=== PATIENT | male | born 1945 | race Caucasian/White ===

== ENCOUNTER 2017-12-31 22:19 | Inpatient (IN) | payer MEDICARE, OTHER ==
[~2017-12-31] VITALS: Ht 165.1 cm; Wt 57.2 kg
[2017-12-31] MEDS ORDERED: AZITHROMYCIN 250 MG TAB PO STA (22:38)
[2017-12-31] MEDS ORDERED: CEFTRIAXONE SOD INJ 1 GM ADDVIAL IV STA (22:38)
[2017-12-31] MEDS ORDERED: METHYLPREDNISOLONE 125 MG VIAL IV STA (22:38)
--- NOTE | 2017-12-31 22:42 | EMERGENCY ROOM VISIT NOTE ---
History Report prepared by Cathleen: Jose Michael Under the Supervision of: Dr. Harley Vargas M.D. First contact with patient: 22:27 Chief Complaint: RESPIRATORY PROBLEMS Stated Complaint: COPD History of Present Illness The patient is a 72 year old white male with a past medical history of COPD, bronchitis and HTN who presents to the ED with a cc of worsening shortness of breath beginning two hours ago. The patient states that he is currently on Levaquin and Prednisone for bronchitis, which he started two days ago. He states that his shortness of breath worsened over the last two days, The patient states that he used his inhaler for his symptoms without any relief. Positive productive cough with yellow mucous, influenza shot, diarrhea. Negative history of blood clots, chest pain, fevers, LE edema, nausea, vomiting. The patient states that he had smoked for 45 years but ceased smoking 4 years ago. He reports that he wears 2L of oxygen at night. Source of History: patient Onset: two hours ago Position: other (global) Quality: other (global) Timing: worsening Modifying Factors (Relieving): other (inhaler) Associated Symptoms: + cough, + diarrhea, No fevers, No chest pain, No nausea, No vomiting Review of Systems See HPI for pertinent positives and negatives. A total of ten systems were reviewed and were otherwise negative. Past Medical & Surgical Medical Problems: (1) Bronchitis (2) COPD (chronic obstructive pulmonary disease) (3) HTN (hypertension) (4) Respiratory failure, acute Family History Patient reports no known family medical history. Social History Smoking Status: Former Smoker Housing Status: lives with significant other Occupation Status: retired Current/Historical Medications Scheduled Albuterol Sulfate (Albuterol Sulfate), 3 ML NEB Q6 Aspirin (Aspirin Ec), 81 MG PO DAILY Azithromycin (Zithromax), 500 MG PO 3XWK Bisoprolol Fumarate (Zebeta), 2.5 MG PO DAILY Brimonidine Tartrate Oph (Alphagan P Oph), 1 DROP OPR BID Budesonide (Inhalation) (Pulmicort Respules 0.5MG/2ML), 2 ML INH DAILY Budesonide/Formoterol Fumarate (Symbicort 160-4.5 Mcg/Act), 2 PUFFS INH BID Cholecalciferol (Vitamin D3), 4,000 UNITS PO DAILY Clotrimazole (Mycelex), 10 MG MT DAILY Dorzolamide Hcl (Trusopt Oph), 1 DROPS OP BID Famotidine-Calcium Carbonate-M (Pepcid Complete), 1 TAB PO DAILY Latanoprost (Xalatan 0.005% Oph Hanane), 1 DROPS OP HS Levofloxacin (Levaquin), 250 MG PO DAILY Losartan Potassium (Cozaar), 25 MG PO BID Pancrelipase (Lipase-Protease- (Pancreaze), 2 CAP PO AC Pantoprazole (Protonix), 40 MG PO DAILY Prednisone (Prednisone), 20 MG PO DAILY/UD Pseudoephedrine-Guaifenesin (Mucinex D), 1 TAB PO DAILY Tamsulosin Hcl (Flomax), 0.4 MG PO DAILY Tiotropium Lipan (Spiriva Respimat), 2 PUFF INH DAILY Scheduled PRN Albuterol Sulfate (Proair Respiclick), 2 PUFFS INH Q4H PRN for SOB/Wheezing Allergies Coded Allergies: Sulfa Antibiotics (Verified Allergy, Intermediate, Rash ("SULFA"), 01/01/18 ) Lactose. (Verified Allergy, Unknown, Lactose intolerant., 01/01/18) Physical Exam Vital Signs Date Time Temp Pulse Resp B/P (MAP) Pulse Ox O2 Delivery O2 Flow Rate FiO2 01/01/18 00:30 250 01/01/18 00:20 115 01/01/18 00:18 118 18 143/85 98 BiPAP 40 01/01/18 00:10 121 98 40 12/31/17 23:39 117 100 40 12/31/17 23:17 110 28 155/92 98 Nebulizer 12/31/17 23:05 111 12/31/17 22:43 112 22 96 Nasal Cannula 4.0 12/31/17 22:35 Nasal Cannula 3.0 12/31/17 22:33 96 Nasal Cannula 3.0 12/31/17 22:31 97 Nasal Cannula 3.0 12/31/17 22:23 36.8 120 28 175/115 96 Nasal Cannula 3.0 Physical Exam GENERAL: Thin appearing, awake, alert, well-appearing, in distress HENT: Normocephalic, atraumatic. EYES: Normal conjunctiva. Sclera non-icteric. NECK: Supple. No nuchal rigidity. FROM. RESPIRATORY: CTAB, shallow breaths, no rhonchi, trace expiratory wheezes, no crackles, tachypneic CARDIAC: tachycardic, regular rhythm, no MRG ABDOMEN: Soft, NTND, BS+ MSK: No chest wall TTP, no LE edema NEURO: GCS 15, CN 2-12 intact, moves all 4s on command SKIN: No rash or jaundice noted. Medical Decision & Procedures ER Provider Diagnostic Interpretation: X-ray: Per my interpretation, radiologist review. CHEST ONE VIEW PORTABLE CLINICAL HISTORY: 72 years-old Male presenting with EVALUATE RESPIRATORY DISTRESS.DYSPNEA. TECHNIQUE: Portable upright AP view of the chest was obtained. COMPARISON: None. FINDINGS: Atherosclerosis of the aortic arch. Cardiac silhouette normal in size. Lungs hyperinflated. Opacity in the right paratracheal region. No pleural effusion or pneumothorax. Degenerative changes of the thoracic spine. IMPRESSION: 1. Right paratracheal opacity, indeterminate but suspicious for a pulmonary mass. Further evaluation with PA and lateral views versus chest CT to be considered. 2. Hyperinflated lungs could suggest underlying emphysema. The report will be called/faxed according to standard departmental protocol. Electronically signed by: Sahil Randolph M.D. 12/31/2017 11:02 PM Dictated Date/Time: 12/31/2017 11:00 PM BEDSIDE ULTRASOUND: Good Squeeze. No pericardial effusion. IVC collapsible with respirations. Laboratory Results 12/31/17 22:45 Red Blood Count 4.27, Mean Corpuscular Volume 92.7, Mean Corpuscular Hemoglobin 32.1, Mean Corpuscular Hemoglobin Concent 34.6, Mean Platelet Volume 8.9, Neutrophils (%) (Auto) 93.5, Lymphocytes (%) (Auto) 1.7, Monocytes (%) (Auto) 3.9, Eosinophils (%) (Auto) 0.1, Basophils (%) (Auto) 0.3, Neutrophils # (Auto) 9.71, Lymphocytes # (Auto) 0.18, Monocytes # (Auto) 0.40, Eosinophils # (Auto) 0.01, Basophils # (Auto) 0.03 12/31/17 22:45 Test 12/31/17 22:41 12/31/17 22:45 12/31/17 22:50 12/31/17 22:54 Influenza Type A Antigen Neg for Influ A (NEG) Influenza Type B Antigen Neg for Influ B (NEG) White Blood Count 10.38 K/uL (4.8-10.8) Red Blood Count 4.27 M/uL (4.7-6.1) Hemoglobin 13.7 g/dL (14.0-18.0) Hematocrit 39.6 % (42-52) Mean Corpuscular Volume 92.7 fL (80-100) Mean Corpuscular Hemoglobin 32.1 pg (25-34) Mean Corpuscular Hemoglobin Concent 34.6 g/dl (32-36) Platelet Count 394 K/uL (130-400) Mean Platelet Volume 8.9 fL (7.4-10.4) Neutrophils (%) (Auto) 93.5 % Lymphocytes (%) (Auto) 1.7 % Monocytes (%) (Auto) 3.9 % Eosinophils (%) (Auto) 0.1 % Basophils (%) (Auto) 0.3 % Neutrophils # (Auto) 9.71 K/uL (1.4-6.5) Lymphocytes # (Auto) 0.18 K/uL (1.2-3.4) Monocytes # (Auto) 0.40 K/uL (0.11-0.59) Eosinophils # (Auto) 0.01 K/uL (0-0.5) Basophils # (Auto) 0.03 K/uL (0-0.2) RDW Standard Deviation 44.7 fL (36.4-46.3) RDW Coefficient of Variation 13.2 % (11.5-14.5) Immature Granulocyte % (Auto) 0.5 % Immature Granulocyte # (Auto) 0.05 K/uL (0.00-0.02) Nucleated RBC Absolute Count (auto) 0.00 K/uL (0-0) Nucleated Red Blood Cells % 0.0 % Absolute Reticulocyte Count 0.05 10^6/uL (0.02-0.10) Percent Reticulocyte Count 1.3 % (0.5-2.0) Prothrombin Time 10.4 SECONDS (9.0-12.0) Prothromb Time International Ratio 1.0 (0.9-1.1) Activated Partial Thromboplast Time 27.2 SECONDS (21.0-31.0) Partial Thromboplastin Ratio 1.0 Venous Blood pH 7.39 (7.36-7.41) Anion Gap 10.0 mmol/L (3-11) Est Creatinine Clear Calc Drug Dose 36.9 ml/min Estimated GFR () 60.1 Estimated GFR (Non- 51.8 BUN/Creatinine Ratio 24.0 (10-20) Calcium Level 9.3 mg/dl (8.5-10.1) Total Bilirubin 0.2 mg/dl (0.2-1) Aspartate Amino Transf (AST/SGOT) 37 U/L (15-37) Alanine Aminotransferase (ALT/SGPT) 41 U/L (12-78) Alkaline Phosphatase 75 U/L (45-117) Total Creatine Kinase 178 U/L (39-308) Pro-B-Type Natriuretic Peptide 1164 pg/ml (0-900) Total Protein 7.1 gm/dl (6.4-8.2) Albumin 3.6 gm/dl (3.4-5.0) Globulin 3.5 gm/dl (2.5-4.0) Albumin/Globulin Ratio 1.0 (0.9-2) Bedside Lactic Acid Venous 4.44 mmol/L (0.90-1.70) Bedside Troponin I 0.040 ng/ml (0-0.045) Test 01/01/18 00:31 Arterial Blood pH 7.41 (7.35-7.45) Arterial Blood Partial Pressure CO2 39 mmHg (35-46) Arterial Blood Partial Pressure O2 208 mm/Hg (80-95) Arterial Blood HCO3 24 mmol/L (19-24) Arterial Blood Oxygen Saturation 99.6 % (90-95) Arterial Blood Base Excess -0.1 mEq/L (-9-1.8) Arterial Blood Gas Delivery 40% FiO2 Albino Test POS (POS) Lactic Acid Level 4.3 mmol/L (0.4-2.0) Magnesium Level 1.7 mg/dl (1.8-2.4) Iron Level 71 mcg/dl (35-175) Total Iron Binding Capacity 312 mcg/dl (250-450) Transferrin 236 mg/dl (200-360) Transferrin % Saturation 21 % (20-50) Ferritin 105.8 ng/ml (8.0-388.0) Vitamin B12 Level 439 pg/mL (211-911) Folate 7.16 ng/mL (>5.38) Thyroid Stimulating Hormone (TSH) 0.149 uIu/ml (0.300-4.500) Laboratory results reviewed by me Medications Administered Medications (Trade) Dose Ordered Sig/Luis Miguel Route Start Time Stop Time Status Last Admin Dose Admin Albuterol/ Ipratropium (Duoneb) 12 ml ONE ONCE INH 12/31/17 22:45 12/31/17 22:46 DC 12/31/17 22:43 12 ML Azithromycin (Zithromax Tab) 500 mg NOW STAT PO 12/31/17 22:38 12/31/17 22:40 DC 12/31/17 23:02 500 MG Ceftriaxone Sodium (Rocephin Inj) 1 gm NOW STAT IV 12/31/17 22:38 12/31/17 22:40 DC 12/31/17 23:02 1 GM Methylprednisolone Sodium Succinate (Solu-Medrol IV) 125 mg NOW STAT IV 12/31/17 22:38 12/31/17 22:40 DC 12/31/17 23:00 125 MG Sodium Chloride 1,000 ml @ 999 mls/hr Q1H1M STAT IV 12/31/17 22:55 12/31/17 23:55 DC 12/31/17 23:02 999 MLS/HR Lorazepam (Ativan Inj) 2 mg STK-MED ONCE .ROUTE 01/01/18 00:06 01/01/18 00:07 DC 01/01/18 00:12 2 MG Sodium Chloride 1,000 ml @ 999 mls/hr Q1H1M IV 01/01/18 00:30 01/31/18 00:29 01/01/18 00:30 999 MLS/HR Magnesium Sulfate (Magnesium Sulfate) 1 gm NOW STAT IV 01/01/18 00:27 01/01/18 00:28 DC 01/01/18 00:47 1 GM Diltiazem HCl (Cardizem Inj) 25 mg STK-MED ONCE .ROUTE 01/01/18 00:32 01/01/18 00:33 DC 01/01/18 00:50 10 MG ECG Per My Interpretation Indication: SOB/dyspnea Rate (beats per minute): 111 Rhythm: sinus tachycardia Findings: other (Normal intervals, normal axis, some motion artifact, No overt STS changes or TWI) ED Course 2231: The patient was evaluated in room A10. A complete history and physical exam was performed. 2347: I reevaluated the patient and performed a bedside ultrasound. See diagnostic interpretation for further evaluation. 0001: I discussed the patients case with Dr. Aponte, [facility] Hospitalist. He understands the patients condition and agrees to accept the patient. The patient will be further evaluated. 0008: I reevaluated the patient and he is still experiencing shortness of breath. I will order Ativan to calm him down and we will try another BiPAP. 0017: I reevaluated the patient and he is starting BiPAP. Medical Decision Prior records/ancillary studies reviewed. Triage Nursing notes reviewed. The patient is a 72 year old white male with a past medical history of COPD, bronchitis and HTN who presents to the ED with a cc of worsening shortness of breath beginning two hours ago. The patient's history and presentation were concerning for etiologies such as infections, reactive airway disease, pneumonia, pneumothorax, COPD, CHF, cardiac ischemia, pulmonary embolism, musculoskeletal, gastrointestinal, as well as others were entertained. Patient was seen and evaluated the bedside. Patient is a prior history of COPD and states that he became short of breath while at the hockey game today. Patient denies any prior history of DVT or PE. Patient did quit smoking 4 years prior but did have a 45 year smoking history. Was recently started on Levaquin and steroids. Patient does have shallow breath sounds and mild end expiratory wheezes. He does have pretty tight. Patient was treated with duo nebs, Solu-Medrol, azithromycin, and fluids. Also did attempt to trial the patient on BiPAP however the patient did not tolerate this well. Patient did have a mild laxative for. Patient's chest x-ray was clear with the exception of a possible paratracheal mass. He CT PE protocol was ordered after bedside ultrasound was completed. Patient appeared to have good sweeties and his IVC did show some respiratory variation. No evidence of any RV septal bowing into the LV. I did discuss with the patient that he may require a breathing tube as the patient had not tolerated the BiPAP prior and the patient was not improving. The patient was willing to try a second time. The patient was given some IV Ativan and then was able to tolerate the BiPAP without issue. I did order some additional mag and fluids. I did speak with the hospitalist the patient was admitted for further evaluation and treatment. Medication Reconcilliation Current Medication List: was personally reviewed by me Blood Pressure Screening Patient's blood pressure: Elevated blood pressure Referred to Hospitalist Consults Time Called: [id number] Consulting Physician: Connor Luna Hospitalist Returned Call: [phone] I discussed the patients case with [facility]. He understands the patients condition and agrees to accept the patient. The patient will be further evaluated. Impression Primary Impression: Acute respiratory failure with hypoxia Additional Impression: COPD exacerbation Critical Care I have personally spent greater than 55 minutes of critical care time in the direct management of this patient. This includes bedside care, interpretation of diagnostic studies, and testing, discussion with consultants, patient, and family members, and other required patient management activities. This 55 minutes is in excess of all separately billable procedures. Scribe Attestation The scribe's documentation has been prepared under my direction and personally reviewed by me in its entirety. I confirm that the note above accurately reflects all work, treatment, procedures, and medical decision making performed by me. Departure Information Dispostion Being Evaluated By Hospitalist Referrals Charles Pitt M.D. (PCP) Patient Instructions My [facility] Problem Qualifiers
[2017-12-31 22:43] VITALS: PULSE 112; O2SAT 96
[2017-12-31] MEDS ORDERED: ALBUT/IPRATROP 3MG/0.5MG NEB 3 ML VIAL INH ONE (22:45)
[2017-12-31] MEDS ORDERED: SODIUM CHLORIDE 0.9% 1000ML 1,000 ML IV STA (22:55)
--- NOTE | 2017-12-31 23:03 | DIAGNOSTIC IMAGING REPORT ---
CHEST ONE VIEW PORTABLE CLINICAL HISTORY: 72 years-old Male presenting with EVALUATE RESPIRATORY DISTRESS.DYSPNEA. TECHNIQUE: Portable upright AP view of the chest was obtained. COMPARISON: None. FINDINGS: Atherosclerosis of the aortic arch. Cardiac silhouette normal in size. Lungs hyperinflated. Opacity in the right paratracheal region. No pleural effusion or pneumothorax. Degenerative changes of the thoracic spine. IMPRESSION: 1. Right paratracheal opacity, indeterminate but suspicious for a pulmonary mass. Further evaluation with PA and lateral views versus chest CT to be considered. 2. Hyperinflated lungs could suggest underlying emphysema. The report will be called/faxed according to standard departmental protocol. Electronically signed by: Sahil Randolph M.D. 12/31/2017 11:02 PM Dictated Date/Time: 12/31/2017 11:00 PM
[2017-12-31 23:06] LABS: BASO % 0.3 %; BASO ABS # 0.03 K/uL (0-0.2); EOS % 0.1 %; EOS ABS # 0.01 K/uL (0-0.5); HEMATOCRIT 39.6 % (42-52); HEMOGLOBIN 13.7 g/dL (14.0-18.0); IG# 0.05 K/uL (0.00-0.02); LYMPH % 1.7 %; LYMPH ABS # 0.18 K/uL (1.2-3.4); MEAN CELL VOLUME 92.7 fL (80-100); MEAN CORPUSCULAR HEMOGLOBIN 32.1 pg (25-34); MEAN CORPUSCULAR HGB CONC 34.6 g/dl (32-36); MEAN PLATELET VOLUME 8.9 fL (7.4-10.4); MONO % 3.9 %; NEUT % 93.5 %; NEUT ABS # 9.71 K/uL (1.4-6.5); PLATELET COUNT 394 K/uL (130-400); RED CELL DISTRIBUTION WIDTH CV 13.2 % (11.5-14.5); RED CELL DISTRIBUTION WIDTH SD 44.7 fL (36.4-46.3); WHITE BLOOD COUNT 10.38 K/uL (4.8-10.8)
[2017-12-31 23:15] LABS: PTT PATIENT 27.2 SECONDS (21.0-31.0)
[2017-12-31 23:23] LABS: ALBUMIN 3.6 gm/dl (3.4-5.0); CALCIUM 9.3 mg/dl (8.5-10.1); CREATININE 1.34 mg/dl (0.60-1.40); POTASSIUM 4.4 mmol/L (3.5-5.1)
[2017-12-31 23:27] LABS: TOTAL PROTEIN 7.1 gm/dl (6.4-8.2)
[2017-12-31 23:30] LABS: INFLUENZA B ANTIGEN Neg for Influ B (NEG)
[2017-12-31 23:39] VITALS: PULSE 117; O2SAT 100
[2017-12-31] MEDS ORDERED: PATIENT'S ALLERGY INFO NEEDS ENTERED STA (23:57)
[2018-01-01] VITALS (21 sets, daily range): BP systolic 121–142; BP diastolic 66–88; PULSE 77–121; TEMP 36.4–36.5; O2SAT 93–100; BMI 20.8
[2018-01-01] MEDS ORDERED: RAPID SEQUENCE INDUCTION BAG ONE
[2018-01-01] MEDS ORDERED: OPTIRAY 320 IV PRN
[2018-01-01] MEDS ORDERED: LORAZEPAM 2 MG/ML 1 ML VIAL IV STA (00:06)
[2018-01-01] MEDS ORDERED: LORAZEPAM 2 MG/ML 1 ML VIAL ONE (00:06)
[2018-01-01] MEDS ORDERED: ASPI81TA28 PO (00:27)
[2018-01-01] MEDS ORDERED: MAGNESIUM SULFATE 1GM / D5W 1 GM BAG IV STA (00:27)
[2018-01-01] MEDS ORDERED: LOSA1TAB PO (00:28)
[2018-01-01] MEDS ORDERED: DILTIAZEM HCL 5 MG/ML 5 ML VIAL IV STA (00:29)
[2018-01-01] MEDS ORDERED: SODIUM CHLORIDE 0.9% 1000ML 1,000 ML IV SCH ×4 (00:30→04:45)
[2018-01-01] MEDS ORDERED: BISO5TAB3 PO (00:31)
[2018-01-01] MEDS ORDERED: DILTIAZEM HCL 5 MG/ML 5 ML VIAL ONE (00:32)
[2018-01-01] MEDS ORDERED: PANCCAP2 PO (00:34)
[2018-01-01] MEDS ORDERED: PANT40TA PO (00:35)
[2018-01-01] MEDS ORDERED: FAMOCHW27 PO (00:36)
[2018-01-01] MEDS ORDERED: CHOL2000 PO (00:37)
[2018-01-01] MEDS ORDERED: PSEU60TA80 PO (00:40)
[2018-01-01 00:41] LABS: RETIC COUNT % 1.3 % (0.5-2.0)
[2018-01-01] MEDS ORDERED: SYMIN INH (00:42)
[2018-01-01] MEDS ORDERED: TIOT1AER2 INH (00:44)
[2018-01-01] MEDS ORDERED: ALBU1.257 NEB (00:46)
[2018-01-01] MEDS ORDERED: PLMINS INH (00:49)
[2018-01-01] MEDS ORDERED: ALBU18002 INH (00:50)
[2018-01-01] MEDS ORDERED: TAMS0.4C38 PO (00:51)
[2018-01-01] MEDS ORDERED: CLOT10TR2 MT (00:52)
[2018-01-01] MEDS ORDERED: LATA0.5S OP (00:53)
[2018-01-01] MEDS ORDERED: DORZ2SOL17 OP (00:55)
[2018-01-01] MEDS ORDERED: AMPICILLIN/SULBACTAM SOD INJ 3,000 MG in SODIUM CHLORIDE 0.9% 100ML 100 ML IV STA (00:56)
[2018-01-01] MEDS ORDERED: BRIM0.15 OPR (00:57)
[2018-01-01] MEDS ORDERED: HEPARIN 25000 UNIT/500 ML D5W ONE (00:59)
[2018-01-01] MEDS ORDERED: METOPROLOL TARTRATE 1 MG/ML VIAL IV STA (00:59)
[2018-01-01] MEDS ORDERED: AZIT500T PO (01:01)
[2018-01-01] MEDS ORDERED: INSULIN ASPART 100 UNITS/ML 3 ML PEN SC ONE (01:12)
[2018-01-01] MEDS ORDERED: NITROGLYCERIN 0.4 MG SL PER TAB CHARGE SL PRN (01:15)
[2018-01-01] MEDS ORDERED: GLUCAGON FOR INJ 1 MG VIAL SQ PRN (01:15)
[2018-01-01] MEDS ORDERED: LEVALBUTEROL/IPRATROPIUM NEB INH PRN (01:15)
[2018-01-01] MEDS ORDERED: GLUCOSE 10 TABS/TUBE PO PRN (01:15)
[2018-01-01] MEDS ORDERED: DIGOXIN INJ 500 MCG/2 ML AMP ONE (01:15)
[2018-01-01] MEDS ORDERED: DEXTROSE 50% 50 ML SYR IV PRN (01:15)
[2018-01-01] MEDS ORDERED: DIGOXIN IV 250 MCG in SYRINGE 9 ML IV ONE (01:15)
[2018-01-01] MEDS ORDERED: GLUCOSE 40% GEL 15 GM TUBE PO PRN (01:15)
[2018-01-01] MEDS ORDERED: TRAMADOL HCL 50 MG TAB PO PRN (01:15)
[2018-01-01] MEDS ORDERED: PROCHLORPERAZINE INJ 5 MG in SYRINGE 4 ML IV PRN (01:15)
[2018-01-01] MEDS ORDERED: ACETAMINOPHEN 325 MG TAB PO PRN (01:15)
[2018-01-01] MEDS ORDERED: LEVO-17 PO (01:21)
[2018-01-01] MEDS ORDERED: PRED20TA PO (01:24)
[2018-01-01] MEDS ORDERED: SODIUM CHLORIDE 0.9% 1000ML 1,000 ML IV STA (01:34)
[2018-01-01] MEDS ORDERED: DOXYCYCLINE IV 100 MG in DEXTROSE 5% 100ML 100 ML IV ONE (01:41)
[2018-01-01] MEDS ORDERED: PIPERACILLIN/TAZOBACTAM 4.5 GM/100ML D5W IV STA (01:41)
[2018-01-01] MEDS ORDERED: ICU PROTOCOL FOR HYPERGLYCEMIA PRN (02:00)
[2018-01-01] MEDS ORDERED: LEVALBUTEROL/IPRATROPIUM NEB INH SCH (03:00)
[2018-01-01] MEDS: LORAZEPAM 2 MG/ML 1 ML VIAL IV PRN ×2 (03:15→17:12)
[2018-01-01] MEDS ORDERED: INSULIN GLARGINE SOLOSTAR 100 UNITS/ML 3 ML PEN SC ONE (04:30)
[2018-01-01 04:53] LABS: HEMATOCRIT 31.7 % (42-52); HEMOGLOBIN 10.9 g/dL (14.0-18.0); IG# 0.03 K/uL (0.00-0.02); LYMPH % 2.8 %; MEAN CELL VOLUME 93.5 fL (80-100); MEAN CORPUSCULAR HEMOGLOBIN 32.2 pg (25-34); MEAN CORPUSCULAR HGB CONC 34.4 g/dl (32-36); MEAN PLATELET VOLUME 8.4 fL (7.4-10.4); MONO % 2.8 %; NEUT ABS # 6.63 K/uL (1.4-6.5); PLATELET COUNT 245 K/uL (130-400); RED CELL DISTRIBUTION WIDTH CV 13.5 % (11.5-14.5); RED CELL DISTRIBUTION WIDTH SD 45.7 fL (36.4-46.3); WHITE BLOOD COUNT 7.06 K/uL (4.8-10.8)
[2018-01-01] MEDS ORDERED: IPRATROPIUM BROMIDE NEB SOLN 0.02% 2.5 ML VIAL INH PRN (05:00)
[2018-01-01] MEDS ORDERED: LEVALBUTEROL 1.25MG/0.5ML NEB INH PRN (05:00)
[2018-01-01] MEDS: DOXYCYCLINE IV 100 MG in DEXTROSE 5% 100ML 100 ML IV SCH ×2 (05:04→16:19)
[2018-01-01 05:17] LABS: CALCIUM 7.9 mg/dl (8.5-10.1); CREATININE 0.97 mg/dl (0.60-1.40)
[2018-01-01] MEDS ORDERED: SODIUM CHLORIDE 0.45% 1000ML 1,000 ML IV STA (05:20)
[2018-01-01 05:39] LABS: ALBUMIN 2.8 gm/dl (3.4-5.0)
[2018-01-01] MEDS ORDERED: RASPBERRY SYRUP 5 ML UDP PO ONE (05:45)
[2018-01-01] MEDS ORDERED: VANCOMYCIN HCL 125 MG/2.5ML SOLN PO ONE (05:45)
[2018-01-01 05:47] LABS: INFLUENZA A PCR Neg for Influ A (NEG); INFLUENZA B PCR Neg for Influ B (NEG)
[2018-01-01 06:22] LABS: PTT PATIENT 60.7 SECONDS (21.0-31.0)
[2018-01-01] MEDS ORDERED: PANCREAZE (LIPASE 10,500U) CAP PO SCH (06:45)
[2018-01-01] MEDS: INSULIN ASPART 100 UNITS/ML 3 ML PEN SC SCH ×3 (06:57→16:25)
[2018-01-01] MEDS: LEVALBUTEROL 1.25MG/0.5ML NEB INH SCH ×3 (07:30→18:57)
[2018-01-01] MEDS: IPRATROPIUM BROMIDE NEB SOLN 0.02% 2.5 ML VIAL INH SCH ×3 (07:30→18:57)
[2018-01-01] MEDS ORDERED: AMOXICILLIN/CLAVULANATE TAB 875 MG TAB PO SCH (08:00)
[2018-01-01] MEDS: PANTOprazole SOD 40 MG TAB PO SCH (08:04)
[2018-01-01] MEDS: TAMSULOSIN HCL 0.4 MG CAP PO SCH (08:04)
[2018-01-01] MEDS: ASPIRIN 81 MG ECTAB PO SCH (08:05)
[2018-01-01] MEDS: DORZOLAMIDE HCL 2% OPH SOLN 10 ML BTL OP SCH ×2 (08:05→21:00)
[2018-01-01] MEDS: BRIMONIDINE TARTRATE-P 0.15% 5 ML BTL OPR SCH ×2 (08:07→21:00)
[2018-01-01] MEDS: SODIUM CHLORIDE 0.9% 1000ML 1,000 ML IV SCH ×2 (08:07→11:27)
--- NOTE | 2018-01-01 08:12 | DIAGNOSTIC IMAGING REPORT ---
CT ANGIOGRAM OF THE CHEST CLINICAL HISTORY: Dyspnea. Tachycardia. COMPARISON STUDY: Chest x-ray dated 12/31/2017. TECHNIQUE: Following the IV administration of 98 cc of Optiray 320, CT angiogram of the chest was performed from the upper abdomen to the thoracic inlet utilizing the pulmonary embolus protocol. Images are reviewed in the axial, sagittal, and coronal planes. 3-D MIPS images are created and assessed. IV contrast was administered without complication. A dose lowering technique was utilized adhering to the principles of ALARA. The examination is degraded by streak artifact from the patient's arms which could not be elevated above the chest. CT DOSE: 223.53 mGy.cm FINDINGS: Thyroid: Imaged portions of the thyroid gland are normal in size and attenuation. Thoracic aorta: There is mild atherosclerotic calcification of the thoracic aorta, which is normal in caliber and demonstrates standard 3-vessel arch anatomy. No dissection is seen. Pulmonary vasculature: The pulmonary trunk is normal in caliber. There are no filling defects identified in main, lobar, or segmental pulmonary branches to suggest pulmonary embolus. Heart: The heart is normal in size and configuration, and without pericardial effusion. There are coronary artery calcifications. Lungs and pleural spaces: There is advanced emphysema and biapical scarring. The trachea and central airways are clear. There is no airspace consolidation or pleural effusion. Mediastinum: There is no mediastinal lymphadenopathy. Lakisha: Clear. Axillae: There is no axillary lymphadenopathy. Upper abdomen: Partially visualized upper abdominal viscera is within normal limits. Gynecomastia is noted. Skeletal structures: The skeletal structures are osteopenic. Degenerative change and hyperkyphosis are noted in the thoracic spine. Arthritic change is seen in the shoulders. No lytic or blastic bony lesions are seen. IMPRESSION: 1. There is no evidence of pulmonary embolus in the main, lobar, or segmental pulmonary arteries. 2. Advanced emphysema. 3. There is no airspace consolidation or pleural effusion. 4. No paratracheal lesion is identified. The x-ray findings was artifactual. Electronically signed by: Madhav Quach M.D. 01/01/2018 8:10 AM Dictated Date/Time: 01/01/2018 8:05 AM
[2018-01-01] MEDS ORDERED: MAGNESIUM HYDROXIDE PO SCH (09:00)
[2018-01-01] MEDS ORDERED: BISOPROLOL FUMARATE 2.5 MG PO SCH (09:00)
[2018-01-01] MEDS ORDERED: LOSARTAN POTASSIUM 25 MG TAB PO SCH (09:00)
[2018-01-01] MEDS ORDERED: CALCIUM CARBONATE PO SCH (09:00)
[2018-01-01] MEDS ORDERED: CONSULT PHARMACY SCH (09:00)
[2018-01-01] MEDS ORDERED: FAMOTIDINE PO SCH (09:00)
--- NOTE | 2018-01-01 09:04 | DIAGNOSTIC IMAGING REPORT ---
SINGLE VIEW CHEST CLINICAL HISTORY: Respiratory distress. FINDINGS: An AP, portable, upright chest radiograph is compared to study dated 12/31/2017 and correlated with chest CT performed the same day 01/01/2018. The examination is degraded by portable technique, apical lordotic positioning, and patient rotation. The cardiomediastinal silhouette is unremarkable. There is atherosclerotic calcification of the thoracic aorta. Enlargement the central pulmonary arteries suggests pulmonary artery hypertension. Advanced emphysema and apical scarring is similar to previous. No airspace consolidation or large pleural effusion is identified. No pneumothorax is seen. The skeletal structures are osteopenic. The bony thorax is grossly intact. IMPRESSION: Advanced emphysema with no acute cardiopulmonary abnormality. Electronically signed by: Madhav Quach M.D. 01/01/2018 9:02 AM Dictated Date/Time: 01/01/2018 9:01 AM
--- NOTE | 2018-01-01 09:31 | ECHOCARDIOGRAM REPORT ---
*NOTICE TO RECEIVING LIBERTARIAN AGENCY This information is strictly Confidential and protected under [place] law. [place] law prohibits you from making any further disclosure of this information unless further disclosure is expressly permitted by the written consent of the person to whom it pertains or is authorized by law. A general authorization for the release of medical or other information is not sufficient for this purpose. Hospital accepts no responsibility if the information is made available to any other person, INCLUDING THE PATIENT. Interpretation Summary * Name: LENARD ALVARADO Study Date: 01/01/2018 07:03 AM BP: 134/74 mmHg * [facility] HR: 89 * : 1945 (M/d/yyyy) Gender: Male Height: 65 in * Age: 72 yrs Ethnicity: [place] Weight: 118 lb * Ordering Physician: Emigdio Aponte * Referring Physician: Self, Referred * Performed By: Millicent Prasad RDCS * * Reason For Study: Atrial Fibrillation * BSA: 1.6 m2 * Grossly normal valvular structure and function. * -- Conclusions -- * Aortic valve sclerosis mild, without significant aortic valvular stenosis. * The left ventricle is normal in size. * Left ventricular systolic function is normal. * Ejection Fraction = 55-60%. * The right ventricular systolic function is normal. * The left atrial size is normal. * Right atrial size is normal. * Grossly normal valvular structure and function. Procedure Details * A complete two-dimensional transthoracic echocardiogram was performed (2D, M-mode, Doppler and color flow Doppler). Left Ventricle * The left ventricle is normal in size. * There is normal left ventricular wall thickness. * Ejection Fraction = 55-60%. * Left ventricular systolic function is normal. * The left ventricular wall motion is normal. Right Ventricle * The right ventricle is normal size. * The right ventricular systolic function is normal. Atria * The left atrial size is normal. * Right atrial size is normal. * No ASD detected; PFO is not assessed. Mitral Valve * The mitral valve is grossly normal. * Significant mitral regurgitation is absent. Tricuspid Valve * The tricuspid valve is not well visualized. * Significant tricuspid regurgitation is absent. Aortic Valve * Aortic valve sclerosis mild, without significant aortic valvular stenosis. * There is no significant aortic regurgitation. Pulmonic Valve * The pulmonic valve is not well seen, but is grossly normal. * There is no pulmonic valvular regurgitation. Great Vessels * The aortic root and proximal ascending aorta are normal sized. Pericardium/Pleural * There is no pericardial effusion. MMode 2D Measurements and Calculations IVSd 0.76 cm IVSs 1.1 cm LVIDd 4.0 cm LVIDs 2.8 cm LVPWd 1.1 cm LVPWs 1.3 cm IVS/LVPW 0.69 FS 28.9 % EDV(Teich) 70.2 ml ESV(Teich) 30.9 ml EF(Teich) 56.1 % EDV(cubed) 64.3 ml ESV(cubed) 23.1 ml EF(cubed) 64.0 % % IVS thick 39.6 % % LVPW thick 22.0 % LV mass(C)d 115.6 grams LV mass(C)dI 73.1 grams/m\S\2 LV mass(C)s 102.5 grams LV mass(C)sI 64.8 grams/m\S\2 SV(Teich) 39.4 ml SI(Teich) 24.9 ml/m\S\2 SV(cubed) 41.1 ml SI(cubed) 26.0 ml/m\S\2 Ao root diam 3.1 cm Ao root area 7.4 cm\S\2 ACS 1.6 cm LA dimension 2.0 cm LA/Ao 0.66 LVAd ap4 18.1 cm\S\2 LVLd ap4 6.6 cm EDV(MOD-sp4) 43.7 ml EDV(sp4-el) 42.5 ml LVAs ap4 10.4 cm\S\2 LVLs ap4 5.5 cm ESV(MOD-sp4) 17.2 ml ESV(sp4-el) 16.8 ml EF(MOD-sp4) 60.6 % EF(sp4-el) 60.4 % LVAd ap2 19.4 cm\S\2 LVLd ap2 6.8 cm EDV(MOD-sp2) 48.9 ml EDV(sp2-el) 47.0 ml LVAs ap2 11.4 cm\S\2 LVLs ap2 6.1 cm ESV(MOD-sp2) 21.2 ml ESV(sp2-el) 17.9 ml EF(MOD-sp2) 56.6 % EF(sp2-el) 62.0 % LVLd %diff 3.2 % EDV(MOD-bp) 45.7 ml LVLs %diff 10.6 % ESV(MOD-bp) 19.0 ml EF(MOD-bp) 58.4 % SV(MOD-sp4) 26.5 ml SI(MOD-sp4) 16.8 ml/m\S\2 SV(MOD-sp2) 27.7 ml SI(MOD-sp2) 17.5 ml/m\S\2 SV(MOD-bp) 26.7 ml SI(MOD-bp) 16.9 ml/m\S\2 SV(sp4-el) 25.7 ml SI(sp4-el) 16.3 ml/m\S\2 SV(sp2-el) 29.1 ml SI(sp2-el) 18.4 ml/m\S\2 Doppler Measurements and Calculations MV E max erica 93.3 cm/sec MV A max erica 79.8 cm/sec MV E/A 1.2 MV dec time 0.21 sec Ao V2 max 121.7 cm/sec Ao max PG 5.9 mmHg Ao max PG (full) 2.5 mmHg LV V1 max PG 3.4 mmHg LV V1 max 92.7 cm/sec PA V2 max 100.5 cm/sec PA max PG 4.1 mmHg TR max erica 270.0 cm/sec
--- NOTE | 2018-01-01 09:48 | HISTORY & PHYSICAL EXAMINATION ---
DATE OF ADMISSION: 01/01/2018 PRIMARY CARE PHYSICIAN: Dr. Pitt. CHIEF COMPLAINT: Shortness of breath. HISTORY OF PRESENT ILLNESS: History obtained from patient and records. Recent confinement last year at a hospital in [place] for COPD exacerbation. No previous intubations for COPD exacerbation. Medical history significant for chronic respiratory failure secondary to COPD on home O2 at night, past tobacco abuse, hypertension. Few days history of cough symptoms productive of yellow sputum with shortness of breath symptoms. Achy left-sided chest pain symptoms with coughing. Occasional coughing with meals. Patient prescribed by PCP Vidya and prednisone course. Patient had worsening cough, shortness of breath symptoms. Loose stools without abdominal pain, emesis. Patient brought to Emergency Room. Patient noted to be in respiratory distress. BiPAP started, given ceftriaxone, azithromycin, Solu-Medrol, neb treatment for COPD exacerbation. Contemplated endotracheal intubation aborted after improvement of breathing noted. At the Emergency Room, the patient went into rapid AFib. No previous episodes as per patient. MEDICAL HISTORY: As above. SURGERIES: Skin cancer surgery, orthopedic procedures, cholecystectomy, appendectomy. HOME MEDICATIONS: Include albuterol, aspirin, Zithromax, ProAir, bisoprolol, Alphagan, Pulmicort, Symbicort, vitamin D3, Mycelex Nathalie, Pepcid, Xalatan, Cozaar, Pancreaze, Mucinex, Protonix, Flomax, Spiriva. ALLERGIES: LACTOSE AND SULFA. FAMILY HISTORY: Family history of heart disease, lung cancer. PERSONAL AND SOCIAL HISTORY: Past tobacco abuse. No chronic intake of alcoholic beverages. REVIEW OF SYSTEMS: As per HPI. All 10 systems reviewed. All other ROS negative. PHYSICAL EXAMINATION: VITAL SIGNS: Blood pressure 175/115 later 77/57, IA 154 later 93 RR 23, temperature 36.8, sats 96 on 3 on BiPAP. GENERAL: Noted to be in no respiratory distress, anxious. SKIN: Pallor, warm. HEENT: Pale palpebal conjunctivae. No ptosis. Dry mucosa. BiPAP in place. NECK: Supple, nontender. CHEST: Expiratory wheezes. No tenderness. HEART: Irregular, no murmur. Palpable LE pulses. ABDOMEN: Soft, nontender. EXTREMITIES: No edema. No gross deformity. No gross tenderness. NEUROLOGIC: Coherent. No gross focality. LABORATORY DATA: Hemoglobin 13.7, hematocrit 39.6, white blood cell count 12.38, platelets 294. Sodium noted to be 140, potassium 4.4, chloride 105, CO2 25, BUN 13, creatinine 1.3, glucose 154. Lactic acid was noted to be 4. CTA initial read advanced emphysema, no consolidation, no particular lesion identified. Initial EKG as per my interpretation, rate of 110, sinus tachycardia, normal axis, ST depression in inferior leads, PVCs ASSESSMENT: 1. Hypotension secondary to hypovolemia. Possible sepsis, possible sources : pulmonary. complicated bronchitis, failed outpatient treatment. GI ro Clostridium difficile, diarrhea. 2. Acute hypoxemic respiratory failure secondary to chronic obstructive pulmonary disease exacerbation failed outpatient treatment marked improvement in respiratory status after initial intervention in the ER. 3. Hypertension, patient currently hypotensive. 4. New onset atrial fibrillation secondary to illness. Patient given IV Cardizem, IV Lopressor, IV digoxin prior to hypotensive episode. 5. Anemia, unknown baseline. 6. Steroid induced hyperglycemia ro DM. 7. Past tobacco abuse. PLAN: ICU admission due to possible need for pressor therapy IVF, follow lactic acid CS, stool C. diff Doxycycline, nebs, prednisone course for complicated bronchitis; wean off BiPAP , Pulmonary consult respiratory failure Oral Vancomycin 1 dose now for possible C. diff until sample obtained Appropriate to hold home antihypertensives given hypertension. Eventually need to resume patient's home beta emilia for AF rate control. TTE, Cardio consult RE new onset AFib. IV heparin for thromboembolic prevention. Anemia workup. Check hemoglobin A1c. DVT prophylaxis, Heparin. Full code. Total critical care time was 60 minutes. MTDD
[2018-01-01 13:22] LABS: PTT PATIENT 85.3 SECONDS (21.0-31.0)
[2018-01-01] MEDS: HEPARIN 25,000 UNIT/500ML D5W 500 ML IV PRN (13:59)
--- NOTE | 2018-01-01 15:41 | Cardiology Consultation ---
Cardiology Consultation Date of Service Jan 01, 2018. Cardiology Consultation Indication: Consultation for tachycardia History: This is a 72-year-old male patient who has a history of severe COPD and emphysema due to a history of cigarette smoking. Patient stopped approximately 4 years ago. This is his second hospital admission for acute exacerbation of COPD. He states approximately 2 years ago he was at the [facility] and was admitted to the hospital in [place]. He related his problems is just being overstressed and walking around. He is developed progressive shortness of breath and wheezing and is now admitted with exacerbation of COPD. After admission he's had brief runs of what appears to be atrial tachycardia probably atrial fibrillation. We have been asked to see him in regard to this arrhythmia. He had an echocardiogram this admission reveals preserved left ventricular systolic function. No significant evidence of pulmonary hypertension. No significant valvular pathology. He has no prior history of heart disease. He denies diabetes. He does have a history of hypertension. He has been started on anticoagulation with intravenous heparin. He's received no treatment for his runs of atrial fibrillation which have been asymptomatic. Allergies: Lactose and sulfa antibiotics Reported Home Medications Medications Dose Route/Sig Max Daily Dose Days Date Category Dose Instructions Prednisone 20 Mg Tab 20 Mg PO DAILY/UD 01/01/18 Reported BEGIN 12/29/17, TAKE DIRECTED X 12 DAYS, TAPERED -DOWN DOSE. Levaquin (Levofloxacin) 250 Mg Tab 250 Mg PO DAILY 10 01/01/18 Reported BEGIN 12/29/17 X 10 DAYS Zithromax (Azithromycin) 500 Mg Tab 500 Mg PO 3XWK 01/01/18 Reported Alphagan P Oph (Brimonidine Tartrate) 0.15 % Hanane 1 Drop OPR BID 01/01/18 Reported Trusopt Oph (Dorzolamide Hcl) 2 % Hanane 1 Drops OP BID 01/01/18 Reported Xalatan 0.005% Oph Hanane (Latanoprost) 0.005 % Hanane 1 Drops OP HS 01/01/18 Reported Mycelex (Clotrimazole) 10 Mg Tro 10 Mg MT DAILY 01/01/18 Reported Flomax (Tamsulosin Hcl) 0.4 Mg Cap 0.4 Mg PO DAILY 01/01/18 Reported Proair Respiclick (Albuterol Sulfate) 108 Mcg/Act Aer 2 Puffs INH Q4H PRN 01/01/18 Reported Pulmicort Respules 0.5MG/2ML (Budesonide (Inhalation)) 0.5 Mg/2 Ml Li 2 Ml INH DAILY 01/01/18 Reported Albuterol Sulfate 1.25 Mg/3 Ml Neb 3 Ml NEB Q6 01/01/18 Reported Spiriva Respimat (Tiotropium Uledi) 1.25 Mcg/Act Aer 2 Puff INH DAILY 01/01/18 Reported Symbicort 160-4.5 Mcg/Act (Budesonide/Formoterol Fumarate) 60 Puffs/Inhaler Aero 2 Puffs INH BID 01/01/18 Reported Mucinex D (Pseudoephedrine-Guaifenesin) 1 Tab Tab 1 Tab PO DAILY 01/01/18 Reported Vitamin D3 (Cholecalciferol) 2,000 Unit Cap 4,000 Units PO DAILY 01/01/18 Reported Pepcid Complete (Famotidine-Calcium Carbonate-M) 1 Chw Chw 1 Tab PO DAILY 01/01/18 Reported Protonix (Pantoprazole Sodium) 40 Mg Tab 40 Mg PO DAILY 01/01/18 Reported Pancreaze (Pancrelipase (Lipase-Protease-) 1 Cap Cap 2 Cap PO AC 01/01/18 Reported Zebeta (Bisoprolol Fumarate) 5 Mg Tab 2.5 Mg PO DAILY 01/01/18 Reported Cozaar (Losartan Potassium) 25 Mg Tab 25 Mg PO BID 01/01/18 Reported Aspirin Ec (Aspirin) 81 Mg Tab 81 Mg PO DAILY 01/01/18 Reported Past medical history: Per the history of chief complaint he has no prior history of heart disease, strokes, diabetes, kidney disease. He has been treated for tobacco associated lung disease for several years. He has no prior history of cardiac arrhythmias. Social history: Patient stopped smoking 4 years ago Family medical history: Noncontributory General: The patient denies weight change, night sweats, fever, chills. Head: The patient denies headache and prior head trauma. Cardiovascular: The patient denies chest pain or chest discomfort, dyspnea on exertion, palpitations, PND, orthopnea, edema, spontaneous shortness of breath, syncope and near syncope. Pulmonary: The patient denies cough, wheeze, pleurisy, hemoptysis, sputum, and excessive snoring. Gastrointestinal: The patient has been experiencing diarrhea which he believes are related to his medications. Should be noted that he has been on antibiotics recently. Skin: The patient denies diaphoresis and rash. Musculoskeletal: The patient denies joint pain, joint swelling, myalgia, back pain, neck pain and prior injuries. Neurological: The patient denies prior stroke and seizures Vital Signs Past 12 Hours Date Time Temp Pulse Resp B/P (MAP) Pulse Ox O2 Delivery O2 Flow Rate FiO2 01/01/18 14:00 82 20 127/85 (99) 98 Nasal Cannula 2.0 01/01/18 12:00 Nasal Cannula 2.0 01/01/18 12:00 36.4 80 22 132/71 (91) 98 Nasal Cannula 2.0 01/01/18 10:00 86 20 123/79 (94) 93 Nasal Cannula 2.0 01/01/18 08:00 36.4 89 22 121/66 (84) 94 Nasal Cannula 2.0 01/01/18 08:00 Nasal Cannula 2.0 01/01/18 07:32 87 18 94 Room Air 01/01/18 04:00 Nasal Cannula 2.0 General Appearance: Alert and Oriented x3. NAD. Head: Normocephalic Atraumatic. Eyes: PERRLA, EOMI, conjunctiva and sclera clear Neck: Supple. No carotid bruits noted. No JVD. No HJD. Respiratory: Breath sounds diminished throughout the lung philip with wheezing. Cardiovascular: Reg rate and rhythm. S1 and S2 noted. No murmurs, rubs, gallops. PMI non displace. Abdomen: Normal bowel sounds, soft nontender. no abdominal bruits. Extremities: No edema, no clubbing or cyanosis. distal pulses 2/4 bilaterally. Neuro: No focal deficits. Psychiatric: Normal affect. Last 24 Hours Test 12/31/17 22:41 12/31/17 22:45 12/31/17 22:50 12/31/17 22:54 Influenza Type A (RT-PCR) Neg for Influ A Influenza Type A Antigen Neg for Influ A Influenza Type B Antigen Neg for Influ B Influenza Type B (RT-PCR) Neg for Influ B White Blood Count 10.38 K/uL Red Blood Count 4.27 M/uL Hemoglobin 13.7 g/dL Hematocrit 39.6 % Mean Corpuscular Volume 92.7 fL Mean Corpuscular Hemoglobin 32.1 pg Mean Corpuscular Hemoglobin Concent 34.6 g/dl Platelet Count 394 K/uL Mean Platelet Volume 8.9 fL Neutrophils (%) (Auto) 93.5 % Lymphocytes (%) (Auto) 1.7 % Monocytes (%) (Auto) 3.9 % Eosinophils (%) (Auto) 0.1 % Basophils (%) (Auto) 0.3 % Neutrophils # (Auto) 9.71 K/uL Lymphocytes # (Auto) 0.18 K/uL Monocytes # (Auto) 0.40 K/uL Eosinophils # (Auto) 0.01 K/uL Basophils # (Auto) 0.03 K/uL RDW Standard Deviation 44.7 fL RDW Coefficient of Variation 13.2 % Immature Granulocyte % (Auto) 0.5 % Immature Granulocyte # (Auto) 0.05 K/uL Nucleated RBC Absolute Count (auto) 0.00 K/uL Nucleated Red Blood Cells % 0.0 % Absolute Reticulocyte Count 0.05 10^6/uL Percent Reticulocyte Count 1.3 % Prothrombin Time 10.4 SECONDS Prothromb Time International Ratio 1.0 Activated Partial Thromboplast Time 27.2 SECONDS Partial Thromboplastin Ratio 1.0 Venous Blood pH 7.39 Sodium Level 140 mmol/L Potassium Level 4.4 mmol/L Chloride Level 105 mmol/L Carbon Dioxide Level 25 mmol/L Anion Gap 10.0 mmol/L Blood Urea Nitrogen 32 mg/dl Creatinine 1.34 mg/dl Est Creatinine Clear Calc Drug Dose 36.9 ml/min Estimated GFR () 60.1 Estimated GFR (Non- 51.8 BUN/Creatinine Ratio 24.0 Random Glucose 154 mg/dl Calcium Level 9.3 mg/dl Total Bilirubin 0.2 mg/dl Aspartate Amino Transf (AST/SGOT) 37 U/L Alanine Aminotransferase (ALT/SGPT) 41 U/L Alkaline Phosphatase 75 U/L Total Creatine Kinase 178 U/L Pro-B-Type Natriuretic Peptide 1164 pg/ml Total Protein 7.1 gm/dl Albumin 3.6 gm/dl Globulin 3.5 gm/dl Albumin/Globulin Ratio 1.0 Procalcitonin < 0.05 ng/ml Bedside Lactic Acid Venous 4.44 mmol/L Bedside Troponin I 0.040 ng/ml Test 12/31/17 23:45 01/01/18 00:00 01/01/18 00:31 01/01/18 04:42 Total Triiodothyronine 0.87 ng/ml Urine Color YELLOW Urine Appearance CLEAR Urine pH 5.0 Urine Specific [place] 1.037 Urine Protein NEG Urine Glucose (UA) 2+ Urine Ketones NEG Urine Occult Blood NEG Urine Nitrite NEG Urine Bilirubin NEG Urine Urobilinogen NEG Urine Leukocyte Esterase NEG Arterial Blood pH 7.41 Arterial Blood Partial Pressure CO2 39 mmHg Arterial Blood Partial Pressure O2 208 mm/Hg Arterial Blood HCO3 24 mmol/L Arterial Blood Oxygen Saturation 99.6 % Arterial Blood Base Excess -0.1 mEq/L Arterial Blood Gas Delivery 40% FiO2 Albino Test POS Lactic Acid Level 4.3 mmol/L 3.3 mmol/L Magnesium Level 1.7 mg/dl 2.1 mg/dl Iron Level 71 mcg/dl Total Iron Binding Capacity 312 mcg/dl Transferrin 236 mg/dl Transferrin % Saturation 21 % Ferritin 105.8 ng/ml Vitamin B12 Level 439 pg/mL Folate 7.16 ng/mL Thyroid Stimulating Hormone (TSH) 0.149 uIu/ml Free Thyroxine 1.31 ng/dl White Blood Count 7.06 K/uL Red Blood Count 3.39 M/uL Hemoglobin 10.9 g/dL Hematocrit 31.7 % Mean Corpuscular Volume 93.5 fL Mean Corpuscular Hemoglobin 32.2 pg Mean Corpuscular Hemoglobin Concent 34.4 g/dl Platelet Count 245 K/uL Mean Platelet Volume 8.4 fL Neutrophils (%) (Auto) 94.0 % Lymphocytes (%) (Auto) 2.8 % Monocytes (%) (Auto) 2.8 % Eosinophils (%) (Auto) 0.0 % Basophils (%) (Auto) 0.0 % Neutrophils # (Auto) 6.63 K/uL Lymphocytes # (Auto) 0.20 K/uL Monocytes # (Auto) 0.20 K/uL Eosinophils # (Auto) 0.00 K/uL Basophils # (Auto) 0.00 K/uL RDW Standard Deviation 45.7 fL RDW Coefficient of Variation 13.5 % Immature Granulocyte % (Auto) 0.4 % Immature Granulocyte # (Auto) 0.03 K/uL Activated Partial Thromboplast Time 60.7 SECONDS Partial Thromboplastin Ratio 2.3 Sodium Level 142 mmol/L Potassium Level 4.0 mmol/L Chloride Level 111 mmol/L Carbon Dioxide Level 25 mmol/L Anion Gap 6.0 mmol/L Blood Urea Nitrogen 29 mg/dl Creatinine 0.97 mg/dl Est Creatinine Clear Calc Drug Dose 53.7 ml/min Estimated GFR () 88.8 Estimated GFR (Non- 76.6 BUN/Creatinine Ratio 29.4 Random Glucose 136 mg/dl Calcium Level 7.9 mg/dl Albumin 2.8 gm/dl Test 01/01/18 11:13 01/01/18 12:17 Bedside Glucose 107 mg/dl Activated Partial Thromboplast Time 85.3 SECONDS Partial Thromboplastin Ratio 3.3 Lactic Acid Level 2.2 mmol/L Impression: 1. Paroxysmal atrial fibrillation 2. Exacerbation of COPD 3 tobacco associated lung disease Recommendations: At this point the patient is not in sustained atrial fibrillation and is asymptomatic with the runs. I will start him on by mouth diltiazem with the option of starting him on intravenous diltiazem if necessary. A second option would be to start him on oral verapamil. We will follow along with you during his hospital stay.
[2018-01-01] MEDS ORDERED: ROFLUMILAST 500 MCG TAB PO ONE (16:30)
[2018-01-01] MEDS ORDERED: METOPROLOL TARTRATE 1 MG/ML VIAL ONE (16:41)
--- NOTE | 2018-01-01 17:25 | Progress Note ---
Internal Med Progress Note Date of Service: Jan 01, 2018. Provider Documentation: SUBJECTIVE: Seen and examined at bedside SOB is slightly better since at time of admission Currently on 2L NC Denies Chest pain, dizziness Has Cough Has diarrhea which he seems to be secondary to Darliresp No other complaints OBJECTIVE: Vital Signs-as noted below Physical Exam: General Appearance:Chronically ill appearing, no apparent distress Head: normocephalic, Atraumatic Eyes: normal inspection, EOMI, PERRL Neck: supple, Trachea midline Respiratory/Chest: Decreased breath sounds, Mild expiratory wheezes Cardiovascular: Irregularly, Irregular No murmur Abdomen/GI:Soft, Non tender, Bowel sounds present Extremities/Musculoskelatal:normal inspection, Trace edema Neurologic/Psych:AAOX3, grossly no focal neurological deficits Skin: normal color, warm Lab data as noted below. ASSESSMENT & PLAN: Acute on Chronic Hypoxic respiratory failure Chronic Oxygen dependency: on 2L HS Was on prednisone and Levaquin for bronchitis started by PCP 2 days ago Acute on Chronic COPD exacerbation CTA: No PE, No signs of consolidation, advanced COPD Continue Doxycycline, Nebs, Prednisone Blood cultures:pending Oxygen support with BiPAP PRN Resume inhalers as able Influenza PCR negative Follows with [facility] in [place] as outpatient Possible Sepsis: Likely secondary to complicated bronchitis IV fluids Lactate levels trending down Continue empiric Abx Blood cultures pending Diarrhea: Likely secondary to Daliresp Stool studies pending New Onset P.afib: Likely secondary to above Started on Cardizem for rate control On IV heparin for anticoagulation Appreciate Cardiology Input HTN: Stable Continue current meds Steroid induced hyperglycemia: A1C; pending ISS, Lantus Monitor BGs Former Tobacco use: Quit 4 yrs ago DVT Px: on Heparin Code Status: Full code Disposition: Expect to discharge home when stable PT/OT Vital Signs: Date Time Temp Pulse Resp B/P (MAP) Pulse Ox O2 Delivery O2 Flow Rate FiO2 01/01/18 16:00 Nasal Cannula 2.0 01/01/18 16:00 36.5 99 20 142/81 (101) 98 Nasal Cannula 2.0 01/01/18 15:42 92 18 97 Room Air 01/01/18 14:00 82 20 127/85 (99) 98 Nasal Cannula 2.0 01/01/18 12:00 Nasal Cannula 2.0 01/01/18 12:00 36.4 80 22 132/71 (91) 98 Nasal Cannula 2.0 18 10:00 86 20 123/79 (94) 93 Nasal Cannula 2.0 18 08:00 36.4 89 22 121/66 (84) 94 Nasal Cannula 2.0 18 08:00 Nasal Cannula 2.0 18 07:32 87 18 94 Room Air 01/01/18 04:00 Nasal Cannula 2.0 01/01/18 03:25 36.4 89 98 134/74 98 Nasal Cannula 2.0 18 03:00 89 24 108/64 97 01/01/18 02:09 97 24 96 18 02:06 115/61 18 02:04 98 21 98 18 02:01 120/63 18 01:59 97 21 99 /18 01:56 118/68 18 01:54 99 20 97 18 01:52 122/60 18 01:49 96 23 99 18 01:46 115/61 /18 01:44 90 21 100 /18 01:41 107/55 /18 01:39 95 19 98 /18 01:38 112/73 18 01:37 77/57 18 01:36 83/63 //18 01:34 93 16 98 /18 01:32 81/ /18 01:30 111/89 18 01:29 154 21 98 /18 01:28 170 /18 01:24 148 25 99 //18 01:21 105/87 //18 01:19 122 25 99 //18 01:15 173 /18 01:15 179 /18 01:14 151 19 99 /18 01:11 114/76 01/01/18 01:09 148 21 113/86 99 /18 01:04 138 22 98 3/4/18 01:01 102/62 //18 00:59 133 23 98 /4/18 00:56 121/69 /4/18 00:54 163 19 98 01/01/18 00:52 108/49 01/01/18 00:49 111 23 98 01/01/18 00:44 102 28 98 01/01/18 00:41 110/88 01/01/18 00:39 181 25 98 01/01/18 00:38 121/94 01/01/18 00:36 128/69 01/01/18 00:34 114 29 98 01/01/18 00:31 137/83 01/01/18 00:30 111/43 01/01/18 00:30 250 01/01/18 00:29 100 15 95 01/01/18 00:24 105 23 98 01/01/18 00:20 115 01/01/18 00:19 117 19 98 01/01/18 00:18 118 18 143/85 98 BiPAP 40 01/01/18 00:16 143/85 01/01/18 00:14 125 19 98 01/01/18 00:10 137/92 01/01/18 00:10 121 98 40 01/01/18 00:09 126 32 96 12/31/17 23:39 117 100 40 12/31/17 23:17 110 28 155/92 98 Nebulizer 12/31/17 23:05 111 12/31/17 22:43 112 22 96 Nasal Cannula 4.0 12/31/17 22:35 Nasal Cannula 3.0 12/31/17 22:33 96 Nasal Cannula 3.0 12/31/17 22:31 97 Nasal Cannula 3.0 12/31/17 22:23 36.8 120 28 175/115 96 Nasal Cannula 3.0 Lab Results: Results Past 24 Hours Test 12/31/17 22:41 12/31/17 22:45 12/31/17 22:50 12/31/17 22:54 Range/Units Influenza Type A (RT-PCR) Neg for Influ A NEG Influenza Type A Antigen Neg for Influ A NEG Influenza Type B Antigen Neg for Influ B NEG Influenza Type B (RT-PCR) Neg for Influ B NEG White Blood Count 10.38 4.8-10.8 K/uL Red Blood Count 4.27 4.7-6.1 M/uL Hemoglobin 13.7 14.0-18.0 g/dL Hematocrit 39.6 42-52 % Mean Corpuscular Volume 92.7 80-100 fL Mean Corpuscular Hemoglobin 32.1 25-34 pg Mean Corpuscular Hemoglobin Concent 34.6 32-36 g/dl Platelet Count 394 130-400 K/uL Mean Platelet Volume 8.9 7.4-10.4 fL Neutrophils (%) (Auto) 93.5 % Lymphocytes (%) (Auto) 1.7 % Monocytes (%) (Auto) 3.9 % Eosinophils (%) (Auto) 0.1 % Basophils (%) (Auto) 0.3 % Neutrophils # (Auto) 9.71 1.4-6.5 K/uL Lymphocytes # (Auto) 0.18 1.2-3.4 K/uL Monocytes # (Auto) 0.40 0.11-0.59 K/uL Eosinophils # (Auto) 0.01 0-0.5 K/uL Basophils # (Auto) 0.03 0-0.2 K/uL RDW Standard Deviation 44.7 36.4-46.3 fL RDW Coefficient of Variation 13.2 11.5-14.5 % Immature Granulocyte % (Auto) 0.5 % Immature Granulocyte # (Auto) 0.05 0.00-0.02 K/uL Nucleated RBC Absolute Count (auto) 0.00 0-0 K/uL Nucleated Red Blood Cells % 0.0 % Absolute Reticulocyte Count 0.05 0.02-0.10 10^6/uL Percent Reticulocyte Count 1.3 0.5-2.0 % Prothrombin Time 10.4 9.0-12.0 SECONDS Prothromb Time International Ratio 1.0 0.9-1.1 Activated Partial Thromboplast Time 27.2 21.0-31.0 SECONDS Partial Thromboplastin Ratio 1.0 Venous Blood pH 7.39 7.36-7.41 Sodium Level 140 136-145 mmol/L Potassium Level 4.4 3.5-5.1 mmol/L Chloride Level 105 98-107 mmol/L Carbon Dioxide Level 25 21-32 mmol/L Anion Gap 10.0 3-11 mmol/L Blood Urea Nitrogen 32 7-18 mg/dl Creatinine 1.34 0.60-1.40 mg/dl Est Creatinine Clear Calc Drug Dose 36.9 ml/min Estimated GFR () 60.1 Estimated GFR (Non- 51.8 BUN/Creatinine Ratio 24.0 10-20 Random Glucose 154 70-99 mg/dl Calcium Level 9.3 8.5-10.1 mg/dl Total Bilirubin 0.2 0.2-1 mg/dl Aspartate Amino Transf (AST/SGOT) 37 15-37 U/L Alanine Aminotransferase (ALT/SGPT) 41 12-78 U/L Alkaline Phosphatase 75 45-117 U/L Total Creatine Kinase 178 39-308 U/L Pro-B-Type Natriuretic Peptide 1164 0-900 pg/ml Total Protein 7.1 6.4-8.2 gm/dl Albumin 3.6 3.4-5.0 gm/dl Globulin 3.5 2.5-4.0 gm/dl Albumin/Globulin Ratio 1.0 0.9-2 Procalcitonin < 0.05 0-0.5 ng/ml Bedside Lactic Acid Venous 4.44 0.90-1.70 mmol/L Bedside Troponin I 0.040 0-0.045 ng/ml Test 12/31/17 23:45 01/01/18 00:00 01/01/18 00:31 01/01/18 04:42 Range/Units Total Triiodothyronine 0.87 0.60-1.81 ng/ml Urine Color YELLOW Urine Appearance CLEAR CLEAR Urine pH 5.0 4.5-7.5 Urine Specific [place] 1.037 1.000-1.030 Urine Protein NEG NEG Urine Glucose (UA) 2+ NEG Urine Ketones NEG NEG Urine Occult Blood NEG NEG Urine Nitrite NEG NEG Urine Bilirubin NEG NEG Urine Urobilinogen NEG NEG Urine Leukocyte Esterase NEG NEG Arterial Blood pH 7.41 7.35-7.45 Arterial Blood Partial Pressure CO2 39 35-46 mmHg Arterial Blood Partial Pressure O2 208 80-95 mm/Hg Arterial Blood HCO3 24 19-24 mmol/L Arterial Blood Oxygen Saturation 99.6 90-95 % Arterial Blood Base Excess -0.1 -9-1.8 mEq/L Arterial Blood Gas Delivery 40% FiO2 Albino Test POS POS Lactic Acid Level 4.3 3.3 0.4-2.0 mmol/L Magnesium Level 1.7 2.1 1.8-2.4 mg/dl Iron Level 71 35-175 mcg/dl Total Iron Binding Capacity 312 250-450 mcg/dl Transferrin 236 200-360 mg/dl Transferrin % Saturation 21 20-50 % Ferritin 105.8 8.0-388.0 ng/ml Vitamin B12 Level 439 211-911 pg/mL Folate 7.16 >5.38 ng/mL Thyroid Stimulating Hormone (TSH) 0.149 0.300-4.500 uIu/ml Free Thyroxine 1.31 0.80-1.60 ng/dl White Blood Count 7.06 4.8-10.8 K/uL Red Blood Count 3.39 4.7-6.1 M/uL Hemoglobin 10.9 14.0-18.0 g/dL Hematocrit 31.7 42-52 % Mean Corpuscular Volume 93.5 80-100 fL Mean Corpuscular Hemoglobin 32.2 25-34 pg Mean Corpuscular Hemoglobin Concent 34.4 32-36 g/dl Platelet Count 245 130-400 K/uL Mean Platelet Volume 8.4 7.4-10.4 fL Neutrophils (%) (Auto) 94.0 % Lymphocytes (%) (Auto) 2.8 % Monocytes (%) (Auto) 2.8 % Eosinophils (%) (Auto) 0.0 % Basophils (%) (Auto) 0.0 % Neutrophils # (Auto) 6.63 1.4-6.5 K/uL Lymphocytes # (Auto) 0.20 1.2-3.4 K/uL Monocytes # (Auto) 0.20 0.11-0.59 K/uL Eosinophils # (Auto) 0.00 0-0.5 K/uL Basophils # (Auto) 0.00 0-0.2 K/uL RDW Standard Deviation 45.7 36.4-46.3 fL RDW Coefficient of Variation 13.5 11.5-14.5 % Immature Granulocyte % (Auto) 0.4 % Immature Granulocyte # (Auto) 0.03 0.00-0.02 K/uL Activated Partial Thromboplast Time 60.7 21.0-31.0 SECONDS Partial Thromboplastin Ratio 2.3 Sodium Level 142 136-145 mmol/L Potassium Level 4.0 3.5-5.1 mmol/L Chloride Level 111 98-107 mmol/L Carbon Dioxide Level 25 21-32 mmol/L Anion Gap 6.0 3-11 mmol/L Blood Urea Nitrogen 29 7-18 mg/dl Creatinine 0.97 0.60-1.40 mg/dl Est Creatinine Clear Calc Drug Dose 53.7 ml/min Estimated GFR () 88.8 Estimated GFR (Non- 76.6 BUN/Creatinine Ratio 29.4 10-20 Random Glucose 136 70-99 mg/dl Calcium Level 7.9 8.5-10.1 mg/dl Albumin 2.8 3.4-5.0 gm/dl Test 01/01/18 11:13 01/01/18 12:17 01/01/18 16:22 Range/Units Bedside Glucose 107 98 70-99 mg/dl Activated Partial Thromboplast Time 85.3 21.0-31.0 SECONDS Partial Thromboplastin Ratio 3.3 Lactic Acid Level 2.2 0.4-2.0 mmol/L Microbiology Results 12/31/17 Blood Culture, Received Pending 12/31/17 Blood Culture, Received Pending 01/01/18 MRSA DNA Surveillance Screen - Final, Complete Specimen Negative for MRSA by DNA Probe
[2018-01-01] MEDS: MoRPHine SULFATE 2 MG/ML CARP IV PRN (19:53)
--- NOTE | 2018-01-01 20:16 | Critical Care Consultation ---
Critical Care Consultation Date of Consultation: Jan 01, 2018. Attending Physician: Harjinder Rodriguez MD Reason for Consultation: Respiratory failure and hypotension History of Present Illness Historian is the patient Patient became acutely dyspneic at the hockey game last evening along with associated palpitations. He presented to [facility] emergency department for further evaluation. He was found to be hypotensive and tachycardic most consistent with A. fib with RVR there was concern for severe sepsis secondary to a pulmonary source. There is discussion about elective endotracheal intubation for profound hypoxemia in the setting of hypertension however after fluid administration the patient's blood pressure improved. Patient was admitted to the ICU for further observation and close monitoring. Patient was attempted to be started on noninvasive mechanical ventilation however the patient did not physically tolerate this. Since that time the patient has been started on steroids given broad-spectrum antibiotics and nebulized respiratory treatments. At this point he has mildly improved. During my bedside evaluation the patient is still dyspneic speaking in 4-5 word sentences with pursed lip breathing. Patient's friend is sitting at the bedside who agrees that the patient's respiratory pattern is not normal for him. Patient has never been intubated in the past, he denies fevers or chills. When discussing patient's CODE STATUS he has never had a discussion whether he would want an endotracheal tube in events of severe respiratory failure. Similarly he is not decided on undergoing cardiopulmonary resuscitation in event of cardiac arrest. This time he wants to discuss these options further with his family. 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 He has had COPD exacerbations before his last hospitalization was approximately 2 years ago in [place]. Of note the patient is started on Daliresp recently which the patient states gives him severe diarrhea. Patient states he takes paregoric for his diarrhea when he gets extremely severe. Since he has been admitted in the hospital he has not had an episode of diarrhea. Patient is requesting that he be allowed to take his home medication, his friend is willing to go get him a dose of paregoric. Past Medical/Surgical History Severe COPD Approximately [id number] smoking history Family History Patient reports no known family medical history. Social History Smoking Status: Former Smoker Housing Status: lives with significant other Occupation Status: retired Allergies Coded Allergies: Sulfa Antibiotics (Verified Allergy, Intermediate, Rash ("SULFA"), 01/01/18 ) Lactose. (Verified Allergy, Unknown, Lactose intolerant., 01/01/18) Home Medications Scheduled Albuterol Sulfate (Albuterol Sulfate), 3 ML NEB Q6 Aspirin (Aspirin Ec), 81 MG PO DAILY Azithromycin (Zithromax), 500 MG PO 3XWK Bisoprolol Fumarate (Zebeta), 2.5 MG PO DAILY Brimonidine Tartrate Oph (Alphagan P Oph), 1 DROP OPR BID Budesonide (Inhalation) (Pulmicort Respules 0.5MG/2ML), 2 ML INH DAILY Budesonide/Formoterol Fumarate (Symbicort 160-4.5 Mcg/Act), 2 PUFFS INH BID Cholecalciferol (Vitamin D3), 4,000 UNITS PO DAILY Clotrimazole (Mycelex), 10 MG MT DAILY Dorzolamide Hcl (Trusopt Oph), 1 DROPS OP BID Famotidine-Calcium Carbonate-M (Pepcid Complete), 1 TAB PO DAILY Latanoprost (Xalatan 0.005% Oph Han[place]), 1 DROPS OP HS Levofloxacin (Levaquin), 250 MG PO DAILY Losartan Potassium (Cozaar), 25 MG PO BID Pancrelipase (Lipase-Protease- (Pancreaze), 2 CAP PO AC Pantoprazole (Protonix), 40 MG PO DAILY Prednisone (Prednisone), 20 MG PO DAILY/UD Pseudoephedrine-Guaifenesin (Mucinex D), 1 TAB PO DAILY Tamsulosin Hcl (Flomax), 0.4 MG PO DAILY Tiotropium [place] (Spiriva Respimat), 2 PUFF INH DAILY Scheduled PRN Albuterol Sulfate (Proair Respiclick), 2 PUFFS INH Q4H PRN for SOB/Wheezing Current Inpatient Medications Current Inpatient Medications Medications (Trade) Dose Ordered Sig/Luis Miguel Route Start Time Stop Time Status Last Admin Dose Admin Ioversol (Optiray 320) 125 ml UD PRN IV 01/01/18 00:00 01/05/18 00:00 Acetaminophen (Tylenol Tab) 650 mg Q4H PRN PO 01/01/18 01:15 01/31/18 01:14 Nitroglycerin (Nitrostat Tab) 0.4 mg UD PRN SL 01/01/18 01:15 01/31/18 01:14 Insulin Aspart (novoLOG ASPART) SLIDING SCALE If C... Q6 SC 01/01/18 06:00 01/31/18 05:59 Glucose (Glucose 40% Gel) 15-30 GRAMS 15 GRAMS... UD PRN PO 01/01/18 01:15 01/31/18 01:14 Glucose (Glucose Chew Tab) 4-8 Tablets 4 Tabl... UD PRN PO 01/01/18 01:15 01/31/18 01:14 Dextrose (Dextrose 50% 50ML Syringe) 25-50ML OF 50% DW IV FOR... UD PRN IV 01/01/18 01:15 01/31/18 01:14 Glucagon (Glucagon Inj) 1 mg UD PRN SQ 01/01/18 01:15 01/31/18 01:14 Prochlorperazine Edisylate 5 mg/ Syringe 5 ml @ 5 mls/min Q6H PRN IV 01/01/18 01:15 01/31/18 01:14 Insulin Glargine (Lantus Solostar Pen) 5 units DAILY SC 01/02/18 09:00 02/01/18 08:59 Prednisone (PredniSONE TAB) 40 mg DAILY PO 01/01/18 09:00 01/06/18 08:59 01/01/18 08:04 40 MG Lorazepam (Ativan Inj) 0.25 mg Q4H PRN IV 01/01/18 01:15 01/31/18 01:14 01/01/18 17:12 0.25 MG Morphine Sulfate (MoRPHine SULFATE INJ) 2 mg Q3H PRN IV 01/01/18 01:15 01/15/18 01:14 Tramadol HCl (Ultram Tab) 25 mg Q6H PRN PO 01/01/18 01:15 01/31/18 01:14 Aspirin (Ecotrin Tab) 81 mg DAILY PO 01/01/18 09:00 01/31/18 08:59 01/01/18 08:05 81 MG Brimonidine Tartrate (Alphagan-P 0.15% Oph Soln) 1 drops BID OPR 01/01/18 09:00 01/31/18 08:59 01/01/18 08:07 1 DROPS Dorzolamide HCl (Trusopt 2% Oph Soln) 1 drops BID OP 01/01/18 09:00 01/31/18 08:59 01/01/18 08:05 1 DROPS Latanoprost (Xalatan Oph Soln) 1 drops HS OP 01/01/18 21:00 01/31/18 20:59 Pantoprazole Sodium (Protonix Tab) 40 mg DAILY PO 01/01/18 09:00 01/31/18 08:59 01/01/18 08:04 40 MG Tamsulosin HCl (Flomax Cap) 0.4 mg DAILY PO 01/01/18 09:00 01/31/18 08:59 01/01/18 08:04 0.4 MG Doxycycline Hyclate 100 mg/ Dextrose 110 ml @ 50 mls/hr Q12H IV 01/01/18 05:00 01/08/18 04:59 01/01/18 16:19 50 MLS/HR Miscellaneous Information (Icu Protocol For Hyperglycemia) 1 ea PRN PRN N/A 01/01/18 02:00 01/03/18 01:59 Heparin Sodium/ Dextrose 500 ml @ 17 mls/hr Q24H PRN IV 01/01/18 02:30 01/31/18 02:29 01/01/18 13:59 17 MLS/HR Ipratropium [place] (Atrovent 0.02% 0.5MG/2.5ML Neb) 0.5 mg Q6R INH 01/01/18 09:00 01/31/18 08:59 01/01/18 15:42 0.5 MG Levalbuterol (Xopenex 1.25MG/ 0.5ML Neb) 1.25 mg Q6R INH 01/01/18 09:00 01/31/18 08:59 01/01/18 15:42 1.25 MG Ipratropium [place] (Atrovent 0.02% 0.5MG/2.5ML Neb) 0.5 mg Q4H PRN INH 01/01/18 05:00 01/31/18 04:59 Levalbuterol (Xopenex 1.25MG/ 0.5ML Neb) 1.25 mg Q4H PRN INH 01/01/18 05:00 01/31/18 04:59 Diltiazem HCl (Cardizem Tab) 30 mg TID PO 01/01/18 21:00 01/31/18 20:59 Roflumilast (Daliresp Tab) 500 mcg DAILY PO 01/02/18 09:00 02/01/18 08:59 Review of Systems Constitutional: No fever, No chills, No sweats Respiratory: + cough, + wheezing, + shortness of breath, + dyspnea on exertion , + dyspnea at rest, No sputum Cardiovascular: No chest pain, No orthopnea Abdomen: + diarrhea Physical Exam Date Time Temp Pulse Resp B/P (MAP) Pulse Ox O2 Delivery O2 Flow Rate FiO2 01/01/18 18:00 86 23 125/68 (87) 98 Nasal Cannula 2.0 01/01/18 17:13 157 142/81 01/01/18 16:00 Nasal Cannula 2.0 01/01/18 16:00 36.5 99 20 142/81 (101) 98 Nasal Cannula 2.0 01/01/18 15:42 92 18 97 Room Air 01/01/18 14:00 82 20 127/85 (99) 98 Nasal Cannula 2.0 01/01/18 12:00 Nasal Cannula 2.0 01/01/18 12:00 36.4 80 22 132/71 (91) 98 Nasal Cannula 2.0 01/01/18 10:00 86 20 123/79 (94) 93 Nasal Cannula 2.0 01/01/18 08:00 36.4 89 22 121/66 (84) 94 Nasal Cannula 2.0 01/01/18 08:00 Nasal Cannula 2.0 01/01/18 07:32 87 18 94 Room Air 01/01/18 04:00 Nasal Cannula 2.0 01/01/18 03:25 36.4 89 98 134/74 98 Nasal Cannula 2.0 01/01/18 03:00 89 24 108/64 97 01/01/18 02:09 97 24 96 01/01/18 02:06 115/61 01/01/18 02:04 98 21 98 01/01/18 02:01 120/63 01/01/18 01:59 97 21 99 01/01/18 01:56 118/68 01/01/18 01:54 99 20 97 01/01/18 01:52 122/60 01/01/18 01:49 96 23 99 01/01/18 01:46 115/61 3/4/18 01:44 90 21 100 3/4/18 01:41 107/55 3/4/18 01:39 95 19 98 3/4/18 01:38 112/73 3/4/18 01:37 77/57 3/4/18 01:36 83/63 3/4/18 01:34 93 16 98 3/4/18 01:32 81/ 3/4/18 01:30 111/89 3/4/18 01:29 154 21 98 3/4/18 01:28 170 3/4/18 01:24 148 25 99 3/4/18 01:21 105/87 3/4/18 01:19 122 25 99 3/4/18 01:15 173 3//18 01:15 179 3//18 01:14 151 19 99 3//18 01:11 114/76 3//18 01:09 148 21 113/86 99 3//18 01:04 138 22 98 3/4/18 01:01 102/62 3//18 00:59 133 23 98 3/4/18 00:56 121/69 3/4/18 00:54 163 19 98 3/4/18 00:52 108/49 3/4/18 00:49 111 23 98 3/4/18 00:44 102 28 98 3/4/18 00:41 110/88 3/4/18 00:39 181 25 98 3/4/18 00:38 121/94 3/4/18 00:36 128/69 3/4/18 00:34 114 29 98 3/4/18 00:31 137/83 3/4/18 00:30 111/43 3/4/18 00:30 250 3/4/18 00:29 100 15 95 3/4/18 00:24 105 23 98 3/4/18 00:20 115 3/4/18 00:19 117 19 98 3/4/18 00:18 118 18 143/85 98 BiPAP 40 3/4/18 00:16 143/85 3/4/18 00:14 125 19 98 3/4/18 00:10 137/92 3/4/18 00:10 121 98 40 3/4/18 00:09 126 32 96 3/3/18 23:39 117 100 40 3/3/18 23:17 110 28 155/92 98 Nebulizer 12/31/17 23:05 111 12/31/17 22:43 112 22 96 Nasal Cannula 4.0 12/31/17 22:35 Nasal Cannula 3.0 12/31/17 22:33 96 Nasal Cannula 3.0 12/31/17 22:31 97 Nasal Cannula 3.0 12/31/17 22:23 36.8 120 28 175/115 96 Nasal Cannula 3.0 General Appearance: moderate distress Head: normocephalic Eyes: PERRLA, no discharge Neck: no tenderness, trachea midline, no stridor, supple, no thyromegaly Respiratory: accessory muscle use, respiratory distress (Mild to moderate), other (Distant breath sounds increased MARSHAL ratio) Cardiovasular: normal S1S2, normal peripheral pulses, irregular rate ( Tachycardia) Abdomen: non tender, no rebound, no masses, no guarding, no organomegaly Back: normal inspection Upper Extremities: no edema Lower Extremities: no edema Neuro: alert, oriented x 3 Laboratory Results Last 24 Hours Test 12/31/17 22:41 12/31/17 22:45 12/31/17 22:50 12/31/17 22:54 Influenza Type A (RT-PCR) Neg for Influ A Influenza Type A Antigen Neg for Influ A Influenza Type B Antigen Neg for Influ B Influenza Type B (RT-PCR) Neg for Influ B White Blood Count 10.38 K/uL Red Blood Count 4.27 M/uL Hemoglobin 13.7 g/dL Hematocrit 39.6 % Mean Corpuscular Volume 92.7 fL Mean Corpuscular Hemoglobin 32.1 pg Mean Corpuscular Hemoglobin Concent 34.6 g/dl Platelet Count 394 K/uL Mean Platelet Volume 8.9 fL Neutrophils (%) (Auto) 93.5 % Lymphocytes (%) (Auto) 1.7 % Monocytes (%) (Auto) 3.9 % Eosinophils (%) (Auto) 0.1 % Basophils (%) (Auto) 0.3 % Neutrophils # (Auto) 9.71 K/uL Lymphocytes # (Auto) 0.18 K/uL Monocytes # (Auto) 0.40 K/uL Eosinophils # (Auto) 0.01 K/uL Basophils # (Auto) 0.03 K/uL RDW Standard Deviation 44.7 fL RDW Coefficient of Variation 13.2 % Immature Granulocyte % (Auto) 0.5 % Immature Granulocyte # (Auto) 0.05 K/uL Nucleated RBC Absolute Count (auto) 0.00 K/uL Nucleated Red Blood Cells % 0.0 % Absolute Reticulocyte Count 0.05 10^6/uL Percent Reticulocyte Count 1.3 % Prothrombin Time 10.4 SECONDS Prothromb Time International Ratio 1.0 Activated Partial Thromboplast Time 27.2 SECONDS Partial Thromboplastin Ratio 1.0 Venous Blood pH 7.39 Sodium Level 140 mmol/L Potassium Level 4.4 mmol/L Chloride Level 105 mmol/L Carbon Dioxide Level 25 mmol/L Anion Gap 10.0 mmol/L Blood Urea Nitrogen 32 mg/dl Creatinine 1.34 mg/dl Est Creatinine Clear Calc Drug Dose 36.9 ml/min Estimated GFR () 60.1 Estimated GFR (Non- 51.8 BUN/Creatinine Ratio 24.0 Random Glucose 154 mg/dl Calcium Level 9.3 mg/dl Total Bilirubin 0.2 mg/dl Aspartate Amino Transf (AST/SGOT) 37 U/L Alanine Aminotransferase (ALT/SGPT) 41 U/L Alkaline Phosphatase 75 U/L Total Creatine Kinase 178 U/L Pro-B-Type Natriuretic Peptide 1164 pg/ml Total Protein 7.1 gm/dl Albumin 3.6 gm/dl Globulin 3.5 gm/dl Albumin/Globulin Ratio 1.0 Procalcitonin < 0.05 ng/ml Bedside Lactic Acid Venous 4.44 mmol/L Bedside Troponin I 0.040 ng/ml Test 12/31/17 23:45 01/01/18 00:00 01/01/18 00:31 01/01/18 04:42 Total Triiodothyronine 0.87 ng/ml Urine Color YELLOW Urine Appearance CLEAR Urine pH 5.0 Urine Specific [place] 1.037 Urine Protein NEG Urine Glucose (UA) 2+ Urine Ketones NEG Urine Occult Blood NEG Urine Nitrite NEG Urine Bilirubin NEG Urine Urobilinogen NEG Urine Leukocyte Esterase NEG Arterial Blood pH 7.41 Arterial Blood Partial Pressure CO2 39 mmHg Arterial Blood Partial Pressure O2 208 mm/Hg Arterial Blood HCO3 24 mmol/L Arterial Blood Oxygen Saturation 99.6 % Arterial Blood Base Excess -0.1 mEq/L Arterial Blood Gas Delivery 40% FiO2 [place] Test POS Lactic Acid Level 4.3 mmol/L 3.3 mmol/L Magnesium Level 1.7 mg/dl 2.1 mg/dl Iron Level 71 mcg/dl Total Iron Binding Capacity 312 mcg/dl Transferrin 236 mg/dl Transferrin % Saturation 21 % Ferritin 105.8 ng/ml Vitamin B12 Level 439 pg/mL Folate 7.16 ng/mL Thyroid Stimulating Hormone (TSH) 0.149 uIu/ml Free Thyroxine 1.31 ng/dl White Blood Count 7.06 K/uL Red Blood Count 3.39 M/uL Hemoglobin 10.9 g/dL Hematocrit 31.7 % Mean Corpuscular Volume 93.5 fL Mean Corpuscular Hemoglobin 32.2 pg Mean Corpuscular Hemoglobin Concent 34.4 g/dl Platelet Count 245 K/uL Mean Platelet Volume 8.4 fL Neutrophils (%) (Auto) 94.0 % Lymphocytes (%) (Auto) 2.8 % Monocytes (%) (Auto) 2.8 % Eosinophils (%) (Auto) 0.0 % Basophils (%) (Auto) 0.0 % Neutrophils # (Auto) 6.63 K/uL Lymphocytes # (Auto) 0.20 K/uL Monocytes # (Auto) 0.20 K/uL Eosinophils # (Auto) 0.00 K/uL Basophils # (Auto) 0.00 K/uL RDW Standard Deviation 45.7 fL RDW Coefficient of Variation 13.5 % Immature Granulocyte % (Auto) 0.4 % Immature Granulocyte # (Auto) 0.03 K/uL Activated Partial Thromboplast Time 60.7 SECONDS Partial Thromboplastin Ratio 2.3 Sodium Level 142 mmol/L Potassium Level 4.0 mmol/L Chloride Level 111 mmol/L Carbon Dioxide Level 25 mmol/L Anion Gap 6.0 mmol/L Blood Urea Nitrogen 29 mg/dl Creatinine 0.97 mg/dl Est Creatinine Clear Calc Drug Dose 53.7 ml/min Estimated GFR () 88.8 Estimated GFR (Non- 76.6 BUN/Creatinine Ratio 29.4 Random Glucose 136 mg/dl Calcium Level 7.9 mg/dl Albumin 2.8 gm/dl Test 01/01/18 11:13 01/01/18 12:17 01/01/18 16:22 Bedside Glucose 107 mg/dl 98 mg/dl Activated Partial Thromboplast Time 85.3 SECONDS Partial Thromboplastin Ratio 3.3 Lactic Acid Level 2.2 mmol/L Diagnostic Results I have reviewed the x-rays and CT scans as well as individual radiology reports Assessment & Plan Reason Critically Ill: 72-year-old male with significant past medical history for severe COPD with acute hypoxic respiratory failure and paroxysmal atrial fibrillation with rapid ventricular response PLAN: Neuro: Anxiety * Patient may benefit from Precedex to facilitate BiPAP CPAP for noninvasive mechanical ventilation * Patient requesting paregoric, this may also affect air hunger as it is a narcotic * Patient may take 1 dose of paregoric at night from his home supply Resp: Acute hypoxic respiratory failure Severe COPD * High-dose steroids * Continue bronchodilators * High flow nasal cannula if no improvement will consider BiPAP with Precedex * Continue empiric azithromycin * QTc 428 * Daliresp, phosphodiesterase inhibitor, carries Drug interactions with erythromycin; studies indicate that while erythromycin does have significant side effects with sildenafil another phosphodiesterase inhibitor azithromycin is associated with less interactions * However given the hypotension I will hold the phosphodiesterase have better on the patient is on macrolide therapy CV: Tachy atrial arrhythmia * Reviewed cardiology consult * Patient starting on diltiazem Fluids/Renal: Patient is tolerating fluids ID: Influenza negative procalcitonin unremarkable * Continue doxycycline only for severe COPD duration 5 days GI/Nutrition: Diet as tolerated Heme: Anemia: NOS Continue baby aspirin * Heparin infusion Endocrine: Patient converted to oral prednisone * Converted back to IV given significance of respiratory distress I have personally spent 90 minutes of critical care time in the direct management of this patient. This is a life/limb threatening event. This includes time spent evaluating patient, direct bedside care, chart review, placing orders, interpretation of diagnostic studies, discussion with consultants, patient, and/or family members regarding treatment decisions, as well as other required patient management activities. This time is exclusive of all separately billable procedures, and teaching time and separate from and in addition to any other critical care service time.
[2018-01-01] MEDS: METHYLPREDNISOLONE IV 40 MG in SYRINGE 0 ML IV SCH (20:33)
[2018-01-01 20:53] LABS: PTT PATIENT 77.2 SECONDS (21.0-31.0)
[2018-01-01] MEDS ORDERED: LATANOPROST 0.005% OP SOLN 2.5 ML BTL OP SCH (21:00)
[2018-01-01] MEDS ORDERED: DILTIAZEM HCL 30 MG TAB PO SCH (21:00)
[2018-01-02] VITALS (26 sets, daily range): BP systolic 103–154; BP diastolic 64–116; PULSE 73–152; TEMP 36.4–37.1; O2SAT 91–100
[2018-01-02] MEDS: MoRPHine SULFATE 2 MG/ML CARP IV PRN ×5 (00:17→18:11)
[2018-01-02] MEDS ORDERED: NURSING VERBAL MED ORDER ONE ×2 (00:45→15:45)
[2018-01-02] MEDS: LEVALBUTEROL 1.25MG/0.5ML NEB INH SCH ×4 (01:35→20:51)
[2018-01-02] MEDS: IPRATROPIUM BROMIDE NEB SOLN 0.02% 2.5 ML VIAL INH SCH ×4 (01:36→20:51)
[2018-01-02] MEDS: HEPARIN 25,000 UNIT/500ML D5W 500 ML IV PRN ×2 (03:09→14:05)
[2018-01-02] MEDS: METHYLPREDNISOLONE IV 40 MG in SYRINGE 0 ML IV SCH ×3 (03:56→20:52)
[2018-01-02] MEDS: DOXYCYCLINE IV 100 MG in DEXTROSE 5% 100ML 100 ML IV SCH ×2 (04:37→16:55)
[2018-01-02 05:54] LABS: HEMATOCRIT 31.6 % (42-52); HEMOGLOBIN 10.8 g/dL (14.0-18.0); IG# 0.04 K/uL (0.00-0.02); LYMPH % 3.8 %; LYMPH ABS # 0.28 K/uL (1.2-3.4); MEAN CELL VOLUME 93.5 fL (80-100); MEAN CORPUSCULAR HGB CONC 34.2 g/dl (32-36); MEAN PLATELET VOLUME 8.6 fL (7.4-10.4); MONO % 3.5 %; MONO ABS # 0.26 K/uL (0.11-0.59); NEUT % 92.2 %; NEUT ABS # 6.81 K/uL (1.4-6.5); PLATELET COUNT 280 K/uL (130-400); RED CELL DISTRIBUTION WIDTH CV 13.5 % (11.5-14.5); RED CELL DISTRIBUTION WIDTH SD 46.1 fL (36.4-46.3); WHITE BLOOD COUNT 7.39 K/uL (4.8-10.8)
[2018-01-02] MEDS: INSULIN ASPART 100 UNITS/ML 3 ML PEN SC SCH ×5 (06:00→21:00)
[2018-01-02 06:33] LABS: PTT PATIENT 70.7 SECONDS (21.0-31.0)
[2018-01-02 06:35] LABS: CALCIUM 8.2 mg/dl (8.5-10.1); CREATININE 0.63 mg/dl (0.60-1.40); POTASSIUM 3.9 mmol/L (3.5-5.1)
[2018-01-02 07:05] LABS: HEMOGLOBIN A1C 5.6 % (4.5-5.6)
--- NOTE | 2018-01-02 07:53 | Clinical Documentation Query ---
CLINICAL DOCUMENTATION QUERY 72 yo male admitted with COPD exacerbation, respiratory failure, and possible sepsis. Initial hgb was 13.7 trending down to 10.8 and he has a positive occult stool. In your clinical opinion is this patient being managed for: ( ) Acute blood loss anemia ( X ) Not Agree::: No obvious source of bleeding. Hb drop likely dilutional secondary to aggressive IV fluids ( ) Other explanation of clinical findings (Please Explain) ( ) Unable to determine (Please Define) ( ) Need to Discuss The medical record reflects the following clinical findings, treatment, and risk factors. Clinical Indicators: As above Treatment: Type and screen, telemetry, serial CBCs Risk Factors: Age, occult stool, hypotension Please clarify and document your clinical opinion in the progress notes and discharge summary. Terms such as "probable", "suspected", "likely", "questionable", "possible", or "still to be ruled out" are acceptable. IF IN AGREEMENT, YOU MUST DOCUMENT ABOVE DIAGNOSTIC STATEMENT IN DAILY PROGRESS NOTES AND DISCHARGE SUMMARY. This document is not part of the patient's record. Thank You, Masha Wang RN [phone]
[2018-01-02] MEDS: BRIMONIDINE TARTRATE-P 0.15% 5 ML BTL OPR SCH (09:00)
[2018-01-02] MEDS ORDERED: LATANOPROST 0.005% OP SOLN 2.5 ML BTL OP SCH (09:00)
[2018-01-02] MEDS: DORZOLAMIDE HCL 2% OPH SOLN 10 ML BTL OP SCH (09:00)
--- NOTE | 2018-01-02 10:11 | Cardiology Follow-Up ---
Subjective Subjective Date of Service: Jan 02, 2018. Pt evaluation today including: conversation w/ patient, physical exam, chart review, lab review, review of studies, review of inpatient medication list Additional Details: The patient had an uneventful night. His atrial arrhythmias have improved. He is tolerating the diltiazem. Problem List Medical Problems: (1) Acute respiratory failure with hypoxia Status: Acute (2) COPD exacerbation Status: Acute Objective Vital Signs Last Vital Signs Documentation Date Time Temp Pulse Resp B/P (MAP) Pulse Ox O2 Delivery O2 Flow Rate FiO2 01/02/18 08:01 119 30 98 Nasal Cannula 30.0 40 01/02/18 06:01 135/76 (95) 01/02/18 04:01 36.4 Physical Exam: General Appearance: no apparent distress ENT: normal ENT inspection Neck: no adenopathy, thyroid normal, no JVD Respiratory/Chest: + decreased breath sounds, + wheezing Cardiovascular: regular rate, rhythm, no gallop, no JVD, no murmur Abdomen: normal bowel sounds, non tender, soft Extremities: normal inspection, no pedal edema, no calf tenderness Neurologic/Psychiatric: no motor/sensory deficits, alert, oriented x 3 Skin: normal color, warm/dry, no rash Lymphatic: no adenopathy Assessment and Plan Impression: 1. Paroxysmal atrial fibrillation 2. Acute exacerbation of COPD Recommendations: The patient is clinically doing better. I would continue the diltiazem. I think he should be switched over to warfarin if there is no plan for any additional procedures to be performed as this patient will need to be anticoagulated as an outpatient. Medications: Current Inpatient Medications Medications (Trade) Dose Ordered Sig/Luis Miguel Route Start Time Stop Time Status Last Admin Dose Admin Ioversol (Optiray 320) 125 ml UD PRN IV 01/01/18 00:00 01/05/18 00:00 Acetaminophen (Tylenol Tab) 650 mg Q4H PRN PO 01/01/18 01:15 01/31/18 01:14 Nitroglycerin (Nitrostat Tab) 0.4 mg UD PRN SL 01/01/18 01:15 01/31/18 01:14 Insulin Aspart (novoLOG ASPART) SLIDING SCALE If C... Q6 SC 01/01/18 06:00 01/31/18 05:59 Glucose (Glucose 40% Gel) 15-30 GRAMS 15 GRAMS... UD PRN PO 01/01/18 01:15 01/31/18 01:14 Glucose (Glucose Chew Tab) 4-8 Tablets 4 Tabl... UD PRN PO 01/01/18 01:15 01/31/18 01:14 Dextrose (Dextrose 50% 50ML Syringe) 25-50ML OF 50% DW IV FOR... UD PRN IV 01/01/18 01:15 01/31/18 01:14 Glucagon (Glucagon Inj) 1 mg UD PRN SQ 01/01/18 01:15 01/31/18 01:14 Insulin Glargine (Lantus Solostar Pen) 5 units DAILY SC 01/02/18 09:00 02/01/18 08:59 Lorazepam (Ativan Inj) 0.25 mg Q4H PRN IV 01/01/18 01:15 01/31/18 01:14 01/01/18 17:12 0.25 MG Morphine Sulfate (MoRPHine SULFATE INJ) 2 mg Q3H PRN IV 01/01/18 01:15 01/15/18 01:14 01/02/18 08:03 2 MG Tramadol HCl (Ultram Tab) 25 mg Q6H PRN PO 01/01/18 01:15 01/31/18 01:14 Aspirin (Ecotrin Tab) 81 mg DAILY PO 01/01/18 09:00 01/31/18 08:59 01/01/18 08:05 81 MG Brimonidine Tartrate (Alphagan-P 0.15% Oph Soln) 1 drops BID OPR 01/01/18 09:00 01/31/18 08:59 01/01/18 08:07 1 DROPS Dorzolamide HCl (Trusopt 2% Oph Soln) 1 drops BID OP 01/01/18 09:00 01/31/18 08:59 01/01/18 21:00 1 DROPS Pantoprazole Sodium (Protonix Tab) 40 mg DAILY PO 01/01/18 09:00 01/31/18 08:59 01/01/18 08:04 40 MG Tamsulosin HCl (Flomax Cap) 0.4 mg DAILY PO 01/01/18 09:00 01/31/18 08:59 01/01/18 08:04 0.4 MG Doxycycline Hyclate 100 mg/ Dextrose 110 ml @ 50 mls/hr Q12H IV 01/01/18 05:00 01/05/18 19:11 01/02/18 04:37 50 MLS/HR Heparin Sodium/ Dextrose 500 ml @ 14 mls/hr Q24H PRN IV 01/01/18 02:30 01/31/18 02:29 01/02/18 03:09 15 MLS/HR Ipratropium [place] (Atrovent 0.02% 0.5MG/2.5ML Neb) 0.5 mg Q6R INH 01/01/18 09:00 01/31/18 08:59 01/02/18 08:01 0.5 MG Levalbuterol (Xopenex 1.25MG/ 0.5ML Neb) 1.25 mg Q6R INH 01/01/18 09:00 01/31/18 08:59 01/02/18 08:01 1.25 MG Ipratropium [place] (Atrovent 0.02% 0.5MG/2.5ML Neb) 0.5 mg Q4H PRN INH 01/01/18 05:00 01/31/18 04:59 Levalbuterol (Xopenex 1.25MG/ 0.5ML Neb) 1.25 mg Q4H PRN INH 01/01/18 05:00 01/31/18 04:59 Roflumilast (Daliresp Tab) 500 mcg DAILY PO 01/02/18 09:00 02/01/18 08:59 Future hold Latanoprost (Xalatan Oph Soln) 1 drops DAILY@0900 OP 01/02/18 09:00 02/01/18 08:59 Methylprednisolone Sodium Succinate 40 mg/Syringe 0.64 ml @ 1.5 mls/min Q8H IV 01/01/18 20:00 01/31/18 19:59 01/02/18 03:56 1.5 MLS/MIN Amylase/Lipase/ Protease (Pancreaze (Lipase 4,200U) Cap) 2 cap AC PO 01/02/18 11:00 02/01/18 10:59 Diltiazem HCl (Cardizem Tab) 60 mg TID PO 01/02/18 14:00 01/31/18 20:59 UNV Warfarin Sodium (Coumadin Tab) 5 mg DAILY@16 PO 01/02/18 16:00 02/01/18 15:59 UNV Lab Results: Last 24 Hours Test 01/01/18 11:13 01/01/18 12:17 01/01/18 16:22 01/01/18 20:07 Bedside Glucose 107 mg/dl 98 mg/dl Activated Partial Thromboplast Time 85.3 SECONDS 77.2 SECONDS Partial Thromboplastin Ratio 3.3 3.0 Lactic Acid Level 2.2 mmol/L Test 01/02/18 00:12 01/02/18 05:10 01/02/18 05:18 Bedside Glucose 99 mg/dl 115 mg/dl White Blood Count 7.39 K/uL Red Blood Count 3.38 M/uL Hemoglobin 10.8 g/dL Hematocrit 31.6 % Mean Corpuscular Volume 93.5 fL Mean Corpuscular Hemoglobin 32.0 pg Mean Corpuscular Hemoglobin Concent 34.2 g/dl Platelet Count 280 K/uL Mean Platelet Volume 8.6 fL Neutrophils (%) (Auto) 92.2 % Lymphocytes (%) (Auto) 3.8 % Monocytes (%) (Auto) 3.5 % Eosinophils (%) (Auto) 0.0 % Basophils (%) (Auto) 0.0 % Neutrophils # (Auto) 6.81 K/uL Lymphocytes # (Auto) 0.28 K/uL Monocytes # (Auto) 0.26 K/uL Eosinophils # (Auto) 0.00 K/uL Basophils # (Auto) 0.00 K/uL RDW Standard Deviation 46.1 fL RDW Coefficient of Variation 13.5 % Immature Granulocyte % (Auto) 0.5 % Immature Granulocyte # (Auto) 0.04 K/uL Activated Partial Thromboplast Time 70.7 SECONDS Partial Thromboplastin Ratio 2.7 Sodium Level 143 mmol/L Potassium Level 3.9 mmol/L Chloride Level 110 mmol/L Carbon Dioxide Level 26 mmol/L Anion Gap 7.0 mmol/L Blood Urea Nitrogen 18 mg/dl Creatinine 0.63 mg/dl Est Creatinine Clear Calc Drug Dose 86.4 ml/min Estimated GFR () 112.5 Estimated GFR (Non- 97.1 BUN/Creatinine Ratio 28.7 Random Glucose 112 mg/dl Calcium Level 8.2 mg/dl Magnesium Level 2.0 mg/dl
[2018-01-02] MEDS: TAMSULOSIN HCL 0.4 MG CAP PO SCH (10:12)
[2018-01-02] MEDS: PANTOprazole SOD 40 MG TAB PO SCH (10:12)
[2018-01-02] MEDS: ASPIRIN 81 MG ECTAB PO SCH (10:12)
[2018-01-02] MEDS: ROFLUMILAST 500 MCG TAB PO SCH (10:13)
[2018-01-02] MEDS: INSULIN GLARGINE SOLOSTAR 100 UNITS/ML 3 ML PEN SC SCH (10:16)
--- NOTE | 2018-01-02 11:14 | Progress Note ---
Internal Med Progress Note Date of Service: Jan 02, 2018. Provider Documentation: SUBJECTIVE: Seen and examined at bedside Feels better today No bleeding issues SOB is better Less cough Denies Chest pain, dizziness No other complaints OBJECTIVE: Vital Signs-as noted below Physical Exam: General Appearance:Chronically ill appearing, no apparent distress Head: normocephalic, Atraumatic Eyes: normal inspection, EOMI, PERRL Neck: supple, Trachea midline Respiratory/Chest: Decreased breath sounds, Mild expiratory wheezes Cardiovascular: Irregularly, Irregular No murmur Abdomen/GI:Soft, Non tender, Bowel sounds present Extremities/Musculoskelatal:normal inspection, Trace edema Neurologic/Psych:AAOX3, grossly no focal neurological deficits Skin: normal color, warm Lab data as noted below. ASSESSMENT & PLAN: Acute on Chronic Hypoxic respiratory failure Chronic Oxygen dependency: on 2L HS Was on prednisone and Levaquin for bronchitis started by PCP 2 days ago Acute on Chronic COPD exacerbation CTA: No PE, No signs of consolidation, advanced COPD Continue Doxycycline, Nebs, solumedrol Blood cultures:No growth to date Oxygen support with BiPAP PRN Resume inhalers as able Influenza PCR negative Follows with [facility] in [place] as outpatient Possible Sepsis: less likely Elevated lactate levels likely secondary to above Procalcitonin normal S/P IV fluids Continue empiric Abx Blood cultures: No growth to date Diarrhea: Likely secondary to Daliresp Stool for C.diff: Negative monitor Daliresp on hold New Onset P.afib: continue Cardizem for rate control On IV heparin and Coumadin for anticoagulation Appreciate Cardiology Input Monitor INR Chronic Anemia: Last colonoscopy about 8 yrs ago which was normal per patient Hb drop likely hemodilutional from IV fluids Positive FOBT No obvious source of bleeding Monitor Hb while on heparin, coumadin HTN: Stable Continue current meds Steroid induced hyperglycemia: A1C:5.6 ISS, Lantus Monitor BGs Former Tobacco use: Quit 4 yrs ago DVT Px: on Heparin, Coumadin Code Status: Full code Disposition: Expect to discharge home when stable PT/OT Vital Signs: Date Time Temp Pulse Resp B/P (MAP) Pulse Ox O2 Delivery O2 Flow Rate FiO2 01/02/18 08:01 119 30 98 Nasal Cannula 30.0 40 01/02/18 06:01 83 20 135/76 (95) 97 01/02/18 06:00 82 17 99 01/02/18 05:01 83 21 135/89 (104) 98 01/02/18 05:00 85 19 99 01/02/18 04:08 99 High Flow Oxygen 40.0 30 01/02/18 04:01 36.4 86 23 127/82 (97) 97 01/02/18 04:00 86 17 98 01/02/18 03:01 88 16 121/71 (88) 97 01/02/18 03:00 89 17 98 01/02/18 02:02 91 18 125/71 (89) 98 01/02/18 02:00 91 19 98 01/02/18 01:36 89 20 98 Nasal Cannula 30.0 40 01/02/18 01:01 85 17 125/86 (99) 97 01/02/18 01:00 88 17 98 01/02/18 00:01 36.4 86 19 135/76 (95) 98 01/02/18 00:00 99 High Flow Oxygen 40.0 30 01/02/18 00:00 86 21 99 01/01/18 23:01 77 19 124/74 (91) 97 01/01/18 23:00 78 18 99 01/01/18 22:00 77 16 99 01/01/18 21:01 79 21 121/68 (85) 98 01/01/18 21:00 82 20 99 01/01/18 20:04 100 22 136/80 (98) 99 01/01/18 20:00 99 High Flow Oxygen 40.0 30 01/01/18 20:00 36.5 102 18 99 01/01/18 19:44 119 137/88 (104) 94 01/01/18 19:01 86 20 137/88 (104) 100 01/01/18 19:00 85 21 100 01/01/18 18:57 88 18 98 Nasal Cannula 2.0 01/01/18 18:00 86 23 125/68 (87) 98 Nasal Cannula 2.0 01/01/18 17:13 157 142/81 01/01/18 16:00 Nasal Cannula 2.0 01/01/18 16:00 36.5 99 20 142/81 (101) 98 Nasal Cannula 2.0 01/01/18 15:42 92 18 97 Room Air 01/01/18 14:00 82 20 127/85 (99) 98 Nasal Cannula 2.0 3/4/18 12:00 Nasal Cannula 2.0 01/01/18 12:00 36.4 80 22 132/71 (91) 98 Nasal Cannula 2.0 Lab Results: Results Past 24 Hours Test 01/01/18 11:13 01/01/18 12:17 01/01/18 16:22 01/01/18 20:07 Range/Units Bedside Glucose 107 98 70-99 mg/dl Activated Partial Thromboplast Time 85.3 77.2 21.0-31.0 SECONDS Partial Thromboplastin Ratio 3.3 3.0 Lactic Acid Level 2.2 0.4-2.0 mmol/L Test 01/02/18 00:12 01/02/18 05:10 01/02/18 05:18 Range/Units Bedside Glucose 99 115 70-99 mg/dl White Blood Count 7.39 4.8-10.8 K/uL Red Blood Count 3.38 4.7-6.1 M/uL Hemoglobin 10.8 14.0-18.0 g/dL Hematocrit 31.6 42-52 % Mean Corpuscular Volume 93.5 80-100 fL Mean Corpuscular Hemoglobin 32.0 25-34 pg Mean Corpuscular Hemoglobin Concent 34.2 32-36 g/dl Platelet Count 280 130-400 K/uL Mean Platelet Volume 8.6 7.4-10.4 fL Neutrophils (%) (Auto) 92.2 % Lymphocytes (%) (Auto) 3.8 % Monocytes (%) (Auto) 3.5 % Eosinophils (%) (Auto) 0.0 % Basophils (%) (Auto) 0.0 % Neutrophils # (Auto) 6.81 1.4-6.5 K/uL Lymphocytes # (Auto) 0.28 1.2-3.4 K/uL Monocytes # (Auto) 0.26 0.11-0.59 K/uL Eosinophils # (Auto) 0.00 0-0.5 K/uL Basophils # (Auto) 0.00 0-0.2 K/uL RDW Standard Deviation 46.1 36.4-46.3 fL RDW Coefficient of Variation 13.5 11.5-14.5 % Immature Granulocyte % (Auto) 0.5 % Immature Granulocyte # (Auto) 0.04 0.00-0.02 K/uL Activated Partial Thromboplast Time 70.7 21.0-31.0 SECONDS Partial Thromboplastin Ratio 2.7 Sodium Level 143 136-145 mmol/L Potassium Level 3.9 3.5-5.1 mmol/L Chloride Level 110 98-107 mmol/L Carbon Dioxide Level 26 21-32 mmol/L Anion Gap 7.0 3-11 mmol/L Blood Urea Nitrogen 18 7-18 mg/dl Creatinine 0.63 0.60-1.40 mg/dl Est Creatinine Clear Calc Drug Dose 86.4 ml/min Estimated GFR () 112.5 Estimated GFR (Non- 97.1 BUN/Creatinine Ratio 28.7 10-20 Random Glucose 112 70-99 mg/dl Calcium Level 8.2 8.5-10.1 mg/dl Magnesium Level 2.0 1.8-2.4 mg/dl
[2018-01-02] MEDS: PANCREAZE (LIPASE 4,200U) CAP PO SCH ×2 (11:52→16:54)
[2018-01-02] MEDS: DILTIAZEM HCL 30 MG TAB PO SCH ×2 (13:13→20:57)
[2018-01-02 13:32] LABS: PTT PATIENT 35.5 SECONDS (21.0-31.0)
[2018-01-02] MEDS ORDERED: HEPARIN IV BOLUS 4,000 UNIT in SYRINGE 0 ML IV ONE (14:00)
--- NOTE | 2018-01-02 15:54 | Critical Care Progress Note ---
Critical Care Progress Note Date of Service Jan 02, 2018. Attending Dr. Ralph Subjective Still on high-flow nasal cannula, still with dyspnea but considerably improved. Did not tolerate non-invasive ventilation Objective General Appearance: mild distress Head: normocephalic Eyes: PERRLA, no discharge Neck: no tenderness, trachea midline, no stridor, supple, no thyromegaly Respiratory: mild respiratory distress, no wheezing but distant breath sounds, prolonged expiratory phase Cardiovascular: normal S1S2, regular, normal peripheral pulses Abdomen: non tender, no rebound, no masses, no guarding, no organomegaly Back: normal inspection Upper Extremities: no edema Lower Extremities: no edema Neuro: alert, oriented x 3 Assessment & Plan 72 year-old male with advanced emphysema, admitted for respiratory failure secondary to COPD exacerbation. Also with paroxysmal a-fib in the hospital. COPD exacerbation: Continue iv steroids for now Around the clock bronchodilators. May continue Daliresp (off azithromycin) The patient states that he was being followed up for few years with CT scans for a lung nodule, but later on, when he went to [facility], he was told he doesn't actually have a lung nodule. I reviewed the CT scan, he has extensive emphysema, but I do not see any lung nodules He was considered for lung transplant, but he is not willing to undergo transplantation Will eventually add Symbicort and Spiriva Rate control with Cardizem. Mostly in NSR today Converting heparin drip to Coumadin ASA Resumed Pancrelipase since he was taking it as outpatient. Occasional morphine administration for anxiety with dyspnea with positive results Critical care time spent with the patient, reviewing chart, discussing with consultants, excluding procedures, greater than 35 minutes Consults & Procedures Consultants: Cardiology: Dr Méndez Data Medications: Current Inpatient Medications Medications (Trade) Dose Ordered Sig/Luis Miguel Route Start Time Stop Time Status Last Admin Dose Admin Ioversol (Optiray 320) 125 ml UD PRN IV 01/01/18 00:00 01/05/18 00:00 Acetaminophen (Tylenol Tab) 650 mg Q4H PRN PO 01/01/18 01:15 01/31/18 01:14 Nitroglycerin (Nitrostat Tab) 0.4 mg UD PRN SL 01/01/18 01:15 01/31/18 01:14 Insulin Aspart (novoLOG ASPART) SLIDING SCALE If C... Q6 SC 01/01/18 06:00 01/31/18 05:59 Glucose (Glucose 40% Gel) 15-30 GRAMS 15 GRAMS... UD PRN PO 01/01/18 01:15 01/31/18 01:14 Glucose (Glucose Chew Tab) 4-8 Tablets 4 Tabl... UD PRN PO 01/01/18 01:15 01/31/18 01:14 Dextrose (Dextrose 50% 50ML Syringe) 25-50ML OF 50% DW IV FOR... UD PRN IV 01/01/18 01:15 01/31/18 01:14 Glucagon (Glucagon Inj) 1 mg UD PRN SQ 01/01/18 01:15 01/31/18 01:14 Insulin Glargine (Lantus Solostar Pen) 5 units DAILY SC 01/02/18 09:00 02/01/18 08:59 01/02/18 10:16 5 UNITS Lorazepam (Ativan Inj) 0.25 mg Q4H PRN IV 01/01/18 01:15 01/31/18 01:14 01/01/18 17:12 0.25 MG Morphine Sulfate (MoRPHine SULFATE INJ) 2 mg Q3H PRN IV 01/01/18 01:15 01/15/18 01:14 01/02/18 13:32 2 MG Tramadol HCl (Ultram Tab) 25 mg Q6H PRN PO 01/01/18 01:15 01/31/18 01:14 Aspirin (Ecotrin Tab) 81 mg DAILY PO 01/01/18 09:00 01/31/18 08:59 01/02/18 10:12 81 MG Brimonidine Tartrate (Alphagan-P 0.15% Oph Soln) 1 drops BID OPR 01/01/18 09:00 01/31/18 08:59 01/01/18 08:07 1 DROPS Dorzolamide HCl (Trusopt 2% Oph Soln) 1 drops BID OP 01/01/18 09:00 01/31/18 08:59 01/01/18 21:00 1 DROPS Pantoprazole Sodium (Protonix Tab) 40 mg DAILY PO 01/01/18 09:00 01/31/18 08:59 01/02/18 10:12 40 MG Tamsulosin HCl (Flomax Cap) 0.4 mg DAILY PO 01/01/18 09:00 01/31/18 08:59 01/02/18 10:12 0.4 MG Doxycycline Hyclate 100 mg/ Dextrose 110 ml @ 50 mls/hr Q12H IV 01/01/18 05:00 01/05/18 19:11 01/02/18 04:37 50 MLS/HR Heparin Sodium/ Dextrose 500 ml @ 18 mls/hr Q24H PRN IV 01/01/18 02:30 01/31/18 02:29 01/02/18 14:05 18 MLS/HR Ipratropium [place] (Atrovent 0.02% 0.5MG/2.5ML Neb) 0.5 mg Q6R INH 01/01/18 09:00 01/31/18 08:59 01/02/18 14:29 0.5 MG Levalbuterol (Xopenex 1.25MG/ 0.5ML Neb) 1.25 mg Q6R INH 01/01/18 09:00 01/31/18 08:59 01/02/18 14:29 1.25 MG Ipratropium [place] (Atrovent 0.02% 0.5MG/2.5ML Neb) 0.5 mg Q4H PRN INH 01/01/18 05:00 01/31/18 04:59 Levalbuterol (Xopenex 1.25MG/ 0.5ML Neb) 1.25 mg Q4H PRN INH 01/01/18 05:00 01/31/18 04:59 Roflumilast (Daliresp Tab) 500 mcg DAILY PO 01/02/18 09:00 02/01/18 08:59 Future hold 01/02/18 10:13 500 MCG Latanoprost (Xalatan Oph Soln) 1 drops DAILY@0900 OP 01/02/18 09:00 02/01/18 08:59 Methylprednisolone Sodium Succinate 40 mg/Syringe 0.64 ml @ 1.5 mls/min Q8H IV 01/01/18 20:00 01/31/18 19:59 01/02/18 13:12 1.5 MLS/MIN Amylase/Lipase/ Protease (Pancreaze (Lipase 4,200U) Cap) 2 cap AC PO 01/02/18 11:00 02/01/18 10:59 01/02/18 11:52 2 CAP Diltiazem HCl (Cardizem Tab) 60 mg TID PO 01/02/18 14:00 01/31/18 20:59 01/02/18 13:13 60 MG Warfarin Sodium (Coumadin Tab) 5 mg DAILY@16 PO 01/02/18 16:00 02/01/18 15:59 I & O: 24-Hour Column 01/03/18 08:00 Intake Total 1018 ml Output Total 350 ml Balance 668 ml Vital Signs: Date Time Temp Pulse Resp B/P (MAP) Pulse Ox O2 Delivery O2 Flow Rate FiO2 01/02/18 14:29 85 20 99 Nasal Cannula 30.0 40 01/02/18 14:00 37.1 84 18 118/72 (87) 99 High Flow Oxygen 01/02/18 12:00 36.8 113 24 138/86 (103) 91 High Flow Oxygen 01/02/18 12:00 100 High Flow Oxygen 40.0 30 01/02/18 10:00 36.8 103 24 103/64 (77) 100 High Flow Oxygen 01/02/18 08:01 119 30 98 Nasal Cannula 30.0 40 01/02/18 08:00 High Flow Oxygen 01/02/18 08:00 36.8 102 24 154/116 (129) 91 High Flow Oxygen 01/02/18 08:00 97 High Flow Oxygen 40.0 30 01/02/18 08:00 High Flow Oxygen 30 01/02/18 06:01 83 20 135/76 (95) 97 01/02/18 06:00 82 17 99 01/02/18 05:01 83 21 135/89 (104) 98 01/02/18 05:00 85 19 99 01/02/18 04:08 99 High Flow Oxygen 40.0 30 01/02/18 04:01 36.4 86 23 127/82 (97) 97 01/02/18 04:00 86 17 98 01/02/18 03:01 88 16 121/71 (88) 97 01/02/18 03:00 89 17 98 01/02/18 02:02 91 18 125/71 (89) 98 01/02/18 02:00 91 19 98 01/02/18 01:36 89 20 98 Nasal Cannula 30.0 40 01/02/18 01:01 85 17 125/86 (99) 97 01/02/18 01:00 88 17 98 01/02/18 00:01 36.4 86 19 135/76 (95) 98 01/02/18 00:00 99 High Flow Oxygen 40.0 30 01/02/18 00:00 86 21 99 01/01/18 23:01 77 19 124/74 (91) 97 01/01/18 23:00 78 18 99 01/01/18 22:00 77 16 99 01/01/18 21:01 79 21 121/68 (85) 98 01/01/18 21:00 82 20 99 01/01/18 20:04 100 22 136/80 (98) 99 01/01/18 20:00 99 High Flow Oxygen 40.0 30 01/01/18 20:00 36.5 102 18 99 01/01/18 19:44 119 137/88 (104) 94 01/01/18 19:01 86 20 137/88 (104) 100 01/01/18 19:00 85 21 100 01/01/18 18:57 88 18 98 Nasal Cannula 2.0 01/01/18 18:00 86 23 125/68 (87) 98 Nasal Cannula 2.0 01/01/18 17:13 157 142/81 01/01/18 16:00 Nasal Cannula 2.0 01/01/18 16:00 36.5 99 20 142/81 (101) 98 Nasal Cannula 2.0 01/01/18 15:42 92 18 97 Room Air Laboratory Results: Last 24 Hours Test 01/01/18 16:22 01/01/18 20:07 01/02/18 00:12 01/02/18 05:10 Bedside Glucose 98 mg/dl 99 mg/dl Activated Partial Thromboplast Time 77.2 SECONDS 70.7 SECONDS Partial Thromboplastin Ratio 3.0 2.7 White Blood Count 7.39 K/uL Red Blood Count 3.38 M/uL Hemoglobin 10.8 g/dL Hematocrit 31.6 % Mean Corpuscular Volume 93.5 fL Mean Corpuscular Hemoglobin 32.0 pg Mean Corpuscular Hemoglobin Concent 34.2 g/dl Platelet Count 280 K/uL Mean Platelet Volume 8.6 fL Neutrophils (%) (Auto) 92.2 % Lymphocytes (%) (Auto) 3.8 % Monocytes (%) (Auto) 3.5 % Eosinophils (%) (Auto) 0.0 % Basophils (%) (Auto) 0.0 % Neutrophils # (Auto) 6.81 K/uL Lymphocytes # (Auto) 0.28 K/uL Monocytes # (Auto) 0.26 K/uL Eosinophils # (Auto) 0.00 K/uL Basophils # (Auto) 0.00 K/uL RDW Standard Deviation 46.1 fL RDW Coefficient of Variation 13.5 % Immature Granulocyte % (Auto) 0.5 % Immature Granulocyte # (Auto) 0.04 K/uL Sodium Level 143 mmol/L Potassium Level 3.9 mmol/L Chloride Level 110 mmol/L Carbon Dioxide Level 26 mmol/L Anion Gap 7.0 mmol/L Blood Urea Nitrogen 18 mg/dl Creatinine 0.63 mg/dl Est Creatinine Clear Calc Drug Dose 86.4 ml/min Estimated GFR () 112.5 Estimated GFR (Non- 97.1 BUN/Creatinine Ratio 28.7 Random Glucose 112 mg/dl Calcium Level 8.2 mg/dl Magnesium Level 2.0 mg/dl Test 01/02/18 05:18 01/02/18 11:22 01/02/18 12:49 Bedside Glucose 115 mg/dl 112 mg/dl Activated Partial Thromboplast Time 35.5 SECONDS Partial Thromboplastin Ratio 1.4
[2018-01-02] MEDS: WARFARIN SOD 5 MG TAB PO SCH (16:55)
[2018-01-02] MEDS ORDERED: DILTIAZEM HCL 5 MG/ML 5 ML VIAL ONE (18:14)
[2018-01-02] MEDS ORDERED: DILTIAZEM HCL 5 MG/ML 5 ML VIAL IV STA ×2 (18:18→18:38)
[2018-01-02] MEDS ORDERED: DILTIAZEM BOLUS / DRIP IV STA (19:33)
[2018-01-02] MEDS: DILTIAZEM HCL INJ 125 MG in DEXTROSE 5% 100ML IV PRN (20:05)
[2018-01-02 20:30] LABS: PTT PATIENT 158.5 SECONDS (21.0-31.0)
[2018-01-02] MEDS: DexMEDEtomidine HCL IV 200 MCG in SODIUM CHLORIDE 0.9% 50ML 48 ML IV SCH (20:52)
--- NOTE | 2018-01-02 21:14 | Critical Care Progress Note ---
Critical Care Progress Note Date of Service Jan 02, 2018. Critical Care Progress Note This progress note represents additional critical care services provided throughout the evening prior to 2359. I was approached by nursing staff at approximately 2015 for sustained tachycardia in the high 100s to low 200s. Was recently started on Cardizem gtt per Physician. I did evaluate the patient at 2024. The patient is anxious appearing, but does report that his breathing has been somewhat better than initial presentation. He denies any chest discomfort at this point. He denies any dizziness or lightheadedness. He is not hypotensive. I did discuss options for patient's anxiety which she reports is very high at this point. He is agreeable to trying Precedex. I did order Precedex drip and discussion was had with nursing staff regarding close monitoring for the addition of Precedex and its cardiac effects. We are all in agreement. Patient was briefly reevaluated again at 2154 and reports feeling much better at this point. Eventually, the patient's heart rhythm did break to a NSR. I have personally spent and additional 30 minutes of critical care time in the direct management of this patient. This is a life/limb threatening event. This includes time spent evaluating patient, direct bedside care, chart review, placing orders, interpretation of diagnostic studies, discussion with consultants, patient, and family members, as well as other required patient management activities. This time is exclusive of all separately billable procedures, and teaching time and separate from and in addition to any other critical care service time. Thank you for this consultation allow us to be part of this patient's care. Please refer to my attending physician's documentation for any further recommendations.
[2018-01-02 22:07] LABS: PTT PATIENT 66.9 SECONDS (21.0-31.0)
[2018-01-03] VITALS (30 sets, daily range): BP systolic 88–173; BP diastolic 59–104; PULSE 53–143; TEMP 36.4–36.9; O2SAT 93–100
[2018-01-03] MEDS: DexMEDEtomidine HCL IV 200 MCG in SODIUM CHLORIDE 0.9% 50ML 48 ML IV SCH (00:56)
[2018-01-03] MEDS: IPRATROPIUM BROMIDE NEB SOLN 0.02% 2.5 ML VIAL INH SCH ×4 (02:00→20:02)
[2018-01-03] MEDS: LEVALBUTEROL 1.25MG/0.5ML NEB INH SCH ×4 (02:00→20:02)
[2018-01-03] MEDS: METHYLPREDNISOLONE IV 40 MG in SYRINGE 0 ML IV SCH ×3 (04:01→21:05)
[2018-01-03 04:25] LABS: HEMATOCRIT 32.4 % (42-52); HEMOGLOBIN 11.1 g/dL (14.0-18.0); IG# 0.02 K/uL (0.00-0.02); LYMPH % 4.3 %; LYMPH ABS # 0.26 K/uL (1.2-3.4); MEAN CELL VOLUME 92.6 fL (80-100); MEAN CORPUSCULAR HEMOGLOBIN 31.7 pg (25-34); MEAN CORPUSCULAR HGB CONC 34.3 g/dl (32-36); MEAN PLATELET VOLUME 8.5 fL (7.4-10.4); MONO % 2.8 %; MONO ABS # 0.17 K/uL (0.11-0.59); NEUT % 92.6 %; NEUT ABS # 5.55 K/uL (1.4-6.5); PLATELET COUNT 278 K/uL (130-400); RED CELL DISTRIBUTION WIDTH CV 13.4 % (11.5-14.5); RED CELL DISTRIBUTION WIDTH SD 44.6 fL (36.4-46.3)
[2018-01-03 04:43] LABS: CALCIUM 8.1 mg/dl (8.5-10.1); CREATININE 0.74 mg/dl (0.60-1.40); PHOSPHORUS 3.2 mg/dl (2.5-4.9); POTASSIUM 4.1 mmol/L (3.5-5.1)
[2018-01-03 04:47] LABS: INR 1.2 (0.9-1.1)
[2018-01-03 04:50] LABS: PTT PATIENT 69.3 SECONDS (21.0-31.0)
[2018-01-03] MEDS: DILTIAZEM HCL INJ 125 MG in DEXTROSE 5% 100ML IV PRN (04:59)
[2018-01-03] MEDS: DOXYCYCLINE IV 100 MG in DEXTROSE 5% 100ML 100 ML IV SCH ×2 (05:09→16:07)
[2018-01-03] MEDS: INSULIN ASPART 100 UNITS/ML 3 ML PEN SC SCH ×4 (06:34→21:00)
[2018-01-03] MEDS: PANCREAZE (LIPASE 4,200U) CAP PO SCH ×2 (06:40→11:30)
[2018-01-03] MEDS: ASPIRIN 81 MG ECTAB PO SCH (07:48)
[2018-01-03] MEDS: DILTIAZEM HCL 30 MG TAB PO SCH (07:49)
[2018-01-03] MEDS: TAMSULOSIN HCL 0.4 MG CAP PO SCH (07:49)
[2018-01-03] MEDS: PANTOprazole SOD 40 MG TAB PO SCH (07:50)
[2018-01-03] MEDS: DORZOLAMIDE HCL 2% OPH SOLN 10 ML BTL OP SCH ×2 (07:58→18:00)
[2018-01-03] MEDS: BRIMONIDINE TARTRATE-P 0.15% 5 ML BTL OPR SCH ×2 (07:58→18:00)
[2018-01-03] MEDS: INSULIN GLARGINE SOLOSTAR 100 UNITS/ML 3 ML PEN SC SCH (07:59)
[2018-01-03] MEDS: ROFLUMILAST 500 MCG TAB PO SCH (08:27)
--- NOTE | 2018-01-03 10:53 | Cardiology Follow-Up ---
Subjective Subjective Date of Service: Jan 03, 2018. Pt evaluation today including: conversation w/ patient, physical exam, chart review, lab review, review of studies, conversation w/ clinical services consultant, review of inpatient medication list Additional Details: The patient had runs of atrial fibrillation with RVR last night requiring start of the diltiazem drip. His heart rates are stable this morning. He has no new complaints. He continues to be treated for his acute exacerbation of COPD. Problem List Medical Problems: (1) Acute respiratory failure with hypoxia Status: Acute (2) COPD exacerbation Status: Acute Objective Vital Signs Last Vital Signs Documentation Date Time Temp Pulse Resp B/P (MAP) Pulse Ox O2 Delivery O2 Flow Rate FiO2 01/03/18 10:00 69 24 100 01/03/18 09:00 36.7 Nasal Cannula 3.0 01/03/18 07:21 35 Physical Exam: General Appearance: no apparent distress ENT: normal ENT inspection Neck: no adenopathy, thyroid normal, no JVD Respiratory/Chest: + decreased breath sounds, + wheezing Cardiovascular: regular rate, rhythm, no gallop, no JVD, no murmur Abdomen: normal bowel sounds, non tender, soft Extremities: normal inspection, no pedal edema, no calf tenderness Neurologic/Psychiatric: no motor/sensory deficits, alert, oriented x 3 Skin: normal color, warm/dry, no rash Lymphatic: no adenopathy Assessment and Plan Impression: 1. Paroxysmal atrial fibrillation 2. Acute exacerbation of COPD Recommendations: I believe in this situation that the patient may benefit from verapamil. We will have to wean him off the diltiazem drip and stop his oral diltiazem at the same time while we start the verapamil. He was received 40 mg of verapamil at noon time today. My intent is to increase him to 80 mg 3 times daily if he tolerates the first dose. Medications: Current Inpatient Medications Medications (Trade) Dose Ordered Sig/Luis Miguel Route Start Time Stop Time Status Last Admin Dose Admin Ioversol (Optiray 320) 125 ml UD PRN IV 01/01/18 00:00 01/05/18 00:00 Acetaminophen (Tylenol Tab) 650 mg Q4H PRN PO 01/01/18 01:15 01/31/18 01:14 Nitroglycerin (Nitrostat Tab) 0.4 mg UD PRN SL 01/01/18 01:15 01/31/18 01:14 Glucose (Glucose 40% Gel) 15-30 GRAMS 15 GRAMS... UD PRN PO 01/01/18 01:15 01/31/18 01:14 Glucose (Glucose Chew Tab) 4-8 Tablets 4 Tabl... UD PRN PO 01/01/18 01:15 01/31/18 01:14 Dextrose (Dextrose 50% 50ML Syringe) 25-50ML OF 50% DW IV FOR... UD PRN IV 01/01/18 01:15 01/31/18 01:14 Glucagon (Glucagon Inj) 1 mg UD PRN SQ 01/01/18 01:15 01/31/18 01:14 Insulin Glargine (Lantus Solostar Pen) 5 units DAILY SC 01/02/18 09:00 02/01/18 08:59 01/03/18 07:59 5 UNITS Lorazepam (Ativan Inj) 0.25 mg Q4H PRN IV 01/01/18 01:15 01/31/18 01:14 01/01/18 17:12 0.25 MG Morphine Sulfate (MoRPHine SULFATE INJ) 2 mg Q3H PRN IV 01/01/18 01:15 01/15/18 01:14 01/02/18 18:11 2 MG Tramadol HCl (Ultram Tab) 25 mg Q6H PRN PO 01/01/18 01:15 01/31/18 01:14 Aspirin (Ecotrin Tab) 81 mg DAILY PO 01/01/18 09:00 01/31/18 08:59 01/03/18 07:48 81 MG Pantoprazole Sodium (Protonix Tab) 40 mg DAILY PO 01/01/18 09:00 01/31/18 08:59 01/03/18 07:50 40 MG Tamsulosin HCl (Flomax Cap) 0.4 mg DAILY PO 01/01/18 09:00 01/31/18 08:59 01/03/18 07:49 0.4 MG Doxycycline Hyclate 100 mg/ Dextrose 110 ml @ 50 mls/hr Q12H IV 01/01/18 05:00 01/05/18 19:11 01/03/18 05:09 50 MLS/HR Heparin Sodium/ Dextrose 500 ml @ 15 mls/hr Q24H PRN IV 01/01/18 02:30 01/31/18 02:29 01/02/18 14:05 18 MLS/HR Ipratropium [place] (Atrovent 0.02% 0.5MG/2.5ML Neb) 0.5 mg Q6R INH 01/01/18 09:00 01/31/18 08:59 01/03/18 07:21 0.5 MG Levalbuterol (Xopenex 1.25MG/ 0.5ML Neb) 1.25 mg Q6R INH 01/01/18 09:00 01/31/18 08:59 01/03/18 07:21 1.25 MG Ipratropium [place] (Atrovent 0.02% 0.5MG/2.5ML Neb) 0.5 mg Q4H PRN INH 01/01/18 05:00 01/31/18 04:59 Levalbuterol (Xopenex 1.25MG/ 0.5ML Neb) 1.25 mg Q4H PRN INH 01/01/18 05:00 01/31/18 04:59 Roflumilast (Daliresp Tab) 500 mcg DAILY PO 01/02/18 09:00 02/01/18 08:59 Future hold 01/03/18 08:27 500 MCG Methylprednisolone Sodium Succinate 40 mg/Syringe 0.64 ml @ 1.5 mls/min Q8H IV 01/01/18 20:00 01/31/18 19:59 01/03/18 04:01 1.5 MLS/MIN Amylase/Lipase/ Protease (Pancreaze (Lipase 4,200U) Cap) 2 cap AC PO 01/02/18 11:00 02/01/18 10:59 01/03/18 06:40 2 CAP Warfarin Sodium (Coumadin Tab) 5 mg DAILY@16 PO 01/02/18 16:00 02/01/18 15:59 01/02/18 16:55 5 MG Insulin Aspart (novoLOG ASPART) SLIDING SCALE If C... ACHS SC 01/02/18 16:00 01/31/18 05:59 Dexmedetomidine HCl 200 mcg/ Sodium Chloride 50 ml @ 0 mls/hr Q0M IV 01/02/18 20:45 01/06/18 20:44 01/03/18 00:56 7.4 MLS/HR Latanoprost (Xalatan Oph Soln) 1 drops DAILY@2100 OP 01/03/18 21:00 02/02/18 20:59 Brimonidine Tartrate (Alphagan-P 0.15% Oph Soln) 1 drops BID@0800,1800 OPR 01/03/18 08:00 02/02/18 07:59 01/03/18 07:58 1 DROPS Dorzolamide HCl (Trusopt 2% Oph Soln) 1 drops BID@0800,1800 OP 01/03/18 08:00 02/02/18 07:59 01/03/18 07:58 1 DROPS Lab Results: Last 24 Hours Test 01/02/18 11:22 01/02/18 12:49 01/02/18 16:25 01/02/18 19:52 Bedside Glucose 112 mg/dl 123 mg/dl Activated Partial Thromboplast Time 35.5 SECONDS 158.5 SECONDS Partial Thromboplastin Ratio 1.4 6.1 Test 01/02/18 21:09 01/02/18 21:30 01/03/18 04:16 01/03/18 06:33 Bedside Glucose 115 mg/dl 133 mg/dl Activated Partial Thromboplast Time 66.9 SECONDS 69.3 SECONDS Partial Thromboplastin Ratio 2.6 2.7 White Blood Count 6.00 K/uL Red Blood Count 3.50 M/uL Hemoglobin 11.1 g/dL Hematocrit 32.4 % Mean Corpuscular Volume 92.6 fL Mean Corpuscular Hemoglobin 31.7 pg Mean Corpuscular Hemoglobin Concent 34.3 g/dl Platelet Count 278 K/uL Mean Platelet Volume 8.5 fL Neutrophils (%) (Auto) 92.6 % Lymphocytes (%) (Auto) 4.3 % Monocytes (%) (Auto) 2.8 % Eosinophils (%) (Auto) 0.0 % Basophils (%) (Auto) 0.0 % Neutrophils # (Auto) 5.55 K/uL Lymphocytes # (Auto) 0.26 K/uL Monocytes # (Auto) 0.17 K/uL Eosinophils # (Auto) 0.00 K/uL Basophils # (Auto) 0.00 K/uL RDW Standard Deviation 44.6 fL RDW Coefficient of Variation 13.4 % Immature Granulocyte % (Auto) 0.3 % Immature Granulocyte # (Auto) 0.02 K/uL Prothrombin Time 12.1 SECONDS Prothromb Time International Ratio 1.2 Sodium Level 139 mmol/L Potassium Level 4.1 mmol/L Chloride Level 106 mmol/L Carbon Dioxide Level 26 mmol/L Anion Gap 7.0 mmol/L Blood Urea Nitrogen 22 mg/dl Creatinine 0.74 mg/dl Est Creatinine Clear Calc Drug Dose 73.6 ml/min Estimated GFR () 105.3 Estimated GFR (Non- 90.9 BUN/Creatinine Ratio 29.0 Random Glucose 136 mg/dl Calcium Level 8.1 mg/dl Phosphorus Level 3.2 mg/dl Magnesium Level 2.2 mg/dl
--- NOTE | 2018-01-03 11:54 | Critical Care Progress Note ---
Critical Care Progress Note Date of Service Jan 03, 2018. Attending Dr. Ralph Subjective Yesterday he developed frequent episodes of a-fib with RVR, reaching 200 bpm. required a Cardizem eventually, now better controlled Also started on low dose Precedex drip for anxiety Today he feels better, up in chair. O2 was decreased to a nasal cannula Objective General Appearance: no distress Head: normocephalic Eyes: PERRLA, no discharge Neck: no tenderness, trachea midline, no stridor, supple, no thyromegaly Respiratory: no wheezing but distant breath sounds, prolonged expiratory phase Cardiovascular: normal S1S2, regular, normal peripheral pulses Abdomen: non tender, no rebound, no masses, no guarding, no organomegaly Back: normal inspection Upper Extremities: no edema Lower Extremities: no edema Neuro: alert, oriented x 3 Assessment & Plan 72 year-old male with advanced emphysema, admitted for respiratory failure secondary to COPD exacerbation. Also with paroxysmal a-fib in the hospital. COPD exacerbation: Continue iv steroids for now Around the clock bronchodilators. May continue Daliresp (off azithromycin) Continue Abx Sputum culture, feels able to expectorate today The patient states that he was being followed up for few years with CT scans for a lung nodule, but later on, when he went to [facility], he was told he doesn't actually have a lung nodule. I reviewed the CT scan, he has extensive emphysema, but I do not see any lung nodules. May they were reactive lymph nodes, he would require IV contrast. Anyway, at this stage, it would not change his outcome, I can't imagine he would be a candidate for any type of surgery. He was considered for lung transplant, but he is not willing to undergo transplantation Will eventually add Symbicort and Spiriva Rate/rhythm control with Cardizem drip. Changing PO Cardizem to verapamil Converting heparin drip to Coumadin ASA Continue Pancrelipase Occasional morphine administration for anxiety with dyspnea with positive results Precedex drip helpful as well. Critical care time spent with the patient, reviewing chart, discussing with consultants, excluding procedures, greater than 35 minutes Consults & Procedures Consultants: Cardiology: Dr Méndez Data Medications: Current Inpatient Medications Medications (Trade) Dose Ordered Sig/Luis Miguel Route Start Time Stop Time Status Last Admin Dose Admin Ioversol (Optiray 320) 125 ml UD PRN IV 01/01/18 00:00 01/05/18 00:00 Acetaminophen (Tylenol Tab) 650 mg Q4H PRN PO 01/01/18 01:15 01/31/18 01:14 Nitroglycerin (Nitrostat Tab) 0.4 mg UD PRN SL 01/01/18 01:15 01/31/18 01:14 Glucose (Glucose 40% Gel) 15-30 GRAMS 15 GRAMS... UD PRN PO 01/01/18 01:15 01/31/18 01:14 Glucose (Glucose Chew Tab) 4-8 Tablets 4 Tabl... UD PRN PO 01/01/18 01:15 01/31/18 01:14 Dextrose (Dextrose 50% 50ML Syringe) 25-50ML OF 50% DW IV FOR... UD PRN IV 01/01/18 01:15 01/31/18 01:14 Glucagon (Glucagon Inj) 1 mg UD PRN SQ 01/01/18 01:15 01/31/18 01:14 Insulin Glargine (Lantus Solostar Pen) 5 units DAILY SC 01/02/18 09:00 02/01/18 08:59 01/03/18 07:59 5 UNITS Lorazepam (Ativan Inj) 0.25 mg Q4H PRN IV 01/01/18 01:15 01/31/18 01:14 01/01/18 17:12 0.25 MG Morphine Sulfate (MoRPHine SULFATE INJ) 2 mg Q3H PRN IV 01/01/18 01:15 01/15/18 01:14 01/02/18 18:11 2 MG Tramadol HCl (Ultram Tab) 25 mg Q6H PRN PO 01/01/18 01:15 01/31/18 01:14 Aspirin (Ecotrin Tab) 81 mg DAILY PO 01/01/18 09:00 01/31/18 08:59 01/03/18 07:48 81 MG Pantoprazole Sodium (Protonix Tab) 40 mg DAILY PO 01/01/18 09:00 01/31/18 08:59 01/03/18 07:50 40 MG Tamsulosin HCl (Flomax Cap) 0.4 mg DAILY PO 01/01/18 09:00 01/31/18 08:59 01/03/18 07:49 0.4 MG Doxycycline Hyclate 100 mg/ Dextrose 110 ml @ 50 mls/hr Q12H IV 01/01/18 05:00 01/05/18 19:11 01/03/18 05:09 50 MLS/HR Heparin Sodium/ Dextrose 500 ml @ 15 mls/hr Q24H PRN IV 01/01/18 02:30 01/31/18 02:29 01/02/18 14:05 18 MLS/HR Ipratropium [place] (Atrovent 0.02% 0.5MG/2.5ML Neb) 0.5 mg Q6R INH 01/01/18 09:00 01/31/18 08:59 01/03/18 07:21 0.5 MG Levalbuterol (Xopenex 1.25MG/ 0.5ML Neb) 1.25 mg Q6R INH 01/01/18 09:00 01/31/18 08:59 01/03/18 07:21 1.25 MG Ipratropium [place] (Atrovent 0.02% 0.5MG/2.5ML Neb) 0.5 mg Q4H PRN INH 01/01/18 05:00 01/31/18 04:59 Levalbuterol (Xopenex 1.25MG/ 0.5ML Neb) 1.25 mg Q4H PRN INH 01/01/18 05:00 01/31/18 04:59 Roflumilast (Daliresp Tab) 500 mcg DAILY PO 01/02/18 09:00 02/01/18 08:59 Future hold 01/03/18 08:27 500 MCG Methylprednisolone Sodium Succinate 40 mg/Syringe 0.64 ml @ 1.5 mls/min Q8H IV 01/01/18 20:00 01/31/18 19:59 01/03/18 11:30 1.5 MLS/MIN Amylase/Lipase/ Protease (Pancreaze (Lipase 4,200U) Cap) 2 cap AC PO 01/02/18 11:00 02/01/18 10:59 01/03/18 11:30 2 CAP Warfarin Sodium (Coumadin Tab) 5 mg DAILY@16 PO 01/02/18 16:00 02/01/18 15:59 01/02/18 16:55 5 MG Insulin Aspart (novoLOG ASPART) SLIDING SCALE If C... ACHS SC 01/02/18 16:00 01/31/18 05:59 Dexmedetomidine HCl 200 mcg/ Sodium Chloride 50 ml @ 0 mls/hr Q0M IV 01/02/18 20:45 01/06/18 20:44 01/03/18 00:56 7.4 MLS/HR Latanoprost (Xalatan Oph Soln) 1 drops DAILY@2100 OP 01/03/18 21:00 02/02/18 20:59 Brimonidine Tartrate (Alphagan-P 0.15% Oph Soln) 1 drops BID@0800,1800 OPR 01/03/18 08:00 02/02/18 07:59 01/03/18 07:58 1 DROPS Dorzolamide HCl (Trusopt 2% Oph Soln) 1 drops BID@0800,1800 OP 01/03/18 08:00 02/02/18 07:59 01/03/18 07:58 1 DROPS Verapamil HCl (Isoptin Tab) 40 mg Q6 PO 01/03/18 12:00 02/02/18 11:59 Vital Signs: Date Time Temp Pulse Resp B/P (MAP) Pulse Ox O2 Delivery O2 Flow Rate FiO2 01/03/18 10:00 69 24 100 01/03/18 09:00 36.7 75 22 98 Nasal Cannula 3.0 01/03/18 08:00 87 26 01/03/18 08:00 Nasal Cannula 3.0 01/03/18 07:21 60 18 97 Nasal Cannula 30.0 35 01/03/18 07:01 63 21 115/71 (86) 99 01/03/18 07:00 59 19 97 01/03/18 06:00 53 19 88/59 (69) 98 40.0 30 01/03/18 04:00 High Flow Oxygen 40.0 30 01/03/18 04:00 36.9 55 19 97/64 (75) 97 High Flow Oxygen 40.0 30 01/03/18 02:10 56 20 99 Nasal Cannula 30.0 40 01/03/18 02:00 55 17 102/59 (73) 97 High Flow Oxygen 40.0 30 01/03/18 00:01 57 17 94/60 (71) 98 High Flow Oxygen 40.0 30 01/02/18 23:59 High Flow Oxygen 40.0 30 01/02/18 22:00 73 21 118/66 (83) 97 High Flow Oxygen 40.0 30 01/02/18 20:00 High Flow Oxygen 40.0 30 01/02/18 20:00 36.9 74 17 121/85 (97) 97 High Flow Oxygen 40.0 30 01/02/18 18:00 152 18 131/78 (95) 91 High Flow Oxygen 01/02/18 16:00 97 High Flow Oxygen 40.0 30 01/02/18 16:00 36.9 82 18 127/73 (91) 91 High Flow Oxygen 01/02/18 14:29 85 20 99 Nasal Cannula 30.0 40 01/02/18 14:00 37.1 84 18 118/72 (87) 99 High Flow Oxygen 01/02/18 12:00 36.8 113 24 138/86 (103) 91 High Flow Oxygen 01/02/18 12:00 100 High Flow Oxygen 40.0 30 Laboratory Results: Last 24 Hours Test 01/02/18 12:49 01/02/18 16:25 01/02/18 19:52 01/02/18 21:09 Activated Partial Thromboplast Time 35.5 SECONDS 158.5 SECONDS Partial Thromboplastin Ratio 1.4 6.1 Bedside Glucose 123 mg/dl 115 mg/dl Test 01/02/18 21:30 01/03/18 04:16 01/03/18 06:33 Activated Partial Thromboplast Time 66.9 SECONDS 69.3 SECONDS Partial Thromboplastin Ratio 2.6 2.7 White Blood Count 6.00 K/uL Red Blood Count 3.50 M/uL Hemoglobin 11.1 g/dL Hematocrit 32.4 % Mean Corpuscular Volume 92.6 fL Mean Corpuscular Hemoglobin 31.7 pg Mean Corpuscular Hemoglobin Concent 34.3 g/dl Platelet Count 278 K/uL Mean Platelet Volume 8.5 fL Neutrophils (%) (Auto) 92.6 % Lymphocytes (%) (Auto) 4.3 % Monocytes (%) (Auto) 2.8 % Eosinophils (%) (Auto) 0.0 % Basophils (%) (Auto) 0.0 % Neutrophils # (Auto) 5.55 K/uL Lymphocytes # (Auto) 0.26 K/uL Monocytes # (Auto) 0.17 K/uL Eosinophils # (Auto) 0.00 K/uL Basophils # (Auto) 0.00 K/uL RDW Standard Deviation 44.6 fL RDW Coefficient of Variation 13.4 % Immature Granulocyte % (Auto) 0.3 % Immature Granulocyte # (Auto) 0.02 K/uL Prothrombin Time 12.1 SECONDS Prothromb Time International Ratio 1.2 Sodium Level 139 mmol/L Potassium Level 4.1 mmol/L Chloride Level 106 mmol/L Carbon Dioxide Level 26 mmol/L Anion Gap 7.0 mmol/L Blood Urea Nitrogen 22 mg/dl Creatinine 0.74 mg/dl Est Creatinine Clear Calc Drug Dose 73.6 ml/min Estimated GFR () 105.3 Estimated GFR (Non- 90.9 BUN/Creatinine Ratio 29.0 Random Glucose 136 mg/dl Calcium Level 8.1 mg/dl Phosphorus Level 3.2 mg/dl Magnesium Level 2.2 mg/dl Bedside Glucose 133 mg/dl
[2018-01-03] MEDS ORDERED: VERAPAMIL HCL 40 MG TAB PO SCH (12:00)
[2018-01-03] MEDS ORDERED: PANTOprazole INJ 40 MG in SYRINGE 0 ML IV ONE (12:30)
[2018-01-03] MEDS: HEPARIN 25,000 UNIT/500ML D5W 500 ML IV PRN (15:11)
[2018-01-03] MEDS: WARFARIN SOD 5 MG TAB PO SCH (16:06)
[2018-01-03 16:12] LABS: HEMATOCRIT 36.1 % (42-52); HEMOGLOBIN 12.2 g/dL (14.0-18.0); MEAN CELL VOLUME 91.9 fL (80-100); MEAN CORPUSCULAR HGB CONC 33.8 g/dl (32-36); MEAN PLATELET VOLUME 8.7 fL (7.4-10.4); PLATELET COUNT 314 K/uL (130-400); RED CELL DISTRIBUTION WIDTH CV 13.1 % (11.5-14.5); RED CELL DISTRIBUTION WIDTH SD 43.9 fL (36.4-46.3); WHITE BLOOD COUNT 6.25 K/uL (4.8-10.8)
[2018-01-03] MEDS: VERAPAMIL HCL 40 MG TAB PO SCH ×2 (18:30→22:59)
[2018-01-03] MEDS: MoRPHine SULFATE 2 MG/ML CARP IV PRN (18:43)
[2018-01-03] MEDS ORDERED: VERAPAMIL HCL 2.5 MG/ML 2 ML VIAL IV PRN (18:45)
[2018-01-03] MEDS ORDERED: LOPERAMIDE HCL 2 MG CAP PO PRN (18:45)
--- NOTE | 2018-01-03 20:10 | Progress Note ---
Progress Note Date of Service Jan 03, 2018. Progress Note Subjective: patient breathing on nasal cannula which is improvement as per ICU doctor. Patient remains in the ICU Physical Exam General: verbal, sitting on chair Lungs: on nasal cannula, still some rhonchi/expiratory wheezes Heart: regular rate Abdomen: soft, nontender, Extremities: no edema 72 year-old male with advanced emphysema, admitted for respiratory failure secondary to COPD exacerbation and paroxysmal a-fib in the hospital. As per ICU physician for the COPD exacerbation Continue IV steroids, scheduled bronchodilators, Stephen Is on Doxycycline ICU physician also recommending occasional morphine administration for anxiety with dyspnea; and Precedex drip helpful as well paroxysmal a-fib Rate/rhythm controlled with Cardizem drip. transitioning from PO Cardizem to verapamil Converting heparin drip to Coumadin, monitor INR continue ASA, monitor platelets Chronic anemia monitor CBC Continue Pancrelipase monitor for diarrhea Disposition: remains in the ICU today as breathing is not optimized yet
[2018-01-03] MEDS: LATANOPROST 0.005% OP SOLN 2.5 ML BTL OP SCH (20:39)
[2018-01-03] MEDS: PANTOprazole INJ 40 MG in SYRINGE 0 ML IV SCH (21:05)
[2018-01-04] VITALS (35 sets, daily range): BP systolic 106–160; BP diastolic 57–101; PULSE 58–115; TEMP 36.2–36.7; O2SAT 93–100
[2018-01-04] MEDS: DexMEDEtomidine HCL IV 200 MCG in SODIUM CHLORIDE 0.9% 50ML 48 ML IV SCH (01:32)
[2018-01-04] MEDS: LEVALBUTEROL 1.25MG/0.5ML NEB INH SCH ×4 (02:07→20:10)
[2018-01-04] MEDS: IPRATROPIUM BROMIDE NEB SOLN 0.02% 2.5 ML VIAL INH SCH ×4 (02:07→20:09)
[2018-01-04] MEDS: MoRPHine SULFATE 2 MG/ML CARP IV PRN ×3 (02:11→19:56)
[2018-01-04] MEDS: DOXYCYCLINE IV 100 MG in DEXTROSE 5% 100ML 100 ML IV SCH ×2 (05:08→16:16)
[2018-01-04] MEDS: METHYLPREDNISOLONE IV 40 MG in SYRINGE 0 ML IV SCH ×3 (05:08→19:55)
[2018-01-04 05:38] LABS: HEMATOCRIT 32.1 % (42-52); IG# 0.03 K/uL (0.00-0.02); LYMPH % 2.9 %; LYMPH ABS # 0.18 K/uL (1.2-3.4); MEAN CORPUSCULAR HEMOGLOBIN 31.5 pg (25-34); MEAN CORPUSCULAR HGB CONC 34.3 g/dl (32-36); MEAN PLATELET VOLUME 8.7 fL (7.4-10.4); MONO % 4.2 %; MONO ABS # 0.26 K/uL (0.11-0.59); NEUT % 92.4 %; NEUT ABS # 5.65 K/uL (1.4-6.5); PLATELET COUNT 300 K/uL (130-400); RED CELL DISTRIBUTION WIDTH CV 13.1 % (11.5-14.5); RED CELL DISTRIBUTION WIDTH SD 44.1 fL (36.4-46.3); WHITE BLOOD COUNT 6.12 K/uL (4.8-10.8)
[2018-01-04 06:06] LABS: PTT PATIENT 110.6 SECONDS (21.0-31.0)
[2018-01-04 06:09] LABS: CALCIUM 8.3 mg/dl (8.5-10.1); CREATININE 0.8 mg/dl (0.60-1.40); PHOSPHORUS 3.6 mg/dl (2.5-4.9); POTASSIUM 3.7 mmol/L (3.5-5.1)
[2018-01-04] MEDS: DORZOLAMIDE HCL 2% OPH SOLN 10 ML BTL OP SCH ×2 (07:29→17:47)
[2018-01-04] MEDS: BRIMONIDINE TARTRATE-P 0.15% 5 ML BTL OPR SCH ×2 (07:29→17:47)
[2018-01-04] MEDS: INSULIN ASPART 100 UNITS/ML 3 ML PEN SC SCH ×4 (07:30→21:00)
[2018-01-04] MEDS: VERAPAMIL HCL 40 MG TAB PO SCH ×3 (07:31→19:56)
[2018-01-04] MEDS: ASPIRIN 81 MG ECTAB PO SCH (07:31)
[2018-01-04] MEDS: TAMSULOSIN HCL 0.4 MG CAP PO SCH (07:31)
[2018-01-04] MEDS: ROFLUMILAST 500 MCG TAB PO SCH (07:32)
[2018-01-04] MEDS: INSULIN GLARGINE SOLOSTAR 100 UNITS/ML 3 ML PEN SC SCH (07:34)
[2018-01-04] MEDS: PANTOprazole INJ 40 MG in SYRINGE 0 ML IV SCH ×2 (07:37→19:55)
[2018-01-04] MEDS ORDERED: POTASSIUM CHLORIDE 10 MEQ TABCR PO STA (08:28)
[2018-01-04] MEDS: ALPRAZOLAM 0.25 MG TAB PO PRN ×2 (09:32→16:16)
--- NOTE | 2018-01-04 10:04 | Progress Note ---
Internal Med Progress Note Date of Service: Jan 04, 2018. Provider Documentation: Subjective: patient breathing on nasal cannula. Continues to has breathing with pursed lips. Patient reports problems with eating breakfast this morning as he felt discomfit of the chest and abdomen. Patient reports lot of diarrhea yesterday Physical Exam General: verbal, sitting on chair Lungs: on nasal cannula, fair air entry, breathing with pursed lips Heart: regular rate Abdomen: soft, nontender, Extremities: no edema ASSESSMENT & PLAN: 72 year-old male with advanced emphysema, admitted for respiratory failure secondary to COPD exacerbation and paroxysmal a-fib in the hospital. COPD exacerbation IV steroids, scheduled bronchodilators, Daliresp on Doxycycline ICU physician also recommended occasional morphine administration for anxiety with dyspnea vs Precedex drip paroxysmal a-fib Rate/rhythm controlled with Cardizem drip. on verapamil anticoagulation strategy of heparin drip to Coumadin with INR today as 3. As per ICU physician, the Coumadin is likely to be held today as it is unclear whether patient has risk of GI bleed or not as the 01/01/18 fecal occult blood positive but 01/03/18 fecal occult blood negative continue ASA, monitor platelets Chronic anemia monitor CBC Pancrelipase stopped as there is concern of risk for exacerbating diarrhea Disposition: remains in the ICU today as breathing is not optimized yet Vital Signs: Date Time Temp Pulse Resp B/P (MAP) Pulse Ox O2 Delivery O2 Flow Rate FiO2 01/04/18 09:01 71 21 114/64 (81) 98 Nasal Cannula 3.0 01/04/18 09:00 73 26 01/04/18 08:46 77 20 96 Nasal Cannula 3.0 01/04/18 08:01 114 28 160/87 (111) 96 3.0 01/04/18 08:00 115 25 94 01/04/18 08:00 Nasal Cannula 3.0 01/04/18 07:00 70 17 118/65 (82) 97 Nasal Cannula 2.0 01/04/18 06:00 61 17 114/67 (83) Nasal Cannula 2.0 01/04/18 05:00 58 15 114/62 (79) 98 Nasal Cannula 2.0 01/04/18 04:00 Nasal Cannula 01/04/18 04:00 36.2 58 16 111/66 (81) 99 Nasal Cannula 2.0 01/04/18 02:07 71 22 98 Nasal Cannula 3.0 01/04/18 02:00 69 18 111/82 (92) Nasal Cannula 2.0 01/04/18 01:00 59 16 126/62 (83) 98 Nasal Cannula 2.0 01/04/18 00:00 36.2 63 18 123/70 (87) Nasal Cannula 2.0 01/03/18 23:59 Nasal Cannula 01/03/18 23:01 78 19 130/76 (94) 95 Nasal Cannula 2.0 01/03/18 22:00 68 21 124/80 (95) 97 Nasal Cannula 2.0 01/03/18 21:00 80 22 130/72 (91) 95 Nasal Cannula 2.0 01/03/18 20:01 36.4 85 27 127/69 (88) 98 Nasal Cannula 2.0 01/03/18 20:00 Nasal Cannula 01/03/18 18:39 143 24 173/104 (127) 95 Nasal Cannula 2.0 01/03/18 18:00 101 39 97 Nasal Cannula 2.0 01/03/18 17:00 68 19 98 01/03/18 16:00 36.6 71 16 98 Nasal Cannula 2.0 01/03/18 15:43 Nasal Cannula 2.0 01/03/18 15:02 91 22 169/99 (122) 96 01/03/18 15:00 96 20 97 01/03/18 14:01 83 15 127/78 (94) 100 Nasal Cannula 2.0 01/03/18 14:00 82 22 93 01/03/18 13:58 78 22 98 Nasal Cannula 3.0 01/03/18 13:30 70 21 100 01/03/18 13:00 101 22 155/72 (99) 01/03/18 12:30 78 20 99 01/03/18 12:00 36.6 77 19 134/67 (89) 100 Nasal Cannula 3.0 01/03/18 11:40 77 18 120/70 (87) 97 01/03/18 11:30 Nasal Cannula 3.0 01/03/18 11:00 73 27 126/72 (90) 97 Lab Results: Results Past 24 Hours Test 01/03/18 11:17 01/03/18 16:06 01/03/18 16:12 01/03/18 20:58 Range/Units Bedside Glucose 139 126 119 70-99 mg/dl White Blood Count 6.25 4.8-10.8 K/uL Red Blood Count 3.93 4.7-6.1 M/uL Hemoglobin 12.2 14.0-18.0 g/dL Hematocrit 36.1 42-52 % Mean Corpuscular Volume 91.9 80-100 fL Mean Corpuscular Hemoglobin 31.0 25-34 pg Mean Corpuscular Hemoglobin Concent 33.8 32-36 g/dl RDW Standard Deviation 43.9 36.4-46.3 fL RDW Coefficient of Variation 13.1 11.5-14.5 % Platelet Count 314 130-400 K/uL Mean Platelet Volume 8.7 7.4-10.4 fL Test 01/04/18 05:03 Range/Units White Blood Count 6.12 4.8-10.8 K/uL Red Blood Count 3.49 4.7-6.1 M/uL Hemoglobin 11.0 14.0-18.0 g/dL Hematocrit 32.1 42-52 % Mean Corpuscular Volume 92.0 80-100 fL Mean Corpuscular Hemoglobin 31.5 25-34 pg Mean Corpuscular Hemoglobin Concent 34.3 32-36 g/dl Platelet Count 300 130-400 K/uL Mean Platelet Volume 8.7 7.4-10.4 fL Neutrophils (%) (Auto) 92.4 % Lymphocytes (%) (Auto) 2.9 % Monocytes (%) (Auto) 4.2 % Eosinophils (%) (Auto) 0.0 % Basophils (%) (Auto) 0.0 % Neutrophils # (Auto) 5.65 1.4-6.5 K/uL Lymphocytes # (Auto) 0.18 1.2-3.4 K/uL Monocytes # (Auto) 0.26 0.11-0.59 K/uL Eosinophils # (Auto) 0.00 0-0.5 K/uL Basophils # (Auto) 0.00 0-0.2 K/uL RDW Standard Deviation 44.1 36.4-46.3 fL RDW Coefficient of Variation 13.1 11.5-14.5 % Immature Granulocyte % (Auto) 0.5 % Immature Granulocyte # (Auto) 0.03 0.00-0.02 K/uL Prothrombin Time 30.5 9.0-12.0 SECONDS Prothromb Time International Ratio 3.0 0.9-1.1 Activated Partial Thromboplast Time 110.6 21.0-31.0 SECONDS Partial Thromboplastin Ratio 4.3 Sodium Level 137 136-145 mmol/L Potassium Level 3.7 3.5-5.1 mmol/L Chloride Level 103 98-107 mmol/L Carbon Dioxide Level 27 21-32 mmol/L Anion Gap 7.0 3-11 mmol/L Blood Urea Nitrogen 27 7-18 mg/dl Creatinine 0.80 0.60-1.40 mg/dl Est Creatinine Clear Calc Drug Dose 70.5 ml/min Estimated GFR () 102.0 Estimated GFR (Non- 88.0 BUN/Creatinine Ratio 33.7 10-20 Random Glucose 133 70-99 mg/dl Calcium Level 8.3 8.5-10.1 mg/dl Phosphorus Level 3.6 2.5-4.9 mg/dl Magnesium Level 2.3 1.8-2.4 mg/dl Microbiology Results 01/03/18 Gram Stain - Final, Resulted 01/03/18 Sputum Culture, Resulted Pending
--- NOTE | 2018-01-04 10:16 | Critical Care Progress Note ---
Critical Care Progress Note Date of Service Jan 04, 2018. Attending Dr. Ralph Subjective Still dyspneic, doing a lot of pursed-lip breathing Off Cardizem drip since yesterday. Oral Cardizem changed to oral verapamil. Since yesterday he had two salvos of rapid a-fib, self-limited. Diarrhea resolved after loperamide. Objective General Appearance: no distress Head: normocephalic Eyes: PERRLA, no discharge Neck: no tenderness, trachea midline, no stridor, supple, no thyromegaly Respiratory: no wheezing but distant breath sounds, prolonged expiratory phase Cardiovascular: normal S1S2, regular, normal peripheral pulses Abdomen: non tender, no rebound, no masses, no guarding, no organomegaly Back: normal inspection Upper Extremities: no edema Lower Extremities: no edema Neuro: alert, oriented x 3 Assessment & Plan 72 year-old male with advanced emphysema, admitted for respiratory failure secondary to COPD exacerbation. Also with paroxysmal a-fib in the hospital. COPD exacerbation: Continue iv steroids for now Around the clock bronchodilators and prn. May continue Daliresp (off azithromycin) Continue Abx, on doxycycline Sputum culture, feels able to expectorate today The patient states that he was being followed up for few years with CT scans for a lung nodule, but later on, when he went to [facility], he was told he doesn't actually have a lung nodule. I reviewed the CT scan, he has extensive emphysema, but I do not see any lung nodules. May they were reactive lymph nodes, he would require IV contrast. Anyway, at this stage, it would not change his outcome, I can't imagine he would be a candidate for any type of surgery. He was considered for lung transplant, but he is not willing to undergo transplantation Will eventually resume Symbicort and Spiriva Rate/rhythm with verapamil Off Cardizem drip Continue ASA INR 3 today, spiked fairly rapidly. Would hold it for today Overlapping with heparin drip, probably can discontinue it. Will discuss with cardiology Occasional morphine administration for anxiety with dyspnea with positive results Precedex drip helpful as well, attempt to convert to Xanax No evidence of GI bleeding, H/h stable, stool for occult blood negative now. Continue BID Protonix for today and change back to po daily dosing tomorrow Critical care time spent with the patient, reviewing chart, discussing with consultants, excluding procedures, greater than 35 minutes Needs to continue ICU monitoring given respiratory failure, significant dyspnea , difficult to control a-fib Consults & Procedures Consultants: Cardiology: Dr Méndez Data Medications: Current Inpatient Medications Medications (Trade) Dose Ordered Sig/Luis Miguel Route Start Time Stop Time Status Last Admin Dose Admin Ioversol (Optiray 320) 125 ml UD PRN IV 01/01/18 00:00 01/05/18 00:00 Acetaminophen (Tylenol Tab) 650 mg Q4H PRN PO 01/01/18 01:15 01/31/18 01:14 Nitroglycerin (Nitrostat Tab) 0.4 mg UD PRN SL 01/01/18 01:15 01/31/18 01:14 Glucose (Glucose 40% Gel) 15-30 GRAMS 15 GRAMS... UD PRN PO 01/01/18 01:15 01/31/18 01:14 Glucose (Glucose Chew Tab) 4-8 Tablets 4 Tabl... UD PRN PO 01/01/18 01:15 01/31/18 01:14 Dextrose (Dextrose 50% 50ML Syringe) 25-50ML OF 50% DW IV FOR... UD PRN IV 01/01/18 01:15 01/31/18 01:14 Glucagon (Glucagon Inj) 1 mg UD PRN SQ 01/01/18 01:15 01/31/18 01:14 Insulin Glargine (Lantus Solostar Pen) 5 units DAILY SC 01/02/18 09:00 02/01/18 08:59 01/04/18 07:34 5 UNITS Lorazepam (Ativan Inj) 0.25 mg Q4H PRN IV 01/01/18 01:15 01/31/18 01:14 01/01/18 17:12 0.25 MG Morphine Sulfate (MoRPHine SULFATE INJ) 2 mg Q3H PRN IV 01/01/18 01:15 01/15/18 01:14 01/04/18 08:04 2 MG Tramadol HCl (Ultram Tab) 25 mg Q6H PRN PO 01/01/18 01:15 01/31/18 01:14 Aspirin (Ecotrin Tab) 81 mg DAILY PO 01/01/18 09:00 01/31/18 08:59 01/04/18 07:31 81 MG Tamsulosin HCl (Flomax Cap) 0.4 mg DAILY PO 01/01/18 09:00 01/31/18 08:59 01/04/18 07:31 0.4 MG Doxycycline Hyclate 100 mg/ Dextrose 110 ml @ 50 mls/hr Q12H IV 01/01/18 05:00 01/05/18 19:11 01/04/18 05:08 50 MLS/HR Heparin Sodium/ Dextrose 500 ml @ 12 mls/hr Q24H PRN IV 01/01/18 02:30 01/31/18 02:29 01/03/18 15:11 15 MLS/HR Ipratropium [place] (Atrovent 0.02% 0.5MG/2.5ML Neb) 0.5 mg Q6R INH 01/01/18 09:00 01/31/18 08:59 01/04/18 08:46 0.5 MG Levalbuterol (Xopenex 1.25MG/ 0.5ML Neb) 1.25 mg Q6R INH 01/01/18 09:00 01/31/18 08:59 01/04/18 08:46 1.25 MG Ipratropium [place] (Atrovent 0.02% 0.5MG/2.5ML Neb) 0.5 mg Q4H PRN INH 01/01/18 05:00 01/31/18 04:59 Levalbuterol (Xopenex 1.25MG/ 0.5ML Neb) 1.25 mg Q4H PRN INH 01/01/18 05:00 01/31/18 04:59 Roflumilast (Daliresp Tab) 500 mcg DAILY PO 01/02/18 09:00 02/01/18 08:59 Future hold 01/04/18 07:32 500 MCG Methylprednisolone Sodium Succinate 40 mg/Syringe 0.64 ml @ 1.5 mls/min Q8H IV 01/01/18 20:00 01/31/18 19:59 01/04/18 05:08 1.5 MLS/MIN Warfarin Sodium (Coumadin Tab) 5 mg DAILY@16 PO 01/02/18 16:00 02/01/18 15:59 Future Hold 01/03/18 16:06 5 MG Insulin Aspart (novoLOG ASPART) SLIDING SCALE If C... ACHS SC 01/02/18 16:00 01/31/18 05:59 Dexmedetomidine HCl 200 mcg/ Sodium Chloride 50 ml @ 0 mls/hr Q0M IV 01/02/18 20:45 01/06/18 20:44 01/04/18 01:32 4 MLS/HR Latanoprost (Xalatan Oph Soln) 1 drops DAILY@2100 OP 01/03/18 21:00 02/02/18 20:59 Brimonidine Tartrate (Alphagan-P 0.15% Oph Soln) 1 drops BID@0800,1800 OPR 01/03/18 08:00 02/02/18 07:59 01/04/18 07:29 1 DROPS Dorzolamide HCl (Trusopt 2% Oph Soln) 1 drops BID@0800,1800 OP 01/03/18 08:00 02/02/18 07:59 01/04/18 07:29 1 DROPS Pantoprazole Sodium 40 mg/ Syringe 10 ml @ 5 mls/min DAILY@ IV 01/03/18 21:00 02/02/18 20:59 01/04/18 07:37 5 MLS/MIN Verapamil HCl (Isoptin Tab) 80 mg TID PO 01/03/18 18:00 02/02/18 17:59 01/04/18 07:31 80 MG Verapamil HCl (Calan Inj) 5 mg Q1H PRN IV 01/03/18 18:45 02/02/18 18:44 Loperamide HCl (Imodium Cap) 2 mg Q3H PRN PO 01/03/18 18:45 02/02/18 18:44 01/03/18 18:50 2 MG Alprazolam (Xanax Tab) 0.25 mg Q6H PRN PO 01/04/18 08:45 02/03/18 08:44 01/04/18 09:32 0.25 MG Vital Signs: Date Time Temp Pulse Resp B/P (MAP) Pulse Ox O2 Delivery O2 Flow Rate FiO2 01/04/18 09:01 71 21 114/64 (81) 98 Nasal Cannula 3.0 01/04/18 09:00 73 26 01/04/18 08:46 77 20 96 Nasal Cannula 3.0 01/04/18 08:01 114 28 160/87 (111) 96 3.0 01/04/18 08:00 115 25 94 01/04/18 08:00 Nasal Cannula 3.0 01/04/18 07:00 70 17 118/65 (82) 97 Nasal Cannula 2.0 01/04/18 06:00 61 17 114/67 (83) Nasal Cannula 2.0 01/04/18 05:00 58 15 114/62 (79) 98 Nasal Cannula 2.0 01/04/18 04:00 Nasal Cannula 01/04/18 04:00 36.2 58 16 111/66 (81) 99 Nasal Cannula 2.0 01/04/18 02:07 71 22 98 Nasal Cannula 3.0 01/04/18 02:00 69 18 111/82 (92) Nasal Cannula 2.0 01/04/18 01:00 59 16 126/62 (83) 98 Nasal Cannula 2.0 01/04/18 00:00 36.2 63 18 123/70 (87) Nasal Cannula 2.0 01/03/18 23:59 Nasal Cannula 01/03/18 23:01 78 19 130/76 (94) 95 Nasal Cannula 2.0 01/03/18 22:00 68 21 124/80 (95) 97 Nasal Cannula 2.0 01/03/18 21:00 80 22 130/72 (91) 95 Nasal Cannula 2.0 01/03/18 20:01 36.4 85 27 127/69 (88) 98 Nasal Cannula 2.0 01/03/18 20:00 Nasal Cannula 01/03/18 18:39 143 24 173/104 (127) 95 Nasal Cannula 2.0 01/03/18 18:00 101 39 97 Nasal Cannula 2.0 01/03/18 17:00 68 19 98 01/03/18 16:00 36.6 71 16 98 Nasal Cannula 2.0 01/03/18 15:43 Nasal Cannula 2.0 01/03/18 15:02 91 22 169/99 (122) 96 01/03/18 15:00 96 20 97 01/03/18 14:01 83 15 127/78 (94) 100 Nasal Cannula 2.0 01/03/18 14:00 82 22 93 01/03/18 13:58 78 22 98 Nasal Cannula 3.0 01/03/18 13:30 70 21 100 01/03/18 13:00 101 22 155/72 (99) 01/03/18 12:30 78 20 99 01/03/18 12:00 36.6 77 19 134/67 (89) 100 Nasal Cannula 3.0 01/03/18 11:40 77 18 120/70 (87) 97 01/03/18 11:30 Nasal Cannula 3.0 01/03/18 11:00 73 27 126/72 (90) 97 Laboratory Results: Last 24 Hours Test 01/03/18 11:17 01/03/18 16:06 01/03/18 16:12 01/03/18 20:58 Bedside Glucose 139 mg/dl 126 mg/dl 119 mg/dl White Blood Count 6.25 K/uL Red Blood Count 3.93 M/uL Hemoglobin 12.2 g/dL Hematocrit 36.1 % Mean Corpuscular Volume 91.9 fL Mean Corpuscular Hemoglobin 31.0 pg Mean Corpuscular Hemoglobin Concent 33.8 g/dl RDW Standard Deviation 43.9 fL RDW Coefficient of Variation 13.1 % Platelet Count 314 K/uL Mean Platelet Volume 8.7 fL Test 01/04/18 05:03 White Blood Count 6.12 K/uL Red Blood Count 3.49 M/uL Hemoglobin 11.0 g/dL Hematocrit 32.1 % Mean Corpuscular Volume 92.0 fL Mean Corpuscular Hemoglobin 31.5 pg Mean Corpuscular Hemoglobin Concent 34.3 g/dl Platelet Count 300 K/uL Mean Platelet Volume 8.7 fL Neutrophils (%) (Auto) 92.4 % Lymphocytes (%) (Auto) 2.9 % Monocytes (%) (Auto) 4.2 % Eosinophils (%) (Auto) 0.0 % Basophils (%) (Auto) 0.0 % Neutrophils # (Auto) 5.65 K/uL Lymphocytes # (Auto) 0.18 K/uL Monocytes # (Auto) 0.26 K/uL Eosinophils # (Auto) 0.00 K/uL Basophils # (Auto) 0.00 K/uL RDW Standard Deviation 44.1 fL RDW Coefficient of Variation 13.1 % Immature Granulocyte % (Auto) 0.5 % Immature Granulocyte # (Auto) 0.03 K/uL Prothrombin Time 30.5 SECONDS Prothromb Time International Ratio 3.0 Activated Partial Thromboplast Time 110.6 SECONDS Partial Thromboplastin Ratio 4.3 Sodium Level 137 mmol/L Potassium Level 3.7 mmol/L Chloride Level 103 mmol/L Carbon Dioxide Level 27 mmol/L Anion Gap 7.0 mmol/L Blood Urea Nitrogen 27 mg/dl Creatinine 0.80 mg/dl Est Creatinine Clear Calc Drug Dose 70.5 ml/min Estimated GFR () 102.0 Estimated GFR (Non- 88.0 BUN/Creatinine Ratio 33.7 Random Glucose 133 mg/dl Calcium Level 8.3 mg/dl Phosphorus Level 3.6 mg/dl Magnesium Level 2.3 mg/dl
--- NOTE | 2018-01-04 11:03 | Cardiology Follow-Up ---
Subjective Subjective Date of Service: Jan 04, 2018. Pt evaluation today including: conversation w/ patient, physical exam, chart review, lab review, review of studies, conversation w/ air quality consultant, review of inpatient medication list Additional Details: The patient had 2 brief episodes of atrial fibrillation last night but in general his heart rhythm has remained stable in normal sinus. He is tolerating the verapamil. No new cardiac complaints. Problem List Medical Problems: (1) Acute respiratory failure with hypoxia Status: Acute (2) COPD exacerbation Status: Acute Objective Vital Signs Last Vital Signs Documentation Date Time Temp Pulse Resp B/P (MAP) Pulse Ox O2 Delivery O2 Flow Rate FiO2 01/04/18 09:01 71 21 114/64 (81) 98 Nasal Cannula 3.0 01/04/18 04:00 36.2 01/03/18 07:21 35 Physical Exam: General Appearance: no apparent distress ENT: normal ENT inspection Neck: no adenopathy, thyroid normal, no JVD Respiratory/Chest: + decreased breath sounds, + wheezing Cardiovascular: regular rate, rhythm, no gallop, no JVD, no murmur Abdomen: normal bowel sounds, non tender, soft Extremities: normal inspection, no pedal edema, no calf tenderness Neurologic/Psychiatric: no motor/sensory deficits, alert, oriented x 3 Skin: normal color, warm/dry, no rash Lymphatic: no adenopathy Assessment and Plan Impression: 1. Paroxysmal atrial fibrillation 2. Acute exacerbation of COPD Recommendations: I would continue the verapamil at its present dose. His INR with the start of Coumadin has already reached 3. This is most likely a combination of antibiotics along with other medications such as verapamil. I would discontinue the heparin today in anticipation of the INR will remain elevated and adjust his Coumadin appropriately. Otherwise from a cardiac standpoint he is currently stable. Medications: Current Inpatient Medications Medications (Trade) Dose Ordered Sig/Luis Miguel Route Start Time Stop Time Status Last Admin Dose Admin Ioversol (Optiray 320) 125 ml UD PRN IV 01/01/18 00:00 01/05/18 00:00 Acetaminophen (Tylenol Tab) 650 mg Q4H PRN PO 01/01/18 01:15 01/31/18 01:14 Nitroglycerin (Nitrostat Tab) 0.4 mg UD PRN SL 01/01/18 01:15 01/31/18 01:14 Glucose (Glucose 40% Gel) 15-30 GRAMS 15 GRAMS... UD PRN PO 01/01/18 01:15 01/31/18 01:14 Glucose (Glucose Chew Tab) 4-8 Tablets 4 Tabl... UD PRN PO 01/01/18 01:15 01/31/18 01:14 Dextrose (Dextrose 50% 50ML Syringe) 25-50ML OF 50% DW IV FOR... UD PRN IV 01/01/18 01:15 01/31/18 01:14 Glucagon (Glucagon Inj) 1 mg UD PRN SQ 01/01/18 01:15 01/31/18 01:14 Insulin Glargine (Lantus Solostar Pen) 5 units DAILY SC 01/02/18 09:00 02/01/18 08:59 01/04/18 07:34 5 UNITS Lorazepam (Ativan Inj) 0.25 mg Q4H PRN IV 01/01/18 01:15 01/31/18 01:14 01/01/18 17:12 0.25 MG Morphine Sulfate (MoRPHine SULFATE INJ) 2 mg Q3H PRN IV 01/01/18 01:15 01/15/18 01:14 01/04/18 08:04 2 MG Tramadol HCl (Ultram Tab) 25 mg Q6H PRN PO 01/01/18 01:15 01/31/18 01:14 Aspirin (Ecotrin Tab) 81 mg DAILY PO 01/01/18 09:00 01/31/18 08:59 01/04/18 07:31 81 MG Tamsulosin HCl (Flomax Cap) 0.4 mg DAILY PO 01/01/18 09:00 01/31/18 08:59 01/04/18 07:31 0.4 MG Doxycycline Hyclate 100 mg/ Dextrose 110 ml @ 50 mls/hr Q12H IV 01/01/18 05:00 01/05/18 19:11 01/04/18 05:08 50 MLS/HR Ipratropium [place] (Atrovent 0.02% 0.5MG/2.5ML Neb) 0.5 mg Q6R INH 01/01/18 09:00 01/31/18 08:59 01/04/18 08:46 0.5 MG Levalbuterol (Xopenex 1.25MG/ 0.5ML Neb) 1.25 mg Q6R INH 01/01/18 09:00 01/31/18 08:59 01/04/18 08:46 1.25 MG Ipratropium [place] (Atrovent 0.02% 0.5MG/2.5ML Neb) 0.5 mg Q4H PRN INH 01/01/18 05:00 01/31/18 04:59 Levalbuterol (Xopenex 1.25MG/ 0.5ML Neb) 1.25 mg Q4H PRN INH 01/01/18 05:00 01/31/18 04:59 Roflumilast (Daliresp Tab) 500 mcg DAILY PO 01/02/18 09:00 02/01/18 08:59 Future hold 01/04/18 07:32 500 MCG Methylprednisolone Sodium Succinate 40 mg/Syringe 0.64 ml @ 1.5 mls/min Q8H IV 01/01/18 20:00 01/31/18 19:59 01/04/18 05:08 1.5 MLS/MIN Warfarin Sodium (Coumadin Tab) 5 mg DAILY@16 PO 01/02/18 16:00 02/01/18 15:59 Future Hold 01/03/18 16:06 5 MG Insulin Aspart (novoLOG ASPART) SLIDING SCALE If C... ACHS SC 01/02/18 16:00 01/31/18 05:59 Dexmedetomidine HCl 200 mcg/ Sodium Chloride 50 ml @ 0 mls/hr Q0M IV 01/02/18 20:45 01/06/18 20:44 01/04/18 01:32 4 MLS/HR Latanoprost (Xalatan Oph Soln) 1 drops DAILY@2100 OP 01/03/18 21:00 02/02/18 20:59 Brimonidine Tartrate (Alphagan-P 0.15% Oph Soln) 1 drops BID@0800,1800 OPR 01/03/18 08:00 02/02/18 07:59 01/04/18 07:29 1 DROPS Dorzolamide HCl (Trusopt 2% Oph Soln) 1 drops BID@0800,1800 OP 01/03/18 08:00 02/02/18 07:59 01/04/18 07:29 1 DROPS Pantoprazole Sodium 40 mg/ Syringe 10 ml @ 5 mls/min DAILY@09,21 IV 01/03/18 21:00 02/02/18 20:59 01/04/18 07:37 5 MLS/MIN Verapamil HCl (Isoptin Tab) 80 mg TID PO 01/03/18 18:00 02/02/18 17:59 01/04/18 07:31 80 MG Verapamil HCl (Calan Inj) 5 mg Q1H PRN IV 01/03/18 18:45 02/02/18 18:44 Loperamide HCl (Imodium Cap) 2 mg Q3H PRN PO 01/03/18 18:45 02/02/18 18:44 01/03/18 18:50 2 MG Alprazolam (Xanax Tab) 0.25 mg Q6H PRN PO 01/04/18 08:45 02/03/18 08:44 01/04/18 09:32 0.25 MG Lab Results: Last 24 Hours Test 01/03/18 11:17 01/03/18 16:06 01/03/18 16:12 01/03/18 20:58 Bedside Glucose 139 mg/dl 126 mg/dl 119 mg/dl White Blood Count 6.25 K/uL Red Blood Count 3.93 M/uL Hemoglobin 12.2 g/dL Hematocrit 36.1 % Mean Corpuscular Volume 91.9 fL Mean Corpuscular Hemoglobin 31.0 pg Mean Corpuscular Hemoglobin Concent 33.8 g/dl RDW Standard Deviation 43.9 fL RDW Coefficient of Variation 13.1 % Platelet Count 314 K/uL Mean Platelet Volume 8.7 fL Test 01/04/18 05:03 White Blood Count 6.12 K/uL Red Blood Count 3.49 M/uL Hemoglobin 11.0 g/dL Hematocrit 32.1 % Mean Corpuscular Volume 92.0 fL Mean Corpuscular Hemoglobin 31.5 pg Mean Corpuscular Hemoglobin Concent 34.3 g/dl Platelet Count 300 K/uL Mean Platelet Volume 8.7 fL Neutrophils (%) (Auto) 92.4 % Lymphocytes (%) (Auto) 2.9 % Monocytes (%) (Auto) 4.2 % Eosinophils (%) (Auto) 0.0 % Basophils (%) (Auto) 0.0 % Neutrophils # (Auto) 5.65 K/uL Lymphocytes # (Auto) 0.18 K/uL Monocytes # (Auto) 0.26 K/uL Eosinophils # (Auto) 0.00 K/uL Basophils # (Auto) 0.00 K/uL RDW Standard Deviation 44.1 fL RDW Coefficient of Variation 13.1 % Immature Granulocyte % (Auto) 0.5 % Immature Granulocyte # (Auto) 0.03 K/uL Prothrombin Time 30.5 SECONDS Prothromb Time International Ratio 3.0 Activated Partial Thromboplast Time 110.6 SECONDS Partial Thromboplastin Ratio 4.3 Sodium Level 137 mmol/L Potassium Level 3.7 mmol/L Chloride Level 103 mmol/L Carbon Dioxide Level 27 mmol/L Anion Gap 7.0 mmol/L Blood Urea Nitrogen 27 mg/dl Creatinine 0.80 mg/dl Est Creatinine Clear Calc Drug Dose 70.5 ml/min Estimated GFR () 102.0 Estimated GFR (Non- 88.0 BUN/Creatinine Ratio 33.7 Random Glucose 133 mg/dl Calcium Level 8.3 mg/dl Phosphorus Level 3.6 mg/dl Magnesium Level 2.3 mg/dl
[2018-01-04] MEDS ORDERED: ~HEPARIN DRIP~STOP ORDER ONE (11:15)
[2018-01-04] MEDS ORDERED: NURSING VERBAL MED ORDER ONE (17:30)
[2018-01-04] MEDS: LATANOPROST 0.005% OP SOLN 2.5 ML BTL OP SCH (19:56)
[2018-01-04] MEDS: LORAZEPAM 2 MG/ML 1 ML VIAL IV PRN (21:48)
[2018-01-05] VITALS (16 sets, daily range): BP systolic 122–147; BP diastolic 66–81; PULSE 81–119; TEMP 36.4–36.8; O2SAT 95–99
[2018-01-05] MEDS: LEVALBUTEROL 1.25MG/0.5ML NEB INH SCH ×4 (01:52→19:52)
[2018-01-05] MEDS: IPRATROPIUM BROMIDE NEB SOLN 0.02% 2.5 ML VIAL INH SCH ×4 (01:52→19:52)
[2018-01-05] MEDS: LORAZEPAM 2 MG/ML 1 ML VIAL IV PRN ×3 (02:13→21:09)
[2018-01-05] MEDS: METHYLPREDNISOLONE IV 40 MG in SYRINGE 0 ML IV SCH ×3 (04:06→22:13)
[2018-01-05] MEDS: DOXYCYCLINE IV 100 MG in DEXTROSE 5% 100ML 100 ML IV SCH ×2 (04:07→17:30)
[2018-01-05 05:46] LABS: HEMATOCRIT 34.5 % (42-52); HEMOGLOBIN 11.4 g/dL (14.0-18.0); IG# 0.07 K/uL (0.00-0.02); LYMPH % 2.6 %; LYMPH ABS # 0.19 K/uL (1.2-3.4); MEAN CELL VOLUME 92.5 fL (80-100); MEAN CORPUSCULAR HEMOGLOBIN 30.6 pg (25-34); MEAN PLATELET VOLUME 8.7 fL (7.4-10.4); MONO % 4.1 %; NEUT % 92.3 %; NEUT ABS # 6.72 K/uL (1.4-6.5); PLATELET COUNT 317 K/uL (130-400); RED CELL DISTRIBUTION WIDTH CV 13.2 % (11.5-14.5); RED CELL DISTRIBUTION WIDTH SD 44.6 fL (36.4-46.3); WHITE BLOOD COUNT 7.28 K/uL (4.8-10.8)
[2018-01-05 06:23] LABS: CALCIUM 8.2 mg/dl (8.5-10.1); CREATININE 1.01 mg/dl (0.60-1.40); PHOSPHORUS 3.3 mg/dl (2.5-4.9); POTASSIUM 4.1 mmol/L (3.5-5.1)
[2018-01-05 06:27] LABS: PTT PATIENT 34.3 SECONDS (21.0-31.0)
[2018-01-05 06:29] LABS: INR 3.6 (0.9-1.1)
[2018-01-05] MEDS: INSULIN ASPART 100 UNITS/ML 3 ML PEN SC SCH ×2 (06:45→21:00)
--- NOTE | 2018-01-05 07:06 | DIAGNOSTIC IMAGING REPORT ---
CHEST ONE VIEW PORTABLE CLINICAL HISTORY: copd COMPARISON STUDY: 01/01/2018 FINDINGS: There is radiographic evidence of emphysema. Chronically increased apical markings remain stable. There is no acute parenchymal consolidation. There is no failure. There are no pleural effusions.[ IMPRESSION: Emphysema with chronic upper lobe changes. No acute findings. Electronically signed by: Koffi Santana M.D. 01/05/2018 7:04 AM Dictated Date/Time: 01/05/2018 7:03 AM
[2018-01-05] MEDS: MoRPHine SULFATE 2 MG/ML CARP IV PRN ×2 (08:00→18:35)
[2018-01-05] MEDS: PANTOprazole INJ 40 MG in SYRINGE 0 ML IV SCH (08:04)
[2018-01-05] MEDS: DORZOLAMIDE HCL 2% OPH SOLN 10 ML BTL OP SCH ×2 (08:05→18:35)
[2018-01-05] MEDS: ROFLUMILAST 500 MCG TAB PO SCH (08:05)
[2018-01-05] MEDS: BRIMONIDINE TARTRATE-P 0.15% 5 ML BTL OPR SCH ×2 (08:05→18:35)
[2018-01-05] MEDS: TAMSULOSIN HCL 0.4 MG CAP PO SCH (08:06)
[2018-01-05] MEDS: VERAPAMIL HCL 40 MG TAB PO SCH ×3 (08:06→21:03)
[2018-01-05] MEDS: ASPIRIN 81 MG ECTAB PO SCH (08:06)
[2018-01-05] MEDS: INSULIN GLARGINE SOLOSTAR 100 UNITS/ML 3 ML PEN SC SCH (08:08)
--- NOTE | 2018-01-05 12:14 | Cardiology Follow-Up ---
Subjective Subjective Date of Service: Jan 05, 2018. Pt evaluation today including: conversation w/ patient, physical exam, chart review, lab review, review of studies, review of inpatient medication list Additional Details: The patient had an uneventful night. He remains in mostly sinus rhythm. He has frequent PACs and occasional short bursts of PAF and PAF with aberrancy. Problem List Medical Problems: (1) Acute respiratory failure with hypoxia Status: Acute (2) COPD exacerbation Status: Acute Objective Vital Signs Last Vital Signs Documentation Date Time Temp Pulse Resp B/P (MAP) Pulse Ox O2 Delivery O2 Flow Rate FiO2 01/05/18 10:00 93 19 136/76 (96) 97 Nasal Cannula 3.0 01/05/18 08:00 36.4 01/03/18 07:21 35 Physical Exam: General Appearance: no apparent distress ENT: normal ENT inspection Neck: no adenopathy, thyroid normal, no JVD Respiratory/Chest: + decreased breath sounds, + wheezing Cardiovascular: regular rate, rhythm, no gallop, no JVD, no murmur Abdomen: normal bowel sounds, non tender, soft Extremities: normal inspection, no pedal edema, no calf tenderness Neurologic/Psychiatric: no motor/sensory deficits, alert, oriented x 3 Skin: normal color, warm/dry, no rash Lymphatic: no adenopathy Assessment and Plan Impression: 1. Paroxysmal atrial fibrillation 2. Acute exacerbation of COPD Recommendations: I will will continue the verapamil at its current dosage. Hopefully he will continuing to improve and as his pulmonary status improves his arrhythmias will subside. There is no good choice for antiarrhythmic medication in this situation. Medications: Current Inpatient Medications Medications (Trade) Dose Ordered Sig/Luis Miguel Route Start Time Stop Time Status Last Admin Dose Admin Acetaminophen (Tylenol Tab) 650 mg Q4H PRN PO 01/01/18 01:15 01/31/18 01:14 Nitroglycerin (Nitrostat Tab) 0.4 mg UD PRN SL 01/01/18 01:15 01/31/18 01:14 Glucose (Glucose 40% Gel) 15-30 GRAMS 15 GRAMS... UD PRN PO 01/01/18 01:15 01/31/18 01:14 Glucose (Glucose Chew Tab) 4-8 Tablets 4 Tabl... UD PRN PO 01/01/18 01:15 01/31/18 01:14 Dextrose (Dextrose 50% 50ML Syringe) 25-50ML OF 50% DW IV FOR... UD PRN IV 01/01/18 01:15 01/31/18 01:14 Glucagon (Glucagon Inj) 1 mg UD PRN SQ 01/01/18 01:15 01/31/18 01:14 Insulin Glargine (Lantus Solostar Pen) 5 units DAILY SC 01/02/18 09:00 02/01/18 08:59 01/05/18 08:08 5 UNITS Lorazepam (Ativan Inj) 0.25 mg Q4H PRN IV 01/01/18 01:15 01/31/18 01:14 01/05/18 05:56 0.25 MG Morphine Sulfate (MoRPHine SULFATE INJ) 2 mg Q3H PRN IV 01/01/18 01:15 01/15/18 01:14 01/05/18 08:00 2 MG Tramadol HCl (Ultram Tab) 25 mg Q6H PRN PO 01/01/18 01:15 01/31/18 01:14 Aspirin (Ecotrin Tab) 81 mg DAILY PO 01/01/18 09:00 01/31/18 08:59 01/05/18 08:06 81 MG Tamsulosin HCl (Flomax Cap) 0.4 mg DAILY PO 01/01/18 09:00 01/31/18 08:59 01/05/18 08:06 0.4 MG Doxycycline Hyclate 100 mg/ Dextrose 110 ml @ 50 mls/hr Q12H IV 01/01/18 05:00 01/05/18 19:11 01/05/18 04:07 50 MLS/HR Ipratropium [place] (Atrovent 0.02% 0.5MG/2.5ML Neb) 0.5 mg Q6R INH 01/01/18 09:00 01/31/18 08:59 01/05/18 07:14 0.5 MG Levalbuterol (Xopenex 1.25MG/ 0.5ML Neb) 1.25 mg Q6R INH 01/01/18 09:00 01/31/18 08:59 01/05/18 07:14 1.25 MG Ipratropium [place] (Atrovent 0.02% 0.5MG/2.5ML Neb) 0.5 mg Q4H PRN INH 01/01/18 05:00 01/31/18 04:59 Levalbuterol (Xopenex 1.25MG/ 0.5ML Neb) 1.25 mg Q4H PRN INH 01/01/18 05:00 01/31/18 04:59 Roflumilast (Daliresp Tab) 500 mcg DAILY PO 01/02/18 09:00 02/01/18 08:59 Future hold 01/05/18 08:05 500 MCG Methylprednisolone Sodium Succinate 40 mg/Syringe 0.64 ml @ 1.5 mls/min Q8H IV 01/01/18 20:00 01/31/18 19:59 01/05/18 04:06 1.5 MLS/MIN Warfarin Sodium (Coumadin Tab) 5 mg DAILY@16 PO 01/02/18 16:00 02/01/18 15:59 Future Hold 01/03/18 16:06 5 MG Latanoprost (Xalatan Oph Soln) 1 drops DAILY@2100 OP 01/03/18 21:00 02/02/18 20:59 01/04/18 19:56 1 DROPS Brimonidine Tartrate (Alphagan-P 0.15% Oph Soln) 1 drops BID@0800,1800 OPR 01/03/18 08:00 02/02/18 07:59 01/05/18 08:05 1 DROPS Dorzolamide HCl (Trusopt 2% Oph Soln) 1 drops BID@0800,1800 OP 01/03/18 08:00 02/02/18 07:59 01/05/18 08:05 1 DROPS Verapamil HCl (Isoptin Tab) 80 mg TID PO 01/03/18 18:00 02/02/18 17:59 01/05/18 08:06 80 MG Verapamil HCl (Calan Inj) 5 mg Q1H PRN IV 01/03/18 18:45 02/02/18 18:44 Loperamide HCl (Imodium Cap) 2 mg Q3H PRN PO 01/03/18 18:45 02/02/18 18:44 01/03/18 18:50 2 MG Pantoprazole Sodium (Protonix Tab) 40 mg QAM PO 01/06/18 09:00 02/05/18 08:59 Alprazolam (Xanax Tab) 0.5 mg Q6H PRN PO 01/05/18 08:30 02/03/18 08:44 Insulin Aspart (novoLOG ASPART) SLIDING SCALE If C... BID@0669,2100 NV 01/05/18 21:00 02/04/18 20:59 Lab Results: Last 24 Hours Test 01/04/18 16:11 01/04/18 20:55 01/05/18 05:25 Bedside Glucose 122 mg/dl 137 mg/dl White Blood Count 7.28 K/uL Red Blood Count 3.73 M/uL Hemoglobin 11.4 g/dL Hematocrit 34.5 % Mean Corpuscular Volume 92.5 fL Mean Corpuscular Hemoglobin 30.6 pg Mean Corpuscular Hemoglobin Concent 33.0 g/dl Platelet Count 317 K/uL Mean Platelet Volume 8.7 fL Neutrophils (%) (Auto) 92.3 % Lymphocytes (%) (Auto) 2.6 % Monocytes (%) (Auto) 4.1 % Eosinophils (%) (Auto) 0.0 % Basophils (%) (Auto) 0.0 % Neutrophils # (Auto) 6.72 K/uL Lymphocytes # (Auto) 0.19 K/uL Monocytes # (Auto) 0.30 K/uL Eosinophils # (Auto) 0.00 K/uL Basophils # (Auto) 0.00 K/uL RDW Standard Deviation 44.6 fL RDW Coefficient of Variation 13.2 % Immature Granulocyte % (Auto) 1.0 % Immature Granulocyte # (Auto) 0.07 K/uL Prothrombin Time 36.8 SECONDS Prothromb Time International Ratio 3.6 Activated Partial Thromboplast Time 34.3 SECONDS Partial Thromboplastin Ratio 1.3 Sodium Level 138 mmol/L Potassium Level 4.1 mmol/L Chloride Level 104 mmol/L Carbon Dioxide Level 28 mmol/L Anion Gap 6.0 mmol/L Blood Urea Nitrogen 32 mg/dl Creatinine 1.01 mg/dl Est Creatinine Clear Calc Drug Dose 55.8 ml/min Estimated GFR () 84.5 Estimated GFR (Non- 72.9 BUN/Creatinine Ratio 32.0 Random Glucose 127 mg/dl Calcium Level 8.2 mg/dl Phosphorus Level 3.3 mg/dl Magnesium Level 2.3 mg/dl
--- NOTE | 2018-01-05 14:25 | Critical Care Progress Note ---
Critical Care Progress Note Date of Service Jan 05, 2018. Attending Dr. Ralph Subjective Slightly improved today. Medicated with Morphine this AM, slept in the morning. I observed him during sleep, he was quite comfortable, RR 18-20, seemed to have adequate air entry Objective General Appearance: no distress Head: normocephalic Eyes: PERRLA, no discharge Neck: no tenderness, trachea midline, no stridor, supple, no thyromegaly Respiratory: no wheezing but distant breath sounds, prolonged expiratory phase Cardiovascular: normal S1S2, regular, normal peripheral pulses Abdomen: non tender, no rebound, no masses, no guarding, no organomegaly Back: normal inspection Upper Extremities: no edema Lower Extremities: no edema Neuro: alert, oriented x 3 Assessment & Plan 72 year-old male with advanced emphysema, admitted for respiratory failure secondary to COPD exacerbation. Also with paroxysmal a-fib in the hospital. COPD exacerbation: Continue iv steroids for now Around the clock bronchodilators and prn. May continue Daliresp (off azithromycin) Continue Abx, on doxycycline Sputum culture unremarkable The patient states that he was being followed up for few years with CT scans for a lung nodule, but later on, when he went to [facility], he was told he doesn't actually have a lung nodule. I reviewed the CT scan, he has extensive emphysema, but I do not see any lung nodules. May they were reactive lymph nodes, he would require IV contrast. Anyway, at this stage, it would not change his outcome, I can't imagine he would be a candidate for any type of surgery. He was considered for lung transplant, but he is not willing to undergo transplantation Will eventually resume Symbicort and Spiriva Rate/rhythm well controlled with verapamil. No further episodes in more than 24 hours Off Cardizem drip Continue ASA INR 3.6 today, spiked fairly rapidly. Would hold Coumadin today as well Off heparin drip. Occasional morphine administration for anxiety with dyspnea with positive results Prn Xanax No evidence of GI bleeding, H/h stable, stool for occult blood negative now. Changed bid iv Protonix to daily PO dosing Critical care time spent with the patient, reviewing chart, discussing with consultants, excluding procedures, greater than 25 minutes May be transferred to PCU today Consults & Procedures Consultants: Cardiology: Dr Méndez Data Medications: Current Inpatient Medications Medications (Trade) Dose Ordered Sig/Luis Miguel Route Start Time Stop Time Status Last Admin Dose Admin Acetaminophen (Tylenol Tab) 650 mg Q4H PRN PO 01/01/18 01:15 01/31/18 01:14 Nitroglycerin (Nitrostat Tab) 0.4 mg UD PRN SL 01/01/18 01:15 01/31/18 01:14 Glucose (Glucose 40% Gel) 15-30 GRAMS 15 GRAMS... UD PRN PO 01/01/18 01:15 01/31/18 01:14 Glucose (Glucose Chew Tab) 4-8 Tablets 4 Tabl... UD PRN PO 01/01/18 01:15 01/31/18 01:14 Dextrose (Dextrose 50% 50ML Syringe) 25-50ML OF 50% DW IV FOR... UD PRN IV 01/01/18 01:15 01/31/18 01:14 Glucagon (Glucagon Inj) 1 mg UD PRN SQ 01/01/18 01:15 01/31/18 01:14 Insulin Glargine (Lantus Solostar Pen) 5 units DAILY SC 01/02/18 09:00 02/01/18 08:59 01/05/18 08:08 5 UNITS Lorazepam (Ativan Inj) 0.25 mg Q4H PRN IV 01/01/18 01:15 01/31/18 01:14 01/05/18 05:56 0.25 MG Morphine Sulfate (MoRPHine SULFATE INJ) 2 mg Q3H PRN IV 01/01/18 01:15 01/15/18 01:14 01/05/18 08:00 2 MG Tramadol HCl (Ultram Tab) 25 mg Q6H PRN PO 01/01/18 01:15 01/31/18 01:14 Aspirin (Ecotrin Tab) 81 mg DAILY PO 01/01/18 09:00 01/31/18 08:59 01/05/18 08:06 81 MG Tamsulosin HCl (Flomax Cap) 0.4 mg DAILY PO 01/01/18 09:00 01/31/18 08:59 01/05/18 08:06 0.4 MG Doxycycline Hyclate 100 mg/ Dextrose 110 ml @ 50 mls/hr Q12H IV 01/01/18 05:00 01/05/18 19:11 01/05/18 04:07 50 MLS/HR Ipratropium [place] (Atrovent 0.02% 0.5MG/2.5ML Neb) 0.5 mg Q6R INH 01/01/18 09:00 01/31/18 08:59 01/05/18 07:14 0.5 MG Levalbuterol (Xopenex 1.25MG/ 0.5ML Neb) 1.25 mg Q6R INH 01/01/18 09:00 01/31/18 08:59 01/05/18 07:14 1.25 MG Ipratropium [place] (Atrovent 0.02% 0.5MG/2.5ML Neb) 0.5 mg Q4H PRN INH 01/01/18 05:00 01/31/18 04:59 Levalbuterol (Xopenex 1.25MG/ 0.5ML Neb) 1.25 mg Q4H PRN INH 01/01/18 05:00 01/31/18 04:59 Roflumilast (Daliresp Tab) 500 mcg DAILY PO 01/02/18 09:00 02/01/18 08:59 Future hold 01/05/18 08:05 500 MCG Methylprednisolone Sodium Succinate 40 mg/Syringe 0.64 ml @ 1.5 mls/min Q8H IV 01/01/18 20:00 01/31/18 19:59 01/05/18 12:39 1.5 MLS/MIN Warfarin Sodium (Coumadin Tab) 5 mg DAILY@16 PO 01/02/18 16:00 02/01/18 15:59 Future Hold 01/03/18 16:06 5 MG Latanoprost (Xalatan Oph Soln) 1 drops DAILY@2100 OP 01/03/18 21:00 02/02/18 20:59 01/04/18 19:56 1 DROPS Brimonidine Tartrate (Alphagan-P 0.15% Oph Soln) 1 drops BID@0800,1800 OPR 01/03/18 08:00 02/02/18 07:59 01/05/18 08:05 1 DROPS Dorzolamide HCl (Trusopt 2% Oph Soln) 1 drops BID@0800,1800 OP 01/03/18 08:00 02/02/18 07:59 01/05/18 08:05 1 DROPS Verapamil HCl (Isoptin Tab) 80 mg TID PO 01/03/18 18:00 02/02/18 17:59 01/05/18 14:17 80 MG Verapamil HCl (Calan Inj) 5 mg Q1H PRN IV 01/03/18 18:45 02/02/18 18:44 Loperamide HCl (Imodium Cap) 2 mg Q3H PRN PO 01/03/18 18:45 02/02/18 18:44 01/03/18 18:50 2 MG Pantoprazole Sodium (Protonix Tab) 40 mg QAM PO 01/06/18 09:00 02/05/18 08:59 Alprazolam (Xanax Tab) 0.5 mg Q6H PRN PO 01/05/18 08:30 02/03/18 08:44 Insulin Aspart (novoLOG ASPART) SLIDING SCALE If C... BID@0645,2100 SC 01/05/18 21:00 02/04/18 20:59 Vital Signs: Date Time Temp Pulse Resp B/P (MAP) Pulse Ox O2 Delivery O2 Flow Rate FiO2 01/05/18 12:00 36.4 96 19 137/81 (99) 98 Nasal Cannula 3.0 01/05/18 12:00 Nasal Cannula 3.0 01/05/18 10:00 93 19 136/76 (96) 97 Nasal Cannula 3.0 01/05/18 08:00 Nasal Cannula 3.0 01/05/18 08:00 Nasal Cannula 01/05/18 08:00 36.4 119 17 133/74 (93) 97 Nasal Cannula 3.0 01/05/18 07:14 88 18 98 Nasal Cannula 2.0 01/05/18 06:00 93 22 147/76 (99) 95 Nasal Cannula 3.0 01/05/18 04:00 36.4 81 17 124/72 (89) 96 Nasal Cannula 3.0 01/05/18 04:00 Nasal Cannula 3.0 01/05/18 04:00 81 17 124/72 (89) 96 Nasal Cannula 3.0 01/05/18 03:00 85 17 96 01/05/18 02:01 92 20 134/80 (98) 97 3.0 01/05/18 01:53 85 21 98 Nasal Cannula 3.0 01/05/18 00:00 36.5 83 16 122/66 (84) 96 Nasal Cannula 3.0 01/04/18 23:59 Nasal Cannula 3.0 01/04/18 22:00 94 19 117/57 (77) 01/04/18 21:00 104 22 96 01/04/18 20:10 83 21 99 Nasal Cannula 3.0 01/04/18 20:00 Nasal Cannula 3.0 01/04/18 20:00 36.6 99 25 157/80 (105) 96 Nasal Cannula 3.0 01/04/18 19:00 77 19 98 01/04/18 18:00 81 20 128/66 (86) 98 Nasal Cannula 3.0 01/04/18 17:00 90 21 98 01/04/18 16:13 79 29 126/72 (90) 96 01/04/18 16:01 69 18 159/101 (120) 100 Nasal Cannula 3.0 01/04/18 16:00 36.5 64 22 01/04/18 15:53 100 Nasal Cannula 3.0 01/04/18 15:00 81 20 99 01/04/18 14:24 75 16 129/71 (90) 93 Nasal Cannula 3.0 Laboratory Results: Last 24 Hours Test 01/04/18 16:11 01/04/18 20:55 01/05/18 05:25 Bedside Glucose 122 mg/dl 137 mg/dl White Blood Count 7.28 K/uL Red Blood Count 3.73 M/uL Hemoglobin 11.4 g/dL Hematocrit 34.5 % Mean Corpuscular Volume 92.5 fL Mean Corpuscular Hemoglobin 30.6 pg Mean Corpuscular Hemoglobin Concent 33.0 g/dl Platelet Count 317 K/uL Mean Platelet Volume 8.7 fL Neutrophils (%) (Auto) 92.3 % Lymphocytes (%) (Auto) 2.6 % Monocytes (%) (Auto) 4.1 % Eosinophils (%) (Auto) 0.0 % Basophils (%) (Auto) 0.0 % Neutrophils # (Auto) 6.72 K/uL Lymphocytes # (Auto) 0.19 K/uL Monocytes # (Auto) 0.30 K/uL Eosinophils # (Auto) 0.00 K/uL Basophils # (Auto) 0.00 K/uL RDW Standard Deviation 44.6 fL RDW Coefficient of Variation 13.2 % Immature Granulocyte % (Auto) 1.0 % Immature Granulocyte # (Auto) 0.07 K/uL Prothrombin Time 36.8 SECONDS Prothromb Time International Ratio 3.6 Activated Partial Thromboplast Time 34.3 SECONDS Partial Thromboplastin Ratio 1.3 Sodium Level 138 mmol/L Potassium Level 4.1 mmol/L Chloride Level 104 mmol/L Carbon Dioxide Level 28 mmol/L Anion Gap 6.0 mmol/L Blood Urea Nitrogen 32 mg/dl Creatinine 1.01 mg/dl Est Creatinine Clear Calc Drug Dose 55.8 ml/min Estimated GFR () 84.5 Estimated GFR (Non- 72.9 BUN/Creatinine Ratio 32.0 Random Glucose 127 mg/dl Calcium Level 8.2 mg/dl Phosphorus Level 3.3 mg/dl Magnesium Level 2.3 mg/dl
[2018-01-05] MEDS: ALPRAZOLAM 0.5 MG TAB PO PRN (17:05)
[2018-01-05] MEDS ORDERED: LEVALBUTEROL/IPRATROPIUM NEB INH STA (19:39)
--- NOTE | 2018-01-05 19:44 | Progress Note ---
Internal Med Progress Note Date of Service: Jan 05, 2018. Provider Documentation: Subjective: patient seen and examined this AM in ICU and in evening when he is transferred to [facility]/PCU. Patient is preparing to go to sleep and feels that breathing is not good. Continues to have breathing with pursed lips which is what patient was doing earlier in the ICU. He agrees to a stat nebulizer treatment. Physical Exam General: verbal, speaking in full sentences, lying on bed Lungs: on nasal cannula, fair air entry, breathing with pursed lips, no acute wheezes Heart: regular rate Abdomen: soft, nontender, Extremities: no edema ASSESSMENT & PLAN: 72 year-old male with advanced emphysema, admitted for respiratory failure secondary to COPD exacerbation and paroxysmal a-fib in the hospital. COPD exacerbation Sputum culture unremarkable IV steroids, scheduled bronchodilators and prn, Daliresp on Doxycycline Occasional morphine administration for anxiety with dyspnea with positive results Prn Xanax Will eventually need Symbicort and Spiriva Other pulmonary issues The patient states that he was being followed up for few years with CT scans for a lung nodule, but later on, when he went to [facility], he was told he doesn't actually have a lung nodule. ICU physician reviewed the CT scan, and sees extensive emphysema but no lung nodules. Patient was also considered for lung transplant in the past, but he is not willing to undergo transplantation paroxysmal a-fib Rate/rhythm well controlled with verapamil. No further episodes in more than 24 hours Off Cardizem drip Continue ASA Off heparin drip. and INR 3.6 is elevated from prior coumadin therapy in the ICU. Hold Coumadin today No evidence of GI bleeding, H/h stable, stool for occult blood negative now. daily PO dosing or protonix Chronic anemia monitor CBC Pancrelipase stopped as there is concern of risk for exacerbating diarrhea Disposition: Patient is currently transferred from ICU to [facility]/PCU Patient has very poor respiratory status and low threshold for BIPAP vs intubation vs ICU return Vital Signs: Date Time Temp Pulse Resp B/P (MAP) Pulse Ox O2 Delivery O2 Flow Rate FiO2 01/05/18 19:32 36.8 81 18 147/75 (99) 99 Nasal Cannula 3.0 01/05/18 16:00 Nasal Cannula 3.0 01/05/18 14:10 86 18 99 Nasal Cannula 2.0 01/05/18 14:00 82 20 133/77 (95) 95 Nasal Cannula 3.0 01/05/18 12:00 36.4 96 19 137/81 (99) 98 Nasal Cannula 3.0 01/05/18 12:00 Nasal Cannula 3.0 01/05/18 10:00 93 19 136/76 (96) 97 Nasal Cannula 3.0 01/05/18 08:00 Nasal Cannula 3.0 01/05/18 08:00 Nasal Cannula 01/05/18 08:00 36.4 119 17 133/74 (93) 97 Nasal Cannula 3.0 01/05/18 07:14 88 18 98 Nasal Cannula 2.0 01/05/18 06:00 93 22 147/76 (99) 95 Nasal Cannula 3.0 01/05/18 04:00 36.4 81 17 124/72 (89) 96 Nasal Cannula 3.0 01/05/18 04:00 Nasal Cannula 3.0 01/05/18 04:00 81 17 124/72 (89) 96 Nasal Cannula 3.0 01/05/18 03:00 85 17 96 01/05/18 02:01 92 20 134/80 (98) 97 3.0 01/05/18 01:53 85 21 98 Nasal Cannula 3.0 01/05/18 00:00 36.5 83 16 122/66 (84) 96 Nasal Cannula 3.0 01/04/18 23:59 Nasal Cannula 3.0 01/04/18 22:00 94 19 117/57 (77) 01/04/18 21:00 104 22 96 01/04/18 20:10 83 21 99 Nasal Cannula 3.0 01/04/18 20:00 Nasal Cannula 3.0 01/04/18 20:00 36.6 99 25 157/80 (105) 96 Nasal Cannula 3.0 Lab Results: Results Past 24 Hours Test 01/04/18 20:55 01/05/18 05:25 01/05/18 16:09 Range/Units Bedside Glucose 137 119 70-99 mg/dl White Blood Count 7.28 4.8-10.8 K/uL Red Blood Count 3.73 4.7-6.1 M/uL Hemoglobin 11.4 14.0-18.0 g/dL Hematocrit 34.5 42-52 % Mean Corpuscular Volume 92.5 80-100 fL Mean Corpuscular Hemoglobin 30.6 25-34 pg Mean Corpuscular Hemoglobin Concent 33.0 32-36 g/dl Platelet Count 317 130-400 K/uL Mean Platelet Volume 8.7 7.4-10.4 fL Neutrophils (%) (Auto) 92.3 % Lymphocytes (%) (Auto) 2.6 % Monocytes (%) (Auto) 4.1 % Eosinophils (%) (Auto) 0.0 % Basophils (%) (Auto) 0.0 % Neutrophils # (Auto) 6.72 1.4-6.5 K/uL Lymphocytes # (Auto) 0.19 1.2-3.4 K/uL Monocytes # (Auto) 0.30 0.11-0.59 K/uL Eosinophils # (Auto) 0.00 0-0.5 K/uL Basophils # (Auto) 0.00 0-0.2 K/uL RDW Standard Deviation 44.6 36.4-46.3 fL RDW Coefficient of Variation 13.2 11.5-14.5 % Immature Granulocyte % (Auto) 1.0 % Immature Granulocyte # (Auto) 0.07 0.00-0.02 K/uL Prothrombin Time 36.8 9.0-12.0 SECONDS Prothromb Time International Ratio 3.6 0.9-1.1 Activated Partial Thromboplast Time 34.3 21.0-31.0 SECONDS Partial Thromboplastin Ratio 1.3 Sodium Level 138 136-145 mmol/L Potassium Level 4.1 3.5-5.1 mmol/L Chloride Level 104 98-107 mmol/L Carbon Dioxide Level 28 21-32 mmol/L Anion Gap 6.0 3-11 mmol/L Blood Urea Nitrogen 32 7-18 mg/dl Creatinine 1.01 0.60-1.40 mg/dl Est Creatinine Clear Calc Drug Dose 55.8 ml/min Estimated GFR () 84.5 Estimated GFR (Non- 72.9 BUN/Creatinine Ratio 32.0 10-20 Random Glucose 127 70-99 mg/dl Calcium Level 8.2 8.5-10.1 mg/dl Phosphorus Level 3.3 2.5-4.9 mg/dl Magnesium Level 2.3 1.8-2.4 mg/dl
[2018-01-05] MEDS ORDERED: LEVALBUTEROL 1.25MG/0.5ML NEB INH ONE (19:45)
[2018-01-05] MEDS ORDERED: IPRATROPIUM BROMIDE NEB SOLN 0.02% 2.5 ML VIAL INH ONE (19:45)
[2018-01-05] MEDS: LATANOPROST 0.005% OP SOLN 2.5 ML BTL OP SCH (21:03)
[2018-01-06] VITALS (10 sets, daily range): BP systolic 138–163; BP diastolic 76–97; PULSE 75–100; TEMP 36.3–36.6; O2SAT 93–100
[2018-01-06] MEDS: LORAZEPAM 2 MG/ML 1 ML VIAL IV PRN ×3 (01:39→12:03)
[2018-01-06] MEDS: IPRATROPIUM BROMIDE NEB SOLN 0.02% 2.5 ML VIAL INH SCH ×4 (01:57→18:56)
[2018-01-06] MEDS: LEVALBUTEROL 1.25MG/0.5ML NEB INH SCH ×4 (01:57→18:57)
[2018-01-06] MEDS: MoRPHine SULFATE 2 MG/ML CARP IV PRN ×3 (04:15→20:59)
[2018-01-06] MEDS: METHYLPREDNISOLONE IV 40 MG in SYRINGE 0 ML IV SCH ×3 (04:15→19:33)
[2018-01-06 06:37] LABS: BASO % 0.1 %; BASO ABS # 0.01 K/uL (0-0.2); HEMATOCRIT 34.7 % (42-52); IG# 0.11 K/uL (0.00-0.02); LYMPH % 1.1 %; MEAN CELL VOLUME 93.8 fL (80-100); MEAN CORPUSCULAR HEMOGLOBIN 32.4 pg (25-34); MEAN CORPUSCULAR HGB CONC 34.6 g/dl (32-36); MEAN PLATELET VOLUME 8.5 fL (7.4-10.4); MONO % 4.3 %; MONO ABS # 0.38 K/uL (0.11-0.59); NEUT % 93.3 %; NEUT ABS # 8.31 K/uL (1.4-6.5); PLATELET COUNT 300 K/uL (130-400); RED CELL DISTRIBUTION WIDTH CV 13.5 % (11.5-14.5); RED CELL DISTRIBUTION WIDTH SD 46.4 fL (36.4-46.3); WHITE BLOOD COUNT 8.91 K/uL (4.8-10.8)
[2018-01-06] MEDS: INSULIN ASPART 100 UNITS/ML 3 ML PEN SC SCH ×2 (06:45→20:20)
[2018-01-06 06:52] LABS: INR 2.7 (0.9-1.1)
[2018-01-06 07:12] LABS: ALBUMIN 2.8 gm/dl (3.4-5.0); CALCIUM 8.5 mg/dl (8.5-10.1); CREATININE 0.72 mg/dl (0.60-1.40); POTASSIUM 4.2 mmol/L (3.5-5.1); TOTAL PROTEIN 5.3 gm/dl (6.4-8.2)
[2018-01-06] MEDS: ASPIRIN 81 MG ECTAB PO SCH (07:50)
[2018-01-06] MEDS: TAMSULOSIN HCL 0.4 MG CAP PO SCH (07:51)
[2018-01-06] MEDS: PANTOprazole SOD 40 MG TAB PO SCH (07:51)
[2018-01-06] MEDS: ROFLUMILAST 500 MCG TAB PO SCH (07:51)
[2018-01-06] MEDS: DORZOLAMIDE HCL 2% OPH SOLN 10 ML BTL OP SCH ×2 (07:52→19:04)
[2018-01-06] MEDS: BRIMONIDINE TARTRATE-P 0.15% 5 ML BTL OPR SCH ×2 (07:52→18:12)
[2018-01-06] MEDS: VERAPAMIL HCL 40 MG TAB PO SCH ×3 (07:53→21:00)
[2018-01-06] MEDS: INSULIN GLARGINE SOLOSTAR 100 UNITS/ML 3 ML PEN SC SCH (07:57)
--- NOTE | 2018-01-06 13:07 | Cardiology Follow-Up ---
Subjective Subjective Date of Service: Jan 06, 2018. Pt evaluation today including: conversation w/ patient, conversation w/ family , physical exam, lab review, review of studies, review of inpatient medication list Additional Details: The patient is sitting in a chair. He looks comfortable. No new cardiac complaints. I reviewed his telemetry and he is mostly in sinus rhythm with short bursts of A. fib on occasion. Problem List Medical Problems: (1) Acute respiratory failure with hypoxia Status: Acute (2) COPD exacerbation Status: Acute Objective Vital Signs Last Vital Signs Documentation Date Time Temp Pulse Resp B/P (MAP) Pulse Ox O2 Delivery O2 Flow Rate FiO2 01/06/18 12:58 36.4 85 16 145/77 (99) 100 Nasal Cannula 01/06/18 08:13 2.0 01/03/18 07:21 35 Physical Exam: General Appearance: no apparent distress ENT: normal ENT inspection Neck: no adenopathy, thyroid normal, no JVD Respiratory/Chest: + decreased breath sounds, + wheezing Cardiovascular: regular rate, rhythm, no gallop, no JVD, no murmur Abdomen: normal bowel sounds, non tender, soft Extremities: normal inspection, no pedal edema, no calf tenderness Neurologic/Psychiatric: no motor/sensory deficits, alert, oriented x 3 Skin: normal color, warm/dry, no rash Lymphatic: no adenopathy Assessment and Plan Impression: 1. Paroxysmal atrial fibrillation 2. Acute exacerbation of COPD Recommendations: I would continue the current treatment plan of anticoagulation and verapamil. The patient is slowly improving. Medications: Current Inpatient Medications Medications (Trade) Dose Ordered Sig/Luis Miguel Route Start Time Stop Time Status Last Admin Dose Admin Acetaminophen (Tylenol Tab) 650 mg Q4H PRN PO 01/01/18 01:15 01/31/18 01:14 Nitroglycerin (Nitrostat Tab) 0.4 mg UD PRN SL 01/01/18 01:15 01/31/18 01:14 Glucose (Glucose 40% Gel) 15-30 GRAMS 15 GRAMS... UD PRN PO 01/01/18 01:15 01/31/18 01:14 Glucose (Glucose Chew Tab) 4-8 Tablets 4 Tabl... UD PRN PO 01/01/18 01:15 01/31/18 01:14 Dextrose (Dextrose 50% 50ML Syringe) 25-50ML OF 50% DW IV FOR... UD PRN IV 3/4/18 01:15 01/31/18 01:14 Glucagon (Glucagon Inj) 1 mg UD PRN SQ 01/01/18 01:15 01/31/18 01:14 Insulin Glargine (Lantus Solostar Pen) 5 units DAILY SC 01/02/18 09:00 02/01/18 08:59 01/06/18 07:57 5 UNITS Lorazepam (Ativan Inj) 0.25 mg Q4H PRN IV 01/01/18 01:15 01/31/18 01:14 01/06/18 12:03 0.25 MG Morphine Sulfate (MoRPHine SULFATE INJ) 2 mg Q3H PRN IV 01/01/18 01:15 01/15/18 01:14 01/06/18 08:47 2 MG Tramadol HCl (Ultram Tab) 25 mg Q6H PRN PO 01/01/18 01:15 01/31/18 01:14 Aspirin (Ecotrin Tab) 81 mg DAILY PO 01/01/18 09:00 01/31/18 08:59 01/06/18 07:50 81 MG Tamsulosin HCl (Flomax Cap) 0.4 mg DAILY PO 01/01/18 09:00 01/31/18 08:59 01/06/18 07:51 0.4 MG Ipratropium [place] (Atrovent 0.02% 0.5MG/2.5ML Neb) 0.5 mg Q6R INH 01/01/18 09:00 01/31/18 08:59 01/06/18 06:55 0.5 MG Levalbuterol (Xopenex 1.25MG/ 0.5ML Neb) 1.25 mg Q6R INH 01/01/18 09:00 01/31/18 08:59 01/06/18 06:55 1.25 MG Ipratropium [place] (Atrovent 0.02% 0.5MG/2.5ML Neb) 0.5 mg Q4H PRN INH 01/01/18 05:00 01/31/18 04:59 Levalbuterol (Xopenex 1.25MG/ 0.5ML Neb) 1.25 mg Q4H PRN INH 01/01/18 05:00 01/31/18 04:59 Roflumilast (Daliresp Tab) 500 mcg DAILY PO 01/02/18 09:00 02/01/18 08:59 Future hold 01/06/18 07:51 500 MCG Methylprednisolone Sodium Succinate 40 mg/Syringe 0.64 ml @ 1.5 mls/min Q8H IV 01/01/18 20:00 01/31/18 19:59 01/06/18 12:03 1.5 MLS/MIN Latanoprost (Xalatan Oph Soln) 1 drops DAILY@2100 OP 01/03/18 21:00 02/02/18 20:59 01/05/18 21:03 1 DROPS Brimonidine Tartrate (Alphagan-P 0.15% Oph Soln) 1 drops BID@0800,1800 OPR 01/03/18 08:00 02/02/18 07:59 01/06/18 07:52 1 DROPS Dorzolamide HCl (Trusopt 2% Oph Soln) 1 drops BID@0800,1800 OP 01/03/18 08:00 02/02/18 07:59 01/06/18 07:52 1 DROPS Verapamil HCl (Isoptin Tab) 80 mg TID PO 01/03/18 18:00 02/02/18 17:59 01/06/18 07:53 80 MG Verapamil HCl (Calan Inj) 5 mg Q1H PRN IV 01/03/18 18:45 02/02/18 18:44 Loperamide HCl (Imodium Cap) 2 mg Q3H PRN PO 01/03/18 18:45 02/02/18 18:44 01/03/18 18:50 2 MG Pantoprazole Sodium (Protonix Tab) 40 mg QAM PO 01/06/18 09:00 02/05/18 08:59 01/06/18 07:51 40 MG Alprazolam (Xanax Tab) 0.5 mg Q6H PRN PO 01/05/18 08:30 02/03/18 08:44 01/05/18 17:05 0.5 MG Insulin Aspart (novoLOG ASPART) SLIDING SCALE If C... BID@0645,2100 SC 01/05/18 21:00 02/04/18 20:59 Warfarin Sodium (Coumadin Tab) 5 mg DAILY@16 PO 01/06/18 16:00 02/05/18 15:59 Lab Results: Last 24 Hours Test 01/05/18 16:09 01/05/18 20:34 01/06/18 06:20 01/06/18 06:29 Bedside Glucose 119 mg/dl 135 mg/dl 114 mg/dl White Blood Count 8.91 K/uL Red Blood Count 3.70 M/uL Hemoglobin 12.0 g/dL Hematocrit 34.7 % Mean Corpuscular Volume 93.8 fL Mean Corpuscular Hemoglobin 32.4 pg Mean Corpuscular Hemoglobin Concent 34.6 g/dl Platelet Count 300 K/uL Mean Platelet Volume 8.5 fL Neutrophils (%) (Auto) 93.3 % Lymphocytes (%) (Auto) 1.1 % Monocytes (%) (Auto) 4.3 % Eosinophils (%) (Auto) 0.0 % Basophils (%) (Auto) 0.1 % Neutrophils # (Auto) 8.31 K/uL Lymphocytes # (Auto) 0.10 K/uL Monocytes # (Auto) 0.38 K/uL Eosinophils # (Auto) 0.00 K/uL Basophils # (Auto) 0.01 K/uL RDW Standard Deviation 46.4 fL RDW Coefficient of Variation 13.5 % Immature Granulocyte % (Auto) 1.2 % Immature Granulocyte # (Auto) 0.11 K/uL Prothrombin Time 27.5 SECONDS Prothromb Time International Ratio 2.7 Sodium Level 141 mmol/L Potassium Level 4.2 mmol/L Chloride Level 105 mmol/L Carbon Dioxide Level 31 mmol/L Anion Gap 5.0 mmol/L Blood Urea Nitrogen 32 mg/dl Creatinine 0.72 mg/dl Est Creatinine Clear Calc Drug Dose 78.3 ml/min Estimated GFR () 106.5 Estimated GFR (Non- 91.9 BUN/Creatinine Ratio 44.8 Random Glucose 120 mg/dl Calcium Level 8.5 mg/dl Total Bilirubin 0.4 mg/dl Aspartate Amino Transf (AST/SGOT) 16 U/L Alanine Aminotransferase (ALT/SGPT) 27 U/L Alkaline Phosphatase 42 U/L Total Protein 5.3 gm/dl Albumin 2.8 gm/dl Globulin 2.5 gm/dl Albumin/Globulin Ratio 1.1
--- NOTE | 2018-01-06 13:10 | Palliative Care Consultation ---
Consultation Date of Consultation: Jan 06, 2018. Requesting Physician: Dr. Beltrán Attending Physician: Dr. Beltrán Reason for Consultation: Goals of care History of Present Illness This 72 year old male patient with PMH severe COPD with home oxygen use at night , and others listed below, presented to the hospital four days ago with increased shortness of breath. Patient had been seen by his PCP outpatient a few days prior and was placed on Levaquin and prednisone, but with no improvement in symptoms. In the ED, patient's respiratory status worsened, he was placed on Bi-pap and admitted to ICU for COPD exacerbation. Patient has improved enough to move out of ICU, but remains SOB at rest on nasal cannula. Palliative care has been consulted to discuss goals of care and code status. I met with the patient in room 222, his friend Pedro was present. Patient is awake, but a little drowsy from the lorazepam he's receiving. He appears SOB at rest but is in no distress. Has no pain. Patient is requesting to set up family meeting next week, has not got a chance to talk with any of his family members yet today. He is asking that I return on Tuesday. For now, we did briefly discuss code status and patient wants to remain a full code for now. He lives home alone but would be amenable to services or rehab if that's what is recommended by our therapy department. Past Medical/Surgical History Medical History: COPD on home oxygen at night. Htn Tobacco use Skin cancer Surgical History: Skin cancer removal Orthopedic surgery Cholecystectomy Appendectomy Social History Smoking Status: Former Smoker History of Alcohol Use: Yes (2 drinks per weekend) Housing Status: lives alone Occupation Status: retired Review of Systems Constitutional: No weakness ENT: No trouble swallowing Respiratory: + cough, + shortness of breath, + dyspnea on exertion Cardiac: No chest pain, No edema Abdomen: No pain, No nausea, No vomiting Male : No problem reported Psychiatric: No depression symptoms, No anxiety Allergies Coded Allergies: Sulfa Antibiotics (Verified Allergy, Intermediate, Rash ("SULFA"), 01/01/18 ) Lactose. (Verified Allergy, Unknown, Lactose intolerant., 01/01/18) Medications Current Inpatient Medications Medications (Trade) Dose Ordered Sig/Luis Miguel Route Start Time Stop Time Status Last Admin Dose Admin Acetaminophen (Tylenol Tab) 650 mg Q4H PRN PO 01/01/18 01:15 01/31/18 01:14 Nitroglycerin (Nitrostat Tab) 0.4 mg UD PRN SL 01/01/18 01:15 01/31/18 01:14 Glucose (Glucose 40% Gel) 15-30 GRAMS 15 GRAMS... UD PRN PO 01/01/18 01:15 01/31/18 01:14 Glucose (Glucose Chew Tab) 4-8 Tablets 4 Tabl... UD PRN PO 01/01/18 01:15 01/31/18 01:14 Dextrose (Dextrose 50% 50ML Syringe) 25-50ML OF 50% DW IV FOR... UD PRN IV 01/01/18 01:15 01/31/18 01:14 Glucagon (Glucagon Inj) 1 mg UD PRN SQ 01/01/18 01:15 01/31/18 01:14 Insulin Glargine (Lantus Solostar Pen) 5 units DAILY SC 01/02/18 09:00 02/01/18 08:59 01/06/18 07:57 5 UNITS Lorazepam (Ativan Inj) 0.25 mg Q4H PRN IV 01/01/18 01:15 01/31/18 01:14 01/06/18 12:03 0.25 MG Morphine Sulfate (MoRPHine SULFATE INJ) 2 mg Q3H PRN IV 01/01/18 01:15 01/15/18 01:14 01/06/18 08:47 2 MG Tramadol HCl (Ultram Tab) 25 mg Q6H PRN PO 01/01/18 01:15 01/31/18 01:14 Aspirin (Ecotrin Tab) 81 mg DAILY PO 01/01/18 09:00 01/31/18 08:59 01/06/18 07:50 81 MG Tamsulosin HCl (Flomax Cap) 0.4 mg DAILY PO 01/01/18 09:00 01/31/18 08:59 01/06/18 07:51 0.4 MG Ipratropium [place] (Atrovent 0.02% 0.5MG/2.5ML Neb) 0.5 mg Q6R INH 01/01/18 09:00 01/31/18 08:59 01/06/18 06:55 0.5 MG Levalbuterol (Xopenex 1.25MG/ 0.5ML Neb) 1.25 mg Q6R INH 01/01/18 09:00 01/31/18 08:59 01/06/18 06:55 1.25 MG Ipratropium [place] (Atrovent 0.02% 0.5MG/2.5ML Neb) 0.5 mg Q4H PRN INH 01/01/18 05:00 01/31/18 04:59 Levalbuterol (Xopenex 1.25MG/ 0.5ML Neb) 1.25 mg Q4H PRN INH 01/01/18 05:00 01/31/18 04:59 Roflumilast (Daliresp Tab) 500 mcg DAILY PO 01/02/18 09:00 02/01/18 08:59 Future hold 01/06/18 07:51 500 MCG Methylprednisolone Sodium Succinate 40 mg/Syringe 0.64 ml @ 1.5 mls/min Q8H IV 01/01/18 20:00 01/31/18 19:59 01/06/18 12:03 1.5 MLS/MIN Latanoprost (Xalatan Oph Soln) 1 drops DAILY@2100 OP 01/03/18 21:00 02/02/18 20:59 01/05/18 21:03 1 DROPS Brimonidine Tartrate (Alphagan-P 0.15% Oph Soln) 1 drops BID@0800,1800 OPR 01/03/18 08:00 02/02/18 07:59 01/06/18 07:52 1 DROPS Dorzolamide HCl (Trusopt 2% Oph Soln) 1 drops BID@0800,1800 OP 01/03/18 08:00 02/02/18 07:59 01/06/18 07:52 1 DROPS Verapamil HCl (Isoptin Tab) 80 mg TID PO 01/03/18 18:00 02/02/18 17:59 01/06/18 07:53 80 MG Verapamil HCl (Calan Inj) 5 mg Q1H PRN IV 01/03/18 18:45 02/02/18 18:44 Loperamide HCl (Imodium Cap) 2 mg Q3H PRN PO 01/03/18 18:45 02/02/18 18:44 01/03/18 18:50 2 MG Pantoprazole Sodium (Protonix Tab) 40 mg QAM PO 01/06/18 09:00 02/05/18 08:59 01/06/18 07:51 40 MG Alprazolam (Xanax Tab) 0.5 mg Q6H PRN PO 01/05/18 08:30 02/03/18 08:44 01/05/18 17:05 0.5 MG Insulin Aspart (novoLOG ASPART) SLIDING SCALE If C... BID@0645,2100 SC 01/05/18 21:00 02/04/18 20:59 Warfarin Sodium (Coumadin Tab) 5 mg DAILY@16 PO 01/06/18 16:00 02/05/18 15:59 Physical Exam Date Time Temp Pulse Resp B/P (MAP) Pulse Ox O2 Delivery O2 Flow Rate FiO2 01/06/18 08:13 36.3 86 16 163/97 (119) 100 Nasal Cannula 2.0 01/06/18 06:55 84 18 98 Nasal Cannula 3.0 01/06/18 04:00 Nasal Cannula 2.0 01/06/18 03:30 36.6 75 17 146/84 (104) 100 Nasal Cannula 2.0 01/06/18 01:59 80 18 95 Nasal Cannula 3.0 01/06/18 00:00 Nasal Cannula 2.0 01/05/18 23:35 36.5 81 19 138/71 (93) 96 Nasal Cannula 2.0 01/05/18 20:00 Nasal Cannula 3.0 01/05/18 19:51 89 20 99 Nasal Cannula 3.0 01/05/18 19:32 36.8 81 18 147/75 (99) 99 Nasal Cannula 3.0 01/05/18 16:00 Nasal Cannula 3.0 01/05/18 16:00 36.8 82 18 136/78 (97) 99 Nasal Cannula 3.0 01/05/18 14:10 86 18 99 Nasal Cannula 2.0 01/05/18 14:00 82 20 133/77 (95) 95 Nasal Cannula 3.0 General Appearance: no apparent distress ENT: hearing grossly normal Neck: supple, no JVD Respiratory: + decreased breath sounds, + pertinent finding (mildly SOB at rest ; on nasal cannula) Cardiovascular: regular rate, rhythm, no edema Musculoskeletal: normal Neurologic/Psychiatric: alert, normal mood/affect, oriented x 3 Skin: + pertinent finding (face is reddened/vanda colored) Laboratory Results Last 24 Hours Test 01/05/18 16:09 01/05/18 20:34 01/06/18 06:20 01/06/18 06:29 Bedside Glucose 119 mg/dl 135 mg/dl 114 mg/dl White Blood Count 8.91 K/uL Red Blood Count 3.70 M/uL Hemoglobin 12.0 g/dL Hematocrit 34.7 % Mean Corpuscular Volume 93.8 fL Mean Corpuscular Hemoglobin 32.4 pg Mean Corpuscular Hemoglobin Concent 34.6 g/dl Platelet Count 300 K/uL Mean Platelet Volume 8.5 fL Neutrophils (%) (Auto) 93.3 % Lymphocytes (%) (Auto) 1.1 % Monocytes (%) (Auto) 4.3 % Eosinophils (%) (Auto) 0.0 % Basophils (%) (Auto) 0.1 % Neutrophils # (Auto) 8.31 K/uL Lymphocytes # (Auto) 0.10 K/uL Monocytes # (Auto) 0.38 K/uL Eosinophils # (Auto) 0.00 K/uL Basophils # (Auto) 0.01 K/uL RDW Standard Deviation 46.4 fL RDW Coefficient of Variation 13.5 % Immature Granulocyte % (Auto) 1.2 % Immature Granulocyte # (Auto) 0.11 K/uL Prothrombin Time 27.5 SECONDS Prothromb Time International Ratio 2.7 Sodium Level 141 mmol/L Potassium Level 4.2 mmol/L Chloride Level 105 mmol/L Carbon Dioxide Level 31 mmol/L Anion Gap 5.0 mmol/L Blood Urea Nitrogen 32 mg/dl Creatinine 0.72 mg/dl Est Creatinine Clear Calc Drug Dose 78.3 ml/min Estimated GFR () 106.5 Estimated GFR (Non- 91.9 BUN/Creatinine Ratio 44.8 Random Glucose 120 mg/dl Calcium Level 8.5 mg/dl Total Bilirubin 0.4 mg/dl Aspartate Amino Transf (AST/SGOT) 16 U/L Alanine Aminotransferase (ALT/SGPT) 27 U/L Alkaline Phosphatase 42 U/L Total Protein 5.3 gm/dl Albumin 2.8 gm/dl Globulin 2.5 gm/dl Albumin/Globulin Ratio 1.1 Assessment & Plan Palliative Performance Scale: 70 % Problem list: SOB/TRAMMELL Chronic respiratory failure 2/2 severe COPD COPD exacerbation PAF- now in NSR Goals of care Palliative care recs: -For now, continue current medical management. -Patient wants to continue to be FULL RESUSCITATION STATUS. -Will check back in on Tuesday to see about having family meeting to discuss goals of care. -Would suggest a SS consult for discharge planning. Uncertain of his needs at home at this time. Thank you for this consult. Total time spent 50 minutes with >50% of time spent with patient counseling/ discussing goals of care.
[2018-01-06] MEDS ORDERED: WARFARIN SOD 5 MG TAB PO SCH (16:00)
[2018-01-06] MEDS: ALPRAZOLAM 0.5 MG TAB PO PRN (16:01)
--- NOTE | 2018-01-06 19:09 | Progress Note ---
Internal Med Progress Note Date of Service: Jan 06, 2018. Provider Documentation: Subjective: patient seen and examined today in PCU [facility] and have discussed with patient that prognosis is poor given multiple days of labored pursed lip breathing and symptoms needing relief by morphine. Patient would like other family members to have meeting with him and palliative team in regards to discussing advanced directives Physical Exam General: verbal, speaking in full sentences, lying on bed Lungs: on nasal cannula, fair air entry, breathing with pursed lips, no acute wheezes Heart: regular rate Abdomen: soft, nontender, Extremities: no edema ASSESSMENT & PLAN: 72 year-old male with advanced emphysema, admitted for respiratory failure secondary to COPD exacerbation and paroxysmal a-fib in the hospital. COPD exacerbation - severe COPD Sputum culture unremarkable IV steroids, scheduled bronchodilators and prn, Daliresp on Doxycycline Occasional morphine administration for anxiety with dyspnea with positive results Prn Xanax Will eventually need Symbicort and Spiriva Other pulmonary issues The patient reported that he was being followed up for few years with CT scans for a lung nodule, but later on, when he went to [facility], he was told he doesn't actually have a lung nodule. ICU physician reviewed the CT scan, and sees extensive emphysema but no lung nodules. Patient was also considered for lung transplant in the past, but he is not willing to undergo transplantation paroxysmal a-fib Rate/rhythm wwith verapamil Continue ASA INR today is 2.7 after being suprathereputic when in the ICU, coumadin to be resumed today Chronic anemia CBC stable No evidence of GI bleeding, H/h stable, stool for occult blood negative now. daily PO dosing oral protonix Diarrhea resolved Disposition: poor prognosis due to advanced COPD and with atrial fibrillation, patient agrees to palliative care meetings and would like family to help him with advanced directives FULL CODE status Vital Signs: Date Time Temp Pulse Resp B/P (MAP) Pulse Ox O2 Delivery O2 Flow Rate FiO2 01/06/18 18:57 88 18 95 Nasal Cannula 2.0 01/06/18 16:00 Nasal Cannula 01/06/18 15:38 36.6 100 20 163/90 (114) 97 Nasal Cannula 2.0 01/06/18 14:56 98 18 95 Nasal Cannula 2.0 01/06/18 12:58 36.4 85 16 145/77 (99) 100 Nasal Cannula 3/9/18 12:00 Nasal Cannula 01/06/18 08:13 36.3 86 16 163/97 (119) 100 Nasal Cannula 2.0 01/06/18 08:05 Nasal Cannula 01/06/18 06:55 84 18 98 Nasal Cannula 3.0 01/06/18 04:00 Nasal Cannula 2.0 01/06/18 03:30 36.6 75 17 146/84 (104) 100 Nasal Cannula 2.0 01/06/18 01:59 80 18 95 Nasal Cannula 3.0 01/06/18 00:00 Nasal Cannula 2.0 01/05/18 23:35 36.5 81 19 138/71 (93) 96 Nasal Cannula 2.0 01/05/18 20:00 Nasal Cannula 3.0 01/05/18 19:51 89 20 99 Nasal Cannula 3.0 01/05/18 19:32 36.8 81 18 147/75 (99) 99 Nasal Cannula 3.0 Lab Results: Results Past 24 Hours Test 01/05/18 20:34 01/06/18 06:20 01/06/18 06:29 01/06/18 16:31 Range/Units Bedside Glucose 135 114 101 70-99 mg/dl White Blood Count 8.91 4.8-10.8 K/uL Red Blood Count 3.70 4.7-6.1 M/uL Hemoglobin 12.0 14.0-18.0 g/dL Hematocrit 34.7 42-52 % Mean Corpuscular Volume 93.8 80-100 fL Mean Corpuscular Hemoglobin 32.4 25-34 pg Mean Corpuscular Hemoglobin Concent 34.6 32-36 g/dl Platelet Count 300 130-400 K/uL Mean Platelet Volume 8.5 7.4-10.4 fL Neutrophils (%) (Auto) 93.3 % Lymphocytes (%) (Auto) 1.1 % Monocytes (%) (Auto) 4.3 % Eosinophils (%) (Auto) 0.0 % Basophils (%) (Auto) 0.1 % Neutrophils # (Auto) 8.31 1.4-6.5 K/uL Lymphocytes # (Auto) 0.10 1.2-3.4 K/uL Monocytes # (Auto) 0.38 0.11-0.59 K/uL Eosinophils # (Auto) 0.00 0-0.5 K/uL Basophils # (Auto) 0.01 0-0.2 K/uL RDW Standard Deviation 46.4 36.4-46.3 fL RDW Coefficient of Variation 13.5 11.5-14.5 % Immature Granulocyte % (Auto) 1.2 % Immature Granulocyte # (Auto) 0.11 0.00-0.02 K/uL Prothrombin Time 27.5 9.0-12.0 SECONDS Prothromb Time International Ratio 2.7 0.9-1.1 Sodium Level 141 136-145 mmol/L Potassium Level 4.2 3.5-5.1 mmol/L Chloride Level 105 98-107 mmol/L Carbon Dioxide Level 31 21-32 mmol/L Anion Gap 5.0 3-11 mmol/L Blood Urea Nitrogen 32 7-18 mg/dl Creatinine 0.72 0.60-1.40 mg/dl Est Creatinine Clear Calc Drug Dose 78.3 ml/min Estimated GFR () 106.5 Estimated GFR (Non- 91.9 BUN/Creatinine Ratio 44.8 10-20 Random Glucose 120 70-99 mg/dl Calcium Level 8.5 8.5-10.1 mg/dl Total Bilirubin 0.4 0.2-1 mg/dl Aspartate Amino Transf (AST/SGOT) 16 15-37 U/L Alanine Aminotransferase (ALT/SGPT) 27 12-78 U/L Alkaline Phosphatase 42 45-117 U/L Total Protein 5.3 6.4-8.2 gm/dl Albumin 2.8 3.4-5.0 gm/dl Globulin 2.5 2.5-4.0 gm/dl Albumin/Globulin Ratio 1.1 0.9-2
[2018-01-06] MEDS: LATANOPROST 0.005% OP SOLN 2.5 ML BTL OP SCH (19:33)
[2018-01-07] VITALS (11 sets, daily range): BP systolic 130–160; BP diastolic 71–82; PULSE 69–93; TEMP 36.3–36.5; O2SAT 95–100
[2018-01-07] MEDS: IPRATROPIUM BROMIDE NEB SOLN 0.02% 2.5 ML VIAL INH SCH ×4 (01:48→19:56)
[2018-01-07] MEDS: LEVALBUTEROL 1.25MG/0.5ML NEB INH SCH ×4 (01:48→19:56)
[2018-01-07] MEDS: METHYLPREDNISOLONE IV 40 MG in SYRINGE 0 ML IV SCH ×3 (03:27→20:41)
[2018-01-07] MEDS: INSULIN ASPART 100 UNITS/ML 3 ML PEN SC SCH ×2 (06:45→20:50)
[2018-01-07 06:52] LABS: HEMATOCRIT 36.4 % (42-52); IG# 0.11 K/uL (0.00-0.02); LYMPH % 0.9 %; LYMPH ABS # 0.08 K/uL (1.2-3.4); MEAN CELL VOLUME 94.5 fL (80-100); MEAN CORPUSCULAR HEMOGLOBIN 31.2 pg (25-34); MEAN PLATELET VOLUME 8.7 fL (7.4-10.4); MONO % 5.2 %; MONO ABS # 0.46 K/uL (0.11-0.59); NEUT % 92.6 %; NEUT ABS # 8.13 K/uL (1.4-6.5); PLATELET COUNT 331 K/uL (130-400); RED CELL DISTRIBUTION WIDTH CV 13.2 % (11.5-14.5); RED CELL DISTRIBUTION WIDTH SD 45.5 fL (36.4-46.3); WHITE BLOOD COUNT 8.78 K/uL (4.8-10.8)
[2018-01-07] MEDS: ALPRAZOLAM 0.5 MG TAB PO PRN ×3 (07:37→23:46)
[2018-01-07] MEDS: DORZOLAMIDE HCL 2% OPH SOLN 10 ML BTL OP SCH ×2 (07:37→17:52)
[2018-01-07] MEDS: BRIMONIDINE TARTRATE-P 0.15% 5 ML BTL OPR SCH ×2 (07:37→17:52)
[2018-01-07] MEDS: VERAPAMIL HCL 40 MG TAB PO SCH ×3 (07:38→20:42)
[2018-01-07] MEDS: PANTOprazole SOD 40 MG TAB PO SCH (07:38)
[2018-01-07] MEDS: ROFLUMILAST 500 MCG TAB PO SCH (07:39)
[2018-01-07] MEDS: TAMSULOSIN HCL 0.4 MG CAP PO SCH (07:39)
[2018-01-07] MEDS: ASPIRIN 81 MG ECTAB PO SCH (07:39)
[2018-01-07] MEDS: INSULIN GLARGINE SOLOSTAR 100 UNITS/ML 3 ML PEN SC SCH (07:47)
[2018-01-07 08:14] LABS: INR 3.3 (0.9-1.1)
[2018-01-07] MEDS: LORAZEPAM 2 MG/ML 1 ML VIAL IV PRN (08:27)
[2018-01-07] MEDS ORDERED: LEVALBUTEROL/IPRATROPIUM NEB INH STA (09:25)
[2018-01-07] MEDS ORDERED: LEVALBUTEROL 1.25MG/0.5ML NEB INH ONE (10:00)
[2018-01-07] MEDS ORDERED: IPRATROPIUM BROMIDE NEB SOLN 0.02% 2.5 ML VIAL INH ONE (10:00)
--- NOTE | 2018-01-07 10:11 | DIAGNOSTIC IMAGING REPORT ---
CHEST DECUBS HISTORY: 72 years-old Male shortness of breath acute shortness of breath COMPARISON: Chest radiograph 01/05/2018, CTA chest 01/01/2018 TECHNIQUE: Right and left lateral decubitus views of the chest FINDINGS: Cardiac silhouette is within normal limits in size. Dependent atelectasis is noted on the bilateral films. Hyperinflation with emphysema and biapical pleural-parenchymal scarring and fibrosis redemonstrated. No pneumothorax. No pleural effusion. No focal airspace consolidation or overt pulmonary edema identified. Degenerative changes of the spine. IMPRESSION: 1. No pneumothorax identified. 2. Emphysema with unchanged upper lobe fibrotic changes. The above report was generated using voice recognition software. It may contain grammatical, syntax or spelling errors. Electronically signed by: Brooks Marks M.D. 01/07/2018 10:10 AM Dictated Date/Time: 01/07/2018 10:07 AM
--- NOTE | 2018-01-07 12:43 | Progress Note ---
Internal Med Progress Note Date of Service: Jan 07, 2018. Provider Documentation: Subjective: Patient seen and examined this AM and reports the cough is returning. On exam the air entry was poor and additional nebulizer treatments ordered. Later in the day, patient with family members and friends at bedside and patient permitted physician to speak about his health in front of them. His visitors wanted to know what time would be best for the palliative care discussion on Tuesday to discuss further goals of care as per patient's wishes. Physical Exam General: verbal, speaking in full sentences, lying on bed Lungs: on nasal cannula, breathing with pursed lips, no acute wheezes but air entry in generally is not good Heart: regular rate Abdomen: soft, nontender, Extremities: no edema ASSESSMENT & PLAN: 72 year-old male with advanced emphysema, admitted for respiratory failure secondary to COPD exacerbation and paroxysmal a-fib in the hospital. COPD exacerbation - severe COPD Sputum culture and blood cultures negative completed 5 days of Doxycycline from 01/01/18 to 01/05/18 no pneumonia, recent CXR on 01/07/18 No pneumothorax identified, Emphysema with unchanged upper lobe fibrotic changes IV steroids, scheduled bronchodilators and prn, Daliresp Occasional morphine administration, prn Xanax for anxiety with dyspnea Other pulmonary issues The patient reported that he was being followed up for few years with CT scans for a lung nodule, but later on, when he went to [facility], he was told he doesn't actually have a lung nodule. ICU physician reviewed the CT scan, and sees extensive emphysema but no lung nodules. Patient was also considered for lung transplant in the past, but he is not willing to undergo transplantation paroxysmal a-fib Rate/rhythm wwith verapamil Continue ASA INR today is 3.3, coumadin to be held today, patient likely having supratherapeutic INR because of poor oral food intake Chronic anemia No evidence of GI bleeding, last stool for occult blood negative, CBC stable stable daily PO dosing oral protonix Diarrhea resolved Disposition: poor prognosis due to advanced COPD and with atrial fibrillation, patient agrees to palliative care meetings and would like family to help him with advanced directives FULL CODE status Vital Signs: Date Time Temp Pulse Resp B/P (MAP) Pulse Ox O2 Delivery O2 Flow Rate FiO2 01/07/18 12:08 81 16 97 Nasal Cannula 2.0 01/07/18 11:30 36.5 69 22 135/73 (93) 95 Nasal Cannula 2.0 01/07/18 08:00 Nasal Cannula 01/07/18 07:37 36.3 93 20 160/80 (106) 98 Nasal Cannula 1.5 Humidified Oxygen 01/07/18 07:02 83 16 98 Nasal Cannula 1.0 01/07/18 03:40 Nasal Cannula 2.0 Humidified Oxygen 01/07/18 03:25 36.4 81 20 149/71 (97) 100 Nasal Cannula 2.0 Humidified Air 01/07/18 01:50 81 16 98 Nasal Cannula 2.0 01/06/18 23:34 Nasal Cannula 2.0 Humidified Oxygen 01/06/18 23:31 36.3 79 20 138/76 (96) 96 Humidified Air 2.0 01/06/18 19:33 Nasal Cannula 2.0 Humidified Oxygen 01/06/18 19:15 36.4 84 18 142/77 (98) 93 Nasal Cannula 2.0 Humidified Oxygen 01/06/18 18:57 88 18 95 Nasal Cannula 2.0 01/06/18 16:00 Nasal Cannula 01/06/18 15:38 36.6 100 20 163/90 (114) 97 Nasal Cannula 2.0 01/06/18 14:56 98 18 95 Nasal Cannula 2.0 01/06/18 12:58 36.4 85 16 145/77 (99) 100 Nasal Cannula Lab Results: Results Past 24 Hours Test 01/06/18 16:31 01/06/18 20:16 01/07/18 06:33 01/07/18 06:48 Range/Units Bedside Glucose 101 122 105 70-99 mg/dl White Blood Count 8.78 4.8-10.8 K/uL Red Blood Count 3.85 4.7-6.1 M/uL Hemoglobin 12.0 14.0-18.0 g/dL Hematocrit 36.4 42-52 % Mean Corpuscular Volume 94.5 80-100 fL Mean Corpuscular Hemoglobin 31.2 25-34 pg Mean Corpuscular Hemoglobin Concent 33.0 32-36 g/dl Platelet Count 331 130-400 K/uL Mean Platelet Volume 8.7 7.4-10.4 fL Neutrophils (%) (Auto) 92.6 % Lymphocytes (%) (Auto) 0.9 % Monocytes (%) (Auto) 5.2 % Eosinophils (%) (Auto) 0.0 % Basophils (%) (Auto) 0.0 % Neutrophils # (Auto) 8.13 1.4-6.5 K/uL Lymphocytes # (Auto) 0.08 1.2-3.4 K/uL Monocytes # (Auto) 0.46 0.11-0.59 K/uL Eosinophils # (Auto) 0.00 0-0.5 K/uL Basophils # (Auto) 0.00 0-0.2 K/uL RDW Standard Deviation 45.5 36.4-46.3 fL RDW Coefficient of Variation 13.2 11.5-14.5 % Immature Granulocyte % (Auto) 1.3 % Immature Granulocyte # (Auto) 0.11 0.00-0.02 K/uL Test 01/07/18 07:57 01/07/18 11:26 Range/Units Prothrombin Time 33.4 9.0-12.0 SECONDS Prothromb Time International Ratio 3.3 0.9-1.1 Bedside Glucose 136 70-99 mg/dl
[2018-01-07] MEDS ORDERED: D5W AND 1/2NSS 1,000 ML IV SCH (16:45)
[2018-01-07] MEDS: LATANOPROST 0.005% OP SOLN 2.5 ML BTL OP SCH (20:41)
[2018-01-07] MEDS: MoRPHine SULFATE 2 MG/ML CARP IV PRN (20:43)
[2018-01-08] VITALS (9 sets, daily range): BP systolic 135–165; BP diastolic 73–91; PULSE 71–86; TEMP 36.3–37; O2SAT 91–100
[2018-01-08] MEDS: LEVALBUTEROL 1.25MG/0.5ML NEB INH SCH ×4 (03:00→19:38)
[2018-01-08] MEDS: IPRATROPIUM BROMIDE NEB SOLN 0.02% 2.5 ML VIAL INH SCH ×4 (03:00→19:38)
[2018-01-08] MEDS ORDERED: CALCIUM CARBONATE 500 MG CHEWABLE PO ONE (03:46)
[2018-01-08] MEDS ORDERED: CALCIUM CARBONATE 500 MG CHEWABLE PO PRN (04:00)
[2018-01-08] MEDS: METHYLPREDNISOLONE IV 40 MG in SYRINGE 0 ML IV SCH ×3 (04:19→20:23)
[2018-01-08] MEDS: ALPRAZOLAM 0.5 MG TAB PO PRN ×2 (07:56→23:34)
[2018-01-08] MEDS: TAMSULOSIN HCL 0.4 MG CAP PO SCH (07:57)
[2018-01-08] MEDS: VERAPAMIL HCL 40 MG TAB PO SCH ×3 (07:57→20:24)
[2018-01-08] MEDS: PANTOprazole SOD 40 MG TAB PO SCH (07:57)
[2018-01-08] MEDS: ASPIRIN 81 MG ECTAB PO SCH (07:57)
[2018-01-08] MEDS: DORZOLAMIDE HCL 2% OPH SOLN 10 ML BTL OP SCH ×2 (07:59→18:37)
[2018-01-08] MEDS: ROFLUMILAST 500 MCG TAB PO SCH (07:59)
[2018-01-08] MEDS: BRIMONIDINE TARTRATE-P 0.15% 5 ML BTL OPR SCH ×2 (07:59→20:24)
[2018-01-08] MEDS: INSULIN ASPART 100 UNITS/ML 3 ML PEN SC SCH ×2 (07:59→20:25)
[2018-01-08 08:03] LABS: BASO % 0.1 %; BASO ABS # 0.01 K/uL (0-0.2); HEMATOCRIT 37.4 % (42-52); HEMOGLOBIN 13.2 g/dL (14.0-18.0); IG# 0.13 K/uL (0.00-0.02); LYMPH % 3.6 %; LYMPH ABS # 0.35 K/uL (1.2-3.4); MEAN CORPUSCULAR HEMOGLOBIN 33.2 pg (25-34); MEAN CORPUSCULAR HGB CONC 35.3 g/dl (32-36); MEAN PLATELET VOLUME 8.7 fL (7.4-10.4); MONO % 2.9 %; MONO ABS # 0.28 K/uL (0.11-0.59); NEUT % 92.1 %; NEUT ABS # 8.97 K/uL (1.4-6.5); PLATELET COUNT 327 K/uL (130-400); RED CELL DISTRIBUTION WIDTH CV 13.2 % (11.5-14.5); RED CELL DISTRIBUTION WIDTH SD 45.5 fL (36.4-46.3); WHITE BLOOD COUNT 9.74 K/uL (4.8-10.8)
[2018-01-08] MEDS: INSULIN GLARGINE SOLOSTAR 100 UNITS/ML 3 ML PEN SC SCH (08:03)
[2018-01-08 08:30] LABS: INR 6.1 (0.9-1.1)
[2018-01-08] MEDS ORDERED: POLYETHYLENE (MIRALAX) 17 GM PACK PO PRN (09:00)
[2018-01-08 09:01] LABS: ALBUMIN 2.8 gm/dl (3.4-5.0); CALCIUM 8.5 mg/dl (8.5-10.1); CREATININE 0.61 mg/dl (0.60-1.40); POTASSIUM 4.4 mmol/L (3.5-5.1); TOTAL PROTEIN 5.4 gm/dl (6.4-8.2)
--- NOTE | 2018-01-08 09:02 | Progress Note ---
Internal Med Progress Note Date of Service: Jan 08, 2018. Provider Documentation: Subjective: Patient seen and examined this AM. Tachycardic to low 100s. Awake and verbal. Still with pursed lip breathing. Patient agrees to trying BIPAP which he did not have good experience with initially in the hospital stay because he felt that he could not breath with it. Explained to patient that BIPAP might decrease the work of breathing and help with overall symptoms Physical Exam General: verbal, speaking in full sentences, lying on bed Lungs: on nasal cannula, breathing with pursed lips, no acute wheezes, poor air entry Heart: tachycardia Abdomen: soft, nontender, Extremities: no edema ASSESSMENT & PLAN: 72 year-old male with advanced emphysema, admitted for respiratory failure secondary to COPD exacerbation and paroxysmal a-fib in the hospital. COPD exacerbation - severe COPD Sputum culture and blood cultures negative completed 5 days of Doxycycline from 01/01/18 to 01/05/18 no pneumonia, recent CXR on 01/07/18 No pneumothorax identified, Emphysema with unchanged upper lobe fibrotic changes continue IV steroids, scheduled bronchodilators and prn, Daliresp prn morphine, prn Xanax / Ativan for anxiety with dyspnea patient agrees to try BIPAP Other pulmonary issues The patient reported that he was being followed up for few years with CT scans for a lung nodule, but later on, when he went to [facility], he was told he doesn't actually have a lung nodule. ICU physician reviewed the CT scan, and sees extensive emphysema but no lung nodules. Patient was also considered for lung transplant in the past, but he is not willing to undergo transplantation paroxysmal a-fib Rate/rhythm with verapamil Continue ASA INR 6.1, continue to hold coumadin to be held today, patient likely having supratherapeutic INR because of poor oral food intake Chronic anemia No evidence of GI bleeding, last stool for occult blood negative, CBC stable stable daily PO dosing oral protonix Diarrhea resolved Disposition: poor prognosis due to advanced COPD and with paroxysmal atrial fibrillation, patient agrees to palliative care meetings and would like family to help him with advanced directives FULL CODE status Vital Signs: Date Time Temp Pulse Resp B/P (MAP) Pulse Ox O2 Delivery O2 Flow Rate FiO2 01/08/18 07:50 36.4 83 20 165/91 (115) 97 Nasal Cannula 2.0 01/08/18 07:06 79 16 91 Room Air 01/08/18 04:28 Nasal Cannula 2.0 Humidified Oxygen 01/08/18 04:21 36.3 71 22 148/77 (100) 100 Nasal Cannula 2.0 Humidified Air 01/07/18 23:56 36.3 73 20 137/75 (95) 99 Humidified Air 2.0 01/07/18 23:46 Nasal Cannula 2.0 Humidified Oxygen 01/07/18 20:40 Nasal Cannula 2.0 Humidified Oxygen 01/07/18 20:11 36.4 79 22 138/82 (100) 100 Nasal Cannula 2.0 Humidified Oxygen 01/07/18 19:58 88 16 98 Nasal Cannula 2.0 01/07/18 16:05 Nasal Cannula 01/07/18 15:31 36.3 84 20 130/79 (96) 100 Nasal Cannula 4.0 Humidified Oxygen 01/07/18 14:23 78 16 98 Nasal Cannula 2.0 01/07/18 12:08 81 16 97 Nasal Cannula 2.0 01/07/18 12:05 Nasal Cannula 01/07/18 11:30 36.5 69 22 135/73 (93) 95 Nasal Cannula 2.0 Lab Results: Results Past 24 Hours Test 01/07/18 11:26 01/07/18 20:10 01/07/18 20:45 01/07/18 20:46 Range/Units Bedside Glucose 136 330 196 185 70-99 mg/dl Test 01/08/18 06:04 01/08/18 07:36 Range/Units Bedside Glucose 96 70-99 mg/dl White Blood Count 9.74 4.8-10.8 K/uL Red Blood Count 3.98 4.7-6.1 M/uL Hemoglobin 13.2 14.0-18.0 g/dL Hematocrit 37.4 42-52 % Mean Corpuscular Volume 94.0 80-100 fL Mean Corpuscular Hemoglobin 33.2 25-34 pg Mean Corpuscular Hemoglobin Concent 35.3 32-36 g/dl Platelet Count 327 130-400 K/uL Mean Platelet Volume 8.7 7.4-10.4 fL Neutrophils (%) (Auto) 92.1 % Lymphocytes (%) (Auto) 3.6 % Monocytes (%) (Auto) 2.9 % Eosinophils (%) (Auto) 0.0 % Basophils (%) (Auto) 0.1 % Neutrophils # (Auto) 8.97 1.4-6.5 K/uL Lymphocytes # (Auto) 0.35 1.2-3.4 K/uL Monocytes # (Auto) 0.28 0.11-0.59 K/uL Eosinophils # (Auto) 0.00 0-0.5 K/uL Basophils # (Auto) 0.01 0-0.2 K/uL RDW Standard Deviation 45.5 36.4-46.3 fL RDW Coefficient of Variation 13.2 11.5-14.5 % Immature Granulocyte % (Auto) 1.3 % Immature Granulocyte # (Auto) 0.13 0.00-0.02 K/uL Prothrombin Time 61.8 9.0-12.0 SECONDS Prothromb Time International Ratio 6.1 0.9-1.1
[2018-01-08] MEDS: SENNA 8.6 MG TAB PO SCH ×2 (10:42→20:25)
--- NOTE | 2018-01-08 11:38 | Cardiology Follow-Up ---
Subjective Subjective Date of Service: Jan 08, 2018. Pt evaluation today including: conversation w/ patient, conversation w/ family , physical exam, chart review, lab review, review of studies, review of inpatient medication list Additional Details: Pt seen and examined, family in room, states that he's doing "ok" today. SOB unchanged. Occasional palpitations but denies cp, lightheadedness or dizziness. Tele reviewed: sinus rhythm with short salvos of atrial fibrillation/flutter. No sustained arrhythmias. Problem List Medical Problems: (1) Acute respiratory failure with hypoxia Status: Acute (2) COPD exacerbation Status: Acute Review of Systems Constitutional: No weakness ENT: No trouble swallowing Respiratory: + cough, + shortness of breath, + dyspnea on exertion Cardiac: No chest pain, No edema Abdomen: No pain, No nausea, No vomiting Male : No problem reported Psychiatric: No depression symptoms, No anxiety Objective Vital Signs Last Vital Signs Documentation Date Time Temp Pulse Resp B/P (MAP) Pulse Ox O2 Delivery O2 Flow Rate FiO2 01/08/18 07:50 36.4 83 20 165/91 (115) 97 Nasal Cannula 2.0 01/03/18 07:21 35 Physical Exam: General Appearance: WD/WN, no apparent distress Eyes: bilateral eyes normal inspection, bilateral eyes PERRL, bilateral eyes EOMI ENT: normal ENT inspection, hearing grossly normal, pharynx normal Neck: supple, no adenopathy, thyroid normal, no JVD, no carotid bruits, trachea midline Respiratory/Chest: no respiratory distress, + decreased breath sounds, + pertinent finding (conversational dyspnea) Cardiovascular: regular rate, rhythm (but distant), no edema Abdomen: normal bowel sounds, non tender, soft, no organomegaly Extremities: normal inspection, no pedal edema, no calf tenderness Neurologic/Psychiatric: administrative 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 paroxysmal atrial fibrillation/flutter has remained in sinus with no further sustained arrhythmias tolerating verapamil well INR supratherapeutic today, being managed by primary team 2. acute COPD exacerbation ok to d/c tele from cardiac standpoint will sign off, please call with questions or concerns
[2018-01-08] MEDS: LORAZEPAM 2 MG/ML 1 ML VIAL IV PRN (15:06)
[2018-01-08] MEDS: LATANOPROST 0.005% OP SOLN 2.5 ML BTL OP SCH (20:24)
[2018-01-08] MEDS: MoRPHine SULFATE 2 MG/ML CARP IV PRN (20:25)
[2018-01-09] VITALS (15 sets, daily range): BP systolic 120–156; BP diastolic 69–82; PULSE 64–89; TEMP 36.3–36.9; O2SAT 94–100
[2018-01-09] MEDS: IPRATROPIUM BROMIDE NEB SOLN 0.02% 2.5 ML VIAL INH SCH ×4 (01:52→19:24)
[2018-01-09] MEDS: LEVALBUTEROL 1.25MG/0.5ML NEB INH SCH ×4 (01:52→19:24)
[2018-01-09] MEDS: MoRPHine SULFATE 2 MG/ML CARP IV PRN (02:26)
[2018-01-09] MEDS: METHYLPREDNISOLONE IV 40 MG in SYRINGE 0 ML IV SCH ×3 (04:33→19:49)
[2018-01-09] MEDS: LORAZEPAM 2 MG/ML 1 ML VIAL IV PRN (05:57)
[2018-01-09] MEDS: INSULIN ASPART 100 UNITS/ML 3 ML PEN SC SCH ×2 (06:45→21:00)
[2018-01-09] MEDS: ALPRAZOLAM 0.5 MG TAB PO PRN (07:35)
[2018-01-09] MEDS: DORZOLAMIDE HCL 2% OPH SOLN 10 ML BTL OP SCH ×2 (07:35→18:42)
[2018-01-09] MEDS: ASPIRIN 81 MG ECTAB PO SCH (07:51)
[2018-01-09] MEDS: TAMSULOSIN HCL 0.4 MG CAP PO SCH (07:51)
[2018-01-09] MEDS: VERAPAMIL HCL 40 MG TAB PO SCH ×3 (07:52→20:33)
[2018-01-09] MEDS: ROFLUMILAST 500 MCG TAB PO SCH (07:52)
[2018-01-09] MEDS: PANTOprazole SOD 40 MG TAB PO SCH (07:52)
[2018-01-09] MEDS: SENNA 8.6 MG TAB PO SCH ×2 (07:52→20:34)
[2018-01-09] MEDS: BRIMONIDINE TARTRATE-P 0.15% 5 ML BTL OPR SCH ×2 (07:53→18:42)
[2018-01-09] MEDS: INSULIN GLARGINE SOLOSTAR 100 UNITS/ML 3 ML PEN SC SCH (07:55)
[2018-01-09] MEDS ORDERED: ONDANSETRON INJ 2 MG/ML 2 ML VIAL IV STA (10:16)
[2018-01-09] MEDS ORDERED: ONDANSETRON INJ 2 MG/ML 2 ML VIAL IV PRN (10:30)
--- NOTE | 2018-01-09 10:57 | Palliative Care Progress Note ---
Palliative Care Progress Note Date of Service Jan 09, 2018. Subjective Pt evaluation today including: conversation w/ patient, conversation w/ family , physical exam, chart review, conversation w/ solutions market consultant (Dr. Beltrán) I met with patient this morning in room 222. He is awake, slightly drowsy, but oriented x4. Patient c/o TRAMMELL, but no pain or discomfort while lying in bed. Patient expressed some discontent with his care since being in the hospital as he feels he is being told "my time is up," and he does not feel that way. Patient states he was considered for lung transplant by the [facility] in the past and he now would possibly consider pursuing this. He states, "I know my lungs aren't good, but I'm not ready to give up." His goal is to get home to his apartment and continue to live and enjoy life. He states he still wants to travel. Conversation to be continued when family is present. Family meeting to be held at 1130 today. Review of Systems Constitutional: + weakness ENT: No trouble swallowing Respiratory: + cough, + shortness of breath, + dyspnea on exertion Cardiac: No chest pain, No edema Abdomen: No pain, No nausea, No vomiting Male : No problem reported Psychiatric: + anxiety, No depression symptoms Objective Vital Signs Date Time Temp Pulse Resp B/P (MAP) Pulse Ox O2 Delivery O2 Flow Rate FiO2 01/09/18 07:24 36.8 78 18 156/77 (103) 100 2.0 01/09/18 07:01 82 16 97 Nasal Cannula 2.0 01/09/18 04:38 36.4 82 22 150/78 (102) 99 Humidified Air 2.0 01/09/18 04:33 Nasal Cannula 2.0 Humidified Oxygen 01/09/18 01:53 71 16 96 Room Air 01/08/18 23:35 Nasal Cannula 2.0 Humidified Oxygen 01/08/18 23:26 36.6 82 24 135/73 (93) 97 Humidified Air 2.0 01/08/18 20:15 Nasal Cannula 2.0 Humidified Oxygen 01/08/18 19:38 80 18 97 Nasal Cannula 35.0 35 01/08/18 18:49 37.0 76 22 143/79 (100) 97 High Flow Oxygen 33 01/08/18 16:05 Nasal Cannula 40.0 35 01/08/18 15:38 36.7 86 20 152/83 (106) 98 High Flow Oxygen 33 01/08/18 14:16 84 18 98 Nasal Cannula 40.0 35 01/08/18 12:20 36.7 73 22 153/81 (105) 98 High Flow Oxygen 01/08/18 12:05 Nasal Cannula 40.0 35 Physical Exam General Appearance: no apparent distress ENT: hearing grossly normal Neck: supple, no JVD Respiratory/Chest: no respiratory distress (does appear mildly SOB at rest in bed), + pertinent finding (2LNC) Cardiovascular: regular rate, rhythm, no edema, + normal peripheral pulses Abdomen: normal bowel sounds, non tender, soft Neurologic/Psychiatric: alert (slightly drowsy), normal mood/affect, oriented x 3 Laboratory Results Last 24 Hours Test 01/08/18 20:20 01/09/18 06:43 Bedside Glucose 113 mg/dl 125 mg/dl Assessment and Plan Problem list: SOB/TRAMMELL Chronic respiratory failure 2/2 severe COPD COPD exacerbation PAF- now in NSR Goals of care Palliative care recs: -Patient wishes to remain full code. -Family meeting held with patient, friend Pedro, niece and nephew, and brother Arpit. Dr. Beltrán explained patient's medical condition, specifically advanced COPD , to patient and family in detail. They verbalized understanding. -We discussed goals of care and patient currently wishes to try and get better/ stronger with the hopes of being able to return to his apartment. We did discuss that there may be limitations to his life at this point considering he is requiring morphine and xanax to remain comfortable and not in distress. Again , patient and family understand. -For now, goal is for rehab to see if patient is able to improve. Total time spent 70 minutes. Time with patient this morning 35 minutes, total time spent during family meeting 35 minutes counseling and discussing goals of care. Palliative Performance Scale: 60 % Discharge planning: uncertain Supervising Physician Pt seen and examined. Agree with above note, assessment and plan. Pt seen later in the afternoon, no family at bedside. Pt did not have any further questions. PE: Pt asleep during neb treatment - easily aroused. RESP: mild increased WOB, diminished BS, faint wheezes CV: RR Abd: soft Ext: warm, no cyanosis Will cont to follow while inpt.
--- NOTE | 2018-01-09 16:19 | Progress Note ---
Internal Med Progress Note Date of Service: Jan 09, 2018. Provider Documentation: Subjective: Today patient and family/friends and medical doctor and palliative care service discuss goals of care. Patient's prognosis was discussed. Goals of care discussed. Patient affirms full code status and that the aim of hospital stay is to help get him to physical rehabilitation Physical Exam General: verbal, speaking in full sentences, lying on bed Lungs: on nasal cannula, no acute wheezes, tight air entry Heart: regular rate Abdomen: soft, nontender, positive bowel sounds Extremities: no edema ASSESSMENT & PLAN: 72 year-old male with advanced emphysema, admitted for respiratory failure secondary to COPD exacerbation and paroxysmal a-fib in the hospital, originally admitted to ICU, and s/p ICU stay without needing to be intubated. COPD exacerbation - severe COPD Sputum culture and blood cultures negative completed 5 days of Doxycycline from 01/01/18 to 01/05/18 no pneumonia, recent CXR on 01/07/18 No pneumothorax identified, Emphysema with unchanged upper lobe fibrotic changes continue IV steroids, scheduled bronchodilators and prn, Daliresp prn morphine, prn Xanax / Ativan for anxiety with dyspnea if patient has more trouble with breathing, will try high flow nasal canula first Other pulmonary issues The patient reported that he was being followed up for few years with CT scans for a lung nodule, but later on, when he went to [facility], he was told he doesn't actually have a lung nodule. ICU physician reviewed the CT scan, and sees extensive emphysema but no lung nodules. Patient was also considered for lung transplant in the past, but he is not willing to undergo transplantation paroxysmal a-fib (from this hospital admission, not on anticoagulation previously) Rate/rhythm with verapamil Continue ASA had been on coumadin, likely having supratherapeutic INR because of poor oral food intake, INR 6.1 on 01/09/18, check INR today, when INR between 2 to 3 coumadin can be restarted at low doses Chronic anemia No evidence of GI bleeding, last stool for occult blood negative, CBC stable stable daily PO dosing oral protonix Diarrhea resolved, recently with constipation likely drug induced ileus from morphine and on stool softeners KUB ordered to check for stool burden patient had rodarte placed yesterday for urinary retention, trial of void today Disposition: poor prognosis due to advanced COPD and with paroxysmal atrial fibrillation, palliative care meeting with patient and family on 01/09/18, patient affirms full code status and that the aim of hospital stay is to help get him to physical rehabilitation FULL CODE status Vital Signs: Date Time Temp Pulse Resp B/P (MAP) Pulse Ox O2 Delivery O2 Flow Rate FiO2 01/09/18 16:18 72 20 120/77 (91) 94 Room Air 01/09/18 16:16 70 20 123/76 (92) 96 01/09/18 16:14 36.9 64 20 121/69 (86) 95 Room Air 01/09/18 16:08 36.5 75 20 134/75 (94) 97 Nasal Cannula 2.0 01/09/18 14:23 85 16 97 Nasal Cannula 2.0 01/09/18 12:00 Nasal Cannula 2.0 01/09/18 11:02 36.8 88 18 136/82 (100) 99 2.0 01/09/18 08:00 Nasal Cannula 2.0 01/09/18 07:24 36.8 78 18 156/77 (103) 100 2.0 01/09/18 07:01 82 16 97 Nasal Cannula 2.0 01/09/18 04:38 36.4 82 22 150/78 (102) 99 Humidified Air 2.0 01/09/18 04:33 Nasal Cannula 2.0 Humidified Oxygen 01/09/18 01:53 71 16 96 Room Air 01/08/18 23:35 Nasal Cannula 2.0 Humidified Oxygen 01/08/18 23:26 36.6 82 24 135/73 (93) 97 Humidified Air 2.0 01/08/18 20:15 Nasal Cannula 2.0 Humidified Oxygen 01/08/18 19:38 80 18 97 Nasal Cannula 35.0 35 01/08/18 18:49 37.0 76 22 143/79 (100) 97 High Flow Oxygen 33 Lab Results: Results Past 24 Hours Test 01/08/18 20:20 01/09/18 06:43 01/09/18 16:13 Range/Units Bedside Glucose 113 125 70-99 mg/dl
[2018-01-09 16:43] LABS: HEMOGLOBIN 12.6 g/dL (14.0-18.0); MEAN CELL VOLUME 94.7 fL (80-100); MEAN CORPUSCULAR HEMOGLOBIN 33.2 pg (25-34); MEAN PLATELET VOLUME 8.8 fL (7.4-10.4); PLATELET COUNT 343 K/uL (130-400); RED CELL DISTRIBUTION WIDTH CV 13.2 % (11.5-14.5); WHITE BLOOD COUNT 12.64 K/uL (4.8-10.8)
[2018-01-09 16:57] LABS: INR 3.6 (0.9-1.1)
[2018-01-09 17:10] LABS: ALBUMIN 2.6 gm/dl (3.4-5.0); CALCIUM 8.4 mg/dl (8.5-10.1); CREATININE 0.91 mg/dl (0.60-1.40); POTASSIUM 3.8 mmol/L (3.5-5.1); TOTAL PROTEIN 5.1 gm/dl (6.4-8.2)
--- NOTE | 2018-01-09 19:33 | DIAGNOSTIC IMAGING REPORT ---
KUB HISTORY: constipation COMPARISON: None. FINDINGS: The bowel gas pattern is unremarkable. There are no dilated loops of small bowel to suggest an obstruction. Calcification of the right upper quadrant. This is likely vascular. Moderate well-formed stool seen within the majority of the colon. No pneumoperitoneum or pneumatosis. The lung bases are clear. Multiple pelvic phleboliths are noted. IMPRESSION: 1. No evidence for bowel obstruction. 2. Moderate well-formed stool seen throughout the majority of the colon. Electronically signed by: Abraham Bose M.D. 01/09/2018 7:32 PM Dictated Date/Time: 01/09/2018 7:30 PM
[2018-01-09] MEDS: LATANOPROST 0.005% OP SOLN 2.5 ML BTL OP SCH (20:33)
[2018-01-10] VITALS (12 sets, daily range): BP systolic 120–161; BP diastolic 73–83; PULSE 68–90; TEMP 36.3–36.9; O2SAT 96–99
[2018-01-10] MEDS: MoRPHine SULFATE 2 MG/ML CARP IV PRN ×2 (00:55→22:55)
[2018-01-10] MEDS: METHYLPREDNISOLONE IV 40 MG in SYRINGE 0 ML IV SCH (04:30)
[2018-01-10 05:54] LABS: BASO % 0.1 %; BASO ABS # 0.01 K/uL (0-0.2); HEMATOCRIT 37.9 % (42-52); HEMOGLOBIN 12.3 g/dL (14.0-18.0); IG# 0.16 K/uL (0.00-0.02); LYMPH % 2.2 %; LYMPH ABS # 0.28 K/uL (1.2-3.4); MEAN CORPUSCULAR HEMOGLOBIN 30.8 pg (25-34); MEAN CORPUSCULAR HGB CONC 32.5 g/dl (32-36); MONO ABS # 0.39 K/uL (0.11-0.59); NEUT % 93.5 %; PLATELET COUNT 361 K/uL (130-400); RED CELL DISTRIBUTION WIDTH SD 45.3 fL (36.4-46.3); WHITE BLOOD COUNT 12.94 K/uL (4.8-10.8)
[2018-01-10 06:05] LABS: INR 2.9 (0.9-1.1)
[2018-01-10 06:32] LABS: ALBUMIN 2.5 gm/dl (3.4-5.0); CALCIUM 8.4 mg/dl (8.5-10.1); CREATININE 0.67 mg/dl (0.60-1.40); POTASSIUM 3.9 mmol/L (3.5-5.1)
[2018-01-10 06:35] LABS: TOTAL PROTEIN 4.9 gm/dl (6.4-8.2)
[2018-01-10] MEDS: INSULIN ASPART 100 UNITS/ML 3 ML PEN SC SCH ×2 (06:45→20:24)
[2018-01-10] MEDS: LEVALBUTEROL 1.25MG/0.5ML NEB INH SCH ×3 (07:12→19:42)
[2018-01-10] MEDS: IPRATROPIUM BROMIDE NEB SOLN 0.02% 2.5 ML VIAL INH SCH ×3 (07:12→19:42)
[2018-01-10] MEDS: DORZOLAMIDE HCL 2% OPH SOLN 10 ML BTL OP SCH ×2 (08:05→18:02)
[2018-01-10] MEDS: ROFLUMILAST 500 MCG TAB PO SCH (08:06)
[2018-01-10] MEDS: ASPIRIN 81 MG ECTAB PO SCH (08:06)
[2018-01-10] MEDS: SENNA 8.6 MG TAB PO SCH ×2 (08:06→20:24)
[2018-01-10] MEDS: PANTOprazole SOD 40 MG TAB PO SCH (08:06)
[2018-01-10] MEDS: VERAPAMIL HCL 40 MG TAB PO SCH ×3 (08:07→20:24)
[2018-01-10] MEDS: INSULIN GLARGINE SOLOSTAR 100 UNITS/ML 3 ML PEN SC SCH (08:10)
[2018-01-10] MEDS: BRIMONIDINE TARTRATE-P 0.15% 5 ML BTL OPR SCH ×2 (09:42→18:02)
[2018-01-10] MEDS: TAMSULOSIN HCL 0.4 MG CAP PO SCH (10:36)
--- NOTE | 2018-01-10 11:08 | Progress Note ---
Medicine Progress Note Date & Time of Visit: Jan 10, 2018 at 10:44. Subjective Pt was seen and examined Lying in bed with no distress Pt said that his breathing seems to improve Pt said that his strength seems to get better He said that he is starting to feel much better Pt said that he is interested to go to rehab to gain his strength Denies any palpitation, dizziness and fever Objective Last 8 Hrs Date Time Temp Pulse Resp B/P (MAP) Pulse Ox O2 Delivery O2 Flow Rate FiO2 01/10/18 08:00 36.6 81 20 161/83 (109) 98 Nasal Cannula 2.0 01/10/18 07:12 76 16 97 Nasal Cannula 2.0 01/10/18 04:25 36.6 75 18 146/82 (103) 97 Nasal Cannula 1.5 01/10/18 04:00 97 Nasal Cannula 2.0 Physical Exam: General- No acute distress Head- atraumatic Eyes- PERRL, EOMI ENT- oropharynx clear Neck- supple, no JVD Lungs- decrease breath sound Heart- regular rhythm; no murmur Abdomen- normal bowel sounds, soft Extremities- no calf tenderness Neuro- alert, oriented x 3; PERRL, EOMI Skin- warm & dry Laboratory Results: Last 24 Hours Test 01/09/18 16:34 01/09/18 21:13 01/10/18 05:21 01/10/18 06:39 White Blood Count 12.64 K/uL 12.94 K/uL Red Blood Count 3.80 M/uL 3.99 M/uL Hemoglobin 12.6 g/dL 12.3 g/dL Hematocrit 36.0 % 37.9 % Mean Corpuscular Volume 94.7 fL 95.0 fL Mean Corpuscular Hemoglobin 33.2 pg 30.8 pg Mean Corpuscular Hemoglobin Concent 35.0 g/dl 32.5 g/dl RDW Standard Deviation 46.0 fL 45.3 fL RDW Coefficient of Variation 13.2 % 13.0 % Platelet Count 343 K/uL 361 K/uL Mean Platelet Volume 8.8 fL 9.0 fL Prothrombin Time 37.2 SECONDS 30.0 SECONDS Prothromb Time International Ratio 3.6 2.9 Sodium Level 141 mmol/L 143 mmol/L Potassium Level 3.8 mmol/L 3.9 mmol/L Chloride Level 105 mmol/L 106 mmol/L Carbon Dioxide Level 30 mmol/L 32 mmol/L Anion Gap 6.0 mmol/L 6.0 mmol/L Blood Urea Nitrogen 39 mg/dl 41 mg/dl Creatinine 0.91 mg/dl 0.67 mg/dl Est Creatinine Clear Calc Drug Dose 56.2 ml/min 78.3 ml/min Estimated GFR () 95.9 109.7 Estimated GFR (Non- 82.7 94.7 BUN/Creatinine Ratio 42.8 61.7 Random Glucose 166 mg/dl 112 mg/dl Calcium Level 8.4 mg/dl 8.4 mg/dl Total Bilirubin 0.4 mg/dl 0.4 mg/dl Aspartate Amino Transf (AST/SGOT) 18 U/L 17 U/L Alanine Aminotransferase (ALT/SGPT) 27 U/L 23 U/L Alkaline Phosphatase 52 U/L 48 U/L Total Protein 5.1 gm/dl 4.9 gm/dl Albumin 2.6 gm/dl 2.5 gm/dl Globulin 2.5 gm/dl 2.4 gm/dl Albumin/Globulin Ratio 1.0 1.0 Bedside Glucose 133 mg/dl 111 mg/dl Neutrophils (%) (Auto) 93.5 % Lymphocytes (%) (Auto) 2.2 % Monocytes (%) (Auto) 3.0 % Eosinophils (%) (Auto) 0.0 % Basophils (%) (Auto) 0.1 % Neutrophils # (Auto) 12.10 K/uL Lymphocytes # (Auto) 0.28 K/uL Monocytes # (Auto) 0.39 K/uL Eosinophils # (Auto) 0.00 K/uL Basophils # (Auto) 0.01 K/uL Immature Granulocyte % (Auto) 1.2 % Immature Granulocyte # (Auto) 0.16 K/uL Assessment & Plan 72 year-old male with advanced emphysema, admitted for respiratory failure secondary to COPD exacerbation and paroxysmal a-fib in the hospital, originally admitted to ICU, and s/p ICU stay without needing to be intubated. COPD exacerbation CXR on 01/07 showed emphysema with unchanged upper lobe fibrotic changes. CTA on admission showed no evidence of pulmonary embolus in the main, lobar, or segmental pulmonary arteries. Advanced emphysema. There is no airspace consolidation or pleural effusion. Continue bronchodilators and Daliresp On prn morphine, prn Xanax / Ativan for anxiety with dyspnea Solumedrol taper to 40mg BID Continue oxygen supplement Clinically improved Consider 2 step before discharge Questionable Pulmonary Nodules Has been followed for few years with CT scans for a lung nodule, but later on, when he went to [facility], he was told he doesn't actually have a lung nodule. ICU physician reviewed the CT scan, and sees extensive emphysema but no lung nodules. Patient was also considered for lung transplant in the past, but he said that told him that his lung function need to be below 20 to consider transplant. Paroxysmal a-fib (from this hospital admission, not on anticoagulation previously) Rate/rhythm with verapamil Continue ASA Newly starting on anticoagulant INR was on hold for elevated INR INR 2.8 today, Resume Coumadin today at 2.5 mg daily Chronic anemia No signs of bleeding Repeat occult blood test negative Hgb stable Diarrhea Mostly related to laxative KUB showed no evidence for bowel obstruction. Resolved Code Status Full CODE Disposition Consider placement to rehab Discharge planning: uncertain Current Inpatient Medications: Current Inpatient Medications Medications (Trade) Dose Ordered Sig/Luis Miguel Route Start Time Stop Time Status Last Admin Dose Admin Acetaminophen (Tylenol Tab) 650 mg Q4H PRN PO 01/01/18 01:15 01/31/18 01:14 Nitroglycerin (Nitrostat Tab) 0.4 mg UD PRN SL 01/01/18 01:15 01/31/18 01:14 Glucose (Glucose 40% Gel) 15-30 GRAMS 15 GRAMS... UD PRN PO 01/01/18 01:15 01/31/18 01:14 Glucose (Glucose Chew Tab) 4-8 Tablets 4 Tabl... UD PRN PO 01/01/18 01:15 01/31/18 01:14 Dextrose (Dextrose 50% 50ML Syringe) 25-50ML OF 50% DW IV FOR... UD PRN IV 01/01/18 01:15 01/31/18 01:14 Glucagon (Glucagon Inj) 1 mg UD PRN SQ 01/01/18 01:15 01/31/18 01:14 Insulin Glargine (Lantus Solostar Pen) 5 units DAILY SC 01/02/18 09:00 02/01/18 08:59 01/10/18 08:10 5 UNITS Lorazepam (Ativan Inj) 0.25 mg Q4H PRN IV 3/4/18 01:15 01/31/18 01:14 01/09/18 05:57 0.25 MG Morphine Sulfate (MoRPHine SULFATE INJ) 2 mg Q3H PRN IV 01/01/18 01:15 01/15/18 01:14 01/10/18 00:55 2 MG Tramadol HCl (Ultram Tab) 25 mg Q6H PRN PO 01/01/18 01:15 01/31/18 01:14 Aspirin (Ecotrin Tab) 81 mg DAILY PO 01/01/18 09:00 01/31/18 08:59 01/10/18 08:06 81 MG Tamsulosin HCl (Flomax Cap) 0.4 mg DAILY PO 01/01/18 09:00 01/31/18 08:59 01/10/18 10:36 0.4 MG Ipratropium [place] (Atrovent 0.02% 0.5MG/2.5ML Neb) 0.5 mg Q6R INH 01/01/18 09:00 01/31/18 08:59 01/10/18 07:12 0.5 MG Levalbuterol (Xopenex 1.25MG/ 0.5ML Neb) 1.25 mg Q6R INH 01/01/18 09:00 01/31/18 08:59 01/10/18 07:12 1.25 MG Ipratropium [place] (Atrovent 0.02% 0.5MG/2.5ML Neb) 0.5 mg Q4H PRN INH 01/01/18 05:00 01/31/18 04:59 Levalbuterol (Xopenex 1.25MG/ 0.5ML Neb) 1.25 mg Q4H PRN INH 01/01/18 05:00 01/31/18 04:59 Roflumilast (Daliresp Tab) 500 mcg DAILY PO 01/02/18 09:00 02/01/18 08:59 Future hold 01/10/18 08:06 500 MCG Latanoprost (Xalatan Oph Soln) 1 drops DAILY@2100 OP 01/03/18 21:00 02/02/18 20:59 01/09/18 20:33 1 DROPS Brimonidine Tartrate (Alphagan-P 0.15% Oph Soln) 1 drops BID@0800,1800 OPR 01/03/18 08:00 02/02/18 07:59 01/10/18 09:42 1 DROPS Dorzolamide HCl (Trusopt 2% Oph Soln) 1 drops BID@0800,1800 OP 01/03/18 08:00 02/02/18 07:59 01/10/18 08:05 1 DROPS Verapamil HCl (Isoptin Tab) 80 mg TID PO 01/03/18 18:00 02/02/18 17:59 01/10/18 08:07 80 MG Verapamil HCl (Calan Inj) 5 mg Q1H PRN IV 01/03/18 18:45 02/02/18 18:44 Pantoprazole Sodium (Protonix Tab) 40 mg QAM PO 01/06/18 09:00 02/05/18 08:59 01/10/18 08:06 40 MG Insulin Aspart (novoLOG ASPART) SLIDING SCALE If C... BID@0645,2100 SC 01/05/18 21:00 02/04/18 20:59 01/07/18 20:50 1 UNITS Calcium Carbonate (Tums Chew Tab) 500 mg Q4H PRN PO 01/08/18 04:00 02/07/18 03:59 Senna (Senokot Tab) 8.6 mg BID PO 01/08/18 09:00 02/07/18 08:59 01/10/18 08:06 8.6 MG Polyethylene (Miralax Powder Packet) 17 gm DAILY PRN PO 01/08/18 09:00 02/07/18 08:59 Alprazolam (Xanax Tab) 0.5 mg TIDM PRN PO 01/08/18 11:30 02/03/18 08:44 01/09/18 07:35 0.5 MG Ondansetron HCl (Zofran Inj) 4 mg Q6H PRN IV 01/09/18 10:30 02/08/18 10:29 Methylprednisolone Sodium Succinate 40 mg/Syringe 0.64 ml @ 1.5 mls/min 1200 IV 01/10/18 12:00 01/31/18 19:59 UNV Warfarin Sodium (Coumadin Tab) 2.5 mg DAILY@16 PO 01/10/18 16:00 02/05/18 15:59 UNV
[2018-01-10] MEDS ORDERED: METHYLPREDNISOLONE IV 40 MG in SYRINGE 0 ML IV ONE (12:00)
[2018-01-10] MEDS: WARFARIN SOD 2.5 MG TAB PO SCH (16:03)
[2018-01-10] MEDS: LATANOPROST 0.005% OP SOLN 2.5 ML BTL OP SCH (20:23)
[2018-01-10] MEDS: ALPRAZOLAM 0.5 MG TAB PO PRN (20:49)
[2018-01-11] VITALS (9 sets, daily range): BP systolic 119–168; BP diastolic 70–90; PULSE 71–86; TEMP 36.8–36.9; O2SAT 93–100
[2018-01-11] MEDS: INSULIN ASPART 100 UNITS/ML 3 ML PEN SC SCH ×2 (06:45→20:54)
[2018-01-11] MEDS: LEVALBUTEROL 1.25MG/0.5ML NEB INH SCH ×3 (07:20→19:47)
[2018-01-11] MEDS: IPRATROPIUM BROMIDE NEB SOLN 0.02% 2.5 ML VIAL INH SCH ×3 (07:20→19:47)
[2018-01-11] MEDS: VERAPAMIL HCL 40 MG TAB PO SCH ×3 (08:19→20:20)
[2018-01-11] MEDS: BRIMONIDINE TARTRATE-P 0.15% 5 ML BTL OPR SCH ×2 (08:19→16:56)
[2018-01-11] MEDS: DORZOLAMIDE HCL 2% OPH SOLN 10 ML BTL OP SCH ×2 (08:19→16:56)
[2018-01-11] MEDS: PANTOprazole SOD 40 MG TAB PO SCH (08:19)
[2018-01-11] MEDS: ROFLUMILAST 500 MCG TAB PO SCH (08:20)
[2018-01-11] MEDS: ASPIRIN 81 MG ECTAB PO SCH (08:20)
[2018-01-11] MEDS: SENNA 8.6 MG TAB PO SCH ×2 (08:20→20:20)
[2018-01-11] MEDS: TAMSULOSIN HCL 0.4 MG CAP PO SCH (08:20)
[2018-01-11] MEDS: INSULIN GLARGINE SOLOSTAR 100 UNITS/ML 3 ML PEN SC SCH (08:26)
[2018-01-11 09:51] LABS: HEMATOCRIT 44.1 % (42-52); HEMOGLOBIN 14.8 g/dL (14.0-18.0); MEAN CELL VOLUME 95.2 fL (80-100); MEAN CORPUSCULAR HGB CONC 33.6 g/dl (32-36); MEAN PLATELET VOLUME 9.1 fL (7.4-10.4); PLATELET COUNT 365 K/uL (130-400); RED CELL DISTRIBUTION WIDTH CV 13.1 % (11.5-14.5); RED CELL DISTRIBUTION WIDTH SD 45.4 fL (36.4-46.3)
[2018-01-11 09:57] LABS: INR 2.3 (0.9-1.1)
[2018-01-11] MEDS ORDERED: LOSARTAN POTASSIUM 25 MG TAB PO ONE (10:21)
[2018-01-11] MEDS: MoRPHine SULFATE 2 MG/ML CARP IV PRN ×2 (13:35→22:42)
--- NOTE | 2018-01-11 16:22 | Progress Note ---
Medicine Progress Note Date & Time of Visit: Jan 11, 2018 at 15:59. Subjective Pt was seen and examined Lying in bed with no distress with brother at bedside Pt said that his breathing feels the same he said that last night he woke up and soaked with sweat Pt said that he does have some tenderness in his chest wall he said that tenderness occurs when applies pressure in his chest and when coughing Denies any fever, palpitation and dizziness. Objective Last 8 Hrs Date Time Temp Pulse Resp B/P (MAP) Pulse Ox O2 Delivery O2 Flow Rate FiO2 01/11/18 15:39 36.8 78 18 142/70 (94) 95 Nasal Cannula 2.0 01/11/18 14:18 78 16 97 Nasal Cannula 1.0 01/11/18 11:28 77 16 97 Nasal Cannula 2.0 01/11/18 08:30 100 Nasal Cannula 3.0 01/11/18 08:00 100 Nasal Cannula 3.0 Physical Exam: General- No acute distress Head- atraumatic Eyes- PERRL, EOMI ENT- oropharynx clear Neck- supple, no JVD Lungs- decrease breath sound, chest wall tenderness with pressure Heart- regular rhythm; no murmur Abdomen- normal bowel sounds, soft Extremities- no calf tenderness Neuro- alert, oriented x 3; PERRL, EOMI Skin- warm & dry Laboratory Results: Last 24 Hours Test 01/10/18 20:23 01/11/18 07:36 01/11/18 09:14 01/11/18 11:23 Bedside Glucose 139 mg/dl 73 mg/dl 88 mg/dl White Blood Count 17.00 K/uL Red Blood Count 4.63 M/uL Hemoglobin 14.8 g/dL Hematocrit 44.1 % Mean Corpuscular Volume 95.2 fL Mean Corpuscular Hemoglobin 32.0 pg Mean Corpuscular Hemoglobin Concent 33.6 g/dl RDW Standard Deviation 45.4 fL RDW Coefficient of Variation 13.1 % Platelet Count 365 K/uL Mean Platelet Volume 9.1 fL Prothrombin Time 23.6 SECONDS Prothromb Time International Ratio 2.3 Test 01/11/18 13:57 Troponin I 0.025 ng/ml Assessment & Plan 72 year-old male with advanced emphysema, admitted for respiratory failure secondary to COPD exacerbation and paroxysmal a-fib in the hospital, originally admitted to ICU, and s/p ICU stay without needing to be intubated. COPD exacerbation CXR on 01/07 showed emphysema with unchanged upper lobe fibrotic changes. CTA on admission showed no evidence of pulmonary embolus in the main, lobar, or segmental pulmonary arteries. Advanced emphysema. There is no airspace consolidation or pleural effusion. Continue bronchodilators and Daliresp On prn morphine, prn Xanax / Ativan for anxiety with dyspnea Solumedrol taper to 40mg BID Continue oxygen supplement Clinically improved Consider 2 step before discharge 01/11 Continue to have SOB with exertion Solumedrol changed to prednisone Restarted symbicort continue breathing treatment Continue oxygen supplement Consider 2 step before discharge Questionable Pulmonary Nodules Has been followed for few years with CT scans for a lung nodule, but later on, when he went to [facility], he was told he doesn't actually have a lung nodule. ICU physician reviewed the CT scan, and sees extensive emphysema but no lung nodules. Patient was also considered for lung transplant in the past, but he said that told him that his lung function need to be below 20 to consider transplant. Atypical chest pain reproducible pain Mostly musculoskeletal due to cough EKG showed no ischemic changes Start Troponin normal Improved with morphine Paroxysmal a-fib (from this hospital admission, not on anticoagulation previously) Rate/rhythm with verapamil Continue ASA Newly starting on anticoagulant INR was on hold for elevated INR INR 2.3 today Continue Coumadin 2.5 mg daily Chronic anemia No signs of bleeding Repeat occult blood test negative Hgb stable Diarrhea Mostly related to laxative KUB showed no evidence for bowel obstruction. Resolved DVT px On coumadin INR 2.3 Code Status Full CODE Disposition Consider placement to rehab Discharge planning: uncertain Current Inpatient Medications: Current Inpatient Medications Medications (Trade) Dose Ordered Sig/Luis Miguel Route Start Time Stop Time Status Last Admin Dose Admin Acetaminophen (Tylenol Tab) 650 mg Q4H PRN PO 01/01/18 01:15 01/31/18 01:14 Nitroglycerin (Nitrostat Tab) 0.4 mg UD PRN SL 01/01/18 01:15 01/31/18 01:14 Glucose (Glucose 40% Gel) 15-30 GRAMS 15 GRAMS... UD PRN PO 01/01/18 01:15 01/31/18 01:14 Glucose (Glucose Chew Tab) 4-8 Tablets 4 Tabl... UD PRN PO 01/01/18 01:15 01/31/18 01:14 Dextrose (Dextrose 50% 50ML Syringe) 25-50ML OF 50% DW IV FOR... UD PRN IV 01/01/18 01:15 01/31/18 01:14 Glucagon (Glucagon Inj) 1 mg UD PRN SQ 01/01/18 01:15 01/31/18 01:14 Insulin Glargine (Lantus Solostar Pen) 5 units DAILY SC 01/02/18 09:00 02/01/18 08:59 01/11/18 08:26 5 UNITS Lorazepam (Ativan Inj) 0.25 mg Q4H PRN IV 01/01/18 01:15 01/31/18 01:14 01/09/18 05:57 0.25 MG Morphine Sulfate (MoRPHine SULFATE INJ) 2 mg Q3H PRN IV 01/01/18 01:15 01/15/18 01:14 01/11/18 13:35 2 MG Tramadol HCl (Ultram Tab) 25 mg Q6H PRN PO 01/01/18 01:15 01/31/18 01:14 Aspirin (Ecotrin Tab) 81 mg DAILY PO 01/01/18 09:00 01/31/18 08:59 01/11/18 08:20 81 MG Tamsulosin HCl (Flomax Cap) 0.4 mg DAILY PO 01/01/18 09:00 01/31/18 08:59 01/11/18 08:20 0.4 MG Ipratropium [place] (Atrovent 0.02% 0.5MG/2.5ML Neb) 0.5 mg Q6R INH 01/01/18 09:00 01/31/18 08:59 01/11/18 14:18 0.5 MG Levalbuterol (Xopenex 1.25MG/ 0.5ML Neb) 1.25 mg Q6R INH 01/01/18 09:00 01/31/18 08:59 01/11/18 14:18 1.25 MG Ipratropium [place] (Atrovent 0.02% 0.5MG/2.5ML Neb) 0.5 mg Q4H PRN INH 01/01/18 05:00 01/31/18 04:59 Levalbuterol (Xopenex 1.25MG/ 0.5ML Neb) 1.25 mg Q4H PRN INH 01/01/18 05:00 01/31/18 04:59 Roflumilast (Daliresp Tab) 500 mcg DAILY PO 01/02/18 09:00 02/01/18 08:59 Future hold 01/11/18 08:20 500 MCG Latanoprost (Xalatan Oph Soln) 1 drops DAILY@2100 OP 01/03/18 21:00 02/02/18 20:59 01/10/18 20:23 1 DROPS Brimonidine Tartrate (Alphagan-P 0.15% Oph Soln) 1 drops BID@0800,1800 OPR 01/03/18 08:00 02/02/18 07:59 01/11/18 08:19 1 DROPS Dorzolamide HCl (Trusopt 2% Oph Soln) 1 drops BID@0800,1800 OP 01/03/18 08:00 02/02/18 07:59 01/11/18 08:19 1 DROPS Verapamil HCl (Isoptin Tab) 80 mg TID PO 01/03/18 18:00 02/02/18 17:59 01/11/18 13:30 80 MG Verapamil HCl (Calan Inj) 5 mg Q1H PRN IV 01/03/18 18:45 02/02/18 18:44 Pantoprazole Sodium (Protonix Tab) 40 mg QAM PO 01/06/18 09:00 02/05/18 08:59 01/11/18 08:19 40 MG Insulin Aspart (novoLOG ASPART) SLIDING SCALE If C... BID@0645,2100 SC 01/05/18 21:00 02/04/18 20:59 01/07/18 20:50 1 UNITS Calcium Carbonate (Tums Chew Tab) 500 mg Q4H PRN PO 01/08/18 04:00 02/07/18 03:59 Senna (Senokot Tab) 8.6 mg BID PO 01/08/18 09:00 02/07/18 08:59 01/11/18 08:20 8.6 MG Polyethylene (Miralax Powder Packet) 17 gm DAILY PRN PO 01/08/18 09:00 02/07/18 08:59 Alprazolam (Xanax Tab) 0.5 mg TIDM PRN PO 01/08/18 11:30 02/03/18 08:44 01/10/18 20:49 0.5 MG Ondansetron HCl (Zofran Inj) 4 mg Q6H PRN IV 01/09/18 10:30 02/08/18 10:29 Warfarin Sodium (Coumadin Tab) 2.5 mg DAILY@16 PO 01/10/18 16:00 02/05/18 15:59 01/10/18 16:03 2.5 MG Losartan Potassium (coZAAR TAB) 25 mg BID PO 01/11/18 20:00 02/10/18 19:59
[2018-01-11] MEDS: WARFARIN SOD 2.5 MG TAB PO SCH (16:55)
[2018-01-11] MEDS: BUDESONIDE/FORMOTEROL FUMARATE 160/4.5 60 PUFFS/INHALER INH SCH (20:20)
[2018-01-11] MEDS: LOSARTAN POTASSIUM 25 MG TAB PO SCH (20:20)
[2018-01-11] MEDS: LATANOPROST 0.005% OP SOLN 2.5 ML BTL OP SCH (20:21)
[2018-01-11] MEDS: ALPRAZOLAM 0.5 MG TAB PO PRN (21:14)
[2018-01-12] VITALS (8 sets, daily range): BP systolic 134–165; BP diastolic 72–81; PULSE 79–98; TEMP 36.4–36.9; O2SAT 96–100
[2018-01-12] MEDS: LEVALBUTEROL 1.25MG/0.5ML NEB INH SCH ×4 (01:51→19:30)
[2018-01-12] MEDS: IPRATROPIUM BROMIDE NEB SOLN 0.02% 2.5 ML VIAL INH SCH ×4 (01:51→19:30)
[2018-01-12] MEDS: INSULIN ASPART 100 UNITS/ML 3 ML PEN SC SCH ×2 (06:45→20:40)
[2018-01-12 06:53] LABS: HEMATOCRIT 36.5 % (42-52); HEMOGLOBIN 12.4 g/dL (14.0-18.0); MEAN CELL VOLUME 94.1 fL (80-100); MEAN PLATELET VOLUME 8.8 fL (7.4-10.4); PLATELET COUNT 278 K/uL (130-400); RED CELL DISTRIBUTION WIDTH CV 13.3 % (11.5-14.5); RED CELL DISTRIBUTION WIDTH SD 45.8 fL (36.4-46.3); WHITE BLOOD COUNT 12.18 K/uL (4.8-10.8)
[2018-01-12] MEDS: PANTOprazole SOD 40 MG TAB PO SCH (08:44)
[2018-01-12] MEDS: BUDESONIDE/FORMOTEROL FUMARATE 160/4.5 60 PUFFS/INHALER INH SCH ×2 (08:44→19:46)
[2018-01-12] MEDS: BRIMONIDINE TARTRATE-P 0.15% 5 ML BTL OPR SCH ×2 (08:44→19:06)
[2018-01-12] MEDS: DORZOLAMIDE HCL 2% OPH SOLN 10 ML BTL OP SCH ×2 (08:44→18:33)
[2018-01-12] MEDS: ASPIRIN 81 MG ECTAB PO SCH (08:45)
[2018-01-12] MEDS: VERAPAMIL HCL 40 MG TAB PO SCH ×3 (08:45→19:46)
[2018-01-12] MEDS: SENNA 8.6 MG TAB PO SCH ×2 (08:45→19:04)
[2018-01-12] MEDS: LOSARTAN POTASSIUM 25 MG TAB PO SCH ×2 (08:46→19:45)
[2018-01-12] MEDS: ROFLUMILAST 500 MCG TAB PO SCH (08:46)
[2018-01-12] MEDS: TAMSULOSIN HCL 0.4 MG CAP PO SCH (08:46)
[2018-01-12] MEDS: INSULIN GLARGINE SOLOSTAR 100 UNITS/ML 3 ML PEN SC SCH (08:47)
[2018-01-12] MEDS: WARFARIN SOD 2 MG TAB PO SCH (15:25)
--- NOTE | 2018-01-12 18:44 | Progress Note ---
Medicine Progress Note Date & Time of Visit: Jan 12, 2018 at 18:42. Subjective Pt was seen and examined Lying in bed with no distress Pt said that breathing seems the same Denies any chest pain Objective Last 8 Hrs Date Time Temp Pulse Resp B/P (MAP) Pulse Ox O2 Delivery O2 Flow Rate FiO2 01/12/18 15:20 100 Nasal Cannula 3.0 01/12/18 14:41 36.9 87 20 165/72 (103) 100 Nasal Cannula 3.0 01/12/18 14:21 88 16 96 Nasal Cannula 3.0 Physical Exam: General- No acute distress Head- atraumatic Eyes- PERRL, EOMI ENT- oropharynx clear Neck- supple, no JVD Lungs- decrease breath sound, chest wall tenderness with pressure Heart- regular rhythm; no murmur Abdomen- normal bowel sounds, soft Extremities- no calf tenderness Neuro- alert, oriented x 3; PERRL, EOMI Skin- warm & dry Laboratory Results: Last 24 Hours Test 01/11/18 20:33 01/12/18 06:34 01/12/18 07:56 01/12/18 11:54 Bedside Glucose 154 mg/dl 95 mg/dl 130 mg/dl White Blood Count 12.18 K/uL Red Blood Count 3.88 M/uL Hemoglobin 12.4 g/dL Hematocrit 36.5 % Mean Corpuscular Volume 94.1 fL Mean Corpuscular Hemoglobin 32.0 pg Mean Corpuscular Hemoglobin Concent 34.0 g/dl RDW Standard Deviation 45.8 fL RDW Coefficient of Variation 13.3 % Platelet Count 278 K/uL Mean Platelet Volume 8.8 fL Prothrombin Time 31.0 SECONDS Prothromb Time International Ratio 3.0 Test 01/12/18 16:39 Bedside Glucose 123 mg/dl Assessment & Plan 72 year-old male with advanced emphysema, admitted for respiratory failure secondary to COPD exacerbation and paroxysmal a-fib in the hospital, originally admitted to ICU, and s/p ICU stay without needing to be intubated. COPD exacerbation CXR on 01/07 showed emphysema with unchanged upper lobe fibrotic changes. CTA on admission showed no evidence of pulmonary embolus in the main, lobar, or segmental pulmonary arteries. Advanced emphysema. There is no airspace consolidation or pleural effusion. Continue bronchodilators and Daliresp On prn morphine, prn Xanax / Ativan for anxiety with dyspnea Solumedrol taper to 40mg BID Continue oxygen supplement Clinically improved Consider 2 step before discharge 01/12 Continue to have SOB with exertion continue prednisone Continue Symbicort continue breathing treatment Continue oxygen supplement Consider 2 step before discharge Questionable Pulmonary Nodules Has been followed for few years with CT scans for a lung nodule, but later on, when he went to [facility], he was told he doesn't actually have a lung nodule. ICU physician reviewed the CT scan, and sees extensive emphysema but no lung nodules. Patient was also considered for lung transplant in the past, but he said that told him that his lung function need to be below 20 to consider transplant. Atypical chest pain reproducible pain Mostly musculoskeletal due to cough EKG showed no ischemic changes Start Troponin normal Improved with morphine Resolved Paroxysmal a-fib (from this hospital admission, not on anticoagulation previously) Rate/rhythm with verapamil Continue ASA Newly starting on anticoagulant INR was on hold for elevated INR INR 3 today Decrease Coumadin to 2 mg daily Chronic anemia No signs of bleeding Repeat occult blood test negative Hgb stable Diarrhea Mostly related to laxative KUB showed no evidence for bowel obstruction. Resolved DVT px On coumadin INR 3 Code Status Full CODE Disposition Consider placement to rehab Discharge planning: uncertain Current Inpatient Medications: Current Inpatient Medications Medications (Trade) Dose Ordered Sig/Luis Miguel Route Start Time Stop Time Status Last Admin Dose Admin Acetaminophen (Tylenol Tab) 650 mg Q4H PRN PO 01/01/18 01:15 01/31/18 01:14 Nitroglycerin (Nitrostat Tab) 0.4 mg UD PRN SL 01/01/18 01:15 01/31/18 01:14 Glucose (Glucose 40% Gel) 15-30 GRAMS 15 GRAMS... UD PRN PO 01/01/18 01:15 01/31/18 01:14 Glucose (Glucose Chew Tab) 4-8 Tablets 4 Tabl... UD PRN PO 01/01/18 01:15 01/31/18 01:14 Dextrose (Dextrose 50% 50ML Syringe) 25-50ML OF 50% DW IV FOR... UD PRN IV 01/01/18 01:15 01/31/18 01:14 Glucagon (Glucagon Inj) 1 mg UD PRN SQ 01/01/18 01:15 01/31/18 01:14 Insulin Glargine (Lantus Solostar Pen) 5 units DAILY SC 01/02/18 09:00 02/01/18 08:59 01/12/18 08:47 5 UNITS Lorazepam (Ativan Inj) 0.25 mg Q4H PRN IV 01/01/18 01:15 01/31/18 01:14 01/09/18 05:57 0.25 MG Morphine Sulfate (MoRPHine SULFATE INJ) 2 mg Q3H PRN IV 01/01/18 01:15 01/15/18 01:14 01/11/18 22:42 2 MG Tramadol HCl (Ultram Tab) 25 mg Q6H PRN PO 01/01/18 01:15 01/31/18 01:14 Aspirin (Ecotrin Tab) 81 mg DAILY PO 01/01/18 09:00 01/31/18 08:59 01/12/18 08:45 81 MG Tamsulosin HCl (Flomax Cap) 0.4 mg DAILY PO 01/01/18 09:00 01/31/18 08:59 01/12/18 08:46 0.4 MG Ipratropium [place] (Atrovent 0.02% 0.5MG/2.5ML Neb) 0.5 mg Q6R INH 01/01/18 09:00 01/31/18 08:59 01/12/18 14:21 0.5 MG Levalbuterol (Xopenex 1.25MG/ 0.5ML Neb) 1.25 mg Q6R INH 01/01/18 09:00 01/31/18 08:59 01/12/18 14:21 1.25 MG Ipratropium [place] (Atrovent 0.02% 0.5MG/2.5ML Neb) 0.5 mg Q4H PRN INH 01/01/18 05:00 01/31/18 04:59 Levalbuterol (Xopenex 1.25MG/ 0.5ML Neb) 1.25 mg Q4H PRN INH 01/01/18 05:00 01/31/18 04:59 Roflumilast (Daliresp Tab) 500 mcg DAILY PO 01/02/18 09:00 02/01/18 08:59 Future hold 01/12/18 08:46 500 MCG Latanoprost (Xalatan Oph Soln) 1 drops DAILY@2100 OP 01/03/18 21:00 02/02/18 20:59 01/11/18 20:21 1 DROPS Brimonidine Tartrate (Alphagan-P 0.15% Oph Soln) 1 drops BID@0800,1800 OPR 01/03/18 08:00 02/02/18 07:59 01/12/18 08:44 1 DROPS Dorzolamide HCl (Trusopt 2% Oph Soln) 1 drops BID@0800,1800 OP 01/03/18 08:00 02/02/18 07:59 01/12/18 18:33 1 DROPS Verapamil HCl (Isoptin Tab) 80 mg TID PO 01/03/18 18:00 02/02/18 17:59 01/12/18 13:56 80 MG Verapamil HCl (Calan Inj) 5 mg Q1H PRN IV 01/03/18 18:45 02/02/18 18:44 Pantoprazole Sodium (Protonix Tab) 40 mg QAM PO 01/06/18 09:00 02/05/18 08:59 01/12/18 08:44 40 MG Insulin Aspart (novoLOG ASPART) SLIDING SCALE If C... BID@0645,2100 SC 01/05/18 21:00 02/04/18 20:59 01/07/18 20:50 1 UNITS Calcium Carbonate (Tums Chew Tab) 500 mg Q4H PRN PO 01/08/18 04:00 02/07/18 03:59 Senna (Senokot Tab) 8.6 mg BID PO 01/08/18 09:00 02/07/18 08:59 01/12/18 08:45 8.6 MG Polyethylene (Miralax Powder Packet) 17 gm DAILY PRN PO 01/08/18 09:00 02/07/18 08:59 Alprazolam (Xanax Tab) 0.5 mg TIDM PRN PO 01/08/18 11:30 02/03/18 08:44 01/11/18 21:14 0.5 MG Ondansetron HCl (Zofran Inj) 4 mg Q6H PRN IV 01/09/18 10:30 02/08/18 10:29 Losartan Potassium (coZAAR TAB) 25 mg BID PO 01/11/18 20:00 4/13/18 19:59 01/12/18 08:46 25 MG Prednisone (PredniSONE TAB) 40 mg DAILY PO 01/12/18 08:00 02/11/18 07:59 01/12/18 08:46 40 MG Budesonide/ Formoterol Fumarate (Symbicort 160/ 4.5 Inh) 2 puffs BID INH 01/11/18 20:00 02/10/18 19:59 01/12/18 08:44 2 PUFFS Warfarin Sodium (Coumadin Tab) 2 mg DAILY@16 PO 01/12/18 16:00 02/05/18 15:59 01/12/18 15:25 2 MG
[2018-01-12] MEDS: ALPRAZOLAM 0.5 MG TAB PO PRN (20:43)
[2018-01-12] MEDS: LATANOPROST 0.005% OP SOLN 2.5 ML BTL OP SCH (20:43)
[2018-01-12] MEDS: MoRPHine SULFATE 2 MG/ML CARP IV PRN (22:00)
[2018-01-12] MEDS ORDERED: NYSTATIN SUSP 500,000 U/5 ML UDC PO ONE (22:45)
[2018-01-13] VITALS (10 sets, daily range): BP systolic 112–148; BP diastolic 59–80; PULSE 68–100; TEMP 36.4–37.1; O2SAT 95–100
[2018-01-13] MEDS: LEVALBUTEROL 1.25MG/0.5ML NEB INH SCH ×4 (01:59→19:05)
[2018-01-13] MEDS: IPRATROPIUM BROMIDE NEB SOLN 0.02% 2.5 ML VIAL INH SCH ×4 (01:59→19:05)
[2018-01-13] MEDS: INSULIN ASPART 100 UNITS/ML 3 ML PEN SC SCH ×2 (06:45→20:45)
[2018-01-13] MEDS: SENNA 8.6 MG TAB PO SCH ×2 (08:00→20:00)
[2018-01-13] MEDS: VERAPAMIL HCL 40 MG TAB PO SCH ×3 (09:06→20:53)
[2018-01-13] MEDS: DORZOLAMIDE HCL 2% OPH SOLN 10 ML BTL OP SCH ×2 (09:06→18:34)
[2018-01-13] MEDS: BUDESONIDE/FORMOTEROL FUMARATE 160/4.5 60 PUFFS/INHALER INH SCH ×2 (09:06→20:50)
[2018-01-13] MEDS: BRIMONIDINE TARTRATE-P 0.15% 5 ML BTL OPR SCH ×2 (09:06→19:17)
[2018-01-13] MEDS: PANTOprazole SOD 40 MG TAB PO SCH (09:07)
[2018-01-13] MEDS: TAMSULOSIN HCL 0.4 MG CAP PO SCH (09:07)
[2018-01-13] MEDS: LOSARTAN POTASSIUM 25 MG TAB PO SCH ×2 (09:07→20:53)
[2018-01-13] MEDS: ASPIRIN 81 MG ECTAB PO SCH (09:07)
[2018-01-13] MEDS: ROFLUMILAST 500 MCG TAB PO SCH (09:07)
[2018-01-13] MEDS: NYSTATIN SUSP 500,000 U/5 ML UDC PO SCH ×4 (09:09→20:52)
[2018-01-13] MEDS: INSULIN GLARGINE SOLOSTAR 100 UNITS/ML 3 ML PEN SC SCH (09:11)
[2018-01-13 09:49] LABS: INR 3.3 (0.9-1.1)
[2018-01-13] MEDS: WARFARIN SOD 2 MG TAB PO SCH (16:00)
[2018-01-13] MEDS ORDERED: NURSING VERBAL MED ORDER ONE (18:30)
--- NOTE | 2018-01-13 19:36 | Progress Note ---
Medicine Progress Note Date & Time of Visit: Jan 13, 2018 at 19:34. Subjective Pt was seen and examined Sitting in chair with no distress Pt said that he feels slightly better today Objective Last 8 Hrs Date Time Temp Pulse Resp B/P (MAP) Pulse Ox O2 Delivery O2 Flow Rate FiO2 01/13/18 19:07 88 16 98 Nasal Cannula 3.0 01/13/18 15:52 37.1 91 20 122/74 (90) 99 Nasal Cannula 3.0 01/13/18 14:17 98 16 98 Nasal Cannula 3.0 Physical Exam: General- No acute distress Head- atraumatic Eyes- PERRL, EOMI ENT- oropharynx clear Neck- supple, no JVD Lungs- decrease breath sound, chest wall tenderness with pressure Heart- regular rhythm; no murmur Abdomen- normal bowel sounds, soft Extremities- no calf tenderness Neuro- alert, oriented x 3; PERRL, EOMI Skin- warm & dry Laboratory Results: Last 24 Hours Test 01/12/18 20:15 01/13/18 07:34 01/13/18 08:56 01/13/18 11:38 Bedside Glucose 135 mg/dl 74 mg/dl 126 mg/dl Prothrombin Time 34.0 SECONDS Prothromb Time International Ratio 3.3 Test 01/13/18 17:03 Bedside Glucose 104 mg/dl Assessment & Plan 72 year-old male with advanced emphysema, admitted for respiratory failure secondary to COPD exacerbation and paroxysmal a-fib in the hospital, originally admitted to ICU, and s/p ICU stay without needing to be intubated. COPD exacerbation CXR on 01/07 showed emphysema with unchanged upper lobe fibrotic changes. CTA on admission showed no evidence of pulmonary embolus in the main, lobar, or segmental pulmonary arteries. Advanced emphysema. There is no airspace consolidation or pleural effusion. Continue bronchodilators and Daliresp On prn morphine, prn Xanax / Ativan for anxiety with dyspnea Solumedrol taper to 40mg BID Continue oxygen supplement Clinically improved Consider 2 step before discharge 01/13 Continue to have SOB with exertion continue prednisone Continue Symbicort continue breathing treatment Continue oxygen supplement Consider 2 step before discharge Questionable Pulmonary Nodules Has been followed for few years with CT scans for a lung nodule, but later on, when he went to [facility], he was told he doesn't actually have a lung nodule. ICU physician reviewed the CT scan, and sees extensive emphysema but no lung nodules. Patient was also considered for lung transplant in the past, but he said that told him that his lung function need to be below 20 to consider transplant. Atypical chest pain reproducible pain Mostly musculoskeletal due to cough EKG showed no ischemic changes Start Troponin normal Improved with morphine Resolved Paroxysmal a-fib (from this hospital admission, not on anticoagulation previously) Rate/rhythm with verapamil Continue ASA Newly starting on anticoagulant INR was on hold for elevated INR INR 3.3 today Decrease Coumadin to 1 mg daily Chronic anemia No signs of bleeding Repeat occult blood test negative Hgb stable Diarrhea Mostly related to laxative KUB showed no evidence for bowel obstruction. Resolved DVT px On coumadin INR 3.3 Code Status Full CODE Disposition Consider placement to rehab Discharge planning: uncertain Current Inpatient Medications: Current Inpatient Medications Medications (Trade) Dose Ordered Sig/Luis Miguel Route Start Time Stop Time Status Last Admin Dose Admin Acetaminophen (Tylenol Tab) 650 mg Q4H PRN PO 01/01/18 01:15 01/31/18 01:14 Nitroglycerin (Nitrostat Tab) 0.4 mg UD PRN SL 01/01/18 01:15 01/31/18 01:14 Glucose (Glucose 40% Gel) 15-30 GRAMS 15 GRAMS... UD PRN PO 01/01/18 01:15 01/31/18 01:14 Glucose (Glucose Chew Tab) 4-8 Tablets 4 Tabl... UD PRN PO 01/01/18 01:15 01/31/18 01:14 Dextrose (Dextrose 50% 50ML Syringe) 25-50ML OF 50% DW IV FOR... UD PRN IV 01/01/18 01:15 01/31/18 01:14 Glucagon (Glucagon Inj) 1 mg UD PRN SQ 01/01/18 01:15 01/31/18 01:14 Insulin Glargine (Lantus Solostar Pen) 5 units DAILY SC 01/02/18 09:00 02/01/18 08:59 01/13/18 09:11 5 UNITS Lorazepam (Ativan Inj) 0.25 mg Q4H PRN IV 01/01/18 01:15 01/31/18 01:14 01/09/18 05:57 0.25 MG Morphine Sulfate (MoRPHine SULFATE INJ) 2 mg Q3H PRN IV 01/01/18 01:15 01/15/18 01:14 01/12/18 22:00 2 MG Tramadol HCl (Ultram Tab) 25 mg Q6H PRN PO 01/01/18 01:15 01/31/18 01:14 Aspirin (Ecotrin Tab) 81 mg DAILY PO 01/01/18 09:00 01/31/18 08:59 01/13/18 09:07 81 MG Tamsulosin HCl (Flomax Cap) 0.4 mg DAILY PO 01/01/18 09:00 01/31/18 08:59 01/13/18 09:07 0.4 MG Ipratropium [place] (Atrovent 0.02% 0.5MG/2.5ML Neb) 0.5 mg Q6R INH 01/01/18 09:00 01/31/18 08:59 01/13/18 19:05 0.5 MG Levalbuterol (Xopenex 1.25MG/ 0.5ML Neb) 1.25 mg Q6R INH 01/01/18 09:00 01/31/18 08:59 01/13/18 19:05 1.25 MG Ipratropium [place] (Atrovent 0.02% 0.5MG/2.5ML Neb) 0.5 mg Q4H PRN INH 01/01/18 05:00 01/31/18 04:59 Levalbuterol (Xopenex 1.25MG/ 0.5ML Neb) 1.25 mg Q4H PRN INH 01/01/18 05:00 01/31/18 04:59 Roflumilast (Daliresp Tab) 500 mcg DAILY PO 01/02/18 09:00 02/01/18 08:59 Future hold 01/13/18 09:07 500 MCG Latanoprost (Xalatan Oph Soln) 1 drops DAILY@2100 OP 01/03/18 21:00 02/02/18 20:59 01/12/18 20:43 1 DROPS Brimonidine Tartrate (Alphagan-P 0.15% Oph Soln) 1 drops BID@0800,1800 OPR 01/03/18 08:00 02/02/18 07:59 01/13/18 19:17 1 DROPS Dorzolamide HCl (Trusopt 2% Oph Soln) 1 drops BID@0800,1800 OP 01/03/18 08:00 02/02/18 07:59 01/13/18 18:34 1 DROPS Verapamil HCl (Isoptin Tab) 80 mg TID PO 01/03/18 18:00 02/02/18 17:59 01/13/18 13:03 80 MG Verapamil HCl (Calan Inj) 5 mg Q1H PRN IV 01/03/18 18:45 02/02/18 18:44 Pantoprazole Sodium (Protonix Tab) 40 mg QAM PO 01/06/18 09:00 02/05/18 08:59 01/13/18 09:07 40 MG Insulin Aspart (novoLOG ASPART) SLIDING SCALE If C... BID@0645,2100 SC 01/05/18 21:00 02/04/18 20:59 01/07/18 20:50 1 UNITS Calcium Carbonate (Tums Chew Tab) 500 mg Q4H PRN PO 01/08/18 04:00 02/07/18 03:59 Senna (Senokot Tab) 8.6 mg BID PO 01/08/18 09:00 02/07/18 08:59 01/12/18 08:45 8.6 MG Polyethylene (Miralax Powder Packet) 17 gm DAILY PRN PO 01/08/18 09:00 02/07/18 08:59 Alprazolam (Xanax Tab) 0.5 mg TIDM PRN PO 01/08/18 11:30 02/03/18 08:44 01/12/18 20:43 0.5 MG Ondansetron HCl (Zofran Inj) 4 mg Q6H PRN IV 01/09/18 10:30 02/08/18 10:29 Losartan Potassium (coZAAR TAB) 25 mg BID PO 01/11/18 20:00 02/10/18 19:59 01/13/18 09:07 25 MG Prednisone (PredniSONE TAB) 40 mg DAILY PO 01/12/18 08:00 02/11/18 07:59 01/13/18 09:06 40 MG Budesonide/ Formoterol Fumarate (Symbicort 160/ 4.5 Inh) 2 puffs BID INH 01/11/18 20:00 02/10/18 19:59 01/13/18 09:06 2 PUFFS Nystatin (Mycostatin Susp) 10 ml QID PO 01/13/18 08:00 01/23/18 07:59 01/13/18 18:34 10 ML Warfarin Sodium (Coumadin Tab) 1 mg DAILY@16 PO 01/14/18 16:00 02/13/18 15:59
[2018-01-13] MEDS: LATANOPROST 0.005% OP SOLN 2.5 ML BTL OP SCH (20:58)
[2018-01-13] MEDS: ALPRAZOLAM 0.5 MG TAB PO PRN (21:00)
[2018-01-14] VITALS (9 sets, daily range): BP systolic 112–119; BP diastolic 61–71; PULSE 63–127; TEMP 36.3–36.8; O2SAT 96–99
[2018-01-14] MEDS: MoRPHine SULFATE 2 MG/ML CARP IV PRN (00:54)
[2018-01-14] MEDS: LEVALBUTEROL 1.25MG/0.5ML NEB INH SCH ×4 (02:06→20:06)
[2018-01-14] MEDS: IPRATROPIUM BROMIDE NEB SOLN 0.02% 2.5 ML VIAL INH SCH ×4 (02:06→20:06)
[2018-01-14] MEDS: INSULIN ASPART 100 UNITS/ML 3 ML PEN SC SCH ×2 (06:45→21:00)
[2018-01-14 06:56] LABS: INR 2.4 (0.9-1.1)
[2018-01-14] MEDS: BUDESONIDE/FORMOTEROL FUMARATE 160/4.5 60 PUFFS/INHALER INH SCH ×2 (07:58→21:18)
[2018-01-14] MEDS: INSULIN GLARGINE SOLOSTAR 100 UNITS/ML 3 ML PEN SC SCH (08:00)
[2018-01-14] MEDS: DORZOLAMIDE HCL 2% OPH SOLN 10 ML BTL OP SCH ×2 (08:00→16:26)
[2018-01-14] MEDS: BRIMONIDINE TARTRATE-P 0.15% 5 ML BTL OPR SCH ×2 (08:00→16:26)
[2018-01-14] MEDS: VERAPAMIL HCL 40 MG TAB PO SCH ×3 (08:02→21:17)
[2018-01-14] MEDS: LOSARTAN POTASSIUM 25 MG TAB PO SCH ×2 (08:03→21:16)
[2018-01-14] MEDS: SENNA 8.6 MG TAB PO SCH ×2 (08:03→20:00)
[2018-01-14] MEDS: TAMSULOSIN HCL 0.4 MG CAP PO SCH (08:03)
[2018-01-14] MEDS: PANTOprazole SOD 40 MG TAB PO SCH (08:04)
[2018-01-14] MEDS: ROFLUMILAST 500 MCG TAB PO SCH (08:04)
[2018-01-14] MEDS: ASPIRIN 81 MG ECTAB PO SCH (08:05)
[2018-01-14] MEDS: NYSTATIN SUSP 500,000 U/5 ML UDC PO SCH ×4 (08:06→21:20)
[2018-01-14] MEDS ORDERED: WARFARIN SOD 1 MG TAB PO SCH (16:00)
[2018-01-14] MEDS: WARFARIN SOD 2 MG TAB PO SCH (16:25)
--- NOTE | 2018-01-14 17:04 | Progress Note ---
Medicine Progress Note Date & Time of Visit: Jan 14, 2018 at 16:59. Subjective Pt was seen and examined Lying in bed with no distress Pt said that he feels better today He said that he walked around today with his friend with no distress he said that he slept well last night denies any chest pain, palpitation, dizziness and fever Objective Last 8 Hrs Date Time Temp Pulse Resp B/P (MAP) Pulse Ox O2 Delivery O2 Flow Rate FiO2 01/14/18 15:51 36.8 93 18 118/67 (84) 98 Nasal Cannula 3.0 01/14/18 14:23 93 16 96 Nasal Cannula 2.0 Physical Exam: General- No acute distress Head- atraumatic Eyes- PERRL, EOMI ENT- oropharynx clear Neck- supple, no JVD Lungs- decrease breath sound, chest wall tenderness with pressure Heart- regular rhythm; no murmur Abdomen- normal bowel sounds, soft Extremities- no calf tenderness Neuro- alert, oriented x 3; PERRL, EOMI Skin- warm & dry Laboratory Results: Last 24 Hours Test 01/13/18 17:03 01/13/18 20:23 01/14/18 06:36 01/14/18 08:15 Bedside Glucose 104 mg/dl 154 mg/dl 99 mg/dl Prothrombin Time 25.0 SECONDS Prothromb Time International Ratio 2.4 Test 01/14/18 11:20 Bedside Glucose 80 mg/dl Assessment & Plan 72 year-old male with advanced emphysema, admitted for respiratory failure secondary to COPD exacerbation and paroxysmal a-fib in the hospital, originally admitted to ICU, and s/p ICU stay without needing to be intubated. COPD exacerbation CXR on 01/07 showed emphysema with unchanged upper lobe fibrotic changes. CTA on admission showed no evidence of pulmonary embolus in the main, lobar, or segmental pulmonary arteries. Advanced emphysema. There is no airspace consolidation or pleural effusion. Continue bronchodilators and Daliresp On prn morphine, prn Xanax / Ativan for anxiety with dyspnea Solumedrol taper to 40mg BID Continue oxygen supplement Clinically improved Consider 2 step before discharge 01/14 clinically improves continue prednisone Continue Symbicort continue breathing treatment Continue oxygen supplement Consider 2 step before discharge Questionable Pulmonary Nodules Has been followed for few years with CT scans for a lung nodule, but later on, when he went to [facility], he was told he doesn't actually have a lung nodule. ICU physician reviewed the CT scan, and sees extensive emphysema but no lung nodules. Patient was also considered for lung transplant in the past, but he said that told him that his lung function need to be below 20 to consider transplant. Atypical chest pain reproducible pain Mostly musculoskeletal due to cough EKG showed no ischemic changes Start Troponin normal Improved with morphine Resolved Paroxysmal a-fib (from this hospital admission, not on anticoagulation previously) Rate/rhythm with verapamil Continue ASA Newly starting on anticoagulant INR was on hold for elevated INR INR 2.4 today On coumadin 2mg Chronic anemia No signs of bleeding Repeat occult blood test negative Hgb stable Diarrhea Mostly related to laxative KUB showed no evidence for bowel obstruction. Resolved DVT px On coumadin INR 2.4 Code Status Full CODE Disposition Consider placement to rehab Pt said that family will meet tomorrow to discuss placement option Discharge planning: uncertain Current Inpatient Medications: Current Inpatient Medications Medications (Trade) Dose Ordered Sig/Luis Miguel Route Start Time Stop Time Status Last Admin Dose Admin Acetaminophen (Tylenol Tab) 650 mg Q4H PRN PO 01/01/18 01:15 01/31/18 01:14 Nitroglycerin (Nitrostat Tab) 0.4 mg UD PRN SL 01/01/18 01:15 01/31/18 01:14 Glucose (Glucose 40% Gel) 15-30 GRAMS 15 GRAMS... UD PRN PO 01/01/18 01:15 01/31/18 01:14 Glucose (Glucose Chew Tab) 4-8 Tablets 4 Tabl... UD PRN PO 01/01/18 01:15 01/31/18 01:14 Dextrose (Dextrose 50% 50ML Syringe) 25-50ML OF 50% DW IV FOR... UD PRN IV 01/01/18 01:15 01/31/18 01:14 Glucagon (Glucagon Inj) 1 mg UD PRN SQ 01/01/18 01:15 01/31/18 01:14 Insulin Glargine (Lantus Solostar Pen) 5 units DAILY SC 01/02/18 09:00 02/01/18 08:59 01/13/18 09:11 5 UNITS Lorazepam (Ativan Inj) 0.25 mg Q4H PRN IV 01/01/18 01:15 01/31/18 01:14 01/09/18 05:57 0.25 MG Morphine Sulfate (MoRPHine SULFATE INJ) 2 mg Q3H PRN IV 01/01/18 01:15 01/15/18 01:14 01/14/18 00:54 2 MG Tramadol HCl (Ultram Tab) 25 mg Q6H PRN PO 01/01/18 01:15 01/31/18 01:14 01/13/18 21:00 25 MG Aspirin (Ecotrin Tab) 81 mg DAILY PO 01/01/18 09:00 01/31/18 08:59 01/14/18 08:05 81 MG Tamsulosin HCl (Flomax Cap) 0.4 mg DAILY PO 01/01/18 09:00 01/31/18 08:59 01/14/18 08:03 0.4 MG Ipratropium [place] (Atrovent 0.02% 0.5MG/2.5ML Neb) 0.5 mg Q6R INH 01/01/18 09:00 01/31/18 08:59 01/14/18 14:23 0.5 MG Levalbuterol (Xopenex 1.25MG/ 0.5ML Neb) 1.25 mg Q6R INH 01/01/18 09:00 01/31/18 08:59 01/14/18 14:23 1.25 MG Ipratropium [place] (Atrovent 0.02% 0.5MG/2.5ML Neb) 0.5 mg Q4H PRN INH 01/01/18 05:00 01/31/18 04:59 Levalbuterol (Xopenex 1.25MG/ 0.5ML Neb) 1.25 mg Q4H PRN INH 01/01/18 05:00 01/31/18 04:59 Roflumilast (Daliresp Tab) 500 mcg DAILY PO 01/02/18 09:00 02/01/18 08:59 Future hold 01/14/18 08:04 500 MCG Latanoprost (Xalatan Oph Soln) 1 drops DAILY@2100 OP 01/03/18 21:00 02/02/18 20:59 01/13/18 20:58 1 DROPS Brimonidine Tartrate (Alphagan-P 0.15% Oph Soln) 1 drops BID@0800,1800 OPR 01/03/18 08:00 02/02/18 07:59 01/14/18 16:26 1 DROPS Dorzolamide HCl (Trusopt 2% Oph Soln) 1 drops BID@0800,1800 OP 01/03/18 08:00 02/02/18 07:59 01/14/18 16:26 1 DROPS Verapamil HCl (Isoptin Tab) 80 mg TID PO 01/03/18 18:00 02/02/18 17:59 01/14/18 13:09 80 MG Verapamil HCl (Calan Inj) 5 mg Q1H PRN IV 01/03/18 18:45 02/02/18 18:44 Pantoprazole Sodium (Protonix Tab) 40 mg QAM PO 01/06/18 09:00 02/05/18 08:59 01/14/18 08:04 40 MG Insulin Aspart (novoLOG ASPART) SLIDING SCALE If C... BID@0645,2100 SC 01/05/18 21:00 02/04/18 20:59 01/07/18 20:50 1 UNITS Calcium Carbonate (Tums Chew Tab) 500 mg Q4H PRN PO 01/08/18 04:00 02/07/18 03:59 Senna (Senokot Tab) 8.6 mg BID PO 01/08/18 09:00 02/07/18 08:59 01/14/18 08:03 8.6 MG Polyethylene (Miralax Powder Packet) 17 gm DAILY PRN PO 01/08/18 09:00 02/07/18 08:59 01/14/18 13:18 17 GM Alprazolam (Xanax Tab) 0.5 mg TIDM PRN PO 01/08/18 11:30 02/03/18 08:44 01/13/18 21:00 0.5 MG Ondansetron HCl (Zofran Inj) 4 mg Q6H PRN IV 01/09/18 10:30 02/08/18 10:29 Losartan Potassium (coZAAR TAB) 25 mg BID PO 01/11/18 20:00 02/10/18 19:59 01/14/18 08:03 25 MG Prednisone (PredniSONE TAB) 40 mg DAILY PO 01/12/18 08:00 02/11/18 07:59 01/14/18 08:04 40 MG Budesonide/ Formoterol Fumarate (Symbicort 160/ 4.5 Inh) 2 puffs BID INH 01/11/18 20:00 02/10/18 19:59 01/14/18 07:58 2 PUFFS Nystatin (Mycostatin Susp) 10 ml QID PO 01/13/18 08:00 01/23/18 07:59 01/14/18 16:26 10 ML Warfarin Sodium (Coumadin Tab) 2 mg DAILY@16 PO 01/14/18 16:00 02/13/18 15:59 01/14/18 16:25 2 MG
[2018-01-14] MEDS: LATANOPROST 0.005% OP SOLN 2.5 ML BTL OP SCH (21:19)
[2018-01-14] MEDS: ALPRAZOLAM 0.5 MG TAB PO PRN (21:26)
[2018-01-14] MEDS: TRAMADOL HCL 50 MG TAB PO PRN (21:27)
[2018-01-15] VITALS (9 sets, daily range): BP systolic 111–147; BP diastolic 68–76; PULSE 71–90; TEMP 36.3–36.8; O2SAT 97–100
[2018-01-15] MEDS ORDERED: LORAZEPAM INJ 0.25 MG in SYRINGE 0.125 ML IV PRN (00:30)
[2018-01-15] MEDS: IPRATROPIUM BROMIDE NEB SOLN 0.02% 2.5 ML VIAL INH SCH ×4 (01:50→19:00)
[2018-01-15] MEDS: LEVALBUTEROL 1.25MG/0.5ML NEB INH SCH ×4 (01:51→18:59)
[2018-01-15] MEDS: INSULIN ASPART 100 UNITS/ML 3 ML PEN SC SCH ×2 (06:45→20:36)
[2018-01-15] MEDS: SENNA 8.6 MG TAB PO SCH ×2 (08:00→10:17)
[2018-01-15] MEDS: BUDESONIDE/FORMOTEROL FUMARATE 160/4.5 60 PUFFS/INHALER INH SCH ×2 (08:03→20:34)
[2018-01-15] MEDS: DORZOLAMIDE HCL 2% OPH SOLN 10 ML BTL OP SCH ×2 (08:04→18:27)
[2018-01-15] MEDS: BRIMONIDINE TARTRATE-P 0.15% 5 ML BTL OPR SCH ×2 (08:04→18:28)
[2018-01-15] MEDS: PANTOprazole SOD 40 MG TAB PO SCH (08:05)
[2018-01-15] MEDS: LOSARTAN POTASSIUM 25 MG TAB PO SCH ×2 (08:05→20:34)
[2018-01-15] MEDS: TAMSULOSIN HCL 0.4 MG CAP PO SCH (08:06)
[2018-01-15] MEDS: ASPIRIN 81 MG ECTAB PO SCH (08:06)
[2018-01-15] MEDS: VERAPAMIL HCL 40 MG TAB PO SCH ×3 (08:06→20:35)
[2018-01-15] MEDS: ROFLUMILAST 500 MCG TAB PO SCH (08:08)
[2018-01-15] MEDS: NYSTATIN SUSP 500,000 U/5 ML UDC PO SCH ×4 (08:09→20:35)
[2018-01-15] MEDS: INSULIN GLARGINE SOLOSTAR 100 UNITS/ML 3 ML PEN SC SCH (08:23)
[2018-01-15] MEDS: TRAMADOL HCL 50 MG TAB PO PRN ×2 (10:21→20:53)
[2018-01-15] MEDS: WARFARIN SOD 2 MG TAB PO SCH (16:39)
--- NOTE | 2018-01-15 17:00 | Progress Note ---
Medicine Progress Note Date & Time of Visit: Jan 15, 2018 at 16:54. Subjective Pt was seen and examined Lying in bed with no distress Pt said that he is starting to feel stronger He said that his breathing improves He said that he did walk around today with assistance and seems to do good Pt and his cousin chose [facility] as 1st choice Denies any chest pain, palpitation, dizziness and SOB Objective Last 8 Hrs Date Time Temp Pulse Resp B/P (MAP) Pulse Ox O2 Delivery O2 Flow Rate FiO2 01/15/18 15:31 36.8 90 18 111/72 (85) 100 Nasal Cannula 2.0 01/15/18 14:24 90 16 98 Nasal Cannula 2.0 Physical Exam: General- No acute distress Head- atraumatic Eyes- PERRL, EOMI ENT- oropharynx clear Neck- supple, no JVD Lungs- decrease breath sound Heart- regular rhythm; no murmur Abdomen- normal bowel sounds, soft Extremities- no calf tenderness Neuro- alert, oriented x 3; PERRL, EOMI Skin- warm & dry Laboratory Results: Last 24 Hours Test 01/14/18 16:58 01/14/18 20:23 01/14/18 21:37 01/15/18 07:46 Bedside Glucose 125 mg/dl 208 mg/dl 154 mg/dl 73 mg/dl Test 01/15/18 08:11 01/15/18 11:42 Prothrombin Time 20.8 SECONDS Prothromb Time International Ratio 2.0 Bedside Glucose 101 mg/dl Assessment & Plan 72 year-old male with advanced emphysema, admitted for respiratory failure secondary to COPD exacerbation and paroxysmal a-fib in the hospital, originally admitted to ICU, and s/p ICU stay without needing to be intubated. COPD exacerbation CXR on 01/07 showed emphysema with unchanged upper lobe fibrotic changes. CTA on admission showed no evidence of pulmonary embolus in the main, lobar, or segmental pulmonary arteries. Advanced emphysema. There is no airspace consolidation or pleural effusion. Continue bronchodilators and Daliresp On prn morphine, prn Xanax / Ativan for anxiety with dyspnea Solumedrol taper to 40mg BID Continue oxygen supplement Clinically improved Consider 2 step before discharge 01/15 clinically improves Prednisone taper Continue Symbicort continue breathing treatment Continue oxygen supplement Consider 2 step before discharge Questionable Pulmonary Nodules Has been followed for few years with CT scans for a lung nodule, but later on, when he went to [facility], he was told he doesn't actually have a lung nodule. ICU physician reviewed the CT scan, and sees extensive emphysema but no lung nodules. Patient was also considered for lung transplant in the past, but he said that told him that his lung function need to be below 20 to consider transplant. Atypical chest pain reproducible pain Mostly musculoskeletal due to cough EKG showed no ischemic changes Start Troponin normal Improved with morphine Resolved Paroxysmal a-fib (from this hospital admission, not on anticoagulation previously) Rate/rhythm with verapamil Continue ASA Newly starting on anticoagulant INR was on hold for elevated INR INR 2.0 today Continue Coumadin 2mg daily Chronic anemia No signs of bleeding Repeat occult blood test negative Hgb stable Diarrhea Mostly related to laxative KUB showed no evidence for bowel obstruction. Resolved DVT px On Coumadin INR 2.0 Code Status Full CODE Disposition Waiting for placement to rehab Discharge planning: uncertain Current Inpatient Medications: Current Inpatient Medications Medications (Trade) Dose Ordered Sig/Luis Miguel Route Start Time Stop Time Status Last Admin Dose Admin Acetaminophen (Tylenol Tab) 650 mg Q4H PRN PO 01/01/18 01:15 01/31/18 01:14 Nitroglycerin (Nitrostat Tab) 0.4 mg UD PRN SL 01/01/18 01:15 01/31/18 01:14 Glucose (Glucose 40% Gel) 15-30 GRAMS 15 GRAMS... UD PRN PO 01/01/18 01:15 01/31/18 01:14 Glucose (Glucose Chew Tab) 4-8 Tablets 4 Tabl... UD PRN PO 01/01/18 01:15 01/31/18 01:14 Dextrose (Dextrose 50% 50ML Syringe) 25-50ML OF 50% DW IV FOR... UD PRN IV 01/01/18 01:15 01/31/18 01:14 Glucagon (Glucagon Inj) 1 mg UD PRN SQ 01/01/18 01:15 01/31/18 01:14 Insulin Glargine (Lantus Solostar Pen) 5 units DAILY SC 01/02/18 09:00 02/01/18 08:59 01/15/18 08:23 5 UNITS Lorazepam (Ativan Inj) 0.25 mg Q4H PRN IV 01/01/18 01:15 01/31/18 01:14 01/09/18 05:57 0.25 MG Aspirin (Ecotrin Tab) 81 mg DAILY PO 01/01/18 09:00 01/31/18 08:59 01/15/18 08:06 81 MG Tamsulosin HCl (Flomax Cap) 0.4 mg DAILY PO 01/01/18 09:00 01/31/18 08:59 01/15/18 08:06 0.4 MG Ipratropium [place] (Atrovent 0.02% 0.5MG/2.5ML Neb) 0.5 mg Q6R INH 01/01/18 09:00 01/31/18 08:59 01/15/18 14:24 0.5 MG Levalbuterol (Xopenex 1.25MG/ 0.5ML Neb) 1.25 mg Q6R INH 01/01/18 09:00 01/31/18 08:59 01/15/18 14:24 1.25 MG Ipratropium [place] (Atrovent 0.02% 0.5MG/2.5ML Neb) 0.5 mg Q4H PRN INH 01/01/18 05:00 01/31/18 04:59 Levalbuterol (Xopenex 1.25MG/ 0.5ML Neb) 1.25 mg Q4H PRN INH 01/01/18 05:00 01/31/18 04:59 Roflumilast (Daliresp Tab) 500 mcg DAILY PO 01/02/18 09:00 02/01/18 08:59 Future hold 01/15/18 08:08 500 MCG Latanoprost (Xalatan Oph Soln) 1 drops DAILY@2100 OP 01/03/18 21:00 02/02/18 20:59 01/14/18 21:19 1 DROPS Brimonidine Tartrate (Alphagan-P 0.15% Oph Soln) 1 drops BID@0800,1800 OPR 01/03/18 08:00 02/02/18 07:59 01/15/18 08:04 1 DROPS Dorzolamide HCl (Trusopt 2% Oph Soln) 1 drops BID@0800,1800 OP 01/03/18 08:00 02/02/18 07:59 01/15/18 08:04 1 DROPS Verapamil HCl (Isoptin Tab) 80 mg TID PO 01/03/18 18:00 02/02/18 17:59 01/15/18 14:10 80 MG Verapamil HCl (Calan Inj) 5 mg Q1H PRN IV 01/03/18 18:45 02/02/18 18:44 Pantoprazole Sodium (Protonix Tab) 40 mg QAM PO 01/06/18 09:00 02/05/18 08:59 01/15/18 08:05 40 MG Insulin Aspart (novoLOG ASPART) SLIDING SCALE If C... BID@0645,2100 SC 01/05/18 21:00 02/04/18 20:59 01/07/18 20:50 1 UNITS Calcium Carbonate (Tums Chew Tab) 500 mg Q4H PRN PO 01/08/18 04:00 02/07/18 03:59 Senna (Senokot Tab) 8.6 mg BID PO 01/08/18 09:00 02/07/18 08:59 01/15/18 10:17 8.6 MG Polyethylene (Miralax Powder Packet) 17 gm DAILY PRN PO 01/08/18 09:00 02/07/18 08:59 01/14/18 13:18 17 GM Alprazolam (Xanax Tab) 0.5 mg TIDM PRN PO 01/08/18 11:30 02/03/18 08:44 01/14/18 21:26 0.5 MG Ondansetron HCl (Zofran Inj) 4 mg Q6H PRN IV 01/09/18 10:30 02/08/18 10:29 Losartan Potassium (coZAAR TAB) 25 mg BID PO 01/11/18 20:00 02/10/18 19:59 01/15/18 08:05 25 MG Prednisone (PredniSONE TAB) 40 mg DAILY PO 01/12/18 08:00 02/11/18 07:59 01/15/18 08:05 40 MG Budesonide/ Formoterol Fumarate (Symbicort 160/ 4.5 Inh) 2 puffs BID INH 01/11/18 20:00 02/10/18 19:59 01/15/18 08:03 2 PUFFS Nystatin (Mycostatin Susp) 10 ml QID PO 01/13/18 08:00 01/23/18 07:59 01/15/18 16:40 10 ML Warfarin Sodium (Coumadin Tab) 2 mg DAILY@16 PO 01/14/18 16:00 02/13/18 15:59 01/15/18 16:39 2 MG Tramadol HCl (Ultram Tab) 50 mg Q6H PRN PO 01/14/18 17:15 01/31/18 01:14 01/15/18 10:21 50 MG Lorazepam 0.25 mg/ Syringe 0.25 ml @ 1 mls/min Q4H PRN IV 01/15/18 00:30 02/14/18 00:29 01/15/18 00:31 1 MLS/MIN
[2018-01-15] MEDS: LATANOPROST 0.005% OP SOLN 2.5 ML BTL OP SCH (20:38)
[2018-01-15] MEDS ORDERED: LORAZEPAM 0.5 MG TAB PO ONE (21:15)
[2018-01-16] VITALS (8 sets, daily range): BP systolic 112–162; BP diastolic 66–80; PULSE 73–102; TEMP 36.4–36.8; O2SAT 96–100; BMI 21.0
[2018-01-16] MEDS: LEVALBUTEROL 1.25MG/0.5ML NEB INH SCH ×4 (02:01→19:21)
[2018-01-16] MEDS: IPRATROPIUM BROMIDE NEB SOLN 0.02% 2.5 ML VIAL INH SCH ×4 (02:01→19:21)
[2018-01-16 06:26] LABS: INR 2.1 (0.9-1.1)
[2018-01-16] MEDS: INSULIN ASPART 100 UNITS/ML 3 ML PEN SC SCH ×2 (06:45→21:00)
[2018-01-16] MEDS: INSULIN GLARGINE SOLOSTAR 100 UNITS/ML 3 ML PEN SC SCH (08:00)
[2018-01-16] MEDS: DORZOLAMIDE HCL 2% OPH SOLN 10 ML BTL OP SCH ×2 (08:26→17:45)
[2018-01-16] MEDS: BUDESONIDE/FORMOTEROL FUMARATE 160/4.5 60 PUFFS/INHALER INH SCH ×2 (08:26→21:32)
[2018-01-16] MEDS: ROFLUMILAST 500 MCG TAB PO SCH (08:27)
[2018-01-16] MEDS: BRIMONIDINE TARTRATE-P 0.15% 5 ML BTL OPR SCH ×2 (08:27→17:45)
[2018-01-16] MEDS: SENNA 8.6 MG TAB PO SCH ×2 (08:28→20:00)
[2018-01-16] MEDS: ASPIRIN 81 MG ECTAB PO SCH (08:28)
[2018-01-16] MEDS: LOSARTAN POTASSIUM 25 MG TAB PO SCH ×2 (08:28→22:58)
[2018-01-16] MEDS: TAMSULOSIN HCL 0.4 MG CAP PO SCH (08:29)
[2018-01-16] MEDS: VERAPAMIL HCL 40 MG TAB PO SCH ×3 (08:29→21:31)
[2018-01-16] MEDS: NYSTATIN SUSP 500,000 U/5 ML UDC PO SCH ×4 (08:29→21:30)
[2018-01-16] MEDS: PANTOprazole SOD 40 MG TAB PO SCH (08:30)
[2018-01-16] MEDS: WARFARIN SOD 2 MG TAB PO SCH (16:31)
--- NOTE | 2018-01-16 19:57 | Progress Note ---
Medicine Progress Note Date & Time of Visit: Jan 16, 2018 at 19:52. Subjective Pt was seen and examined Lying in bed with no distress Pt said that he walked alot today He said that he was sitting in the chair for about 5 hrs He said that his feet feels numb now he said that his breathing seems to get better Pt said that his HR increase in the 150 with exertion His saturated well on 1 L NC Denies any chest pain, fever and dizziness Objective Last 8 Hrs Date Time Temp Pulse Resp B/P (MAP) Pulse Ox O2 Delivery O2 Flow Rate FiO2 01/16/18 19:21 85 16 98 Nasal Cannula 1.0 01/16/18 16:00 97 Nasal Cannula 1.0 01/16/18 15:29 36.8 95 18 137/80 (99) 97 Nasal Cannula 1.0 01/16/18 15:29 91 16 98 Nasal Cannula 1.0 01/16/18 14:05 102 127/70 (89) Physical Exam: General- No acute distress Head- atraumatic Eyes- PERRL, EOMI ENT- oropharynx clear Neck- supple, no JVD Lungs- decrease breath sound Heart- regular rhythm; no murmur Abdomen- normal bowel sounds, soft Extremities- no calf tenderness Neuro- alert, oriented x 3; PERRL, EOMI Skin- warm & dry Laboratory Results: Last 24 Hours Test 01/15/18 20:19 01/16/18 05:55 01/16/18 07:35 01/16/18 08:23 Bedside Glucose 159 mg/dl 68 mg/dl 116 mg/dl Prothrombin Time 22.1 SECONDS Prothromb Time International Ratio 2.1 Test 01/16/18 11:35 01/16/18 16:47 Bedside Glucose 124 mg/dl 106 mg/dl Assessment & Plan 72 year-old male with advanced emphysema, admitted for respiratory failure secondary to COPD exacerbation and paroxysmal a-fib in the hospital, originally admitted to ICU, and s/p ICU stay without needing to be intubated. COPD exacerbation CXR on 01/07 showed emphysema with unchanged upper lobe fibrotic changes. CTA on admission showed no evidence of pulmonary embolus in the main, lobar, or segmental pulmonary arteries. Advanced emphysema. There is no airspace consolidation or pleural effusion. Continue bronchodilators and Daliresp On prn morphine, prn Xanax / Ativan for anxiety with dyspnea Solumedrol taper to 40mg BID Continue oxygen supplement Clinically improved Consider 2 step before discharge 01/16 Continue to improve clinically Prednisone 30mg taper Continue Symbicort continue breathing treatment Continue oxygen supplement Consider 2 step before discharge Saturated well on 1L NC Questionable Pulmonary Nodules Has been followed for few years with CT scans for a lung nodule, but later on, when he went to [facility], he was told he doesn't actually have a lung nodule. ICU physician reviewed the CT scan, and sees extensive emphysema but no lung nodules. Patient was also considered for lung transplant in the past, but he said that told him that his lung function need to be below 20 to consider transplant. Atypical chest pain reproducible pain Mostly musculoskeletal due to cough EKG showed no ischemic changes Start Troponin normal Improved with morphine Resolved Paroxysmal a-fib (from this hospital admission, not on anticoagulation previously) Rate/rhythm with verapamil Continue ASA Newly starting on anticoagulant INR was on hold for elevated INR INR 2.1 today Continue Coumadin 2mg daily Chronic anemia No signs of bleeding Repeat occult blood test negative Hgb stable Diarrhea Mostly related to laxative KUB showed no evidence for bowel obstruction. Resolved DVT px On Coumadin INR 2.1 Code Status Full CODE Disposition Waiting for placement to rehab Discharge planning: uncertain Current Inpatient Medications: Current Inpatient Medications Medications (Trade) Dose Ordered Sig/Luis Miguel Route Start Time Stop Time Status Last Admin Dose Admin Acetaminophen (Tylenol Tab) 650 mg Q4H PRN PO 01/01/18 01:15 01/31/18 01:14 Nitroglycerin (Nitrostat Tab) 0.4 mg UD PRN SL 01/01/18 01:15 01/31/18 01:14 Glucose (Glucose 40% Gel) 15-30 GRAMS 15 GRAMS... UD PRN PO 01/01/18 01:15 01/31/18 01:14 Glucose (Glucose Chew Tab) 4-8 Tablets 4 Tabl... UD PRN PO 01/01/18 01:15 01/31/18 01:14 Dextrose (Dextrose 50% 50ML Syringe) 25-50ML OF 50% DW IV FOR... UD PRN IV 01/01/18 01:15 01/31/18 01:14 Glucagon (Glucagon Inj) 1 mg UD PRN SQ 01/01/18 01:15 01/31/18 01:14 Insulin Glargine (Lantus Solostar Pen) 5 units DAILY SC 01/02/18 09:00 02/01/18 08:59 Future Hold 01/15/18 08:23 5 UNITS Lorazepam (Ativan Inj) 0.25 mg Q4H PRN IV 01/01/18 01:15 01/31/18 01:14 01/09/18 05:57 0.25 MG Aspirin (Ecotrin Tab) 81 mg DAILY PO 01/01/18 09:00 01/31/18 08:59 01/16/18 08:28 81 MG Tamsulosin HCl (Flomax Cap) 0.4 mg DAILY PO 01/01/18 09:00 01/31/18 08:59 01/16/18 08:29 0.4 MG Ipratropium [place] (Atrovent 0.02% 0.5MG/2.5ML Neb) 0.5 mg Q6R INH 01/01/18 09:00 01/31/18 08:59 01/16/18 19:21 0.5 MG Levalbuterol (Xopenex 1.25MG/ 0.5ML Neb) 1.25 mg Q6R INH 01/01/18 09:00 01/31/18 08:59 01/16/18 19:21 1.25 MG Ipratropium [place] (Atrovent 0.02% 0.5MG/2.5ML Neb) 0.5 mg Q4H PRN INH 01/01/18 05:00 01/31/18 04:59 Levalbuterol (Xopenex 1.25MG/ 0.5ML Neb) 1.25 mg Q4H PRN INH 01/01/18 05:00 01/31/18 04:59 Roflumilast (Daliresp Tab) 500 mcg DAILY PO 01/02/18 09:00 02/01/18 08:59 Future hold 01/16/18 08:27 500 MCG Latanoprost (Xalatan Oph Soln) 1 drops DAILY@2100 OP 01/03/18 21:00 02/02/18 20:59 01/15/18 20:38 1 DROPS Brimonidine Tartrate (Alphagan-P 0.15% Oph Soln) 1 drops BID@0800,1800 OPR 01/03/18 08:00 02/02/18 07:59 01/16/18 17:45 1 DROPS Dorzolamide HCl (Trusopt 2% Oph Soln) 1 drops BID@0800,1800 OP 01/03/18 08:00 02/02/18 07:59 01/16/18 17:45 1 DROPS Verapamil HCl (Isoptin Tab) 80 mg TID PO 01/03/18 18:00 02/02/18 17:59 01/16/18 14:02 80 MG Verapamil HCl (Calan Inj) 5 mg Q1H PRN IV 01/03/18 18:45 02/02/18 18:44 Pantoprazole Sodium (Protonix Tab) 40 mg QAM PO 01/06/18 09:00 02/05/18 08:59 01/16/18 08:30 40 MG Insulin Aspart (novoLOG ASPART) SLIDING SCALE If C... BID@0645,2100 SC 01/05/18 21:00 02/04/18 20:59 01/07/18 20:50 1 UNITS Calcium Carbonate (Tums Chew Tab) 500 mg Q4H PRN PO 01/08/18 04:00 02/07/18 03:59 Senna (Senokot Tab) 8.6 mg BID PO 01/08/18 09:00 02/07/18 08:59 01/16/18 08:28 8.6 MG Polyethylene (Miralax Powder Packet) 17 gm DAILY PRN PO 01/08/18 09:00 02/07/18 08:59 01/14/18 13:18 17 GM Alprazolam (Xanax Tab) 0.5 mg TIDM PRN PO 01/08/18 11:30 02/03/18 08:44 01/14/18 21:26 0.5 MG Ondansetron HCl (Zofran Inj) 4 mg Q6H PRN IV 01/09/18 10:30 02/08/18 10:29 Losartan Potassium (coZAAR TAB) 25 mg BID PO 01/11/18 20:00 02/10/18 19:59 01/16/18 08:28 25 MG Budesonide/ Formoterol Fumarate (Symbicort 160/ 4.5 Inh) 2 puffs BID INH 01/11/18 20:00 02/10/18 19:59 01/16/18 08:26 2 PUFFS Nystatin (Mycostatin Susp) 10 ml QID PO 01/13/18 08:00 01/23/18 07:59 01/16/18 17:46 10 ML Warfarin Sodium (Coumadin Tab) 2 mg DAILY@16 PO 01/14/18 16:00 02/13/18 15:59 01/16/18 16:31 2 MG Tramadol HCl (Ultram Tab) 50 mg Q6H PRN PO 01/14/18 17:15 01/31/18 01:14 01/15/18 20:53 50 MG Lorazepam 0.25 mg/ Syringe 0.25 ml @ 1 mls/min Q4H PRN IV 01/15/18 00:30 02/14/18 00:29 01/15/18 00:31 1 MLS/MIN Prednisone (PredniSONE TAB) 30 mg DAILY PO 01/16/18 08:00 02/11/18 07:59 01/16/18 08:37 30 MG
[2018-01-16] MEDS: TRAMADOL HCL 50 MG TAB PO PRN (21:29)
[2018-01-16] MEDS: ALPRAZOLAM 0.5 MG TAB PO PRN (21:29)
[2018-01-16] MEDS: LATANOPROST 0.005% OP SOLN 2.5 ML BTL OP SCH (21:32)
[2018-01-16] MEDS ORDERED: LORAZEPAM 0.5 MG TAB PO STA (21:52)
[2018-01-17] VITALS (7 sets, daily range): BP systolic 128–154; BP diastolic 70–89; PULSE 73–98; TEMP 36.4–37; O2SAT 97–99
[2018-01-17] MEDS: LEVALBUTEROL 1.25MG/0.5ML NEB INH SCH ×3 (01:39→19:28)
[2018-01-17] MEDS: IPRATROPIUM BROMIDE NEB SOLN 0.02% 2.5 ML VIAL INH SCH ×3 (01:39→19:28)
[2018-01-17 07:07] LABS: CALCIUM 7.6 mg/dl (8.5-10.1); CREATININE 0.54 mg/dl (0.60-1.40); POTASSIUM 3.1 mmol/L (3.5-5.1)
[2018-01-17] MEDS: TRAMADOL HCL 50 MG TAB PO PRN ×2 (08:37→23:34)
[2018-01-17] MEDS: ROFLUMILAST 500 MCG TAB PO SCH (08:38)
[2018-01-17] MEDS: VERAPAMIL HCL 40 MG TAB PO SCH ×3 (08:38→19:53)
[2018-01-17] MEDS: SENNA 8.6 MG TAB PO SCH ×2 (08:39→19:51)
[2018-01-17] MEDS: ASPIRIN 81 MG ECTAB PO SCH (08:39)
[2018-01-17] MEDS: NYSTATIN SUSP 500,000 U/5 ML UDC PO SCH ×4 (08:40→19:51)
[2018-01-17] MEDS: TAMSULOSIN HCL 0.4 MG CAP PO SCH (08:40)
[2018-01-17] MEDS: BRIMONIDINE TARTRATE-P 0.15% 5 ML BTL OPR SCH ×2 (08:41→17:54)
[2018-01-17] MEDS: LOSARTAN POTASSIUM 25 MG TAB PO SCH ×2 (08:41→19:53)
[2018-01-17] MEDS: BUDESONIDE/FORMOTEROL FUMARATE 160/4.5 60 PUFFS/INHALER INH SCH ×2 (08:41→19:52)
[2018-01-17] MEDS: DORZOLAMIDE HCL 2% OPH SOLN 10 ML BTL OP SCH ×2 (08:41→17:53)
[2018-01-17] MEDS: INSULIN ASPART 100 UNITS/ML 3 ML PEN SC SCH ×2 (08:43→20:43)
[2018-01-17] MEDS: PANTOprazole SOD 40 MG TAB PO SCH (09:43)
--- NOTE | 2018-01-17 14:39 | Progress Note ---
Internal Med Progress Note Date of Service: Jan 17, 2018. Provider Documentation: SUBJECTIVE: The patient was seen and examined. He has been stable and does not have any new symptoms today. His shortness of breath is not any worse He denies to have any other symptoms except blood sugar level of 76 this morning. OBJECTIVE: Vital Signs-as noted below Exam: General-minimal distress at rest Eyes-normal ENT-normal Neck-supple Lungs-decreased breath sounds both sides without any significant wheezing and/ or crackles. Heart-irregular, no murmur appreciated. Abdomen-benign, soft, nontender and bowel sounds present Extremities-no edema Neuro-alert awake and oriented 3. Generally weak but no focal neuro deficit appreciated. Lab data as noted below. ASSESSMENT & PLAN: 72 year-old male with advanced emphysema, admitted for respiratory failure secondary to COPD exacerbation and paroxysmal a-fib in the hospital, originally admitted to ICU, and s/p ICU stay without needing to be intubated. COPD exacerbation CXR on 01/07 showed emphysema with unchanged upper lobe fibrotic changes. CTA on admission showed no evidence of pulmonary embolus in the main, lobar, or segmental pulmonary arteries. Advanced emphysema. There is no airspace consolidation or pleural effusion. Continue bronchodilators and Daliresp On prn morphine, prn Xanax / Ativan for anxiety with dyspnea Had been on Solumedrol and tappered dose of prednisone Continue oxygen supplement Consider 2 step before discharge Continue Symbicort Questionable Pulmonary Nodules Has been followed for few years with CT scans for a lung nodule, but later on, when he went to [facility], he was told he doesn't actually have a lung nodule. ICU physician reviewed the CT scan, and sees extensive emphysema but no lung nodules. Patient was also considered for lung transplant in the past, but he said that told him that his lung function need to be below 20 to consider transplant. Atypical chest pain reproducible pain Mostly musculoskeletal due to cough EKG showed no ischemic changes NO ACS Paroxysmal a-fib (from this hospital admission, not on anticoagulation previously) Rate/rhythm with verapamil Continue ASA Has been on Coumadin INR 2.1 today Continue Coumadin 2mg daily Chronic anemia No signs of bleeding Repeat occult blood test negative Hgb stable Diarrhea-resolved Mostly related to laxative KUB showed no evidence for bowel obstruction. Resolved DVT px On Coumadin INR 2.0 Code Status Full CODE Disposition Waiting for placement to rehab Discharge planning: Tomorrow Vital Signs: Date Time Temp Pulse Resp B/P (MAP) Pulse Ox O2 Delivery O2 Flow Rate FiO2 01/17/18 13:53 88 128/70 (89) 01/17/18 08:40 Nasal Cannula 2.0 Humidified Oxygen 01/17/18 07:37 88 16 98 Nasal Cannula 2.0 01/17/18 07:22 37.0 86 18 154/89 (110) 99 2.0 01/17/18 00:00 Nasal Cannula 1.0 01/16/18 23:52 36.4 73 17 112/66 (81) 96 Nasal Cannula 2.0 Humidified Oxygen 01/16/18 20:00 Nasal Cannula 1.0 01/16/18 19:21 85 16 98 Nasal Cannula 1.0 01/16/18 16:00 97 Nasal Cannula 1.0 01/16/18 15:29 36.8 95 18 137/80 (99) 97 Nasal Cannula 1.0 01/16/18 15:29 91 16 98 Nasal Cannula 1.0 Lab Results: Results Past 24 Hours Test 01/16/18 16:47 01/16/18 20:24 01/17/18 06:15 01/17/18 07:32 Range/Units Bedside Glucose 106 127 73 70-99 mg/dl Prothrombin Time 21.0 9.0-12.0 SECONDS Prothromb Time International Ratio 2.0 0.9-1.1 Sodium Level 142 136-145 mmol/L Potassium Level 3.1 3.5-5.1 mmol/L Chloride Level 106 98-107 mmol/L Carbon Dioxide Level 30 21-32 mmol/L Anion Gap 6.0 3-11 mmol/L Blood Urea Nitrogen 20 7-18 mg/dl Creatinine 0.54 0.60-1.40 mg/dl Est Creatinine Clear Calc Drug Dose 97.1 ml/min Estimated GFR () 119.9 Estimated GFR (Non- 103.4 BUN/Creatinine Ratio 36.3 10-20 Random Glucose 66 70-99 mg/dl Calcium Level 7.6 8.5-10.1 mg/dl Test 01/17/18 11:38 Range/Units Bedside Glucose 72 70-99 mg/dl
[2018-01-17] MEDS: WARFARIN SOD 2 MG TAB PO SCH (17:53)
[2018-01-17] MEDS: LATANOPROST 0.005% OP SOLN 2.5 ML BTL OP SCH (19:54)
--- NOTE | 2018-01-17 21:09 | Progress Note ---
Post ICU Progress Note Date & Time Jan 17, 2018 at 21:08 Vital Signs Vital Signs Past 12 Hours Date Time Temp Pulse Resp B/P (MAP) Pulse Ox O2 Delivery O2 Flow Rate FiO2 01/17/18 20:20 Nasal Cannula 2.0 01/17/18 19:52 80 131/73 (92) 01/17/18 19:28 98 16 98 Nasal Cannula 2.0 01/17/18 15:45 36.4 87 20 144/86 (105) 97 Nasal Cannula 2.0 01/17/18 15:17 Nasal Cannula 2.0 Humidified Oxygen 01/17/18 13:53 88 128/70 (89) Notes Mental Status: alert / awake Nausea / Vomiting: adequately controlled Pain: adequately controlled Airway Patency, RR, SpO2: stable & adequate BP & HR: stable & adequate Patient is a 76-year-old male initially admitted to the ICU with respiratory distress in the setting of COPD exacerbation. His stay was complicated by development of A. fib with RVR. He required high flow oxygen as he did not tolerate BiPAP. Additionally, the patient required Cardizem drip initially for control of his rate. Eventually, the patient did break and return to normal sinus rhythm. The patient has had persistent shortness of breath and oxygen requirements. In addition, the patient has had extreme tachycardia and hypoxia with any short exertion. At this point, per nursing records, patient is currently being evaluated for placement at rehabilitation facility versus intermediate. He was accepted to [facility] where he will be discharged to tomorrow. On evaluation of the patient, he is resting comfortably. His breathing does appear better than I remember. 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 Apparently, there has been conversation with staff regarding this request. The patient offers no complaints at this point. He feels as though his breathing is improving. He is encouraged that he will be discharged from this facility. I did have a lengthy conversation with the patient and his friend. He had questions as to why he was on Coumadin. I did explain to the patient the pathophysiology and concerns requiring anticoagulation. Patient offered no other questions or concerns at this point. Consider outpatient follow up in 1 to 2 weeks with: PCP, Cardiology, Pulmonology Repeat imaging needed: None at this time. Follow up cultures: N/A Reviewed progress notes, labs, and inpatient medication list Continue current management Additional recommendations: If patient plan to stay locally in the [facility], it would make sense for him to have specialty care locally (i.e. Cardiology, Pulmonology). I will certainly defer this to the admitting service and case management as the see fit. Please feel free to reconsult as needed Consults & Procedures Consultants: Cardiology: Dr Méndez
[2018-01-17] MEDS: ALPRAZOLAM 0.5 MG TAB PO PRN (23:34)
[2018-01-18] MEDS: LEVALBUTEROL 1.25MG/0.5ML NEB INH SCH ×2 (01:56→07:16)
[2018-01-18] MEDS: IPRATROPIUM BROMIDE NEB SOLN 0.02% 2.5 ML VIAL INH SCH ×2 (01:56→07:16)
[2018-01-18 06:42] LABS: HEMATOCRIT 32.4 % (42-52); HEMOGLOBIN 11.2 g/dL (14.0-18.0); MEAN CELL VOLUME 91.8 fL (80-100); MEAN CORPUSCULAR HEMOGLOBIN 31.7 pg (25-34); MEAN CORPUSCULAR HGB CONC 34.6 g/dl (32-36); MEAN PLATELET VOLUME 8.7 fL (7.4-10.4); PLATELET COUNT 209 K/uL (130-400); RED CELL DISTRIBUTION WIDTH CV 13.3 % (11.5-14.5); RED CELL DISTRIBUTION WIDTH SD 44.2 fL (36.4-46.3); WHITE BLOOD COUNT 8.31 K/uL (4.8-10.8)
[2018-01-18 06:52] LABS: INR 1.9 (0.9-1.1)
[2018-01-18 07:16] VITALS: PULSE 78; O2SAT 98
[2018-01-18 07:19] LABS: CALCIUM 7.8 mg/dl (8.5-10.1); CREATININE 0.51 mg/dl (0.60-1.40)
[2018-01-18 07:20] LABS: PHOSPHORUS 2.2 mg/dl (2.5-4.9)
[2018-01-18 07:49] VITALS: BP 146/78; PULSE 88; TEMP 36.9; O2SAT 100
[2018-01-18 09:35] VITALS: O2SAT 100
[2018-01-18] MEDS: DORZOLAMIDE HCL 2% OPH SOLN 10 ML BTL OP SCH (09:43)
[2018-01-18] MEDS: BRIMONIDINE TARTRATE-P 0.15% 5 ML BTL OPR SCH (09:43)
[2018-01-18] MEDS: PANTOprazole SOD 40 MG TAB PO SCH (09:43)
[2018-01-18] MEDS: LOSARTAN POTASSIUM 25 MG TAB PO SCH (09:44)
[2018-01-18] MEDS: VERAPAMIL HCL 40 MG TAB PO SCH (09:44)
[2018-01-18] MEDS: TAMSULOSIN HCL 0.4 MG CAP PO SCH (09:45)
[2018-01-18] MEDS: NYSTATIN SUSP 500,000 U/5 ML UDC PO SCH ×2 (09:45→11:59)
[2018-01-18] MEDS: ASPIRIN 81 MG ECTAB PO SCH (09:46)
[2018-01-18] MEDS: ROFLUMILAST 500 MCG TAB PO SCH (09:46)
[2018-01-18] MEDS: SENNA 8.6 MG TAB PO SCH (09:47)
[2018-01-18] MEDS: INSULIN ASPART 100 UNITS/ML 3 ML PEN SC SCH (09:47)
[2018-01-18] MEDS: BUDESONIDE/FORMOTEROL FUMARATE 160/4.5 60 PUFFS/INHALER INH SCH (09:48)
[2018-01-18] MEDS ORDERED: POTASSIUM CHLORIDE 10 MEQ TABCR PO STA (10:10)
--- NOTE | 2018-01-18 10:40 | Progress Note ---
Internal Med Progress Note Date of Service: Jan 18, 2018. Provider Documentation: SUBJECTIVE: The patient was seen and examined. He has been stable and does not have any new symptoms today. His shortness of breath is not any worse He denies to have any other symptoms except blood sugar level of 76 this morning. Remains stable to be discharged today OBJECTIVE: Vital Signs-as noted below Exam: General-minimal distress at rest Eyes-normal ENT-normal Neck-supple Lungs-decreased breath sounds both sides without any significant wheezing and/ or crackles. Heart-irregular, no murmur appreciated. Abdomen-benign, soft, nontender and bowel sounds present Extremities-no edema Neuro-alert awake and oriented 3. Generally weak but no focal neuro deficit appreciated. Lab data as noted below. ASSESSMENT & PLAN: 72 year-old male with advanced emphysema, admitted for respiratory failure secondary to COPD exacerbation and paroxysmal a-fib in the hospital, originally admitted to ICU, and s/p ICU stay without needing to be intubated. COPD exacerbation CXR on 01/07 showed emphysema with unchanged upper lobe fibrotic changes. CTA on admission showed no evidence of pulmonary embolus in the main, lobar, or segmental pulmonary arteries. Advanced emphysema. There is no airspace consolidation or pleural effusion. Continue bronchodilators and Daliresp On prn morphine, prn Xanax / Ativan for anxiety with dyspnea Had been on Solumedrol and tappered dose of prednisone Continue oxygen supplement Consider 2 step before discharge Continue Symbicort No need for the 2 steps as he is going to [facility] Medically stable to be discharged Hypokalemia Will supplement Will require small oral dose continuously Questionable Pulmonary Nodules Has been followed for few years with CT scans for a lung nodule, but later on, when he went to [facility], he was told he doesn't actually have a lung nodule. ICU physician reviewed the CT scan, and sees extensive emphysema but no lung nodules. Patient was also considered for lung transplant in the past, but he said that told him that his lung function need to be below 20 to consider transplant. Atypical chest pain reproducible pain Mostly musculoskeletal due to cough EKG showed no ischemic changes NO ACS Paroxysmal a-fib (from this hospital admission, not on anticoagulation previously) Rate/rhythm with verapamil Continue ASA Has been on Coumadin INR 1.9 today Continue Coumadin 2mg daily Chronic anemia No signs of bleeding Repeat occult blood test negative Hgb stable Diarrhea-resolved Mostly related to laxative KUB showed no evidence for bowel obstruction. Resolved DVT px On Coumadin INR 2.0 Code Status Full CODE Disposition Waiting for placement to rehab Discharge to [facility] today Vital Signs: Date Time Temp Pulse Resp B/P (MAP) Pulse Ox O2 Delivery O2 Flow Rate FiO2 01/18/18 09:35 100 Nasal Cannula 3.0 01/18/18 07:49 36.9 88 17 146/78 (100) 100 Nasal Cannula 2.0 01/18/18 07:16 78 16 98 Nasal Cannula 2.0 01/18/18 00:01 Nasal Cannula 2.0 01/17/18 23:37 36.8 73 18 153/70 (97) 98 Nasal Cannula 2.0 01/17/18 20:20 Nasal Cannula 2.0 01/17/18 19:52 80 131/73 (92) 01/17/18 19:28 98 16 98 Nasal Cannula 2.0 01/17/18 15:45 36.4 87 20 144/86 (105) 97 Nasal Cannula 2.0 01/17/18 15:17 Nasal Cannula 2.0 Humidified Oxygen 01/17/18 13:53 88 128/70 (89) Lab Results: Results Past 24 Hours Test 01/17/18 11:38 01/17/18 16:49 01/17/18 20:09 01/18/18 06:08 Range/Units Bedside Glucose 72 98 118 70-99 mg/dl White Blood Count 8.31 4.8-10.8 K/uL Red Blood Count 3.53 4.7-6.1 M/uL Hemoglobin 11.2 14.0-18.0 g/dL Hematocrit 32.4 42-52 % Mean Corpuscular Volume 91.8 80-100 fL Mean Corpuscular Hemoglobin 31.7 25-34 pg Mean Corpuscular Hemoglobin Concent 34.6 32-36 g/dl RDW Standard Deviation 44.2 36.4-46.3 fL RDW Coefficient of Variation 13.3 11.5-14.5 % Platelet Count 209 130-400 K/uL Mean Platelet Volume 8.7 7.4-10.4 fL Prothrombin Time 20.2 9.0-12.0 SECONDS Prothromb Time International Ratio 1.9 0.9-1.1 Sodium Level 140 136-145 mmol/L Potassium Level 3.0 3.5-5.1 mmol/L Chloride Level 104 98-107 mmol/L Carbon Dioxide Level 29 21-32 mmol/L Anion Gap 7.0 3-11 mmol/L Blood Urea Nitrogen 20 7-18 mg/dl Creatinine 0.51 0.60-1.40 mg/dl Est Creatinine Clear Calc Drug Dose 102.8 ml/min Estimated GFR () 122.7 Estimated GFR (Non- 105.9 BUN/Creatinine Ratio 40.1 10-20 Random Glucose 59 70-99 mg/dl Calcium Level 7.8 8.5-10.1 mg/dl Phosphorus Level 2.2 2.5-4.9 mg/dl Magnesium Level 1.9 1.8-2.4 mg/dl Test 01/18/18 08:02 Range/Units Bedside Glucose 70 70-99 mg/dl
[2018-01-18] MEDS ORDERED: PRD10 PO (10:54)
[2018-01-18] MEDS ORDERED: VRP40 PO (10:54)
[2018-01-18] MEDS ORDERED: POTA8CAP6 PO (10:54)
[2018-01-18] MEDS ORDERED: CMD2 PO (10:54)
--- NOTE | 2018-01-18 11:00 | Discharge Instructions ---
Discharge Instructions Date of Service Jan 18, 2018. Admission Reason for Admission: Hypotension, Respiratory Failure, Acute Discharge Discharge Diagnosis / Problem: COPD exacerbation,AF with RVR Discharge Goals Goal(s): Prevent Disease Progression Activity Recommendations Activity Level: Up Ad Nella Therapies: Physical Therapy, Occupational Therapy . Additional Information Patient informed of condition: Yes Advance Directives: No DNR: No Level of Care: Skilled Communicable Disease: No Prognosis: Stable Oxygen at (LPM): 2 liters /min via NC Lucia Catheter: No Instructions / Follow-Up Instructions / Follow-Up Dr Aguilar on 01/25/18 at 11:05 AM and Locom[address] Inspector Dr Klein on 03/01/18 (time will be set later) at [facility] Current Hospital Diet Patient's current hospital diet: Regular Diet Discharge Diet Recommended Diet: Regular Diet, AHA Diet (Heart Healthy) Pending Studies Studies pending at discharge: no Laboratory Results Hemoglobin A1c Test 01/01/18 00:31 Range/Units Estimated Average Glucose 114 mg/dl Hemoglobin A1c 5.6 4.5-5.6 % Medical Emergencies . Who to Call and When: Medical Emergencies: If at any time you feel your situation is an emergency, please call 911 immediately. . Non-Emergent Contact Non-Emergency issues call your: Primary Care Provider . Past History Medical & Surgical History: (1) COPD (chronic obstructive pulmonary disease) (2) HTN (hypertension) (3) Respiratory failure, acute (4) PAF (paroxysmal atrial fibrillation) (5) Acute respiratory failure with hypoxia . "Provider Documentation" section prepared by Ben Harper. . Core Measure Problem Core Measures: None
[2018-01-18 11:23] VITALS: BP 146/78; PULSE 88; TEMP 36.9; O2SAT 100
[2018-01-18 11:27] VITALS: Ht 165.1 cm; Wt 57.2 kg
[2018-01-18] MEDS: ALPRAZOLAM 0.5 MG TAB PO PRN (13:11)
--- NOTE | 2018-01-24 10:00 | Discharge Summary ---
Discharge Summary Date of Service Jan 24, 2018. Discharge Summary Admission Date: Jan 01, 2018 at 01:46 Discharge Date: Jan 18, 2018 Principal Diagnosis: COPD exacerbation,AF with RVR Secondary Diagnoses/Problems: Please see H&P and Hospital Progress note Consultations: Cardiology and Manager Dental Medication Reconciliation New Medications: Potassium Chloride (Klor-Con Ext Rel) 8 Meq Tabcr 8 MEQ PO DAILY for 30 Days, #30 CAP Prednisone (Prednisone) 10 Mg Tab 1 MG PO UD for 15 Days, #30 TAB 3 po daily for 5 days,2 po daily for 5 days and then 1 po daily for 5 days Verapamil HCl (Verapamil HCl) 40 Mg Tab 80 MG PO TID for 15 Days, #90 TAB Warfarin Sod (Coumadin) 2 Mg Tab 2 MG PO DAILY@16 for 30 Days, #30 TAB Continued Medications: Albuterol Sulfate (Albuterol Sulfate) 1.25 Mg/3 Ml Neb 3 ML NEB Q6 Albuterol Sulfate (Proair Respiclick) 108 Mcg/Act Aer 2 PUFFS INH Q4H PRN for SOB/Wheezing Aspirin (Aspirin Ec) 81 Mg Tab 81 MG PO DAILY Brimonidine Tartrate Oph (Alphagan P Oph) 0.15 % Hanane 1 DROP OPR BID Budesonide (Inhalation) (Pulmicort Respules 0.5MG/2ML) 0.5 Mg/2 Ml Li 2 ML INH DAILY, EA Budesonide/Formoterol Fumarate (Symbicort 160-4.5 Mcg/Act) 60 Puffs/Inhaler Aero 2 PUFFS INH BID Cholecalciferol (Vitamin D3) 2,000 Unit Cap 4000 UNITS PO DAILY Clotrimazole (Mycelex) 10 Mg Tro 10 MG MT DAILY, AAR Dorzolamide Hcl (Trusopt Oph) 2 % Hanane 1 DROPS OP BID Famotidine-Calcium Carbonate-M (Pepcid Complete) 1 Chw Chw 1 TAB PO DAILY Latanoprost (Xalatan 0.005% Oph Hanane) 0.005 % Hanane 1 DROPS OP HS Losartan Potassium (Cozaar) 25 Mg Tab 25 MG PO BID, TAB Pancrelipase (Lipase-Protease- (Pancreaze) 1 Cap Cap 2 CAP PO AC Pantoprazole (Protonix) 40 Mg Tab 40 MG PO DAILY Pseudoephedrine-Guaifenesin (Mucinex D) 1 Tab Tab 1 TAB PO DAILY, TAB Tamsulosin Hcl (Flomax) 0.4 Mg Cap 0.4 MG PO DAILY, CAP Tiotropium Reddick (Spiriva Respimat) 1.25 Mcg/Act Aer 2 PUFF INH DAILY, INHALER Discontinued Medications: Azithromycin (Zithromax) 500 Mg Tab 500 MG PO 3XWK, TAB Bisoprolol Fumarate (Zebeta) 5 Mg Tab 2.5 MG PO DAILY Levofloxacin (Levaquin) 250 Mg Tab 250 MG PO DAILY for 10 Days, #10 TAB BEGIN 12/29/17 X 10 DAYS Prednisone (Prednisone) 20 Mg Tab 20 MG PO DAILY/UD, TAB BEGIN 12/29/17, TAKE DIRECTED X 12 DAYS, TAPERED -DOWN DOSE. Admission Information HPI (per Admitting provider): DATE OF ADMISSION: 01/01/2018 PRIMARY CARE PHYSICIAN: Dr. Pitt. CHIEF COMPLAINT: Shortness of breath. HISTORY OF PRESENT ILLNESS: History obtained from patient and records. Recent confinement last year at a hospital in [place] for COPD exacerbation. No previous intubations for COPD exacerbation. Medical history significant for chronic respiratory failure secondary to COPD on home O2 at night, past tobacco abuse, hypertension. Few days history of cough symptoms productive of yellow sputum with shortness of breath symptoms. Achy left-sided chest pain symptoms with coughing. Occasional coughing with meals. Patient prescribed by PCP Levaquin and prednisone course. Patient had worsening cough, shortness of breath symptoms. Loose stools without abdominal pain, emesis. Patient brought to Emergency Room. Patient noted to be in respiratory distress. BiPAP started, given ceftriaxone, azithromycin, Solu-Medrol, neb treatment for COPD exacerbation. Contemplated endotracheal intubation aborted after improvement of breathing noted. At the Emergency Room, the patient went into rapid AFib. No previous episodes as per patient. MEDICAL HISTORY: As above. SURGERIES: Skin cancer surgery, orthopedic procedures, cholecystectomy, appendectomy. HOME MEDICATIONS: Include albuterol, aspirin, Zithromax, ProAir, bisoprolol, Alphagan, Pulmicort, Symbicort, vitamin D3, Mycelex Nathalie, Pepcid, Xalatan, Cozaar, Pancreaze, Mucinex, Protonix, Flomax, Spiriva. ALLERGIES: LACTOSE AND SULFA. FAMILY HISTORY: Family history of heart disease, lung cancer. PERSONAL AND SOCIAL HISTORY: Past tobacco abuse. No chronic intake of alcoholic beverages. REVIEW OF SYSTEMS: As per HPI. All 10 systems reviewed. All other ROS negative. PHYSICAL EXAMINATION: VITAL SIGNS: Blood pressure 175/115 later 77/57, [place] 154 later 93 RR 23, temperature 36.8, sats 96 on 3 on BiPAP. GENERAL: Noted to be in no respiratory distress, anxious. SKIN: Pallor, warm. HEENT: Pale palpebal conjunctivae. No ptosis. Dry mucosa. BiPAP in place. NECK: Supple, nontender. CHEST: Expiratory wheezes. No tenderness. HEART: Irregular, no murmur. Palpable LE pulses. ABDOMEN: Soft, nontender. EXTREMITIES: No edema. No gross deformity. No gross tenderness. NEUROLOGIC: Coherent. No gross focality. LABORATORY DATA: Hemoglobin 13.7, hematocrit 39.6, white blood cell count 12.38, platelets 294. Sodium noted to be 140, potassium 4.4, chloride 105, CO2 25, BUN 13, creatinine 1.3, glucose 154. Lactic acid was noted to be 4. CTA initial read advanced emphysema, no consolidation, no particular lesion identified. Initial EKG as per my interpretation, rate of 110, sinus tachycardia, normal axis, ST depression in inferior leads, PVCs ASSESSMENT: 1. Hypotension secondary to hypovolemia. Possible sepsis, possible sources : pulmonary. complicated bronchitis, failed outpatient treatment. GI ro Clostridium difficile, diarrhea. 2. Acute hypoxemic respiratory failure secondary to chronic obstructive pulmonary disease exacerbation failed outpatient treatment marked improvement in respiratory status after initial intervention in the ER. 3. Hypertension, patient currently hypotensive. 4. New onset atrial fibrillation secondary to illness. Patient given IV Cardizem, IV Lopressor, IV digoxin prior to hypotensive episode. 5. Anemia, unknown baseline. 6. Steroid induced hyperglycemia ro DM. 7. Past tobacco abuse. PLAN: ICU admission due to possible need for pressor therapy IVF, follow lactic acid CS, stool C. diff Doxycycline, nebs, prednisone course for complicated bronchitis; wean off BiPAP , Pulmonary consult respiratory failure Oral Vancomycin 1 dose now for possible C. diff until sample obtained Appropriate to hold home antihypertensives given hypertension. Eventually need to resume patient's home beta emilia for AF rate control. TTE, Cardio consult RE new onset AFib. IV heparin for thromboembolic prevention. Anemia workup. Check hemoglobin A1c. DVT prophylaxis, Heparin. Full code. Total critical care time was 60 minutes. Hospital Course 72 year-old male with advanced emphysema, admitted for respiratory failure secondary to COPD exacerbation and paroxysmal a-fib in the hospital, originally admitted to ICU, and s/p ICU stay without needing to be intubated. COPD exacerbation CXR on 01/07 showed emphysema with unchanged upper lobe fibrotic changes. CTA on admission showed no evidence of pulmonary embolus in the main, lobar, or segmental pulmonary arteries. Advanced emphysema. There is no airspace consolidation or pleural effusion. Continue bronchodilators and Daliresp On prn morphine, prn Xanax / Ativan for anxiety with dyspnea Had been on Solumedrol and tappered dose of prednisone Continue oxygen supplement Consider 2 step before discharge Continue Symbicort No need for the 2 steps as he is going to [facility] Medically stable to be discharged Hypokalemia Will supplement Will require small oral dose continuously Questionable Pulmonary Nodules Has been followed for few years with CT scans for a lung nodule, but later on, when he went to [facility], he was told he doesn't actually have a lung nodule. ICU physician reviewed the CT scan, and sees extensive emphysema but no lung nodules. Patient was also considered for lung transplant in the past, but he said that told him that his lung function need to be below 20 to consider transplant. Atypical chest pain reproducible pain Mostly musculoskeletal due to cough EKG showed no ischemic changes NO ACS Paroxysmal a-fib (from this hospital admission, not on anticoagulation previously) Rate/rhythm with verapamil Continue ASA Has been on Coumadin INR 1.9 today Continue Coumadin 2mg daily Chronic anemia No signs of bleeding Repeat occult blood test negative Hgb stable Diarrhea-resolved Mostly related to laxative KUB showed no evidence for bowel obstruction. Resolved DVT px On Coumadin INR 2.0 Code Status Full CODE Disposition Waiting for placement to rehab Discharge to [facility] today Total time spent on discharge = 35 minutes This includes examination of the patient, discharge planning, medication reconciliation, and communication with other providers. Discharge Instructions Date of Service Jan 18, 2018. Admission Reason for Admission: Hypotension, Respiratory Failure, Acute Discharge Discharge Diagnosis / Problem: COPD exacerbation,AF with RVR Discharge Goals Goal(s): Prevent Disease Progression Activity Recommendations Activity Level: Up Ad Nella Therapies: Physical Therapy, Occupational Therapy . Additional Information Patient informed of condition: Yes Advance Directives: No DNR: No Level of Care: Skilled Communicable Disease: No Prognosis: Stable Oxygen at (LPM): 2 liters /min via NC Lucia Catheter: No Instructions / Follow-Up Instructions / Follow-Up Dr Aguilar on 01/25/18 at 11:05 AM and Box Blank Machine Operator Dr Klein on 03/01/18 (time will be set later) at [facility] Current Hospital Diet Patient's current hospital diet: Regular Diet Discharge Diet Recommended Diet: Regular Diet, AHA Diet (Heart Healthy) Pending Studies Studies pending at discharge: no Laboratory Results Hemoglobin A1c Test 01/01/18 00:31 Range/Units Estimated Average Glucose 114 mg/dl Hemoglobin A1c 5.6 4.5-5.6 % Medical Emergencies . Who to Call and When: Medical Emergencies: If at any time you feel your situation is an emergency, please call 911 immediately. . Non-Emergent Contact Non-Emergency issues call your: Primary Care Provider . Past History Medical & Surgical History: (1) COPD (chronic obstructive pulmonary disease) (2) HTN (hypertension) (3) Respiratory failure, acute (4) PAF (paroxysmal atrial fibrillation) (5) Acute respiratory failure with hypoxia . "Provider Documentation" section prepared by Ben Harper. . Core Measure Problem Core Measures: None <Electronically signed by Ben Harper M.D.> Signed: 01/18/18 1100 Additional Copies To Charles Pitt M.D.
== END 2018-01-18 14:08 | DRG 189 ==
LOC: C.EDB 22:20 → C.MSICU 01-01 01:46 → CANRESERV 01-01 01:47 → ENRESERV 01-01 01:47 → EDBEDREQ 01-01 02:02 → EDBEDREQSVC 01-01 02:02 → ENRESERV 01-01 02:13 → C.2T 01-05 15:48 → EDBEDREQ 01-10 19:48 → ENRESERV 01-10 19:54 → C.4E 01-10 20:37
PROVIDERS: ADMIT Internal Medicine; ATTEND Internal Medicine
DX: J96.21 Acute and chronic respiratory failure with hypoxia (principal); J44.1 Chronic obstructive pulmonary disease with (acute) exacerbation; K52.1 Toxic gastroenteritis and colitis; I10 Essential (primary) hypertension; Z88.8 Allergy status to other drugs, medicaments and biological substances; Z87.891 Personal history of nicotine dependence; Z85.828 Personal history of other malignant neoplasm of skin; E87.6 Hypokalemia; I48.0 Paroxysmal atrial fibrillation; T40.2X5A Adverse effect of other opioids, initial encounter; T47.4X5A Adverse effect of other laxatives, initial encounter; D64.9 Anemia, unspecified; R07.89 Other chest pain; Z99.81 Dependence on supplemental oxygen; K59.03 Drug induced constipation; Z88.2 Allergy status to sulfonamides; Y92.239 Unspecified place in hospital as the place of occurrence of the external cause; R33.9 Retention of urine, unspecified; I95.9 Hypotension, unspecified

== ENCOUNTER → 2018-01-23 | Outpatient (CLI) | payer MEDICARE ==
[~2018-01-23] MED LIST: ALBU1.257 NEB; ALBU18002 INH; ASPI81TA28 PO; BRIM0.15 OPR; CHOL2000 PO; CLOT10TR2 MT; CMD2 PO; DORZ2SOL17 OP; FAMOCHW27 PO; LATA0.5S OP; LOSA1TAB PO; PANCCAP2 PO; PANT40TA PO; PLMINS INH; POTA8CAP6 PO; PRD10 PO; PSEU60TA80 PO; SYMIN INH; TAMS0.4C38 PO; TIOT1AER2 INH; VRP40 PO
[2018-01-23 09:44] LABS: INR 1.9 (0.9-1.1)
[2018-01-23 10:20] LABS: BLOOD UREA NITROGEN 21 mg/dl (7-18); CALCIUM 7.9 mg/dl (8.5-10.1); CARBON DIOXIDE 31 mmol/L (21-32); CREATININE 0.57 mg/dl (0.60-1.40); GLUCOSE 70 mg/dl (70-99); POTASSIUM 3.2 mmol/L (3.5-5.1); SODIUM 143 mmol/L (136-145)
== END ==
LOC: C.LABFOXAE 08:57
PROVIDERS: ATTEND Internal Medicine
DX: I11.9 Hypertensive heart disease without heart failure (principal)

== ENCOUNTER → 2018-01-26 | Outpatient (CLI) | payer MEDICARE ==
[2018-01-26 09:58] LABS: INR 2.2 (0.9-1.1)
== END ==
LOC: C.LABFOXAE 08:55
PROVIDERS: ATTEND Internal Medicine
DX: Z51.81 Encounter for therapeutic drug level monitoring (principal); I48.91 Unspecified atrial fibrillation; E87.6 Hypokalemia

== ENCOUNTER → 2018-01-30 | Outpatient (CLI) | payer MEDICARE ==
[2018-01-30 11:53] LABS: INR 2.8 (0.9-1.1)
== END | disposition home or self-care (01) ==
LOC: C.LABFOXAE 09:24
PROVIDERS: ATTEND Internal Medicine Hospice and Palliative Medicine
DX: Z79.01 Long term (current) use of anticoagulants (principal)

== ENCOUNTER → 2018-02-02 | Outpatient (CLI) | payer MEDICARE ==
[2018-02-02 09:33] LABS: INR 2.4 (0.9-1.1)
== END | disposition home or self-care (01) ==
LOC: C.LABFOXAE 08:18
PROVIDERS: ATTEND Internal Medicine
DX: I48.0 Paroxysmal atrial fibrillation (principal)

== ENCOUNTER → 2018-02-16 | Outpatient (CLI) | payer MEDICARE ==
[~2018-02-16] MED LIST changes: +ACET-1693 PO; +BRIM0.15 OPB; -BRIM0.15 OPR; -DORZ2SOL17 OP; +DORZ2SOL17 OPB; +DOXY100C76 PO; +DOXYCYCLINE PO; +DULCOLOX SUPP RE; +FLUC200T PO; +LACT1TAB4 PO; -LATA0.5S OP; +LATA0.5S OPB; +LOPE2TAB74 PO; +MAGNSUS73 PO; +OXYC-57 PO; +PRED20TA PO; +ROFL1TAB5 PO; +TERBINAFINE 1% TOP; +TRAZ50TA35 PO; +VERAPAMIL HCL PO; +WARF2.5T8 PO; +ceftin PO
[2018-02-16 09:56] LABS: INR 4.7 (0.9-1.1)
== END | disposition home or self-care (01) ==
LOC: C.LABFOXDH 09:25
PROVIDERS: ATTEND Internal Medicine
DX: I48.0 Paroxysmal atrial fibrillation (principal)

== ENCOUNTER 2018-02-22 06:25 | Observation (INO) | payer MEDICARE ==
[2018-02-16 15:28] VITALS: BMI 17.0
--- NOTE | 2018-02-17 17:05 | PAT Medication Instructions ---
Service Date Feb 17, 2018. Current Home Medication List Acetaminophen Tab (Tylenol), 650 MG PO Q4H PRN for RN Albuterol Sulfate (Albuterol Sulfate), 3 ML NEB QID Albuterol Sulfate (Proair Respiclick), 2 PUFFS INH Q4H PRN for SOB/Wheezing Brimonidine Tartrate Oph (Alphagan P Oph), 1 DROP OPB TID Budesonide/Formoterol Fumarate (Symbicort 160-4.5 Mcg/Act), 2 PUFFS INH BID Cholecalciferol (Vitamin D3), 4,000 UNITS PO QAM Dorzolamide Hcl (Trusopt Oph), 1 DROPS OPB TID Doxycycline Monohydrate (Monodox), 100 MG PO BID Fluconazole (Diflucan), 200 MG PO QAM Lactobacillus (Floranex), 1 TAB PO QAM Latanoprost (Xalatan 0.005% Oph Hanane), 1 DROPS OPB HS Loperamide Hcl (Loperamide A-D), 2 MG PO Q4H PRN for N Losartan Potassium (Cozaar), 25 MG PO BID Magnesium Hydroxide (Milk of Magnesia 400 mg/5Ml), 30 ML PO Q48HRS Pancrelipase (Lipase-Protease- (Pancreaze), 2 CAP PO AC Pantoprazole (Protonix), 40 MG PO QAM Potassium Chloride (Klor-Con Ext Rel), 16 MEQ PO BID Prednisone (Prednisone), 20 MG PO QAM Roflumilast (Daliresp), 1 TAB PO QAM Tamsulosin Hcl (Flomax), 0.4 MG PO QAM Tiotropium [place] (Spiriva Respimat), 2 PUFF INH QAM Trazodone Hcl (Trazodone), 25 MG PO HS Warfarin Sod (Jantoven), 2.5 MG PO QPM [Doxycycline], 50 MG PO QAM [Dulcolox Supp], 10 MG RE Q48H PRN for RN [Terbinafine Cr 1%], 1 DOSE TOP BID [Verapamil Hcl Er], 300 MG PO HS Medication Instructions For Your Scheduled Surgery -Check with your prescriber for instructions for: Warfarin Sod (Jantoven), 2.5 MG PO QPM - Hold the following medications 24 hours prior to surgery: [Terbinafine Cr 1%], 1 DOSE TOP BID - Hold the following medications the morning of surgery: Cholecalciferol (Vitamin D3), 4,000 UNITS PO QAM Lactobacillus (Floranex), 1 TAB PO QAM Loperamide Hcl (Loperamide A-D), 2 MG PO Q4H PRN for N Losartan Potassium (Cozaar), 25 MG PO BID Magnesium Hydroxide (Milk of Magnesia 400 mg/5Ml), 30 ML PO Q48HRS Pancrelipase (Lipase-Protease- (Pancreaze), 2 CAP PO AC Potassium Chloride (Klor-Con Ext Rel), 16 MEQ PO BID [Dulcolox Supp], 10 MG RE Q48H PRN for RN - Take the following medications the morning of surgery with a sip of water: Acetaminophen Tab (Tylenol), 650 MG PO Q4H PRN for RN (if needed, can be taken up to four hours before surgery) Albuterol Sulfate (Albuterol Sulfate), 3 ML NEB QID Albuterol Sulfate (Proair Respiclick), 2 PUFFS INH Q4H PRN for SOB/Wheezing (if needed, and bring with you to the hospital) Brimonidine Tartrate Oph (Alphagan P Oph), 1 DROP OPB TID Budesonide/Formoterol Fumarate (Symbicort 160-4.5 Mcg/Act), 2 PUFFS INH BID Dorzolamide Hcl (Trusopt Oph), 1 DROPS OPB TID Doxycycline Monohydrate (Monodox), 100 MG PO BID Fluconazole (Diflucan), 200 MG PO QAM Pantoprazole (Protonix), 40 MG PO QAM Prednisone (Prednisone), 20 MG PO QAM Roflumilast (Daliresp), 1 TAB PO QAM Tamsulosin Hcl (Flomax), 0.4 MG PO QAM Tiotropium [place] (Spiriva Respimat), 2 PUFF INH QAM [Doxycycline], 50 MG PO QAM - Take the following medications as scheduled the night before surgery: Acetaminophen Tab (Tylenol), 650 MG PO Q4H PRN for RN (if needed) Albuterol Sulfate (Albuterol Sulfate), 3 ML NEB QID Albuterol Sulfate (Proair Respiclick), 2 PUFFS INH Q4H PRN for SOB/Wheezing (if needed) Brimonidine Tartrate Oph (Alphagan P Oph), 1 DROP OPB TID Budesonide/Formoterol Fumarate (Symbicort 160-4.5 Mcg/Act), 2 PUFFS INH BID Dorzolamide Hcl (Trusopt Oph), 1 DROPS OPB TID Doxycycline Monohydrate (Monodox), 100 MG PO BID Latanoprost (Xalatan 0.005% Oph Hanane), 1 DROPS OPB HS Loperamide Hcl (Loperamide A-D), 2 MG PO Q4H PRN (if needed) Losartan Potassium (Cozaar), 25 MG PO BID Potassium Chloride (Klor-Con Ext Rel), 16 MEQ PO BID Trazodone Hcl (Trazodone), 25 MG PO HS [Dulcolox Supp], 10 MG RE Q48H PRN (if needed) [Verapamil Hcl Er], 300 MG PO HS If you have any questions please call us at [phone] or [phone] or [phone]
[2018-02-22] VITALS (8 sets, daily range): BP systolic 117–155; BP diastolic 66–90; PULSE 73–104; TEMP 36.5–36.8; O2SAT 95–100; Ht 167.6 cm; Wt 50.1 kg
[~2018-02-22] VITALS: Ht 167.6 cm; Wt 50.1 kg
[~2018-02-22 06:25] MED LIST changes: -ASPI81TA28 PO; -CLOT10TR2 MT; -CMD2 PO; -FAMOCHW27 PO; +LACTATED RINGER'S 1000ML 1,000 ML IV SCH; -OXYC-57 PO; -PLMINS INH; -PRD10 PO; -PSEU60TA80 PO; -VRP40 PO; -ceftin PO
[2018-02-22] MEDS ORDERED: MIDAZOLAM HCL 1 MG/ML 2ML VIAL ONE ×2 (06:46→11:07)
[2018-02-22] MEDS ORDERED: FENTANYL CITRATE INJ 50 MCG/1 ML 2 ML VIAL ONE ×3 (06:46→12:03)
[2018-02-22 07:00] LABS: INR 2.3 (0.9-1.1); PTT PATIENT 35.6 SECONDS (21.0-31.0)
[2018-02-22] MEDS ORDERED: ceftin PO (07:01)
[2018-02-22] MEDS ORDERED: LIDOCAINE HCL 1% 20 ML VIAL ONE ×3 (07:23→12:27)
[2018-02-22] MEDS ORDERED: BUPIVACAINE 0.5 % 5 MG/1 ML MPF 30ML VIAL ONE ×2 (07:23→12:27)
[2018-02-22] MEDS ORDERED: BACITRACIN 50000 UNIT VIAL ONE ×2 (07:23→12:30)
[2018-02-22] MEDS ORDERED: CEFAZOLIN SOD 2000MG/15 ML IV PUSH IV ONE (07:33)
--- NOTE | 2018-02-22 07:39 | History & Physical Bridge Note ---
H&P Re-Evaluation Bridge Note: I have examined the patient, reviewed the History & Physical and in the interval since the performance of the History & Physical I have noted the following changes of clinical significance: No changes noted
[2018-02-22] MEDS ORDERED: ALBUT/IPRATROP 3MG/0.5MG NEB 3 ML VIAL INH ONE (07:45)
[2018-02-22] MEDS ORDERED: PROPOFOL IV EMULSION 10 MG/ML 20 ML VIAL IV ONE ×2 (08:35→12:58)
[2018-02-22] MEDS ORDERED: LIDOCAINE HCL 2% 2 ML VIAL (20MG/ML) ONE (08:44)
[2018-02-22] MEDS ORDERED: EpHEDrine SULFATE INJ 50 MG/ML AMP IV PRN (09:15)
[2018-02-22] MEDS ORDERED: ATROPINE SULFATE 0.1 MG/ML 5ML SYR IV PRN (09:15)
[2018-02-22] MEDS ORDERED: FENTANYL CITRATE INJ 50 MCG/1 ML 2 ML VIAL IV PRN (09:15)
[2018-02-22] MEDS ORDERED: METOPROLOL TARTRATE 1 MG/ML VIAL ONE (10:00)
[2018-02-22] MEDS ORDERED: IV FLUIDS COMPLETED PRN (11:15)
--- NOTE | 2018-02-22 13:36 | [facility] Post Operative Brief Note ---
Immediate Operative Summary Operative Date Feb 22, 2018. Pre-Operative Diagnosis paroxysmal AF and persistent ST refractory to AVN blockers Post-Operative Diagnosis same Procedure(s) Performed biventricular permanent pacemaker with the LV lead over the His bundle region with peripheral venogram and unsuccessful AVN ablation under fluroscopic guidance Surgeon ann marie alvarez Bariatric Nurse Surgeon(s) none Estimated Blood Loss 20cc Findings See Below see official report Fluids (cc crystalloids) 600cc Specimens none Drains None Anesthesia Type MAC Complication(s) none Disposition Accompanied Pt To Recover: yes Disposition: PCU
[2018-02-22] MEDS ORDERED: ACETAMINOPHEN 325 MG TAB PO PRN (13:45)
[2018-02-22] MEDS ORDERED: LOPERAMIDE HCL 2 MG CAP PO PRN (13:45)
[2018-02-22] MEDS ORDERED: BISACODYL 10 MG SUPP PR PRN (13:45)
[2018-02-22] MEDS ORDERED: ALBUTEROL HFA 8 GM INHALER INH PRN (13:45)
--- NOTE | 2018-02-22 14:17 | Anesthesiology Progress Note ---
Anesthesia Post Op Note Date & Time Feb 22, 2018 at 14:17 Vital Signs Pain Intensity: 3 Vital Signs Past 12 Hours Date Time Temp Pulse Resp B/P (MAP) Pulse Ox O2 Delivery O2 Flow Rate FiO2 02/22/18 13:55 73 16 124/66 (85) 100 Nasal Cannula 3 02/22/18 13:45 74 16 137/83 (101) 100 Nasal Cannula 3 02/22/18 13:40 76 16 127/64 (85) 100 Nasal Cannula 3 02/22/18 07:45 86 20 95 Nasal Cannula 2.0 02/22/18 06:40 36.8 104 22 155/90 (111) 98 Nasal Cannula 2 Notes Mental Status: alert / awake / arousable, participated in evaluation Pt Amnestic to Procedure: Yes Nausea / Vomiting: adequately controlled Pain: adequately controlled Airway Patency, RR, SpO2: stable & adequate BP & HR: stable & adequate Hydration State: stable & adequate Anesthetic Complications: no major complications apparent
[2018-02-22] MEDS: ACETAMINOPHEN/CODEINE 300/30MG TAB PO PRN ×3 (14:52→20:51)
[2018-02-22] MEDS: PANCREAZE (LIPASE 10,500U) CAP PO SCH (16:02)
[2018-02-22] MEDS ORDERED: NURSING VERBAL MED ORDER ONE (19:00)
[2018-02-22] MEDS: BRIMONIDINE TARTRATE-P 0.15% 5 ML BTL OPB SCH ×2 (19:13→20:53)
[2018-02-22] MEDS: DORZOLAMIDE HCL 2% OPH SOLN 10 ML BTL OPB SCH ×2 (19:14→20:54)
[2018-02-22] MEDS ORDERED: MoRPHine SULFATE 2 MG/ML CARP IV ONE (19:15)
[2018-02-22] MEDS: BUDESONIDE/FORMOTEROL FUMARATE 160/4.5 60 PUFFS/INHALER INH SCH (20:53)
[2018-02-22] MEDS: LOSARTAN POTASSIUM 25 MG TAB PO SCH (20:56)
[2018-02-22] MEDS ORDERED: WARFARIN SOD 2.5 MG TAB PO SCH (21:00)
[2018-02-22] MEDS ORDERED: TRAZODONE HCL 50 MG TAB PO SCH (21:00)
[2018-02-22] MEDS ORDERED: VERAPAMIL HCL 120 MG TABCR PO SCH (21:00)
[2018-02-22] MEDS ORDERED: LATANOPROST 0.005% OP SOLN 2.5 ML BTL OPB SCH (21:00)
[2018-02-22] MEDS: TERBINAFINE CR 30 GM TUBE EXT SCH (21:47)
[2018-02-23 03:54] VITALS: BP 113/66; PULSE 76; TEMP 36.6; O2SAT 96
[2018-02-23] MEDS: ACETAMINOPHEN/CODEINE 300/30MG TAB PO PRN ×2 (04:17→09:23)
[2018-02-23] MEDS: PANCREAZE (LIPASE 10,500U) CAP PO SCH ×2 (07:00→07:57)
[2018-02-23] MEDS: TERBINAFINE CR 30 GM TUBE EXT SCH (07:57)
[2018-02-23] MEDS: BUDESONIDE/FORMOTEROL FUMARATE 160/4.5 60 PUFFS/INHALER INH SCH (07:58)
[2018-02-23] MEDS: BRIMONIDINE TARTRATE-P 0.15% 5 ML BTL OPB SCH (07:59)
[2018-02-23] MEDS: DORZOLAMIDE HCL 2% OPH SOLN 10 ML BTL OPB SCH (07:59)
[2018-02-23] MEDS: LOSARTAN POTASSIUM 25 MG TAB PO SCH (08:00)
[2018-02-23] MEDS ORDERED: OXYC-57 PO (08:01)
--- NOTE | 2018-02-23 08:03 | Discharge Instructions ---
Discharge Instructions Date of Service Feb 23, 2018. Admission Reason for Admission: A Fib, Svtw/Anesthesia Discharge Discharge Diagnosis / Problem: pAF with RVR refractory to AVN blockers Discharge Goals Goal(s): Improve function Activity Recommendations Activity Limitations: as noted below Lifting Limitations: no more than 10 pounds (do not lift the left elbow over the left shoulder for 1 month do not lift more than 10 pounds with the left arm for 2 weeks) Shower/Bathe: tomorrow Driving or Machine Use: resume 1 day after discharge . Instructions / Follow-Up Instructions / Follow-Up ACTIVITY RECOMMENDATIONS: * Do not raise affected arm over head for 24 weeks. SPECIAL CARE INSTRUCTIONS: * If bleeding occurs, apply direct pressure to area for 5 minutes. * Call your doctor if you have severe pain, fever, drainage or bleeding at site. * Keep dry for 24 hours. * Keep any scheduled doctor's appointment. * Implant Card - hand held device with website information given. SKIN IRRITATION: * You may experience some redness and/or swelling in the area where radiation was administered. If any skin irritation occurs, please contact your family physician. FOLLOW UP VISIT: Keep any scheduled doctor appointments. Current Hospital Diet Patient's current hospital diet: AHA Diet (Heart Healthy) Discharge Diet Recommended Diet: AHA Diet (Heart Healthy) Procedures Procedures Performed: biventricular permanent pacemaker with the LV lead over the His bundle region with peripheral venogram and unsuccessful AVN ablation under fluroscopic guidance Pending Studies Studies pending at discharge: no Laboratory Results Hemoglobin A1c Test 01/01/18 00:31 Range/Units Estimated Average Glucose 114 mg/dl Hemoglobin A1c 5.6 4.5-5.6 % Medical Emergencies . Who to Call and When: Medical Emergencies: If at any time you feel your situation is an emergency, please call 911 immediately. . Non-Emergent Contact Non-Emergency issues call your: Imaging Analyst . . "Provider Documentation" section prepared by Emily Dinh. .
[2018-02-23 08:27] LABS: INR 1.9 (0.9-1.1)
[2018-02-23 08:29] VITALS: BP 113/66; PULSE 76; TEMP 36.6; O2SAT 96
--- NOTE | 2018-02-23 08:52 | DIAGNOSTIC IMAGING REPORT ---
CHEST 2 VIEWS ROUTINE CLINICAL HISTORY: Chest x-ray status post pacemaker placement COMPARISON STUDY: No previous studies for comparison. FINDINGS: The chest has an emphysematous configuration. There is no focal pulmonary consolidation. There is a left subclavian central venous pacemaker with 3 leads. There is no pneumothorax. There is no failure. There are no pleural effusions.[ There is a nonspecific 5 mm right upper lung zone opacity. This is of doubtful clinical significance as no pulmonary masses were visualized in this location on a recent CT scan performed January 01 2018 IMPRESSION: 1. No evidence of pneumothorax status post placement of a left subclavian central venous pacemaker with 3 leads 2. Emphysema Electronically signed by: Koffi Santana M.D. 02/23/2018 6:32 AM Dictated Date/Time: 02/23/2018 6:29 AM
[2018-02-23] MEDS ORDERED: CHOLECALCIFEROL 1000 INTER.UNIT TAB PO SCH (09:00)
[2018-02-23] MEDS ORDERED: TIOTROPIUM BROMIDE 5 PUFF/90 MCG INH INH SCH (09:00)
[2018-02-23] MEDS ORDERED: ROFLUMILAST 500 MCG TAB PO SCH (09:00)
[2018-02-23] MEDS ORDERED: TAMSULOSIN HCL 0.4 MG CAP PO SCH (09:00)
[2018-02-23] MEDS ORDERED: CEFUROXIME AXETIL 500 MG TAB PO SCH (09:00)
[2018-02-23] MEDS ORDERED: PANTOprazole SOD 40 MG TAB PO SCH (09:00)
--- NOTE | 2018-02-28 10:43 | Discharge Summary ---
Discharge Summary Date of Service February 28, 2018. Discharge Summary Admission Date: Feb 22, 2018 at 10:18 Discharge Date: Feb 23, 2018 Discharge Disposition: Home Principal Diagnosis: pAF with RVR despite AVN blockers Secondary Diagnoses/Problems: COPD severe on supplemental oxygen HTN ST MAT GERD Procedures: Biventricular pacemaker implant with the LV lead placed over the His bundle; peripheral venogram; unsuccessful AVN ablation Medication Reconciliation New Medications: Oxycodone/Acetaminophen 5MG/325MG (Percocet 5MG/325MG) Tab 1 TABLET PO Q4H PRN for Pain for 14 Days, #30 TAB Continued Medications: Acetaminophen Tab (Tylenol) 325 Mg Tab 650 MG PO Q4H PRN for RN, TAB FEVER/PAIN Albuterol Sulfate (Albuterol Sulfate) 1.25 Mg/3 Ml Neb 3 ML NEB QID Albuterol Sulfate (Proair Respiclick) 108 Mcg/Act Aer 2 PUFFS INH Q4H PRN for SOB/Wheezing Brimonidine Tartrate Oph (Alphagan P Oph) 0.15 % Hanane 1 DROP OPB TID Budesonide/Formoterol Fumarate (Symbicort 160-4.5 Mcg/Act) 60 Puffs/Inhaler Aero 2 PUFFS INH BID Cholecalciferol (Vitamin D3) 2,000 Unit Cap 4000 UNITS PO QAM Dorzolamide Hcl (Trusopt Oph) 2 % Hanane 1 DROPS OPB TID Fluconazole (Diflucan) 200 Mg Tab 200 MG PO qmon, TAB Latanoprost (Xalatan 0.005% Oph Hanane) 0.005 % Hanane 1 DROPS OPB HS Loperamide Hcl (Loperamide A-D) 2 Mg Tab 2 MG PO Q4H PRN for N Losartan Potassium (Cozaar) 25 Mg Tab 25 MG PO BID, TAB Magnesium Hydroxide (Milk of Magnesia 400 mg/5Ml) 1 Li Li 30 ML PO Q48HRS Pancrelipase (Lipase-Protease- (Pancreaze) 1 Cap Cap 2 CAP PO AC Pantoprazole (Protonix) 40 Mg Tab 40 MG PO QAM Potassium Chloride (Klor-Con Ext Rel) 8 Meq Tabcr 16 MEQ PO BID, CAP Prednisone (Prednisone) 20 Mg Tab 20 MG PO QAM, TAB TAPERING DOSE Roflumilast (Daliresp) 500 Mcg Tab 1 TAB PO QAM for 30 Days, #30 TAB 5 Refills Tamsulosin Hcl (Flomax) 0.4 Mg Cap 0.4 MG PO QAM, CAP Tiotropium [place] (Spiriva Respimat) 1.25 Mcg/Act Aer 2 PUFF INH QAM, INHALER Trazodone Hcl (Trazodone) 50 Mg Tab 25 MG PO HS, TAB Warfarin Sod (Jantoven) 2.5 Mg Tab 2.5 MG PO QPM, TAB [ceftin] () 500 MG PO QAM [Dulcolox Supp] () 10 MG RE Q48H PRN for RN [Terbinafine Cr 1%] () 1 DOSE TOP BID [Verapamil Hcl Er] () 300 MG PO HS Admission Information Physical Exam (per Admitting): aaox3, NAD Supple, No JVD Tachycardiac S1/S2, no murmur b/l Rhonici soft NT/ND No edema b/l No focal deficits Skin intact Hospital Course Pt admitted for elective permanent pacemaker implant in preparation for AVN ablation due to persistent ST and pAF with RVR despite AVN blockers and diastolic HF. Pt underwent pacemaker insertion without any problems-the LV lead is over the His bundle region. However the AVN ablation was unsuccessful and due to the length of the procedure it was decided to bring him back to finish the AVN ablation with 3D mapping at a future date. Pt monitored overnight and discharged home. Total time spent on discharge = > 30 minutes This includes examination of the patient, discharge planning, medication reconciliation, and communication with other providers. Discharge Instructions ACTIVITY RECOMMENDATIONS: * Do not raise affected arm over head for 4 weeks. SPECIAL CARE INSTRUCTIONS: * If bleeding occurs, apply direct pressure to area for 5 minutes. * Call your doctor if you have severe pain, fever, drainage or bleeding at site. * Keep dry for 24 hours. * Keep any scheduled doctor's appointment. * Implant Card - hand held device with website information given. SKIN IRRITATION: * You may experience some redness and/or swelling in the area where radiation was administered. If any skin irritation occurs, please contact your family physician. FOLLOW UP VISIT: Keep any scheduled doctor appointments.
--- NOTE | 2018-02-28 10:49 | Cardiology Follow-Up ---
Subjective Subjective Date of Service: February 23, 2018. Pt evaluation today including: conversation w/ patient, physical exam, chart review, lab review, review of studies Pain: some discomfort at the incision site Problem List Medical Problems: (1) Acute respiratory failure with hypoxia Status: Acute (2) COPD exacerbation Status: Acute Review of Systems Constitutional: + weakness Respiratory: + cough, + shortness of breath, + dyspnea on exertion Cardiac: No chest pain, No edema, No palpitations Abdomen: No nausea, No vomiting, No diarrhea Psychiatric: + anxiety Skin: No rash Objective Vital Signs Last Vital Signs Documentation Date Time Temp Pulse Resp B/P (MAP) Pulse Ox O2 Delivery O2 Flow Rate FiO2 02/23/18 08:29 36.6 76 18 96 Nasal Cannula 02/23/18 08:00 2.0 02/23/18 03:54 113/66 (82) Physical Exam: General Appearance: WD/WN, no apparent distress Eyes: bilateral eyes PERRL, bilateral eyes EOMI Neck: supple, no JVD Respiratory/Chest: no respiratory distress, + rhonchi Cardiovascular: regular rate, rhythm, no edema, no murmur, + normal peripheral pulses Abdomen: non tender, soft Extremities: no pedal edema Neurologic/Psychiatric: alert, oriented x 3 Skin: normal color (left pectoral incision dressing in place; no hematoma; mild ecchymosis; right groin no hematoma), warm/dry Assessment and Plan Impression: 1. Paroxysmal atrial fibrillation with RVR despite AVN blockers s/p BiV pacemaker with LV lead over His bundle in preparation for AVN ablation 2. Persistent Sinus tachycardia 3. HTN 4. Severe COPD on supplemental oxygen 5. GERD 6. MAT Plan: -Ok for discharge home today -Continue verapamil and coumadin -Will arrange for AVN ablation in 3 weeks will have 3D mapping available for the procedure -Device and wound check in 1 week -Pt not allowed to lift the left elbow over the left shoulder for 1 month Medications: Medications Administered Medications (Trade) Dose Ordered Sig/Luis Miguel Route Start Time Stop Time Status Last Admin Dose Admin Albuterol/ Ipratropium (Duoneb) 3 ml NOW ONCE INH 02/22/18 07:45 02/22/18 07:46 DC 02/22/18 07:45 3 ML Acetaminophen/ Codeine Phosphate (Tylenol w/ Codeine #3 Tab) 1 tab for pain scale 4-6 2 t... Q4H PRN PO 02/22/18 13:45 02/23/18 11:17 DC 02/23/18 09:23 2 TAB Brimonidine Tartrate (Alphagan-P 0.15% Oph Soln) 1 drops TID OPB 02/22/18 14:00 02/23/18 11:17 DC 02/23/18 07:59 1 DROPS Budesonide/ Formoterol Fumarate (Symbicort 160/ 4.5 Inh) 2 puffs BID INH 02/22/18 21:00 02/23/18 11:17 DC 02/23/18 07:58 2 PUFFS Dorzolamide HCl (Trusopt 2% Oph Soln) 1 drops TID OPB 02/22/18 14:00 02/23/18 11:17 DC 02/23/18 07:59 1 DROPS Latanoprost (Xalatan Oph Soln) 1 drops HS OPB 02/22/18 21:00 02/23/18 11:17 DC 02/22/18 20:53 1 DROPS Losartan Potassium (coZAAR TAB) 25 mg BID PO 02/22/18 21:00 02/23/18 11:17 DC 02/23/18 08:00 25 MG Amylase/Lipase/ Protease (Pancreaze (Lipase 10,500U) Cap) 2 cap AC PO 02/22/18 16:15 02/23/18 11:17 DC 02/22/18 16:02 2 CAP Pantoprazole Sodium (Protonix Tab) 40 mg QAM PO 02/23/18 09:00 02/23/18 11:17 DC 02/23/18 08:01 40 MG Prednisone (PredniSONE TAB) 10 mg QAM PO 02/23/18 09:00 02/23/18 11:17 DC 02/23/18 08:01 10 MG Roflumilast (Daliresp Tab) 500 mcg QAM PO 02/23/18 09:00 02/23/18 11:17 DC 02/23/18 08:01 500 MCG Tamsulosin HCl (Flomax Cap) 0.4 mg QAM PO 02/23/18 09:00 02/23/18 11:17 DC 02/23/18 08:01 0.4 MG Trazodone HCl (Desyrel Tab) 25 mg HS PO 02/22/18 21:00 02/23/18 11:17 DC 02/22/18 20:56 25 MG Warfarin Sodium (Coumadin Tab) 2.5 mg QPM PO 02/22/18 21:00 02/23/18 11:17 DC 02/22/18 20:55 2.5 MG Cholecalciferol (Vitamin D Tab) 4,000 inter.unit QAM PO 02/23/18 09:00 02/23/18 11:17 DC 02/23/18 08:01 4,000 INTER.UNIT Tiotropium [place] (Spiriva Handihaler Inhaler) 1 puff QAM INH 02/23/18 09:00 02/23/18 11:17 DC 02/23/18 07:58 1 PUFF Cefuroxime Axetil (Ceftin Tab) 500 mg QAM PO 02/23/18 09:00 02/23/18 11:17 DC 02/23/18 08:01 500 MG Verapamil HCl ([place]-Sr Tab) 240 mg HS PO 02/22/18 21:00 02/23/18 11:17 DC 02/22/18 20:54 240 MG Morphine Sulfate (MoRPHine SULFATE INJ) 0.5 mg 1915 ONCE IV 02/22/18 19:15 02/22/18 19:16 DC 02/22/18 19:20 0.5 MG Lab Results: Telemetry: SR/ST ECG: Atrial sensed [employer] CXR: No PTX Leads in position Pacemaker Interrogation Today: Normal and stable lead testing from implant
--- NOTE | 2018-02-28 13:13 | OPERATIVE REPORT ---
DATE OF OPERATION: 02/22/2018 PREOPERATIVE DIAGNOSIS: Paroxysmal atrial fibrillation with rapid ventricular response, not responding to AV sean blockers, persistent sinus tachycardia. POSTOPERATIVE DIAGNOSIS: Paroxysmal atrial fibrillation with rapid ventricular response, not responding to AV sean blockers, persistent sinus tachycardia. PROCEDURES: Permanent biventricular pacemaker with the LV lead positioned over the His bundle region under fluoroscopic guidance along with a peripheral venogram and unsuccessful AV sean ablation, His bundle electrogram mapping and recording. SURGEON: Emily Dinh DO DOCUMENTATION NURSE: None. ANESTHESIA: Monitored anesthetic care administered via anesthesiology. Please refer to their notes for complete details. IV FLUIDS: 600 mL. ANTIBIOTICS: 2 g of Ancef. CONTRAST: 10 mL. BLOOD LOSS: Less than 20 mL. COMPLICATIONS: None. CONDITION: Stable. URINE OUTPUT: Not applicable. SPECIMENS: None. FINDINGS: See below. DRAINS: None. INDICATIONS: This is a 72-year-old gentleman who has severe COPD, end-stage, on supplemental oxygen. He was recently hospitalized due to paroxysmal atrial fibrillation with rapid ventricular response and continues to have episodes despite high-dose verapamil, unable to give beta blockers due to severe COPD. He also has persistent sinus tachycardia despite the verapamil leaving him into sometimes in acute diastolic heart failure, hypertension, gastroesophageal reflux disease. Due to the persistent sinus tachycardia and paroxysmal atrial fibrillation with rapid ventricular response, he was recommended a permanent pacemaker followed then by an AV sean ablation. CONSENT: Consent was obtained prior to the patient going into the electrophysiology lab. The patient was informed of risks, benefits, and alternatives to the procedure. Risks include but not limited to sudden cardiac , cardiac arrhythmias, cerebrovascular accident, myocardial infarction, injury to the blood vessels, chamber of the heart, the lungs, bleeding, and infection. The patient understood these risks and agreed to the procedure as planned. Informed consent was obtained. DESCRIPTION OF THE PROCEDURE: The patient was brought into the electrophysiology lab in a fasting state. He was connected to continuous cardiac monitoring. A timeout was performed to ensure the patient's identity and procedure correctly. The patient was prepped and draped over the left infraclavicular space as well as the bilateral groins in normal surgical standard fashion. Monitored conscious sedation was given throughout the procedure via anesthesiology. Please refer to their notes for complete details. [place] precautions were maintained throughout the procedure. 10 mL of 1% lidocaine were given in the right femoral groin and then using the modified Seldinger technique, an 8-Cymro sheath was inserted without any problems. A 4-mm DF curve Biosense ablation catheter was placed up through the right femoral vein and we took a map and located where the His was and a fluoroscopic picture of this was taken. Then the ablation catheter was removed temporarily while we set up to the pacer, but we kept that area sterilely covered with a towel. I then went up to the left pectoral region and gave 10 mL of 1% lidocaine-bupivacaine mixture in the left deltopectoral groove. An incision was made in left deltopectoral groove. Blunt dissection performed down to identify the cephalic vein. The cephalic vein was isolated using 0 silk ties. Then a peripheral venogram using 10 mL of IV contrast diluted in 10 mL of saline followed by 20 mL flush was performed to identify the axillary vein. Venous axillary access was obtained and a guidewire was inserted without any resistance. Then I went back to the cephalic vein and nicked it with an 11 blade and a guidewire was inserted without any resistance. A 7-Cymro sheath was inserted over the retained guidewire and the dilator was removed and a second guidewire was inserted to allow for retained venous access. A 7-Cymro sheath was flushed and the dilator was reinserted over it and then it was reinserted over one of the guidewires through the cephalic vein. The guidewire and dilator were removed. The right ventricular lead was then advanced into the right ventricle and positioned into the right ventricular apex under fluoroscopic guidance. There was adequate pacing and sensing thresholds and no diaphragmatic stimulation with high output pacing. The 7-Cymro sheath was peeled away and the lead was fixated to pectoralis muscle using 0 silk suture. A second 7-Cymro sheath was inserted over the retained guidewire without any resistance. The guidewire and dilator were removed. The right atrial pacing lead was then advanced into right atrium and positioned into the right atrial appendage under fluoroscopic guidance. There was adequate pacing and sensing thresholds and no diaphragmatic stimulation with high output pacing. The 7-Cymro sheath was peeled away and the lead was fixated to pectoralis muscle using 0 silk suture. The 7-Cymro sheath was then inserted over the guidewire through the axillary vein without any resistance. The guidewire and dilator were removed. Then the His sheath was inserted in the right atrium over a guidewire. The guidewire and dilator were removed. Then the His lead was advanced into the His sheath and we did unipolar electrogram mapping. Once we found adequate nonselective since we would be doing an AV sean ablation His bundle capture, the lead was screwed into the heart. The sheath was pulled back and ultimately slit under fluoroscopic guidance. There was adequate pacing and sensing threshold. The pacemaker pocket was created over the pectoralis muscle within the pectoralis fascia using blunt dissection. The pocket was flushed with copious amounts of bacitracin saline wash and inspected for hemostasis. There was some back oozing at the cephalic site, so I did do a pursestring using a CT Vicryl, 2-0 Vicryl, then the leads were attached to the pulse generator making sure that the pins were in appropriate position, passed set screws and set screws were all tightened. The pulse generator was placed in the pocket, making sure that the leads were lying flat beneath the device. I went down to the femoral groin area and reinserted the ablation catheter and set up to do the AV sean ablation. I never had the best stability and I switched out the catheter for an FJ as well as even an SRO sheath with an acute angle of how to get in over the His bundle from below and the catheter kept bumping into the CS, there was one point where I finally started to create AV block, however, then the last position of the catheter moved and the His bundle lead was dislodged during this, so I ultimately stopped doing the AV sean ablation with a plan of bringing him back once the leads matured with 3D mapping. Since the His bundle lead had dislodged, I changed my gloves and a set back up to do to reposition the His bundle. I once again obtained axillary venous access and the guidewire was inserted without resistance. A 7-Cymro sheath was inserted over that and then the His bundle sheath was inserted followed then by the His lead which was nicely extracted from the body. We once again did unipolar electrogram mapping of the His bundle region, I got good signals again and adequate pacing and sensing thresholds. The His sheath was then slit under fluoroscopic guidance and sutured to the pectoralis muscle using 0 silk suture. It was reconnected to the generator, I placed the generator at this time in an antibiotic pouch and then the incision was closed in a 3-layer fashion using 2-0 Vicryl interrupted suture followed by a 3-0 Vicryl suture followed by a 4-0 Monocryl running stitch and tied it. Steri-Strips and Tegaderm were applied. The 8-Cymro sheath was removed from the body and manual compression was used to establish hemostasis in the right femoral groin. EQUIPMENT: 1. Pulse generator is a [employer] Natal[employer] CRTP MRI SureScan W1TR02, serial number [id number]. 2. Right atrial lead, Medtronic 5076-52 cm, serial number [id number]. 3. Right ventricular lead, Medtronic 5076-58 cm, serial number [id number]. 4. The His bundle lead is a Medtronic 3830-69 cm, serial number [id number]. INTRAOPERATIVE TESTIN. Right atrial lead: P-wave 3 millivolts, impedance 540 ohms, threshold 0.5 volts at 1.1 milliamps. 2. Right ventricular lead: R-wave 7.6 millivolts, impedance 729 ohms, threshold 0.6 volts at 0.8 milliamps. 3. His bundle lead: Unipolar LV tip to can, R-waves are 5.4 millivolts, impedance 551 ohms, threshold 2 volts at 3.9 milliamps. FINAL MEASUREMENTS THROUGH THE DEVICE: 1. Right atrial lead: P-waves 4 millivolts, impedance 456 ohms, threshold 0.5 volts at 0.4 milliseconds. 2. Right ventricular lead: R-wave 5.2 millivolts, impedance 513 ohms, threshold 0.5 volts at 0.4 milliseconds. 3. His lead program: Bipolar, impedance 418 ohms, threshold 1 volt at 1 millisecond. FINAL PARAMETERS: DDDR 60/130, right atrial amplitude 3.5 volts, pulse width 0.4 milliseconds, sensitivity 0.3 millivolts. Right ventricular amplitude 3.5 volts, pulse was 0.4 milliseconds, sensitivity 0.9 millivolts. His bundle amplitude 3.5 volts, pulse was 1 millisecond. IMPRESSION: 1. Successful implantation of a biventricular permanent pacemaker with the left ventricular lead being over the His bundle region with peripheral venogram under fluoroscopic guidance in preparation for an AV sean ablation. 2. Unsuccessful AV sean ablation. PLAN: Monitor the patient overnight, 12-lead ECG, chest x-ray. He is not allowed to lift the left elbow over left shoulder for 1 month. He cannot lift more than 10 pounds with the left arm for 2 weeks. He can shower tomorrow, let water run over the incision, and he should follow up in our [place] office and he agrees with this. I attest to the content of the Intraoperative Record and any orders documented therein. Any exception s are noted below.
== END 2018-02-23 11:15 | disposition home or self-care (01) ==
LOC: C.ACU 06:25 → C.2T 10:18 → ENRESERV 11:27
PROVIDERS: ADMIT Internal Medicine; ATTEND Internal Medicine
DX: I34.0 Nonrheumatic mitral (valve) insufficiency (principal); I48.2 Chronic atrial fibrillation; J44.9 Chronic obstructive pulmonary disease, unspecified; Z79.01 Long term (current) use of anticoagulants; Z99.81 Dependence on supplemental oxygen; K21.9 Gastro-esophageal reflux disease without esophagitis; Z82.49 Family history of ischemic heart disease and other diseases of the circulatory system; Z90.89 Acquired absence of other organs; Z87.891 Personal history of nicotine dependence; Z88.2 Allergy status to sulfonamides; I25.2 Old myocardial infarction; I25.10 Atherosclerotic heart disease of native coronary artery without angina pectoris; I10 Essential (primary) hypertension; E78.5 Hyperlipidemia, unspecified

== ENCOUNTER → 2018-02-24 | Outpatient (CLI) | payer MEDICARE ==
[~2018-02-24] MED LIST changes: -DOXY100C76 PO; -DOXYCYCLINE PO; -LACT1TAB4 PO; -LACTATED RINGER'S 1000ML 1,000 ML IV SCH; +OXYC-57 PO; +ceftin PO
== END ==
LOC: C.LABFOXDH 07:54
PROVIDERS: ATTEND Internal Medicine Hospice and Palliative Medicine
DX: I48.0 Paroxysmal atrial fibrillation (principal)

== ENCOUNTER → 2018-02-28 | Outpatient (CLI) | payer MEDICARE ==
[2018-02-28 09:41] LABS: INR 2.7 (0.9-1.1)
[2018-02-28 09:49] LABS: BLOOD UREA NITROGEN 29 mg/dl (7-18); CALCIUM 8.9 mg/dl (8.5-10.1); CARBON DIOXIDE 29 mmol/L (21-32); CREATININE 0.65 mg/dl (0.60-1.40); GLUCOSE 83 mg/dl (70-99); POTASSIUM 4.1 mmol/L (3.5-5.1); SODIUM 137 mmol/L (136-145)
== END | disposition home or self-care (01) ==
LOC: C.LABFOXDH 09:20
PROVIDERS: ATTEND Internal Medicine
DX: I48.91 Unspecified atrial fibrillation (principal)

== ENCOUNTER → 2018-03-07 | Outpatient (CLI) | payer MEDICARE ==
[2018-03-07 09:52] LABS: INR 2.3 (0.9-1.1)
== END | disposition home or self-care (01) ==
LOC: C.LABFOXDH 09:14
PROVIDERS: ATTEND Internal Medicine
DX: I48.0 Paroxysmal atrial fibrillation (principal)

== ENCOUNTER → 2018-03-14 | Outpatient (CLI) | payer MEDICARE ==
[~2018-03-14] MED LIST changes: -DORZ2SOL17 OPB; +DORZ2SOL19 OPB; -OXYC-57 PO
[2018-03-14 09:25] LABS: BASO % 0.5 %; BASO ABS # 0.02 K/uL (0-0.2); EOS % 8.5 %; EOS ABS # 0.35 K/uL (0-0.5); HEMATOCRIT 31.3 % (42-52); HEMOGLOBIN 10.1 g/dL (14.0-18.0); IG# 0.02 K/uL (0.00-0.02); LYMPH % 15.9 %; LYMPH ABS # 0.66 K/uL (1.2-3.4); MEAN CELL VOLUME 92.9 fL (80-100); MEAN CORPUSCULAR HGB CONC 32.3 g/dl (32-36); MEAN PLATELET VOLUME 8.5 fL (7.4-10.4); MONO % 12.1 %; NEUT % 62.5 %; NEUT ABS # 2.59 K/uL (1.4-6.5); PLATELET COUNT 331 K/uL (130-400); RED CELL DISTRIBUTION WIDTH CV 13.8 % (11.5-14.5); WHITE BLOOD COUNT 4.14 K/uL (4.8-10.8)
[2018-03-14 09:39] LABS: INR 3.2 (0.9-1.1)
[2018-03-14 10:49] LABS: BLOOD UREA NITROGEN 16 mg/dl (7-18); CREATININE 0.63 mg/dl (0.60-1.40); GLUCOSE 80 mg/dl (70-99); SODIUM 140 mmol/L (136-145)
[2018-03-14 10:50] LABS: ALBUMIN 2.9 gm/dl (3.4-5.0); ALKALINE PHOSPHATASE 69 U/L (45-117); ALT/SGPT 65 U/L (12-78); AST/SGOT 32 U/L (15-37); CALCIUM 8.7 mg/dl (8.5-10.1); CARBON DIOXIDE 29 mmol/L (21-32); TOTAL PROTEIN 5.6 gm/dl (6.4-8.2)
== END | disposition home or self-care (01) ==
LOC: C.LABFOXDH 08:51
PROVIDERS: ATTEND Internal Medicine
DX: R79.1 Abnormal coagulation profile (principal)

== ENCOUNTER 2018-11-25 09:18 | Inpatient (IN) ==
[2018-11-25] MEDS ORDERED: diazePAM 2 MG TABLET PO ONE (09:52)
[2018-11-25] MEDS ORDERED: GABAPENTIN 100 MG CAP PO STA ×2 (09:52→12:24)
[2018-11-25] MEDS ORDERED: DICLOFENAC SOD 1% GEL 100 GM TUBE EXT STA (09:52)
[2018-11-25] MEDS ORDERED: ACETAMINOPHEN 500 MG TAB PO STA (09:52)
--- NOTE | 2018-11-25 10:35 | CT Scan Report ---
CT hip LT wo con HISTORY: 73 years-old Male acute pain acute left-sided hip pain COMPARISON: KUB 01/09/2018 TECHNIQUE: Multiple axial CT images of the left hip were obtained without the use of IV contrast. A d ose lowering technique was used consistent with the principals of FRANCISCO JAVIER. FINDINGS: Extensive calcification about the left iliac and femoral arteries. Mild dilation about the common fem oral artery measures up to 1.2 cm transversely. Partially imaged left inguinal hernia. Prostamegaly w ith urinary bladder wall thickening. Extensive colonic diverticulosis with suggested constipation. Soft tissues and musculature about the left hip and thigh appear unremarkable. No large joint effusio n. The imaged left hemipelvis appears intact. There is mild to moderate osteoarthritis about the left femoral acetabular joint. No acute fracture, dislocation or avascular necrosis. The imaged left femu r appears intact. IMPRESSION: 1. No acute fracture or dislocation. 2. 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 The above report was generated using voice recognition software. It may contain grammatical, syntax o r spelling errors. Electronically signed by: Brooks Marks M.D. 11/25/2018 10:34 AM
--- NOTE | 2018-11-25 10:55 | CT Scan Report ---
CT lumbar spine wo con HISTORY: 73 years-old Male lumbar radiculopathy acute low back pain without reported trauma COMPARISON: CT left hip of same day, CTA of the chest 01/01/2018 TECHNIQUE: Multiple axial CT images of the lumbar spine were obtained without the use of IV contrast. A dose lowering technique was used consistent with the principals of FRANCISCO JAVIER. FINDINGS: Emphysematous changes of the imaged lung bases with associated bronchial wall thickening. Mild bibasi lar subsegmental atelectasis/scarring. Renal vascular calcifications are present bilaterally. Extensi ve calcification of the abdominal aorta and iliac arteries. Fusiform ectasia of the abdominal aorta m easures up to 2.5 cm in transverse dimension. No adenopathy. Extensive colonic diverticulosis with mo derate volume of formed colonic stool suggestive of constipation. Paraspinal musculature appears unre markable. Demineralized appearance of the bones. No acute fracture or subluxation identified. Moderate to large Schmorl's node about the superior endplate L5, age-indeterminate however appears chronic. Moderate i ntervertebral disc space narrowing at T12/L1. 30% anterior endplate compression deformity of the T11 vertebral body is unchanged from comparison CTA of the chest. Moderate multilevel facet arthrosis wit h mild multilevel spondylitic spurring. Image sacrum appears intact. Evaluation of the central canal and neuroforamina is better assessed by MRI. No high-grade central canal stenosis identified. Circumf erential annular disc bulge with ligament of flavum thickening and facet arthrosis at L4-L5 causes mi ld to moderate central canal and mild to moderate bilateral foraminal narrowing. Mild posterior inter vertebral disc space narrowing with spondylitic spurring and posterior annular disc bulge L5-S1. No a ssociated significant central canal or foraminal narrowing. IMPRESSION: 1. No acute fracture or subluxation of the lumbar spine identified. 2. Remote appearing Schmorl's node about the superior endplate L5. 3. Remote 30% anterior endplate compression deformity of the T11 vertebral body. 4. Circumferential annular disc bulge with ligamentum flavum thickening and facet arthrosis at L4-L5 results in mild to moderate central canal and mild to moderate bilateral foraminal narrowing. 5. Additional findings as above. The above report was generated using voice recognition software. It may contain grammatical, syntax o r spelling errors. Electronically signed by: Brooks Marks M.D. 11/25/2018 10:52 AM
[2018-11-25] MEDS ORDERED: OXYCODONE HCL IR 5 MG TAB (IMMEDIATE RELEASE) PO STA (11:31)
[2018-11-25] MEDS ORDERED: methylPREDNISolone 4 MG TAB PO ONE (12:24)
[2018-11-25] MEDS ORDERED: MoRPHine SULFATE 4 MG/ML 1 ML CARP\\VIAL IV STA (13:25)
[2018-11-25 13:51] LABS: Hematocrit (blood only) 38.3 % (42-52); Hemoglobin 12.7 g/dL (14.0-18.0); Mean Corpuscular Hgb Conc 33.2 g/dL (32-36); Mean Corpuscular Volume 93.4 fL (80-100); Mean Platelet Volume 8.8 fL (7.4-10.4); Platelet Count 224 K/uL (130-400); RDW Coefficient of Variation 12.4 % (11.5-14.5); RDW Standard Deviation 42.1 fL (36.4-46.3); White Blood Count 3.89 K/uL (4.8-10.8)
[2018-11-25 14:01] LABS: Prothrombin Time 19.7 Seconds (9.0-12.0)
[2018-11-25 14:07] LABS: Albumin Level 3.6 gm/dl (3.4-5.0); Calcium 9.1 mg/dl (8.5-10.1); Creatinine Clr Calc Pharmacy 49.7 ml/min; Est GFR (Non-African American) 81.1; Potassium 3.8 mmol/L (3.5-5.1)
[2018-11-25 14:10] LABS: Albumin Globulin Ratio 1.2 (0.9-2); Bilirubin,Total 0.5 mg/dl (0.2-1); Total Protein 6.6 gm/dl (6.4-8.2)
--- NOTE | 2018-11-25 14:27 | History & Physical Report ---
Date of Service November 25, 2018 Assessment & Plan (1) Acute pain of left hip: On examination pain located SI joint and associated L paraspinal musculature, also with pain located L greater trochanter, piriformis region as well as IT Band. Pain most definitely MSK in origin. DDX including but not limited to: Lumbar radiculopathy, spinal stenosis, Sacroilitis, Piriformis syndrome, greater trochanter bursitis. -admit to med/surg -consult PT/OT -control pain -place on prednisone taper for anti inflammatory -Ice PRN -if no improvement in symptoms would consult ortho, consider further imaging (2) Low back pain: -plan as above (3) COPD (chronic obstructive pulmonary disease): -no acute exacerbation -continue O2 continuously, neb treatment prn, daliresp, spiriva (4) Chronic respiratory failure with hypoxia: -continue 2L O2 (5) PAF (paroxysmal atrial fibrillation): -rate and rhythm pacemaker -warfarin for anticoagulation, home regimen 5mg MWF, 2.5mg all other days -INR 2.0 today (6) HTN (hypertension): -blood pressure controlled on losartan (7) Chronic anemia: -H/H stable at 12.7/38.3 -normocytic/normchromic -likely in setting of chronic disease (8) Glaucoma: -continue eye gtts (9) GERD (gastroesophageal reflux disease): -continue PPI (10) Cardiac pacemaker in situ: (11) DVT prophylaxis: -continue warfarin Disposition: to be determined Follow up: PCP Dr. Aguilar upon discharge Patient was seen in collaboration with Dr. Llanos, please see addendum Starting 11/26 patient will be see by Dr. Harper History of Present Illness Chief Complaint: LLE pain x 1 day. Primary Care Provider: Conner Aguilar, This is a 73 year old M with significant PMH of chronic hypoxic resp failure due to severe COPD on 2L NC, PAF on warfarin, s/p PPM, HTN, Glaucoma, Gerd who presents to [facility] secondary to LLE pain x 1 day. No injury or trauma. Pain started yesterday, originating in Left buttock and radiating down lateral/ posterior L to knee. Describes pain and severe, 10/10, worse with sitting and movement, nothing makes better. Had never had in the past. No known back injury or surgery. Tried APAP, oxycodone and heat at home with out relief. Difficulty with ambulation in regards to pain. Denies recent illness, f/c/s, chest pain, n/v/d, abdominal pain, change in bowel or urinary habits. +chronic SOB on O2 and nebs bid. Occasional productive cough with white sputum. Allergies Allergy/AdvReac Type Severity Reaction Status Date / Time chlorhexidine Allergy Severe itchy red Verified 11/25/18 10:00 skin Sulfa (Sulfonamide Allergy Intermediate Rash Verified 11/25/18 10:00 Antibiotics) ("SULFA") Lactose. Allergy Unknown Lactose Uncoded 11/25/18 10:00 intolerant. Home Medications Home Medications Medication Instructions Recorded Confirmed Type Lactobacillus acidoph-L.bulgar 1 tab PO DAILY 11/25/18 11/25/18 History [Floranex] acetaminophen 325 mg PO Q6H PRN 11/25/18 11/25/18 History albuterol sulfate 1.25 mg INHALATION TID 11/25/18 11/25/18 History albuterol sulfate 2 puff INHALATION Q4H PRN 11/25/18 11/25/18 History brimonidine 1 drp OPHTHALMIC (EYE) TID 11/25/18 11/25/18 History cholecalciferol (vitamin D3) 4,000 unit PO DAILY 11/25/18 11/25/18 History [Vitamin D3] docusate sodium 100 mg PO BID PRN 11/25/18 11/25/18 History dorzolamide 1 drp OPHTHALMIC (EYE) TID 11/25/18 11/25/18 History latanoprost 1 drp OPHTHALMIC (EYE) UD 11/25/18 11/25/18 History gakzwm-jwbyqncd-vcjblod [Creon] 1 cap PO TID 11/25/18 11/25/18 History loperamide 2 mg PO Q4H PRN 11/25/18 11/25/18 History losartan 25 mg PO BID 11/25/18 11/25/18 History oxycodone-acetaminophen 1 tab PO Q12H 11/25/18 11/25/18 History pantoprazole 40 mg PO DAILY 11/25/18 11/25/18 History potassium chloride 16 meq PO BID 11/25/18 11/25/18 History roflumilast 500 mcg PO DAILY 11/25/18 11/25/18 History tamsulosin 0.8 mg PO HS 11/25/18 11/25/18 History tiotropium bromide 1 puff INHALATION DAILY 11/25/18 11/25/18 History trazodone 50 mg PO HS 11/25/18 11/25/18 History warfarin 2.5 mg PO SUTUTHSA 11/25/18 11/25/18 History warfarin 5 mg PO MOWEFR 11/25/18 11/25/18 History Past Med/Surg History Medical History Glaucoma Cardiac pacemaker in situ GERD (gastroesophageal reflux disease) Vitamin D deficiency Chronic respiratory failure with hypoxia COPD (chronic obstructive pulmonary disease) Bronchitis HTN (hypertension) Respiratory failure, acute Hypotension PAF (paroxysmal atrial fibrillation) Surgical History History of appendectomy History of hernia repair History of cataract extraction Social History Current Living Situation: Alone Other Information That Helps Us Care for You: No Feels Safe at Home: Yes Safety Concerns: Feels Safe At This Time Smoking Status: Former smoker Cigarettes per Day: 45 pack yr history Hx Alcohol Use: No Hx Substance Use: Yes substance use type: prescription drug Substance Use Type Other:: narcotic agreement with PCP or percocet Beliefs That Will Affect Care: None Preferred Language: [place] Communication Ability: Effective Review of Systems All systems reviewed & are unremarkable except as noted in HPI & below Physical Exam 2 Vital Signs (Past 24 Hours): Last Vital Signs Temp 36.8 C 11/25/18 09:22 Pulse 89 11/25/18 12:39 Resp 16 11/25/18 12:39 BP 147/78 H 11/25/18 12:39 Pulse Ox 98 11/25/18 12:39 Physical Exam: Gen: Thin, elderly male, sitting up in bed, occasional wincing in pain, NAD, pleasant, conversing easily Head: Normocephalic, Atraumatic Eyes: Sclera normal, no conjunctival injection, PERRLA, EOMI ENT: Gross hearing intact, normal pharynx, mucous membranes moist Neck: supple, no adenopathy, No JVD, no bruit, Resp: Clear to auscultation b/l with distant breath sounds throughout, inspiratory wheeze and rhonchi noted, no rales. Normal insp/exp effort on 2L O2 via NC, no accessory muscle use CV: Regular rate, regular rhythm, no murmur, rub, gallop, or ectopy, pacer LACW Abd: +BS x 4, soft, nontender, nondistended Musculoskeletal: moves extremities active rom x 4, strength decreased LLE secondary to pain, +straight leg raise LLE, + kyphosis, pain to palpation SI joint, L sided paraspinal musculature extending in to piriformis region and greater trochanter, +2 patellar reflex b/l Extremities: No edema bilaterally Skin: warm, moist, no rash, negative turgor, cap refill < 2sec Neuro: Alert and oriented x 3, speech normal, good mood/affect, cran nerve 2-12 intact grossly : deferred Results & Data Laboratory Results Short CBC 11/25/18 Range/Units 13:42 WBC 3.89 L (4.8-10.8) K/uL Hgb 12.7 L (14.0-18.0) g/dL Hct 38.3 L (42-52) % Plt Count 224 (130-400) K/uL BMP 11/25/18 13:42 Sodium 138 Potassium 3.8 Chloride 102 Carbon Dioxide 30 BUN 20 H Creatinine 0.92 Glucose 122 H Calcium 9.1 Liver Function 11/25/18 Range/Units 13:42 Total Bilirubin 0.5 (0.2-1) mg/dl AST 20 (15-37) U/L ALT 27 (12-78) U/L Alkaline Phosphatase 91 (45-117) U/L Albumin 3.6 (3.4-5.0) gm/dl Diagnostic Findings Lumbar spine CT: IMPRESSION: 1. No acute fracture or subluxation of the lumbar spine identified. 2. Remote appearing Schmorl's node about the superior endplate L5. 3. Remote 30% anterior endplate compression deformity of the T11 vertebral body. 4. Circumferential annular disc bulge with ligamentum flavum thickening and facet arthrosis at L4-L5 results in mild to moderate central canal and mild to moderate bilateral foraminal narrowing. Hip CT: IMPRESSION: 1. No acute fracture or dislocation. 2. 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 Code Status & VTE Plan Code Status Full Code VTE Prophylaxis Plan VTE Prophylaxis will be ordered: Yes Supervising Physician Co-Signing Physician Notes I have seen and examined the patient and have discussed the case with the provider above. I agree with the assessment and plan as stated with the following exceptions. Spontaneous, nontruamatic onset of SI joint pain with radiation across the L buttock and down the outside of the L lateral hip and leg. IT band also painful to palpation. Broad differential at this time including but not limited to sacroiliitis, lumbar spinal stenosis with flare, piriformis syndrome, MSK pain of lower back with additional greater trochanteric bursitis. No feveers/chills to suggst infection. No h/o malignancy. No trauma or fracture seen on imaging. Neurologically intact, but painful to move. Cont supportive care efforts above. Viet, DO _ (1) Low back pain Back pain laterality: left Chronicity: acute Sciatica presence: unspecified whether sciatica present Qualified Code(s): M54.5 - Low back pain (2) COPD (chronic obstructive pulmonary disease) COPD type: unspecified COPD Qualified Code(s): J44.9 - Chronic obstructive pulmonary disease, unspecified (3) GERD (gastroesophageal reflux disease) Esophagitis presence: without esophagitis Qualified Code(s): K21.9 - Gastro- esophageal reflux disease without esophagitis (4) Glaucoma Glaucoma type: unspecified Laterality: unspecified laterality Qualified Code (s): H40.9 - Unspecified glaucoma (5) HTN (hypertension) Hypertension type: essential hypertension Qualified Code(s): I10 - Essential (primary) hypertension
[2018-11-25] MEDS ORDERED: ALBUTEROL HFA 8 GM INHALER INH PRN (16:00)
[2018-11-25] MEDS ORDERED: POLYETHYLENE (MIRALAX) 17 GM PACK PO PRN (16:00)
[2018-11-25] MEDS ORDERED: ACETAMINOPHEN 325 MG TAB PO PRN (16:00)
[2018-11-25] MEDS ORDERED: POTASSIUM CHLORIDE 10 MEQ TABCR PO SCH ×2 (16:00→21:00)
[2018-11-25] MEDS ORDERED: ALBUTEROL 0.083% NEBU SOLN 3 ML VIAL INH PRN (16:00)
[2018-11-25] MEDS: OXYCODONE HCL IR 5 MG TAB (IMMEDIATE RELEASE) PO PRN (16:06)
[2018-11-25] MEDS ORDERED: ALBUTEROL 0.5% NEB SOLN 2.5 MG/0.5 ML VIAL INH PRN (16:18)
[2018-11-25] MEDS: ACETAMINOPHEN 500 MG TAB PO SCH ×2 (17:20→23:39)
[2018-11-25] MEDS: BRIMONIDINE TARTRATE-P 0.15% 5 ML BTL OP SCH ×2 (17:22→20:33)
[2018-11-25] MEDS: DORZOLAMIDE HCL 2% OPH SOLN 10 ML BTL OP SCH ×2 (17:22→20:34)
[2018-11-25] MEDS: ROFLUMILAST 500 MCG TAB PO SCH (17:23)
[2018-11-25] MEDS: WARFARIN SOD 2.5 MG TAB PO SCH (17:24)
[2018-11-25] MEDS: PANTOprazole 40 MG TAB PO SCH (17:24)
[2018-11-25] MEDS: predniSONE 20 MG TAB PO SCH (17:25)
[2018-11-25] MEDS: TIOTROPIUM BROMIDE 5 PUFF/90 MCG INH INH SCH (17:25)
[2018-11-25] MEDS: LACTOBACILLUS ACIDOPHILUS (FLORANEX) TAB PO SCH (17:25)
[2018-11-25] MEDS: PANCREAZE (LIPASE 4,200U) CAP PO SCH (17:26)
[2018-11-25] MEDS: POTASSIUM CHLORIDE 10 MEQ TABCR PO SCH (20:32)
[2018-11-25] MEDS: TAMSULOSIN HCL 0.4 MG CAP PO SCH (20:33)
[2018-11-25] MEDS: TRAZODONE HCL 50 MG TAB PO SCH (20:33)
[2018-11-25] MEDS: LOSARTAN POTASSIUM 25 MG TAB PO SCH (20:33)
[2018-11-25] MEDS: LATANOPROST 0.005% OP SOLN 2.5 ML BTL OP SCH (20:34)
[2018-11-25 21:05] LABS: Appearance Urine Clear (Clear); Bilirubin Urine Negative (Negative); Color Urine Yellow; Glucose Urine UA Negative (Negative); Ketones Urine Negative (Negative); Leukocyte Esterase Urine Negative (Negative); Nitrite Urine Negative (Negative); Protein Urine Negative (Negative); Specific Gravity Urine 1.024 (1.000-1.030); Urobilinogen Urine Negative (Negative)
[2018-11-25] MEDS: MoRPHine SULFATE 4 MG/ML 1 ML CARP\\VIAL IV PRN (23:40)
[2018-11-26 06:07] LABS: Hematocrit (blood only) 36.1 % (42-52); Mean Corpuscular Hgb Conc 33.2 g/dL (32-36); Mean Corpuscular Volume 92.3 fL (80-100); Platelet Count 230 K/uL (130-400); RDW Coefficient of Variation 12.6 % (11.5-14.5); RDW Standard Deviation 42.5 fL (36.4-46.3); Red Blood Count 3.91 M/uL (4.7-6.1); White Blood Count 3.67 K/uL (4.8-10.8)
[2018-11-26 06:27] LABS: INR 2.9 (0.9-1.1); Prothrombin Time 27.4 Seconds (9.0-12.0)
[2018-11-26 06:46] LABS: BUN Creatinine Ratio 26.8 (10-20); Calcium 8.8 mg/dl (8.5-10.1); Creatinine Clr Calc Pharmacy 62.6 ml/min; Est GFR (African American) 105.2; Est GFR (Non-African American) 90.7; Potassium 4.3 mmol/L (3.5-5.1)
[2018-11-26] MEDS: OXYCODONE HCL IR 5 MG TAB (IMMEDIATE RELEASE) PO PRN ×4 (08:10→20:04)
[2018-11-26] MEDS: ACETAMINOPHEN 500 MG TAB PO SCH ×3 (08:11→23:16)
[2018-11-26] MEDS: LACTOBACILLUS ACIDOPHILUS (FLORANEX) TAB PO SCH (08:12)
[2018-11-26] MEDS: predniSONE 20 MG TAB PO SCH (08:12)
[2018-11-26] MEDS: POTASSIUM CHLORIDE 10 MEQ TABCR PO SCH ×2 (08:12→20:07)
[2018-11-26] MEDS: CHOLECALCIFEROL 1,000 UNITS TAB PO SCH (08:12)
[2018-11-26] MEDS: DORZOLAMIDE HCL 2% OPH SOLN 10 ML BTL OP SCH ×3 (08:13→20:05)
[2018-11-26] MEDS: PANTOprazole 40 MG TAB PO SCH (08:13)
[2018-11-26] MEDS: PANCREAZE (LIPASE 4,200U) CAP PO SCH ×3 (08:13→16:40)
[2018-11-26] MEDS: ROFLUMILAST 500 MCG TAB PO SCH (08:14)
[2018-11-26] MEDS: BRIMONIDINE TARTRATE-P 0.15% 5 ML BTL OP SCH ×3 (08:14→20:05)
[2018-11-26] MEDS: TIOTROPIUM BROMIDE 5 PUFF/90 MCG INH INH SCH (08:15)
[2018-11-26] MEDS: LOSARTAN POTASSIUM 25 MG TAB PO SCH ×2 (09:19→20:06)
--- NOTE | 2018-11-26 11:54 | Hospitalist Progress Note ---
Date of Service November 26, 2018 Assessment & Plan (1) Acute pain of left hip: On examination pain located SI joint and associated L paraspinal musculature, also with pain located L greater trochanter, piriformis region as well as IT Band. Pain most definitely MSK in origin. DDX including but not limited to: Lumbar radiculopathy, spinal stenosis, Sacroilitis, Piriformis syndrome, greater trochanter bursitis. -admit to med/surg -consult PT/OT -control pain -place on prednisone taper for anti inflammatory -Pain is worse with movement of the left hip joint and on ambulation -Localized to left hip and adjoining area of the buttock including greater trochanter -range of motion in the left hip is diminished due to pain -CT of the lumbar spine and pelvis noted -Or 3 evaluation requested (2) Low back pain: Has intractable back pain-lower lumbar region CT scan showed mild to moderate disc protrusion L4/L5 distribution Tenderness over the greater trochanteric bursa and adjoining area Hip movement is painful and restricted Has mild osteoarthritis involving the hip as well on imaging studies We will ask for an orthopedic evaluation (3) COPD (chronic obstructive pulmonary disease): -no acute exacerbation -continue O2 continuously, neb treatment prn, daliresp, spiriva (4) Chronic respiratory failure with hypoxia: -continue 2L O2 (5) PAF (paroxysmal atrial fibrillation): -rate and rhythm pacemaker -warfarin for anticoagulation, home regimen 5mg MWF, 2.5mg all other days -INR 2.0 today (6) HTN (hypertension): -blood pressure controlled on losartan (7) Chronic anemia: -H/H stable at 12.7/38.3 -normocytic/normchromic -likely in setting of chronic disease (8) Glaucoma: -continue eye gtts (9) GERD (gastroesophageal reflux disease): -continue PPI (10) Cardiac pacemaker in situ: (11) DVT prophylaxis: -continue warfarin Disposition: to be determined Follow up: PCP Dr. Aguilar upon discharge Subjective He is a 73-year-old male with significant past medical history as mentioned in HNP was admitted with intractable and left hip and adjoining area of pain yesterday. CT scan of the lumbar is pain did show mild to moderate disc protrusion at the L4/L5 distribution 11/26 The patient was seen and examined in medical floor He complains to have excruciating pain in the left hip and adjoining area of the buttock and lateral aspect during the examination His pain is more or less localized and does not radiate and/or feel any numbness and tingling He denied any other symptoms Physical Exam 2 Vital Signs (Past 24 Hours): Last Vital Signs Temp 36.6 C 11/26/18 07:12 Pulse 74 11/26/18 07:12 Resp 16 11/26/18 07:12 BP 135/76 11/26/18 07:12 Pulse Ox 98 11/26/18 07:12 Physical Exam: Lying in bed with moderate distress secondary to pain in left hip and adjoining area Constitutional: + in distress Eyes: PERRL, conjunctivae normal, anicteric sclerae Respiratory: normal respiratory effort, lungs clear to auscultation Cardiovascular: RRR, no murmur, no edema Gastrointestinal (Abdomen): normal bowel sounds, soft, nontender, no hepatosplenomegaly Musculoskeletal: Spine: + buttock tenderness (Left ) Hip: + Lesly test positive (Decreased range of motion with pain left hip and adjoining area of the buttock. Tenderness over the greater trochanter as well) Neurologic: Alert, awake and oriented x3 Results & Data Laboratory Results Short CBC 11/25/18 11/26/18 Range/Units 13:42 05:48 WBC 3.89 L 3.67 L (4.8-10.8) K/uL Hgb 12.7 L 12.0 L (14.0-18.0) g/dL Hct 38.3 L 36.1 L (42-52) % Plt Count 224 230 (130-400) K/uL BMP 11/25/18 11/26/18 13:42 05:48 Sodium 138 137 Potassium 3.8 4.3 Chloride 102 104 Carbon Dioxide 30 30 BUN 20 H 20 H Creatinine 0.92 0.73 Glucose 122 H 117 H Calcium 9.1 8.8 Liver Function 11/25/18 Range/Units 13:42 Total Bilirubin 0.5 (0.2-1) mg/dl AST 20 (15-37) U/L ALT 27 (12-78) U/L Alkaline Phosphatase 91 (45-117) U/L Albumin 3.6 (3.4-5.0) gm/dl Urine 11/25/18 Range/Units 20:45 Urine Color Yellow Urine Appearance Clear (Clear) Urine pH 7.0 (4.5-7.5) Ur Specific [place] 1.024 (1.000-1.030) Urine Protein Negative (Negative) Urine Glucose (UA) Negative (Negative) Medications Administered Current Inpatient Medications Acetaminophen (Tylenol) 1,000 mg PO Q8H SHAHIDA Stop: 12/25/18 15:59 Last Admin: 11/26/18 08:11 Dose: 1,000 mg Albuterol (Ventolin Hfa) 2 puffs INH Q4H PRN PRN Reason: Shortness Of Breath Stop: 12/25/18 15:59 Albuterol (Ventolin 0.5% 2.5mg/0.5ml) 2.5 mg INH QIDR PRN PRN Reason: Shortness Of Breath Or Wheezing Stop: 12/25/18 16:17 Lipase/Protease/Amylase (Pancreaze (Lipase 4200u)) 1 cap PO TIDM SHAHIDA Stop: 12/25/18 16:59 Last Admin: 11/26/18 08:13 Dose: 1 cap Brimonidine Tartrate (Alphagan-P 0.15%) 1 drops OP TID SHAHIDA Stop: 12/25/18 15:59 Last Admin: 11/26/18 08:14 Dose: 1 drops Docusate Sodium (Colace) 100 mg PO BID PRN PRN Reason: Constipation Dorzolamide HCl (Trusopt 2% Oph) 1 drops OP TID SHAHIDA Stop: 12/25/18 15:59 Last Admin: 11/26/18 08:13 Dose: 1 drops Lactobacillus Acidophilus (Floranex) 1 tab PO DAILY [facility] Stop: 12/25/18 15:59 Last Admin: 11/26/18 08:12 Dose: 1 tab Latanoprost (Xalatan Oph) 1 drops OP HS SHAHIDA Stop: 12/25/18 20:59 Last Admin: 11/25/18 20:34 Dose: 1 drops Losartan Potassium (Cozaar) 25 mg PO BID SHAHIDA Stop: 12/25/18 20:59 Last Admin: 11/26/18 09:19 Dose: 25 mg Morphine Sulfate (Morphine Sulfate) 2 mg IV Q2H PRN PRN Reason: Severe Pain Stop: 12/09/18 17:43 Last Admin: 11/25/18 23:40 Dose: 2 mg Oxycodone HCl (Roxicodone Immediate Rel) 5 mg PO Q4H PRN PRN Reason: Pain Stop: 12/09/18 15:59 Last Admin: 11/26/18 08:10 Dose: 5 mg Pantoprazole Sodium (Protonix) 40 mg PO DAILY [facility] Stop: 12/25/18 15:59 Last Admin: 11/26/18 08:13 Dose: 40 mg Polyethylene Glycol (Miralax Powder Packet) 17 gm PO DAILY PRN PRN Reason: Constipation Stop: 12/25/18 15:59 Potassium Chloride (Klor-Con M10) 10 meq PO BID [facility] Stop: 12/25/18 20:59 Last Admin: 11/26/18 08:12 Dose: 10 meq Prednisone (Prednisone) 40 mg PO DAILY [facility] Stop: 12/25/18 15:59 Last Admin: 11/26/18 08:12 Dose: 40 mg Roflumilast (Daliresp) 500 mcg PO DAILY [facility] Stop: 12/25/18 15:59 Last Admin: 11/26/18 08:14 Dose: 500 mcg Tamsulosin HCl (Flomax) 0.8 mg PO [facility] Stop: 12/25/18 20:59 Last Admin: 11/25/18 20:33 Dose: 0.8 mg Tiotropium [place] (Spiriva) 1 puffs INH DAILY [facility] Stop: 12/25/18 15:59 Last Admin: 11/26/18 08:15 Dose: 1 puffs Trazodone HCl (Desyrel) 50 mg PO [facility] Stop: 12/25/18 20:59 Last Admin: 11/25/18 20:33 Dose: 50 mg Vitamin D (Vitamin D3) 4,000 units PO DAILY [facility] Stop: 12/26/18 08:59 Last Admin: 11/26/18 08:12 Dose: 4,000 units Warfarin Sodium (Coumadin) 2.5 mg PO [id number] [facility] Stop: 12/25/18 15:59 Last Admin: 11/25/18 17:24 Dose: 2.5 mg Warfarin Sodium (Coumadin) 5 mg PO [email or web address] [facility] Stop: 12/27/18 15:59 _ (1) Low back pain Chronicity: acute Back pain laterality: left Sciatica presence: unspecified whether sciatica present Sciatica laterality: Qualified Code(s): M54.5 - Low back pain (2) COPD (chronic obstructive pulmonary disease) COPD type: unspecified COPD Chronic bronchitis type: Emphysema type: Qualified Code(s): J44.9 - Chronic obstructive pulmonary disease, unspecified (3) HTN (hypertension) Hypertension type: essential hypertension Qualified Code(s): I10 - Essential (primary) hypertension (4) Glaucoma Glaucoma type: unspecified Open angle glaucoma type: Primary angle closure glaucoma type: Laterality: unspecified laterality Glaucoma stage: Qualified Code(s): H40.9 - Unspecified glaucoma (5) GERD (gastroesophageal reflux disease) Esophagitis presence: without esophagitis Qualified Code(s): K21.9 - Gastro- esophageal reflux disease without esophagitis
[2018-11-26] MEDS: WARFARIN SOD 2.5 MG TAB PO SCH (16:40)
[2018-11-26] MEDS: LATANOPROST 0.005% OP SOLN 2.5 ML BTL OP SCH (20:05)
[2018-11-26] MEDS: TRAZODONE HCL 50 MG TAB PO SCH (20:06)
[2018-11-26] MEDS: TAMSULOSIN HCL 0.4 MG CAP PO SCH (20:06)
[2018-11-26] MEDS: MoRPHine SULFATE 4 MG/ML 1 ML CARP\\VIAL IV PRN (23:06)
[2018-11-27] MEDS: OXYCODONE HCL IR 5 MG TAB (IMMEDIATE RELEASE) PO PRN ×4 (01:40→21:11)
[2018-11-27] MEDS: MoRPHine SULFATE 4 MG/ML 1 ML CARP\\VIAL IV PRN ×7 (02:25→21:45)
[2018-11-27 07:23] LABS: INR 3.4 (0.9-1.1); Prothrombin Time 32.1 Seconds (9.0-12.0)
[2018-11-27] MEDS: PANCREAZE (LIPASE 4,200U) CAP PO SCH ×3 (07:38→17:01)
[2018-11-27] MEDS: LOSARTAN POTASSIUM 25 MG TAB PO SCH ×2 (07:38→21:10)
[2018-11-27] MEDS: ACETAMINOPHEN 500 MG TAB PO SCH ×3 (07:38→23:57)
[2018-11-27] MEDS: BRIMONIDINE TARTRATE-P 0.15% 5 ML BTL OP SCH ×3 (07:38→21:12)
[2018-11-27] MEDS: POTASSIUM CHLORIDE 10 MEQ TABCR PO SCH ×2 (07:39→21:09)
[2018-11-27] MEDS: ROFLUMILAST 500 MCG TAB PO SCH (07:39)
[2018-11-27] MEDS: LACTOBACILLUS ACIDOPHILUS (FLORANEX) TAB PO SCH (07:39)
[2018-11-27] MEDS: DORZOLAMIDE HCL 2% OPH SOLN 10 ML BTL OP SCH ×3 (07:40→21:12)
[2018-11-27] MEDS: TIOTROPIUM BROMIDE 5 PUFF/90 MCG INH INH SCH (07:40)
[2018-11-27] MEDS: predniSONE 20 MG TAB PO SCH (07:40)
[2018-11-27] MEDS: PANTOprazole 40 MG TAB PO SCH (07:40)
[2018-11-27] MEDS: CHOLECALCIFEROL 1,000 UNITS TAB PO SCH (07:41)
--- NOTE | 2018-11-27 09:58 | Emergency Department Note ---
Entered by Robert Burch acting as a scribe for History of Present Illness General Chief complaint: Hip Pain Stated complaint: LEFT HIP PAIN Time Seen by Provider: 11/25/18 09:41 Source: patient Limitations: no limitations History of Present Illness Provider complaint: Left buttock/leg pain Onset (ago): hour(s) (last night) Location: lower extremity and left Pain Consistency: + constant Maximum Pain Intensity: 10 Current Pain Intensity: 10 Quality: + sharp Associated symptoms: no fever/chills Treatments prior to arrival: none The patient is a 73 year old male who presents to the Emergency Room with complaints of constant pain in the left buttock that began last night, several hours ago. The patient describes the pain in his left buttock as "severe and sharp" and notes that the sensation radiates from the buttock down the back of the lower extremity. Denies any pain in the low back. He rates the severity of the pain as a 10/10 currently. Last night, the patient was not able to get comfortable in bed so he sat upright in his chair all night long. The pain is not manipulated with changes in position, but he has significant pain with trying to take a step. There has not been any numbness, weakness, or swelling in the lower extremities. Patient denies any recent falls or change in activity. The patient did have Percocet at home from a previous surgery on his shoulder, and did take one of these tablets last night. He notes that this did not touch the pain at all. The patient denies any history of lower back issues or sciatica. He has a history of atrial fibrillation and is on Coumadin. He does have arthritis in his hands, but never in his neck or back. Home Medications Home Medications Medication Instructions Recorded Confirmed Type Lactobacillus acidoph-L.bulgar 1 tab PO DAILY 11/25/18 11/25/18 History [Floranex] acetaminophen 325 mg PO Q6H PRN 11/25/18 11/25/18 History albuterol sulfate 1.25 mg INHALATION TID 11/25/18 11/25/18 History albuterol sulfate 2 puff INHALATION Q4H PRN 11/25/18 11/25/18 History brimonidine 1 drp OPHTHALMIC (EYE) TID 11/25/18 11/25/18 History cholecalciferol (vitamin D3) 4,000 unit PO DAILY 11/25/18 11/25/18 History [Vitamin D3] docusate sodium 100 mg PO BID PRN 11/25/18 11/25/18 History dorzolamide 1 drp OPHTHALMIC (EYE) TID 11/25/18 11/25/18 History latanoprost 1 drp OPHTHALMIC (EYE) UD 11/25/18 11/25/18 History bcybix-[id number]-gbcvtrc [Creon] 1 cap PO TID 11/25/18 11/25/18 History loperamide 2 mg PO Q4H PRN 11/25/18 11/25/18 History losartan 25 mg PO BID 11/25/18 11/25/18 History oxycodone-acetaminophen 1 tab PO Q12H 11/25/18 11/25/18 History pantoprazole 40 mg PO DAILY 11/25/18 11/25/18 History potassium chloride 16 meq PO BID 11/25/18 11/25/18 History roflumilast 500 mcg PO DAILY 11/25/18 11/25/18 History tamsulosin 0.8 mg PO HS 11/25/18 11/25/18 History tiotropium bromide 1 puff INHALATION DAILY 11/25/18 11/25/18 History trazodone 50 mg PO HS 11/25/18 11/25/18 History warfarin 2.5 mg PO SUTUTHSA 11/25/18 11/25/18 History warfarin 5 mg PO MOWEFR 11/25/18 11/25/18 History Allergies Allergy/AdvReac Type Severity Reaction Status Date / Time chlorhexidine Allergy Severe itchy red Verified 11/25/18 10:00 skin Sulfa (Sulfonamide Allergy Intermediate Rash Verified 11/25/18 10:00 Antibiotics) ("SULFA") Past Med/Surg History Medical History Glaucoma Cardiac pacemaker in situ GERD (gastroesophageal reflux disease) Vitamin D deficiency Chronic respiratory failure with hypoxia COPD (chronic obstructive pulmonary disease) Bronchitis HTN (hypertension) Respiratory failure, acute Hypotension PAF (paroxysmal atrial fibrillation) Surgical History History of appendectomy History of hernia repair History of cataract extraction Social History marital status: Single Current Living Situation: Alone Other Information That Helps Us Care for You: No Feels Safe at Home: Yes Safety Concerns: Feels Safe At This Time Smoking Status: Former smoker Cigarettes per Day: 45 pack yr history Hx Alcohol Use: No Hx Substance Use: Yes substance use type: prescription drug Substance Use Type Other:: narcotic agreement with PCP or percocet Beliefs That Will Affect Care: None Communication Ability: Effective Review of Systems See HPI for pertinent positives & negatives. and A total of 10 systems reviewed and were otherwise negative Physical Exam Vital Signs Vital Signs - 24 hr 11/26/18 15:00 11/26/18 17:34 11/26/18 23:00 Temperature 37.1 C 36.7 C Temperature Source Oral Oral Pulse Rate [Right Finger] 82 84 Respiratory Rate 17 16 Respiratory Effort / Characteristics Respiratory Depth Respiratory Pattern Blood Pressure [Right Arm] 125/74 121/70 Blood Pressure Mean [Right Arm] 91 87 Blood Pressure Position [Right Arm] Lying Pulse Oximetry 97 94 Oxygen Delivery Method Nasal Cannula Oxygen Flow Rate 2 11/26/18 23:20 11/27/18 07:30 Temperature 36.7 C Temperature Source Oral Pulse Rate [Right Finger] 81 Respiratory Rate 20 Respiratory Effort / Characteristics Non-Labored Spontaneous Respiratory Depth Normal Respiratory Pattern Regular Blood Pressure [Right Arm] 147/77 H Blood Pressure Mean [Right Arm] 100 Blood Pressure Position [Right Arm] Lying Pulse Oximetry 99 Oxygen Delivery Method Nasal Cannula Nasal Cannula Oxygen Flow Rate 2 2 GENERAL: alert, frail appearing,, no distress, non-toxic. Nasal cannula in place EYE EXAM: normal conjunctiva, PERRL and EOM's grossly intact OROPHARYNX: no exudate, no erythema, lips, buccal mucosa, and tongue normal and mucous membranes are moist NECK: supple, no nuchal rigidity, no adenopathy, non-tender LUNGS: Clear to auscultation. Normal chest wall mechanics HEART: no murmurs, S1 normal and S2 normal ABDOMEN: abdomen soft, non-tender, normo-active bowel sounds, no masses, no rebound or guarding. BACK: There is pain with palpation to left lower back. Back is symmetrical on inspection and there is no deformity, no midline tenderness, no CVA tenderness. SKIN: no rashes and no bruising UPPER EXTREMITIES: upper extremities are grossly normal. LOWER EXTREMITIES: Pain with palpation to hip and left buttocks. Positive straight leg riaise on left, no deformities. No evidence of trauma. No pitting edema. Normal pulses. NEURO EXAM: Normal sensorium, cranial nerves II-XII grossly intact, normal speech, no gross weakness of arms, no gross weakness of legs. Course 0941: Past medical records reviewed. The patient was evaluated in room B12B, and a complete history and physical examination were performed. 1110: I reevaluated patient at this time. He is still having pain at this time. 1324: I checked on the patient at this time. He is still having pain. 1336: I reviewed the patient's case with Sandra Adams Karen QUINTANILLA. She will evaluate the patient for further management. Consultations Consultation #1: 1336: I [facility] the [facility]'s [facility] She will evaluate the patient for further management. Administered Medications Acetaminophen (Tylenol) 1,000 mg PO Q8H SHAHIDA Stop: 12/25/18 15:59 Last Admin: 11/27/18 07:38 Dose: 1,000 mg Admin: 11/26/18 23:16 Dose: 1,000 mg Admin: 11/26/18 16:39 Dose: 1,000 mg Admin: 11/26/18 08:11 Dose: 1,000 mg Admin: 11/25/18 23:39 Dose: 1,000 mg Admin: 11/25/18 17:20 Dose: 1,000 mg Lipase/Protease/Amylase (Pancreaze (Lipase 4200u)) 1 cap PO TIDM SHAHIDA Stop: 12/25/18 16:59 Last Admin: 11/27/18 07:38 Dose: 1 cap Admin: 11/26/18 16:40 Dose: 1 cap Admin: 11/26/18 12:14 Dose: 1 cap Admin: 11/26/18 08:13 Dose: 1 cap Admin: 11/25/18 17:26 Dose: 1 cap Brimonidine Tartrate (Alphagan-P 0.15%) 1 drops OP TID SHAHIDA Stop: 12/25/18 15:59 Last Admin: 11/27/18 07:38 Dose: 1 drops Admin: 11/26/18 20:05 Dose: 1 drops Admin: 11/26/18 13:24 Dose: 1 drops Admin: 11/26/18 08:14 Dose: 1 drops Admin: 11/25/18 20:33 Dose: Not Given Admin: 11/25/18 17:22 Dose: 1 drops Dorzolamide HCl (Trusopt 2% Oph) 1 drops OP TID SHAHIDA Stop: 12/25/18 15:59 Last Admin: 11/27/18 07:40 Dose: 1 drops Admin: 11/26/18 20:05 Dose: 1 drops Admin: 11/26/18 12:14 Dose: 1 drops Admin: 11/26/18 08:13 Dose: 1 drops Admin: 11/25/18 20:34 Dose: 1 drops Admin: 11/25/18 17:22 Dose: 1 drops Lactobacillus Acidophilus (Floranex) 1 tab PO DAILY SHAHIDA Stop: 12/25/18 15:59 Last Admin: 11/27/18 07:39 Dose: 1 tab Admin: 11/26/18 08:12 Dose: 1 tab Admin: 11/25/18 17:25 Dose: 1 tab Latanoprost (Xalatan Oph) 1 drops OP HS SHAHIDA Stop: 12/25/18 20:59 Last Admin: 11/26/18 20:05 Dose: 1 drops Admin: 11/25/18 20:34 Dose: 1 drops Losartan Potassium (Cozaar) 25 mg PO BID SHAHIDA Stop: 12/25/18 20:59 Last Admin: 11/27/18 07:38 Dose: 25 mg Admin: 11/26/18 20:06 Dose: 25 mg Admin: 11/26/18 09:19 Dose: 25 mg Admin: 11/25/18 20:33 Dose: 25 mg Morphine Sulfate (Morphine Sulfate) 2 mg IV Q2H PRN PRN Reason: Severe Pain Stop: 12/09/18 17:43 Last Admin: 11/27/18 09:32 Dose: 2 mg Admin: 11/27/18 04:18 Dose: 2 mg Admin: 11/27/18 02:25 Dose: 2 mg Admin: 11/26/18 23:06 Dose: 2 mg Admin: 11/25/18 23:40 Dose: 2 mg Oxycodone HCl (Roxicodone Immediate Rel) 5 mg PO Q4H PRN PRN Reason: Pain Stop: 12/09/18 15:59 Last Admin: 11/27/18 07:36 Dose: 5 mg Admin: 11/27/18 01:40 Dose: 5 mg Admin: 11/26/18 20:04 Dose: 5 mg Admin: 11/26/18 16:37 Dose: 5 mg Admin: 11/26/18 12:12 Dose: 5 mg Admin: 11/26/18 08:10 Dose: 5 mg Admin: 11/25/18 16:06 Dose: 5 mg Pantoprazole Sodium (Protonix) 40 mg PO DAILY SHAHIDA Stop: 12/25/18 15:59 Last Admin: 11/27/18 07:40 Dose: 40 mg Admin: 11/26/18 08:13 Dose: 40 mg Admin: 11/25/18 17:24 Dose: 40 mg Potassium Chloride (Klor-Con M10) 10 meq PO BID SHAHIDA Stop: 12/25/18 20:59 Last Admin: 11/27/18 07:39 Dose: 10 meq Admin: 11/26/18 20:07 Dose: 10 meq Admin: 11/26/18 08:12 Dose: 10 meq Admin: 11/25/18 20:32 Dose: 10 meq Prednisone (Prednisone) 40 mg PO DAILY SHAHIDA Stop: 12/25/18 15:59 Last Admin: 11/27/18 07:40 Dose: 40 mg Admin: 11/26/18 08:12 Dose: 40 mg Admin: 11/25/18 17:25 Dose: 40 mg Roflumilast (Daliresp) 500 mcg PO DAILY SHAHIDA Stop: 12/25/18 15:59 Last Admin: 11/27/18 07:39 Dose: 500 mcg Admin: 11/26/18 08:14 Dose: 500 mcg Admin: 11/25/18 17:23 Dose: 500 mcg Tamsulosin HCl (Flomax) 0.8 mg PO HS SHAHIDA Stop: 12/25/18 20:59 Last Admin: 11/26/18 20:06 Dose: 0.8 mg Admin: 11/25/18 20:33 Dose: 0.8 mg Tiotropium [place] (Spiriva) 1 puffs INH DAILY SHAHIDA Stop: 12/25/18 15:59 Last Admin: 11/27/18 07:40 Dose: 1 puffs Admin: 11/26/18 08:15 Dose: 1 puffs Admin: 11/25/18 17:25 Dose: 1 puffs Trazodone HCl (Desyrel) 50 mg PO HS SHAHIDA Stop: 12/25/18 20:59 Last Admin: 11/26/18 20:06 Dose: 50 mg Admin: 11/25/18 20:33 Dose: 50 mg Vitamin D (Vitamin D3) 4,000 units PO DAILY [facility] Stop: 12/26/18 08:59 Last Admin: 11/27/18 07:41 Dose: 4,000 units Admin: 11/26/18 08:12 Dose: 4,000 units Warfarin Sodium (Coumadin) 2.5 mg PO [email or web address] [facility] Stop: 12/25/18 15:59 Last Admin: 11/26/18 16:40 Dose: 2.5 mg Admin: 11/25/18 17:24 Dose: 2.5 mg Discontinued Medications Acetaminophen (Tylenol) 1,000 mg PO NOW STA Stop: 11/25/18 09:53 Last Admin: 11/25/18 10:00 Dose: 1,000 mg Diazepam (Valium) 2 mg PO NOW ONE Stop: 11/25/18 09:53 Last Admin: 11/25/18 10:00 Dose: 2 mg Diclofenac Sodium (Voltaren 1% Top) 1 appln EXT NOW STA Stop: 11/25/18 09:53 Last Admin: 11/25/18 10:40 Dose: 1 appln Gabapentin (Neurontin) 100 mg PO NOW STA Stop: 11/25/18 09:53 Last Admin: 11/25/18 10:40 Dose: 100 mg Gabapentin (Neurontin) 100 mg PO NOW STA Stop: 11/25/18 12:25 Last Admin: 11/25/18 12:46 Dose: 100 mg Methylprednisolone (Medrol) 4 mg PO NOW ONE Stop: 11/25/18 12:25 Last Admin: 11/25/18 12:38 Dose: 4 mg Morphine Sulfate (Morphine Sulfate) 4 mg IV NOW STA Stop: 11/25/18 13:26 Last Admin: 11/25/18 13:47 Dose: 4 mg Oxycodone HCl (Roxicodone Immediate Rel) 5 mg PO NOW STA Stop: 11/25/18 11:32 Last Admin: 11/25/18 11:40 Dose: 5 mg Potassium Chloride (Klor-Con M10) 15 meq PO BID [facility] Stop: 12/25/18 15:59 Last Admin: 11/25/18 17:42 Dose: Not Given Medical Decision Making Differential Diagnosis Differential diagnosis: Etiologies such as muscular strain, fracture, metastatic disease, disc herniation, sciatica, epidural abscess, vertebral osteomyelitis, discitis, spinal epidural hematoma, cord compression, cauda equina/conus medullaris syndrome, aortic disease, infection, shingles, renal colic, gastrointestinal, acute exacerbation of chronic back pain, as well as others were entertained. Medical Records Attestation: I reviewed the patient's medical records. Home Medications Current Medication List: was personally reviewed by me Laboratory Data Attestation: I reviewed the patient's lab results. Result diagrams: 11/26/18 05:48 11/26/18 05:48 Lab Results 11/25/18 11/25/18 11/25/18 Range/Units 13:42 13:42 13:42 WBC 3.89 L (4.8-10.8) K/uL RBC 4.10 L (4.7-6.1) M/uL Hgb 12.7 L (14.0-18.0) g/dL Hct 38.3 L (42-52) % MCV 93.4 (80-100) fL MCH 31.0 (25-34) pg MCHC 33.2 (32-36) g/dL RDW Std Deviation 42.1 (36.4-46.3) fL RDW Coeff of Richar 12.4 (11.5-14.5) % Plt Count 224 (130-400) K/uL MPV 8.8 (7.4-10.4) fL PT 19.7 H (9.0-12.0) Seconds INR 2.0 H (0.9-1.1) Sodium 138 (136-145) mmol/L Potassium 3.8 (3.5-5.1) mmol/L Chloride 102 (98-107) mmol/L Carbon Dioxide 30 (21-32) mmol/L Anion Gap 7.0 (3-11) BUN 20 H (7-18) mg/dl Creatinine 0.92 (0.6-1.4) mg/dl Est Cr Clr Drug Dosing 49.7 ml/min Est GFR ( Amer) 94.0 Est GFR (Non-Af Amer) 81.1 BUN/Creatinine Ratio 22.0 H (10-20) Glucose 122 H (70-99) mg/dl Calcium 9.1 (8.5-10.1) mg/dl Total Bilirubin 0.5 (0.2-1) mg/dl AST 20 (15-37) U/L ALT 27 (12-78) U/L Alkaline Phosphatase 91 (45-117) U/L Total Protein 6.6 (6.4-8.2) gm/dl Albumin 3.6 (3.4-5.0) gm/dl Globulin 3.0 (2.5-4.0) gm/dl Albumin/Globulin Ratio 1.2 (0.9-2) Urine Color Urine Appearance (Clear) Urine pH (4.5-7.5) Ur Specific Ewing (1.000-1.030) Urine Protein (Negative) Urine Glucose (UA) (Negative) Urine Ketones (Negative) Urine Blood (Negative) Urine Nitrite (Negative) Urine Bilirubin (Negative) Urine Urobilinogen (Negative) Ur Leukocyte Esterase (Negative) 11/25/18 11/26/18 11/26/18 Range/Units 20:45 05:48 05:48 WBC 3.67 L (4.8-10.8) K/uL RBC 3.91 L (4.7-6.1) M/uL Hgb 12.0 L (14.0-18.0) g/dL Hct 36.1 L (42-52) % MCV 92.3 (80-100) fL MCH 30.7 (25-34) pg MCHC 33.2 (32-36) g/dL RDW Std Deviation 42.5 (36.4-46.3) fL RDW Coeff of Richar 12.6 (11.5-14.5) % Plt Count 230 (130-400) K/uL MPV 9.0 (7.4-10.4) fL PT 27.4 H (9.0-12.0) Seconds INR 2.9 H (0.9-1.1) Sodium (136-145) mmol/L Potassium (3.5-5.1) mmol/L Chloride (98-107) mmol/L Carbon Dioxide (21-32) mmol/L Anion Gap (3-11) BUN (7-18) mg/dl Creatinine (0.6-1.4) mg/dl Est Cr Clr Drug Dosing ml/min Est GFR ( Amer) Est GFR (Non-Af Amer) BUN/Creatinine Ratio (10-20) Glucose (70-99) mg/dl Calcium (8.5-10.1) mg/dl Total Bilirubin (0.2-1) mg/dl AST (15-37) U/L ALT (12-78) U/L Alkaline Phosphatase (45-117) U/L Total Protein (6.4-8.2) gm/dl Albumin (3.4-5.0) gm/dl Globulin (2.5-4.0) gm/dl Albumin/Globulin Ratio (0.9-2) Urine Color Yellow Urine Appearance Clear (Clear) Urine pH 7.0 (4.5-7.5) Ur Specific Ewing 1.024 (1.000-1.030) Urine Protein Negative (Negative) Urine Glucose (UA) Negative (Negative) Urine Ketones Negative (Negative) Urine Blood Negative (Negative) Urine Nitrite Negative (Negative) Urine Bilirubin Negative (Negative) Urine Urobilinogen Negative (Negative) Ur Leukocyte Esterase Negative (Negative) 11/26/18 11/27/18 Range/Units 05:48 06:47 WBC (4.8-10.8) K/uL RBC (4.7-6.1) M/uL Hgb (14.0-18.0) g/dL Hct (42-52) % MCV (80-100) fL MCH (25-34) pg MCHC (32-36) g/dL RDW Std Deviation (36.4-46.3) fL RDW Coeff of Richar (11.5-14.5) % Plt Count (130-400) K/uL MPV (7.4-10.4) fL PT 32.1 H (9.0-12.0) Seconds INR 3.4 H (0.9-1.1) Sodium 137 (136-145) mmol/L Potassium 4.3 (3.5-5.1) mmol/L Chloride 104 (98-107) mmol/L Carbon Dioxide 30 (21-32) mmol/L Anion Gap 3.0 (3-11) BUN 20 H (7-18) mg/dl Creatinine 0.73 (0.6-1.4) mg/dl Est Cr Clr Drug Dosing 62.6 ml/min Est GFR ( Amer) 105.2 Est GFR (Non-Af Amer) 90.7 BUN/Creatinine Ratio 26.8 H (10-20) Glucose 117 H (70-99) mg/dl Calcium 8.8 (8.5-10.1) mg/dl Total Bilirubin (0.2-1) mg/dl AST (15-37) U/L ALT (12-78) U/L Alkaline Phosphatase (45-117) U/L Total Protein (6.4-8.2) gm/dl Albumin (3.4-5.0) gm/dl Globulin (2.5-4.0) gm/dl Albumin/Globulin Ratio (0.9-2) Urine Color Urine Appearance (Clear) Urine pH (4.5-7.5) Ur Specific Ewing (1.000-1.030) Urine Protein (Negative) Urine Glucose (UA) (Negative) Urine Ketones (Negative) Urine Blood (Negative) Urine Nitrite (Negative) Urine Bilirubin (Negative) Urine Urobilinogen (Negative) Ur Leukocyte Esterase (Negative) Imaging Data Attestation: I personally reviewed and interpreted this imaging study as follows : Radiologist's Impression: CT lumbar spine wo con HISTORY: 73 years-old Male lumbar radiculopathy acute low back pain without reported trauma COMPARISON: CT left hip of same day, CTA of the chest 01/01/2018 TECHNIQUE: Multiple axial CT images of the lumbar spine were obtained without the use of IV contrast. A dose lowering technique was used consistent with the principals of ALARA. FINDINGS: Emphysematous changes of the imaged lung bases with associated bronchial wall thickening. Mild bibasilar subsegmental atelectasis/scarring. Renal vascular calcifications are present bilaterally. Extensive calcification of the abdominal aorta and iliac arteries. Fusiform ectasia of the abdominal aorta measures up to 2.5 cm in transverse dimension. No adenopathy. Extensive colonic diverticulosis with moderate volume of formed colonic stool suggestive of constipation. Paraspinal musculature appears unremarkable. Demineralized appearance of the bones. No acute fracture or subluxation identified. Moderate to large Schmorl's node about the superior endplate L5, age -indeterminate however appears chronic. Moderate intervertebral disc space narrowing at T12/L1. 30% anterior endplate compression deformity of the T11 vertebral body is unchanged from comparison CTA of the chest. Moderate multilevel facet arthrosis with mild multilevel spondylitic spurring. Image sacrum appears intact. Evaluation of the central canal and neuroforamina is better assessed by MRI. No high-grade central canal stenosis identified. Circumferential annular disc bulge with ligament of flavum thickening and facet arthrosis at L4-L5 causes mild to moderate central canal and mild to moderate bilateral foraminal narrowing. Mild posterior intervertebral disc space narrowing with spondylitic spurring and posterior annular disc bulge L5-S1. No associated significant central canal or foraminal narrowing. IMPRESSION: 1. No acute fracture or subluxation of the lumbar spine identified. 2. Remote appearing Schmorl's node about the superior endplate L5. 3. Remote 30% anterior endplate compression deformity of the T11 vertebral body. 4. Circumferential annular disc bulge with ligamentum flavum thickening and facet arthrosis at L4-L5 results in mild to moderate central canal and mild to moderate bilateral foraminal narrowing. 5. Additional findings as above. The above report was generated using voice recognition software. It may contain grammatical, syntax or spelling errors. Electronically signed by: Brooks Marks M.D. 11/25/2018 10:[address] hip LT wo con HISTORY: 73 years-old Male acute pain acute left-sided hip pain COMPARISON: KUB 01/09/2018 TECHNIQUE: Multiple axial CT images of the left hip were obtained without the use of IV contrast. A dose lowering technique was used consistent with the principals of ALARA. FINDINGS: Extensive calcification about the left iliac and femoral arteries. Mild dilation about the common femoral artery measures up to 1.2 cm transversely. Partially imaged left inguinal hernia. Prostamegaly with urinary bladder wall thickening. Extensive colonic diverticulosis with suggested constipation. Soft tissues and musculature about the left hip and thigh appear unremarkable. No large joint effusion. The imaged left hemipelvis appears intact. There is mild to moderate osteoarthritis about the left femoral acetabular joint. No acute fracture, dislocation or avascular necrosis. The imaged left femur appears intact. IMPRESSION: 1. No acute fracture or dislocation. 2. 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 The above report was generated using voice recognition software. It may contain grammatical, syntax or spelling errors. Electronically signed by: Brooks Marks M.D. 11/25/2018 10:34 AM Blood Pressure Blood Pressure Findings: Elevated blood pressure Blood Pressure Disposition: further management by hospitalist IRA Narrative Patient here with significant left buttock and leg pain that clinically resembles sciatica. Given patient's advanced age, concern for possible lumbar spine involvement and lumbar radiculopathy as well. Patient sent for CT imaging to rule out more acute concerning pathology such as discitis, acute disc rupture, or pathologic fracture. Patient found to have advanced degenerative changes noted in the lumbar spine with 2 bulging disks. No findings concerning for malignancy. Likely the patient has had ongoing and evolving degenerative disc disease and arthritic changes that have only now become symptomatic. I made several attempts to try and control the patient's pain here in order to allow him to go home and follow-up as an outpatient, however this was unsuccessful not ambulate back and forth to the bathroom. I discussed this concern with the patient as well as his family was at bedside given that the patient does live alone and they state no one can stay with him 23/05 until he was able to follow-up. Given the persistence of symptoms, case discussed with hospitalist for additional management and evaluation. Baseline labs drawn at the time of deciding to admit the patient these were reviewed and were reassuring. I do not suspect occult infectious etiology including epidural abscess or hematoma. No evidence or symptoms to suggest acute cauda equina or other acute neurosurgical/spine emergency. Impression & Plan Lumbar radiculopathy, Sciatica, Acute pain of left hip Discharge Plan Visit Data *Final* Discharge Date/Time: 11/25/18 14:49 Chief Complaint: Hip Pain Stated Complaint: LEFT HIP PAIN ED Provider: Brie Jackson Discharge Problem: Lumbar radiculopathy, Sciatica, Acute pain of left hip Patient Disposition: Admitted As Inpatient Discharge Instructions Interventions: ED Discharge Assessment Last Done: 11/25/18 14:49 The scribe's documentation has been prepared under my direction and personally reviewed by me in its entirety. I confirm that the note above accurately reflects all work, treatment, procedures, and medical decision making performed by me.
--- NOTE | 2018-11-27 10:18 | Orthopedic Consultation ---
Date of Consultation November 27, 2018 Assessment & Plan (1) Sciatica: At this time he seems to have evidence of L4L5 nerve root irritation. Unfortunately I am unable to determine precisely the etiology based on the CAT scan. I would like to obtain an MRI of the lumbar spine for further detailed imaging of the neural anatomy. He did have a pacemaker placed at our institution roughly a year ago. Hopefully this will be able to be performed in light of the pacer in place. Further recommendations upon review of the scans. Present on Admission?: Yes History of Present Illness Reason for Consultation: Left buttock pain Attending Physician: Ben Harper MD History of Present Illness 's a very pleasant 73-year-old male that has the onset of significant left buttock and upper posterior thigh pain beginning Tuesday. He denies any precipitating trauma fall or event. Denies any history of back pain or issues in the past. Has had no back surgery. He describes the pain involving the left buttocks and upper posterior thigh. It does not extend below the knee. It does awaken him from sleep. In fact is quite uncomfortable and was noted with sleep last night despite pain medication. Right lower extremity is asymptomatic. Standing walking seem to exacerbate his discomfort. He denies any loss of bowel or bladder function. Denies any numbness or tingling into the lower extremities. Allergies Allergy/AdvReac Type Severity Reaction Status Date / Time chlorhexidine Allergy Severe itchy red Verified 11/25/18 10:00 skin Sulfa (Sulfonamide Allergy Intermediate Rash Verified 11/25/18 10:00 Antibiotics) ("SULFA") Home Medications Home Medications Medication Instructions Recorded Confirmed Type Lactobacillus acidoph-L.bulgar 1 tab PO DAILY 11/25/18 11/25/18 History [Floranex] acetaminophen 325 mg PO Q6H PRN 11/25/18 11/25/18 History albuterol sulfate 1.25 mg INHALATION TID 11/25/18 11/25/18 History albuterol sulfate 2 puff INHALATION Q4H PRN 11/25/18 11/25/18 History brimonidine 1 drp OPHTHALMIC (EYE) TID 11/25/18 11/25/18 History cholecalciferol (vitamin D3) 4,000 unit PO DAILY 11/25/18 11/25/18 History [Vitamin D3] docusate sodium 100 mg PO BID PRN 11/25/18 11/25/18 History dorzolamide 1 drp OPHTHALMIC (EYE) TID 11/25/18 11/25/18 History latanoprost 1 drp OPHTHALMIC (EYE) UD 11/25/18 11/25/18 History [id number]-[id number] [Creon] 1 cap PO TID 11/25/18 11/25/18 History loperamide 2 mg PO Q4H PRN 11/25/18 11/25/18 History losartan 25 mg PO BID 11/25/18 11/25/18 History oxycodone-acetaminophen 1 tab PO Q12H 11/25/18 11/25/18 History pantoprazole 40 mg PO DAILY 11/25/18 11/25/18 History potassium chloride 16 meq PO BID 11/25/18 11/25/18 History roflumilast 500 mcg PO DAILY 11/25/18 11/25/18 History tamsulosin 0.8 mg PO HS 11/25/18 11/25/18 History tiotropium bromide 1 puff INHALATION DAILY 11/25/18 11/25/18 History trazodone 50 mg PO HS 11/25/18 11/25/18 History warfarin 2.5 mg PO SUTUTHSA 11/25/18 11/25/18 History warfarin 5 mg PO MOWEFR 11/25/18 11/25/18 History Patient History Medical History Glaucoma Cardiac pacemaker in situ GERD (gastroesophageal reflux disease) Vitamin D deficiency Chronic respiratory failure with hypoxia COPD (chronic obstructive pulmonary disease) Bronchitis HTN (hypertension) Respiratory failure, acute Hypotension PAF (paroxysmal atrial fibrillation) Surgical History History of appendectomy History of hernia repair History of cataract extraction Social History marital status: Single Current Living Situation: Alone Other Information That Helps Us Care for You: No Feels Safe at Home: Yes Safety Concerns: Feels Safe At This Time Smoking Status: Former smoker Cigarettes per Day: 45 pack yr history Hx Alcohol Use: No Hx Substance Use: Yes substance use type: prescription drug Substance Use Type Other:: narcotic agreement with PCP or percocet Beliefs That Will Affect Care: None Communication Ability: Effective Physical Exam 2 Vital Signs (Past 24 Hours): Last Vital Signs Temp 36.7 C 11/27/18 07:30 Pulse 81 11/27/18 07:30 Resp 20 11/27/18 07:30 BP 147/77 H 11/27/18 07:30 Pulse Ox 99 11/27/18 07:30 Physical Exam: On physical exam he exhibits a bilateral plus 5 out of 5 plantar flexion dorsiflexion extensor hallucis longus and quadriceps. Sensory symmetric and intact to light touch and cold sensation. Negative logroll bilaterally. He is able to stand for me at the bedside. He does have significant tenderness palpation over the left sciatic notch and iliac crest compared to the right. There is no abnormal skin markings. He is able to stand on his toes and heels without difficulty. _ (1) Sciatica Laterality: left Qualified Code(s): M54.32 - Sciatica, left side
--- NOTE | 2018-11-27 14:43 | Hospitalist Progress Note ---
Date of Service November 27, 2018 Assessment & Plan (1) Acute pain of left hip: On examination pain located SI joint and associated L paraspinal musculature, also with pain located L greater trochanter, piriformis region as well as IT Band. Pain most definitely MSK in origin. DDX including but not limited to: Lumbar radiculopathy, spinal stenosis, Sacroilitis, Piriformis syndrome, greater trochanter bursitis. -admit to med/surg -consult PT/OT -control pain -place on prednisone taper for anti inflammatory -Pain is worse with movement of the left hip joint and on ambulation -Localized to left hip and adjoining area of the buttock including greater trochanter -range of motion in the left hip is diminished due to pain -CT of the lumbar spine and pelvis noted -Appreciate Ortho input and recommendation -We will have MRI of the lumbar spine -Continue current management (2) Low back pain: Has intractable back pain-lower lumbar region CT scan showed mild to moderate disc protrusion L4/L5 distribution Tenderness over the greater trochanteric bursa and adjoining area Hip movement is painful and restricted Has mild osteoarthritis involving the hip as well on imaging studies We will ask for an orthopedic evaluation As above (3) COPD (chronic obstructive pulmonary disease): -no acute exacerbation -continue O2 continuously, neb treatment prn, daliresp, spiriva Denies any significant symptoms from COPD (4) Chronic respiratory failure with hypoxia: -continue 2L O2 (5) PAF (paroxysmal atrial fibrillation): -rate and rhythm pacemaker -warfarin for anticoagulation, home regimen 5mg MWF, 2.5mg all other days -INR 3.4 today -We will hold Coumadin (6) HTN (hypertension): -blood pressure controlled on losartan (7) Chronic anemia: -H/H stable at 12.7/38.3 -normocytic/normchromic -likely in setting of chronic disease (8) Glaucoma: -continue eye gtts (9) GERD (gastroesophageal reflux disease): -continue PPI (10) Cardiac pacemaker in situ: (11) DVT prophylaxis: -continue warfarin Disposition: to be determined Follow up: PCP Dr. Aguilar upon discharge Subjective He is a 73-year-old male with significant past medical history as mentioned in HNP was admitted with intractable and left hip and adjoining area of pain yesterday. CT scan of the lumbar is pain did show mild to moderate disc protrusion at the L4/L5 distribution 11/26 The patient was seen and examined in medical floor He complains to have excruciating pain in the left hip and adjoining area of the buttock and lateral aspect during the examination His pain is more or less localized and does not radiate and/or feel any numbness and tingling He denied any other symptoms 11/27 Remains in severe pain Appreciate orthopedic input and recommendation Will have MRI to further evaluate disc disease Physical Exam 2 Vital Signs (Past 24 Hours): Last Vital Signs Temp 36.7 C 11/27/18 07:30 Pulse 81 11/27/18 07:30 Resp 20 11/27/18 07:30 BP 147/77 H 11/27/18 07:30 Pulse Ox 98 11/27/18 11:43 Constitutional: + in distress Eyes: PERRL, conjunctivae normal, anicteric sclerae Respiratory: normal respiratory effort, lungs clear to auscultation Cardiovascular: RRR, no murmur, no edema Gastrointestinal (Abdomen): normal bowel sounds, soft, nontender, no hepatosplenomegaly Musculoskeletal: Spine: + buttock tenderness (Left ) Hip: + Lesly test positive (Decreased range of motion with pain left hip and adjoining area of the buttock. Tenderness over the greater trochanter as well) Neurologic: Alert, awake and oriented x3. Denies any focal neuro deficit except pain and adjoining left lateral hip. Results & Data Medications Administered Current Inpatient Medications Acetaminophen (Tylenol) 1,000 mg PO Q8H [facility] Stop: 12/25/18 15:59 Last Admin: 11/27/18 07:38 Dose: 1,000 mg Albuterol (Ventolin Hfa) 2 puffs INH Q4H PRN PRN Reason: Shortness Of Breath Stop: 12/25/18 15:59 Albuterol (Ventolin 0.5% 2.5mg/0.5ml) 2.5 mg INH QIDR PRN PRN Reason: Shortness Of Breath Or Wheezing Stop: 12/25/18 16:17 Lipase/Protease/Amylase (Pancreaze (Lipase 4200u)) 1 cap PO TIDM [facility] Stop: 12/25/18 16:59 Last Admin: 11/27/18 11:54 Dose: 1 cap Brimonidine Tartrate (Alphagan-P 0.15%) 1 drops OP TID [facility] Stop: 12/25/18 15:59 Last Admin: 11/27/18 11:55 Dose: 1 drops Docusate Sodium (Colace) 100 mg PO BID PRN PRN Reason: Constipation Dorzolamide HCl (Trusopt 2% Oph) 1 drops OP TID [facility] Stop: 12/25/18 15:59 Last Admin: 11/27/18 11:55 Dose: 1 drops Lactobacillus Acidophilus (Floranex) 1 tab PO DAILY [facility] Stop: 12/25/18 15:59 Last Admin: 11/27/18 07:39 Dose: 1 tab Latanoprost (Xalatan Oph) 1 drops OP HS [facility] Stop: 12/25/18 20:59 Last Admin: 11/26/18 20:05 Dose: 1 drops Losartan Potassium (Cozaar) 25 mg PO BID [facility] Stop: 12/25/18 20:59 Last Admin: 11/27/18 07:38 Dose: 25 mg Morphine Sulfate (Morphine Sulfate) 2 mg IV Q2H PRN PRN Reason: Severe Pain Stop: 12/09/18 17:43 Last Admin: 11/27/18 13:43 Dose: 2 mg Oxycodone HCl (Roxicodone Immediate Rel) 5 mg PO Q4H PRN PRN Reason: Pain Stop: 12/09/18 15:59 Last Admin: 11/27/18 12:45 Dose: 5 mg Pantoprazole Sodium (Protonix) 40 mg PO DAILY [facility] Stop: 12/25/18 15:59 Last Admin: 11/27/18 07:40 Dose: 40 mg Polyethylene Glycol (Miralax Powder Packet) 17 gm PO DAILY PRN PRN Reason: Constipation Stop: 12/25/18 15:59 Potassium Chloride (Klor-Con M10) 10 meq PO BID [facility] Stop: 12/25/18 20:59 Last Admin: 11/27/18 07:39 Dose: 10 meq Prednisone (Prednisone) 40 mg PO DAILY [facility] Stop: 12/25/18 15:59 Last Admin: 11/27/18 07:40 Dose: 40 mg Roflumilast (Daliresp) 500 mcg PO DAILY [facility] Stop: 12/25/18 15:59 Last Admin: 11/27/18 07:39 Dose: 500 mcg Tamsulosin HCl (Flomax) 0.8 mg PO HS [facility] Stop: 12/25/18 20:59 Last Admin: 11/26/18 20:06 Dose: 0.8 mg Tiotropium Virgin (Spiriva) 1 puffs INH DAILY [facility] Stop: 12/25/18 15:59 Last Admin: 11/27/18 07:40 Dose: 1 puffs Trazodone HCl (Desyrel) [address] [facility] Stop: 12/25/18 20:59 Last Admin: 11/26/18 20:06 Dose: 50 mg Vitamin D (Vitamin D3) 4,000 units PO DAILY [facility] Stop: 12/26/18 08:59 Last Admin: 11/27/18 07:41 Dose: 4,000 units Warfarin Sodium (Coumadin) 2.5 mg PO [email or web address] [facility] Stop: 12/25/18 15:59 Last Admin: 11/26/18 16:40 Dose: 2.5 mg Warfarin Sodium (Coumadin) 5 mg PO [email or web address] [facility] Stop: 12/27/18 15:59 _ (1) Low back pain Chronicity: acute Back pain laterality: left Sciatica presence: unspecified whether sciatica present Sciatica laterality: Qualified Code(s): M54.5 - Low back pain (2) COPD (chronic obstructive pulmonary disease) COPD type: unspecified COPD Chronic bronchitis type: Emphysema type: Qualified Code(s): J44.9 - Chronic obstructive pulmonary disease, unspecified (3) HTN (hypertension) Hypertension type: essential hypertension Qualified Code(s): I10 - Essential (primary) hypertension (4) Glaucoma Glaucoma type: unspecified Open angle glaucoma type: Primary angle closure glaucoma type: Laterality: unspecified laterality Glaucoma stage: Qualified Code(s): H40.9 - Unspecified glaucoma (5) GERD (gastroesophageal reflux disease) Esophagitis presence: without esophagitis Qualified Code(s): K21.9 - Gastro- esophageal reflux disease without esophagitis
[2018-11-27] MEDS ORDERED: Nursing to Pharmacy Communication ONE (15:52)
[2018-11-27] MEDS ORDERED: WARFARIN SOD 5 MG TAB PO SCH (16:00)
[2018-11-27] MEDS: DOCUSATE SODIUM 100 MG CAP PO PRN ×2 (17:02→21:10)
[2018-11-27] MEDS: TAMSULOSIN HCL 0.4 MG CAP PO SCH (21:11)
[2018-11-27] MEDS: TRAZODONE HCL 50 MG TAB PO SCH (21:11)
[2018-11-27] MEDS: LATANOPROST 0.005% OP SOLN 2.5 ML BTL OP SCH (21:13)
[2018-11-28] MEDS: MoRPHine SULFATE 4 MG/ML 1 ML CARP\\VIAL IV PRN ×8 (00:01→22:44)
[2018-11-28] MEDS: OXYCODONE HCL IR 5 MG TAB (IMMEDIATE RELEASE) PO PRN ×4 (02:11→18:59)
[2018-11-28 07:03] LABS: INR 2.8 (0.9-1.1); Prothrombin Time 26.7 Seconds (9.0-12.0)
[2018-11-28] MEDS: PANTOprazole 40 MG TAB PO SCH (08:10)
[2018-11-28] MEDS: CHOLECALCIFEROL 1,000 UNITS TAB PO SCH (08:10)
[2018-11-28] MEDS: predniSONE 20 MG TAB PO SCH (08:10)
[2018-11-28] MEDS: LACTOBACILLUS ACIDOPHILUS (FLORANEX) TAB PO SCH (08:10)
[2018-11-28] MEDS: PANCREAZE (LIPASE 4,200U) CAP PO SCH ×3 (08:11→17:31)
[2018-11-28] MEDS: ACETAMINOPHEN 500 MG TAB PO SCH ×2 (08:11→17:32)
[2018-11-28] MEDS: LOSARTAN POTASSIUM 25 MG TAB PO SCH ×2 (08:11→22:02)
[2018-11-28] MEDS: ROFLUMILAST 500 MCG TAB PO SCH (08:12)
[2018-11-28] MEDS: TIOTROPIUM BROMIDE 5 PUFF/90 MCG INH INH SCH (08:12)
[2018-11-28] MEDS: BRIMONIDINE TARTRATE-P 0.15% 5 ML BTL OP SCH ×3 (08:12→22:43)
[2018-11-28] MEDS: POTASSIUM CHLORIDE 10 MEQ TABCR PO SCH ×2 (08:13→22:02)
[2018-11-28] MEDS: DORZOLAMIDE HCL 2% OPH SOLN 10 ML BTL OP SCH ×3 (08:13→22:00)
--- NOTE | 2018-11-28 14:57 | Hospitalist Progress Note ---
Date of Service November 28, 2018 Assessment & Plan (1) Acute pain of left hip: On examination pain located SI joint and associated L paraspinal musculature, also with pain located L greater trochanter, piriformis region as well as IT Band. Pain most definitely MSK in origin. DDX including but not limited to: Lumbar radiculopathy, spinal stenosis, Sacroilitis, Piriformis syndrome, greater trochanter bursitis. -admit to med/surg -consult PT/OT -control pain -place on prednisone taper for anti inflammatory -Pain is worse with movement of the left hip joint and on ambulation -Localized to left hip and adjoining area of the buttock including greater trochanter -range of motion in the left hip is diminished due to pain -CT of the lumbar spine and pelvis noted -Appreciate Ortho input and recommendation -MRI of the lumbar spine has been ordered -Pain seems to be worse in the doses of morphine have been increased -Warned about possible side effect of medication and need to decrease it after getting the MRI report -He takes oxycodone as an outpatient (2) Low back pain: Has intractable back pain-lower lumbar region CT scan showed mild to moderate disc protrusion L4/L5 distribution Tenderness over the greater trochanteric bursa and adjoining area Hip movement is painful and restricted Has mild osteoarthritis involving the hip as well on imaging studies We will ask for an orthopedic evaluation As above (3) COPD (chronic obstructive pulmonary disease): -no acute exacerbation -continue O2 continuously, neb treatment prn, daliresp, spiriva Denies any significant symptoms from COPD (4) Chronic respiratory failure with hypoxia: -continue 2L O2 (5) PAF (paroxysmal atrial fibrillation): -rate and rhythm pacemaker -warfarin for anticoagulation, home regimen 5mg MWF, 2.5mg all other days -INR 3.4 today -We will hold Coumadin -INR 2.8 today 11/28 (6) HTN (hypertension): -blood pressure controlled on losartan (7) Chronic anemia: -H/H stable at 12.7/38.3 -normocytic/normchromic -likely in setting of chronic disease (8) Glaucoma: -continue eye gtts (9) GERD (gastroesophageal reflux disease): -continue PPI (10) Cardiac pacemaker in situ: (11) DVT prophylaxis: -continue warfarin Disposition: to be determined Follow up: PCP Dr. Aguilar upon discharge Subjective He is a 73-year-old male with significant past medical history as mentioned in HNP was admitted with intractable and left hip and adjoining area of pain yesterday. CT scan of the lumbar is pain did show mild to moderate disc protrusion at the L4/L5 distribution 11/26 The patient was seen and examined in medical floor He complains to have excruciating pain in the left hip and adjoining area of the buttock and lateral aspect during the examination His pain is more or less localized and does not radiate and/or feel any numbness and tingling He denied any other symptoms 11/27 Remains in severe pain Appreciate orthopedic input and recommendation Will have MRI to further evaluate disc disease 11/28 The patient was seen and examined the medical floor He continues to have pain 10 out of 10 left side of the lower back and adjoining area of the buttock No problem with urine and her bowel habit Has been moving around present Physical Exam 2 Vital Signs (Past 24 Hours): Last Vital Signs Temp 36.8 C 11/28/18 07:25 Pulse 70 11/28/18 07:25 Resp 20 11/28/18 07:25 BP 158/72 H 11/28/18 07:25 Pulse Ox 98 11/28/18 07:25 Constitutional: + in distress Eyes: PERRL, conjunctivae normal, anicteric sclerae ENMT: external ear and nose normal, oropharynx normal Neck: trachea midline, no thyromegaly Respiratory: normal respiratory effort, lungs clear to auscultation Cardiovascular: RRR, no murmur, no edema Gastrointestinal (Abdomen): normal bowel sounds, soft, nontender, no hepatosplenomegaly Musculoskeletal: Spine: + buttock tenderness (Left ) Hip: + Lesly test positive (Decreased range of motion with pain left hip and adjoining area of the buttock. Tenderness over the greater trochanter as well) Neurologic: Alert, awake and oriented x3. No focal neuro deficit _ (1) Low back pain Chronicity: acute Back pain laterality: left Sciatica presence: unspecified whether sciatica present Sciatica laterality: Qualified Code(s): M54.5 - Low back pain (2) COPD (chronic obstructive pulmonary disease) COPD type: unspecified COPD Chronic bronchitis type: Emphysema type: Qualified Code(s): J44.9 - Chronic obstructive pulmonary disease, unspecified (3) HTN (hypertension) Hypertension type: essential hypertension Qualified Code(s): I10 - Essential (primary) hypertension (4) Glaucoma Glaucoma type: unspecified Open angle glaucoma type: Primary angle closure glaucoma type: Laterality: unspecified laterality Glaucoma stage: Qualified Code(s): H40.9 - Unspecified glaucoma (5) GERD (gastroesophageal reflux disease) Esophagitis presence: without esophagitis Qualified Code(s): K21.9 - Gastro- esophageal reflux disease without esophagitis
--- NOTE | 2018-11-28 17:08 | Magnetic Resonance Report ---
LUMBAR SPINE MRI HISTORY: lumbar radiculopathy TECHNIQUE: Multiplanar multisequence MRI of the lumbar spine was performed without the use of contras t. COMPARISON: Lumbar spine CT 11/25/2018. FINDINGS: For the purpose of the report the L5-S1 disc space will be located on axial image 23 of 25. No fracture or subluxation. Severe disc space narrowing at T12-L1. Mild disc space narrowing at L4-L5 and L5-S1. There is a Schmorl's node at the super endplate of L5. The conus terminates at the T12-L1 disc space. Paraspinal soft tissues are unremarkable. Mild disc space narrowing seen within the lowe r thoracic spine. L1-L2: Small broad-based posterior disc bulge. No significant central canal or neural foraminal narro wing. L2-L3: Small broad-based posterior disc bulge without significant central canal or left-sided neural foraminal narrowing. There is mild right-sided neural foraminal narrowing. L3-L4: No significant central canal or neural foraminal narrowing. L4-L5: Small broad-based posterior disc bulge with ligamentum and facet hypertrophy resulting in mild central canal and mild bilateral neural foraminal narrowing. L5-S1: No significant central canal or neural foraminal narrowing. IMPRESSION: 1. No fracture or subluxation. 2. Degenerative changes as described above. This is most pronounced at the L4-L5 level where there is mild central canal and mild bilateral neural foraminal narrowing. Electronically signed by: Abraham Bose M.D. 11/28/2018 5:06 PM
[2018-11-28] MEDS: DICLOFENAC SOD 1% GEL 100 GM TUBE EXT SCH (18:59)
[2018-11-28] MEDS: TAMSULOSIN HCL 0.4 MG CAP PO SCH (22:01)
[2018-11-28] MEDS: TRAZODONE HCL 50 MG TAB PO SCH (22:03)
[2018-11-28] MEDS: LATANOPROST 0.005% OP SOLN 2.5 ML BTL OP SCH (22:04)
[2018-11-29] MEDS: MoRPHine SULFATE 4 MG/ML 1 ML CARP\\VIAL IV PRN ×4 (04:05→22:30)
[2018-11-29] MEDS: OXYCODONE HCL IR 5 MG TAB (IMMEDIATE RELEASE) PO PRN ×2 (06:21→11:59)
[2018-11-29 07:22] LABS: INR 1.8 (0.9-1.1); Prothrombin Time 17.4 Seconds (9.0-12.0)
[2018-11-29] MEDS ORDERED: BUPIVACAINE 0.5 % 5 MG/1 ML MPF 30ML VIAL ONE (08:35)
[2018-11-29] MEDS ORDERED: TRIAMCINOLONE ACET 40 MG/ML VIAL ONE (08:35)
[2018-11-29] MEDS ORDERED: KETOROLAC 30 MG/ML VIAL ONE (08:35)
[2018-11-29] MEDS: PANCREAZE (LIPASE 4,200U) CAP PO SCH ×3 (08:58→17:27)
[2018-11-29] MEDS: ACETAMINOPHEN 500 MG TAB PO SCH ×4 (08:58→23:32)
[2018-11-29] MEDS: DORZOLAMIDE HCL 2% OPH SOLN 10 ML BTL OP SCH ×3 (08:59→20:49)
[2018-11-29] MEDS: BRIMONIDINE TARTRATE-P 0.15% 5 ML BTL OP SCH ×3 (09:00→20:49)
[2018-11-29] MEDS: LOSARTAN POTASSIUM 25 MG TAB PO SCH ×2 (09:01→20:46)
[2018-11-29] MEDS: TIOTROPIUM BROMIDE 5 PUFF/90 MCG INH INH SCH (09:02)
[2018-11-29] MEDS: POTASSIUM CHLORIDE 10 MEQ TABCR PO SCH ×2 (09:02→20:47)
[2018-11-29] MEDS: predniSONE 20 MG TAB PO SCH (09:02)
[2018-11-29] MEDS: PANTOprazole 40 MG TAB PO SCH (09:02)
[2018-11-29] MEDS: ROFLUMILAST 500 MCG TAB PO SCH (09:02)
[2018-11-29] MEDS: LACTOBACILLUS ACIDOPHILUS (FLORANEX) TAB PO SCH (09:02)
[2018-11-29] MEDS: CHOLECALCIFEROL 1,000 UNITS TAB PO SCH (09:03)
[2018-11-29] MEDS: DICLOFENAC SOD 1% GEL 100 GM TUBE EXT SCH ×2 (09:03→20:50)
[2018-11-29] MEDS ORDERED: NICOTINE 21 MG/24 HR TDSY TD SCH (09:15)
--- NOTE | 2018-11-29 10:50 | Pain Management Consultation ---
Date of Consultation November 29, 2018 Assessment & Plan (1) Sacroiliitis: Continue physical therapy (2) Myofascial pain: Continue physical therapy. He does predomeintnly have left myofascial pain and spasm. Trigger point injections were offered to him and he would like to proceed. Please refer to procedure note for further details. Continue Oxycodone and Morphine. I have added Baclofen 10mg BID for myofascial pain. Lumbar MRI is not very remarkable, myofascial etiology is more likely. History of Present Illness Reason for Consultation: Intractable pain Attending Physician: Harjinder Rodriguez MD History of Present Illness This is a 73-year-old white male that has been seen at the [facility] in consultation for left low back/buttock/hip pain. Patient states that the pain has been ongoing for approximately 4 days without any known injury. He describes an aching, spasming, and stabbing pain. Pain is aggravated with movement. Laying supine does provide mild pain relief. Patient states that he has never had pain like this before. He always rates his pain 10/10. He has been receiving Oxycodone PO and IV Morphine which is effective but only for a short amount of time. He does continuously ask for more pain medications. He is able to transfer form bed to chair and sit in the chair. He denies any low back pain history. No leg weakness, foot drop, saddle anesthesia, or falls. Case discussed with Dr. Jessica Buitrago Pain Assessment [facility] Combined Pain Scale: 10-Worst Imaginable - Paralyzing. Decreased consciousness due to pain. Pain scale - at its best (0-10): 10 Pain scale - at its worst (0-10): 10 Allergies Allergy/AdvReac Type Severity Reaction Status Date / Time chlorhexidine Allergy Severe itchy red Verified 11/25/18 10:00 skin Sulfa (Sulfonamide Allergy Intermediate Rash Verified 11/25/18 10:00 Antibiotics) ("SULFA") Home Medications Home Medications Medication Instructions Recorded Confirmed Type Lactobacillus acidoph-L.bulgar 1 tab PO DAILY 11/25/18 11/25/18 History [Floranex] acetaminophen 325 mg PO Q6H PRN 11/25/18 11/25/18 History albuterol sulfate 1.25 mg INHALATION TID 11/25/18 11/25/18 History albuterol sulfate 2 puff INHALATION Q4H PRN 11/25/18 11/25/18 History brimonidine 1 drp OPHTHALMIC (EYE) TID 11/25/18 11/25/18 History cholecalciferol (vitamin D3) 4,000 unit PO DAILY 11/25/18 11/25/18 History [Vitamin D3] docusate sodium 100 mg PO BID PRN 11/25/18 11/25/18 History dorzolamide 1 drp OPHTHALMIC (EYE) TID 11/25/18 11/25/18 History latanoprost 1 drp OPHTHALMIC (EYE) UD 11/25/18 11/25/18 History ftcmlm-[id number]-zezxdyq [Creon] 1 cap PO TID 11/25/18 11/25/18 History loperamide 2 mg PO Q4H PRN 11/25/18 11/25/18 History losartan 25 mg PO BID 11/25/18 11/25/18 History oxycodone-acetaminophen 1 tab PO Q12H 11/25/18 11/25/18 History pantoprazole 40 mg PO DAILY 11/25/18 11/25/18 History potassium chloride 16 meq PO BID 11/25/18 11/25/18 History roflumilast 500 mcg PO DAILY 11/25/18 11/25/18 History tamsulosin 0.8 mg PO HS 11/25/18 11/25/18 History tiotropium bromide 1 puff INHALATION DAILY 11/25/18 11/25/18 History trazodone 50 mg PO HS 11/25/18 11/25/18 History warfarin 2.5 mg PO SUTUTHSA 11/25/18 11/25/18 History warfarin 5 mg PO MOWEFR 11/25/18 11/25/18 History Patient History Medical History Glaucoma Cardiac pacemaker in situ GERD (gastroesophageal reflux disease) Vitamin D deficiency Chronic respiratory failure with hypoxia COPD (chronic obstructive pulmonary disease) Bronchitis HTN (hypertension) Respiratory failure, acute Hypotension PAF (paroxysmal atrial fibrillation) Surgical History History of appendectomy History of hernia repair History of cataract extraction Family History Mother CAD (coronary artery disease) Father Cancer of kidney Social History marital status: Single Current Living Situation: Alone Other Information That Helps Us Care for You: No Feels Safe at Home: Yes Safety Concerns: Feels Safe At This Time Smoking Status: Former smoker Cigarettes per Day: 45 pack yr history Hx Alcohol Use: No Hx Substance Use: Yes substance use type: prescription drug Substance Use Type Other:: narcotic agreement with PCP or percocet Beliefs That Will Affect Care: None Communication Ability: Effective Review of Systems Constitutional: Negative for fever, chills, sweats Eyes: Negative for eye pain, photophobia, drainage Ear, nose, mouth, throat: Negative for ear pain, nasal congestion, mouth lesions , change in voice Respiratory: Negative for wheezing, sputum production Cardiovascular: Negative for chest pain, palpitations, calf pain Gastrointestinal: Negative for abdominal pain, belching, bloating Genitourinary: Negative for dysuria, urinary incontinence, urinary urgency Musculoskeletal: Negative for deformities Integumentary: Negative for nail changes, skin yellowing, pruritus Neurological: Negative for abnormal speech, seizure type activity Physical Exam 2 Vital Signs (Past 24 Hours): Last Vital Signs Temp 36.7 C 11/29/18 06:57 Pulse 83 11/29/18 06:57 Resp 20 11/29/18 06:57 BP 120/69 11/29/18 06:57 Pulse Ox 100 11/29/18 06:57 Physical Exam: GENERAL: Thin and frail appearing 73 year old white male. Speech and cognition is intact. Mood and affect is appropriate. In no acute distress. HEAD: Normocephalic; atraumatic. EYES: Pupils are round, equal, and reactive to light; EOM intact. CHEST: Regular chest respiration and excursion. EXTREMITIES: There is increased pain with left hip ROM. Negative SLR bilaterally. He is unable to tolerate MANSI maneuver. SI compression testing is positive. There is also mild left greater trochanteric bursitis. BACK: Full ROM. No midline or facet tenderness. Moderate left SI joint tendenress. There are scattered myoneural trigger points that are exquisitely tender in the left superior gluteal and lateral gluteal muscle. NEURO: CN II-XII grossly intact with no focal deficits noted. SKIN: No lesions, erythema, or rashes noted. Results & Data Diagnostic Findings LUMBAR SPINE MRI HISTORY: lumbar radiculopathy TECHNIQUE: Multiplanar multisequence MRI of the lumbar spine was performed without the use of contrast. COMPARISON: Lumbar spine CT 11/25/2018. FINDINGS: For the purpose of the report the L5-S1 disc space will be located on axial image 23 of 25. No fracture or subluxation. Severe disc space narrowing at T12-L1. Mild disc space narrowing at L4-L5 and L5-S1. There is a Schmorl's node at the super endplate of L5. The conus terminates at the T12-L1 disc space. Paraspinal soft tissues are unremarkable. Mild disc space narrowing seen within the lower thoracic spine. L1-L2: Small broad-based posterior disc bulge. No significant central canal or neural foraminal narrowing. L2-L3: Small broad-based posterior disc bulge without significant central canal or left-sided neural foraminal narrowing. There is mild right-sided neural foraminal narrowing. L3-L4: No significant central canal or neural foraminal narrowing. L4-L5: Small broad-based posterior disc bulge with ligamentum and facet hypertrophy resulting in mild central canal and mild bilateral neural foraminal narrowing. L5-S1: No significant central canal or neural foraminal narrowing. IMPRESSION: 1. No fracture or subluxation. 2. Degenerative changes as described above. This is most pronounced at the L4- L5 level where there is mild central canal and mild bilateral neural foraminal narrowing. Electronically signed by: Abraham Bose M.D. 11/28/2018 5:06 PM Procedure: TRIGGER POINT INJECTION Diagnosis: Myofascial pain Injection Site: Left superior gluteal - 2 sites Left lateral gluteal - 1 site Performed By: Gaviota oLpez PA-C Prior to starting, the Patient's diagnosis and the procedure were reviewed with the patient in detail. Possible risks and complications including infection, bleeding, damage to surrounding structures and increased pain were discussed. Alternative therapies were also reviewed. Patient's questions were answered and they agreed to proceed. Informed consent was obtained. Allergies and medication list was reviewed. The patient was asked to lay in the bed with his left hip upwards. Immediately prior to starting the procedure, a time out was conducted with the staff and the patient where the patient was identified, proposed procedure was verified, consent was reviewed and the proper site for the planned procedure was identified. Patient was not given any intravenous sedation and constant verbal contact was maintained throughout the procedure. On examination, no signs of skin breakdown or infection were noted at the injection site. The site was cleansed with alcohol. Sterile technique was used throughout the procedure. After identifying skeletal landmarks, 3 cc was injected into each site with a solution containing 7 cc of 0.5% Bupivacaine MPF, 30 mg Toradol, and 40 mg Kenalog. Aspiration was negative. Hemostasis noted. Patient was screaming as the needle was being inserted into the skin each time. Screaming seems out of proportion to the small procedure being performed. Bandaids were placed on the injection sites.
[2018-11-29] MEDS: FOLIC ACID 1 MG TAB PO SCH (11:56)
[2018-11-29] MEDS: THIAMINE HCL 100 MG TAB PO SCH (11:56)
[2018-11-29] MEDS: BACLOFEN 10 MG TAB PO SCH ×2 (11:57→20:48)
[2018-11-29] MEDS ORDERED: WARFARIN SOD 5 MG TAB PO SCH (16:00)
--- NOTE | 2018-11-29 19:10 | Hospitalist Progress Note ---
Date of Service November 29, 2018 Assessment & Plan (1) Acute pain of left hip: Sacroilitis --MRI L Spine: No fracture or subluxation. Degenerative changes as described above. This is most pronounced at the L4-L5 level where there is mild central canal and mild bilateral neural foraminal narrowing. --S/P Trigger point injections --Pain control -Appreciate Pain management and Orthopedics Input Continue PT/OT Also on Prednisone--Taper down as able (2) Low back pain: Management as above Orthopedic consulted (3) COPD (chronic obstructive pulmonary disease): On chronic O2 No signs of acute exacerbation continue supplemental O2, inhalers (4) Chronic respiratory failure with hypoxia: continue 2L O2 (5) PAF (paroxysmal atrial fibrillation): pacemaker Continue warfarin INR:1.8 today Momitor (6) HTN (hypertension): Stable Continue losartan (7) Chronic anemia: Hb stable Likely anemia of chronic disease (8) Glaucoma: continue eye gtts (9) GERD (gastroesophageal reflux disease): continue PPI (10) Cardiac pacemaker in situ: (11) DVT prophylaxis: On warfarin Disposition: To be determined Follow up: PCP Dr. Aguilar upon discharge Subjective Patient is seen and examined at bedside Patient complains of left hip/back pain He had Trigger point injection today Denies chest pain, dyspnea, dizziness No other complaints Physical Exam 2 Vital Signs (Past 24 Hours): Last Vital Signs Temp 36.9 C 11/29/18 15:33 Pulse 84 11/29/18 15:33 Resp 18 11/29/18 15:33 BP 115/66 11/29/18 15:33 Pulse Ox 97 11/29/18 15:33 Physical Exam: Physical Exam: Vitals signs as noted above General Appearance:Moderately built and nourished, no apparent distress Head: normocephalic, Atraumatic Eyes: normal inspection, EOMI Neck: supple, Trachea midline Respiratory/Chest: Decreased breath sounds, CTA Cardiovascular: S1, S2, No murmur Abdomen/GI:Soft, Non tender, Bowel sounds present Extremities/Musculoskelatal:normal inspection, no edema, left SI joint tenderness, decreased ROM Neurologic/Psych:AAOX3, grossly no focal neurological deficits Skin: normal color, warm _ (1) Low back pain Chronicity: acute Back pain laterality: left Sciatica presence: unspecified whether sciatica present Sciatica laterality: Qualified Code(s): M54.5 - Low back pain (2) COPD (chronic obstructive pulmonary disease) COPD type: unspecified COPD Chronic bronchitis type: Emphysema type: Qualified Code(s): J44.9 - Chronic obstructive pulmonary disease, unspecified (3) HTN (hypertension) Hypertension type: essential hypertension Qualified Code(s): I10 - Essential (primary) hypertension (4) Glaucoma Glaucoma type: unspecified Open angle glaucoma type: Primary angle closure glaucoma type: Laterality: unspecified laterality Glaucoma stage: Qualified Code(s): H40.9 - Unspecified glaucoma (5) GERD (gastroesophageal reflux disease) Esophagitis presence: without esophagitis Qualified Code(s): K21.9 - Gastro- esophageal reflux disease without esophagitis
[2018-11-29] MEDS: TRAZODONE HCL 50 MG TAB PO SCH (20:47)
[2018-11-29] MEDS: TAMSULOSIN HCL 0.4 MG CAP PO SCH (20:47)
[2018-11-29] MEDS: LATANOPROST 0.005% OP SOLN 2.5 ML BTL OP SCH (20:50)
[2018-11-29 23:44] VITALS: PULSE 80
[2018-11-30] MEDS: MoRPHine SULFATE 4 MG/ML 1 ML CARP\\VIAL IV PRN ×2 (02:56→07:04)
[2018-11-30 06:24] LABS: INR 1.8 (0.9-1.1); Prothrombin Time 17.7 Seconds (9.0-12.0)
[2018-11-30 07:11] VITALS: TEMP 97.7; O2SAT 98
[2018-11-30] MEDS ORDERED: MoRPHine SULFATE 4 MG/ML 1 ML CARP\\VIAL IV PRN (08:02)
[2018-11-30] MEDS: OXYCODONE HCL IR 5 MG TAB (IMMEDIATE RELEASE) PO PRN ×2 (08:22→12:42)
[2018-11-30] MEDS: PANTOprazole 40 MG TAB PO SCH (08:23)
[2018-11-30] MEDS: LACTOBACILLUS ACIDOPHILUS (FLORANEX) TAB PO SCH (08:23)
[2018-11-30] MEDS: predniSONE 20 MG TAB PO SCH (08:23)
[2018-11-30] MEDS: LOSARTAN POTASSIUM 25 MG TAB PO SCH (08:23)
[2018-11-30] MEDS: CHOLECALCIFEROL 1,000 UNITS TAB PO SCH (08:23)
[2018-11-30] MEDS: POTASSIUM CHLORIDE 10 MEQ TABCR PO SCH (08:24)
[2018-11-30] MEDS: THIAMINE HCL 100 MG TAB PO SCH (08:24)
[2018-11-30] MEDS: ACETAMINOPHEN 500 MG TAB PO SCH (08:24)
[2018-11-30] MEDS: FOLIC ACID 1 MG TAB PO SCH (08:24)
[2018-11-30] MEDS: PANCREAZE (LIPASE 4,200U) CAP PO SCH ×2 (08:24→12:19)
[2018-11-30] MEDS: DORZOLAMIDE HCL 2% OPH SOLN 10 ML BTL OP SCH ×2 (08:25→14:38)
[2018-11-30] MEDS: BRIMONIDINE TARTRATE-P 0.15% 5 ML BTL OP SCH ×2 (08:26→14:38)
[2018-11-30] MEDS: ROFLUMILAST 500 MCG TAB PO SCH (08:26)
[2018-11-30] MEDS: BACLOFEN 10 MG TAB PO SCH (08:27)
[2018-11-30] MEDS: DICLOFENAC SOD 1% GEL 100 GM TUBE EXT SCH (08:28)
[2018-11-30] MEDS: TIOTROPIUM BROMIDE 5 PUFF/90 MCG INH INH SCH (08:59)
--- NOTE | 2018-11-30 11:29 | Pain Management Progress Note ---
Date of Service November 30, 2018 Assessment & Plan (1) Lumbar facet joint pain: * Medrol dose pack for anti intiinflamatory effect. * Tramadol or Tapantadol for analgesia * May discharge and follow up in [facility] for diagnostic facet blocks or medial branch blocks. * Lidoderm patch for analgesia. Present on Admission?: Yes (2) Myofascial pain: Present on Admission?: Yes Subjective Mr. Moseley was seen for follow-up this morning. He reports no long-term or short -term efficacy from trigger point injections performed yesterday. He continues to complain of experiencing pain in the distal lumbar spine more so on the left side left buttock and proximal thigh posteriorly. He denies any numbness, weakness, loss of bowel/bladder control or any radicular symptoms associated with his pain. He rates pain 10/10 when severe and occur spontaneously as well with any activity such as ambulating. He reports sleep disturbance and is unable to sleep at night. Constitutional: no fever, no chills, no sweats, no malaise and no weight loss Eyes: no photophobia Respiratory: no cough, no dyspnea, no pain on inspiration and no pain with cough Integumentary: no rash and no lesions Neurologic: as per Subjective / HPI; no gait abnormality, no localized weakness , no numbness and no paresthesia Pain Assessment Pain Assessment Full Body Front + Back: 2 1. 2. [facility] Combined Pain Scale: 6-Mod to Severe - Significant limitations of ADLs. Hard to do anything Pain scale - at its best (0-10): 5 Pain scale - at its worst (0-10): 10 Physical Exam 2 Vital Signs (Past 24 Hours): Last Vital Signs Temp 36.5 C 11/30/18 07:10 Pulse 80 11/30/18 07:10 Resp 20 11/30/18 07:10 BP 166/76 H 11/30/18 07:10 Pulse Ox 98 11/30/18 07:10 Constitutional: WD/WN, vitals as above + acute distress Musculoskeletal: Spine: + paraspinal tenderness (left lumbar spine) and + sacral tenderness; straight leg raise positive tilt absent and no sacral edema Extremities: strength 5/5 throughout Hip: + hip abnormal to inpsection Skin: no rashes, warm and dry Neurologic: patellar DTR's 2+ bilat, sensation intact Psychiatric: A+Ox3, euthymic affect
--- NOTE | 2018-11-30 13:04 | Hospitalist Progress Note ---
Date of Service November 30, 2018 Assessment & Plan (1) Acute pain of left hip: Sacroilitis Lumbar facet joint and Myofascial pain --MRI L Spine: No fracture or subluxation. Degenerative changes as described above. This is most pronounced at the L4-L5 level where there is mild central canal and mild bilateral neural foraminal narrowing. --S/P Trigger point injections --Pain control -Appreciate Pain management and Orthopedics Input Continue PT/OT Also on Prednisone--Taper down as able Plan to discharge on Medrol dose pack Needs follow up with and upon discharge Diagnostic facet blocks or medial branch blocks as outpatient (2) Low back pain: Management as above Appreciate Orthopedic Input No plan for Surgical Intervention (3) COPD (chronic obstructive pulmonary disease): On chronic O2 No signs of acute exacerbation continue supplemental O2, inhalers (4) Chronic respiratory failure with hypoxia: continue 2L O2 (5) PAF (paroxysmal atrial fibrillation): pacemaker Continue warfarin INR:1.8 today Monitor (6) HTN (hypertension): Slightly elevated likely 2/2 pain Continue losartan (7) Chronic anemia: Hb stable Likely anemia of chronic disease (8) Glaucoma: continue eye gtts (9) GERD (gastroesophageal reflux disease): continue PPI (10) Cardiac pacemaker in situ: (11) DVT prophylaxis: On warfarin Disposition: Follow up: PCP, Pain management and Ortho upon discharge Subjective Patient is seen and examined at bedside left hip/back pain is better Discussed with and today Trigger point injection done yesterday Denies chest pain, dyspnea, dizziness No other complaints Family at bedside Physical Exam 2 Vital Signs (Past 24 Hours): Last Vital Signs Temp 36.5 C 11/30/18 07:10 Pulse 80 11/30/18 07:10 Resp 20 11/30/18 07:10 BP 166/76 H 11/30/18 07:10 Pulse Ox 98 11/30/18 07:10 Physical Exam: Physical Exam: Vitals signs as noted above General Appearance:Moderately built and nourished, no apparent distress Head: normocephalic, Atraumatic Eyes: normal inspection, EOMI Neck: supple, Trachea midline Respiratory/Chest: Decreased breath sounds, CTA Cardiovascular: S1, S2, No murmur Abdomen/GI:Soft, Non tender, Bowel sounds present Extremities/Musculoskelatal:normal inspection, no edema, left SI joint tenderness, decreased ROM Neurologic/Psych:AAOX3, grossly no focal neurological deficits Skin: normal color, warm _ (1) Low back pain Chronicity: acute Back pain laterality: left Sciatica presence: unspecified whether sciatica present Sciatica laterality: Qualified Code(s): M54.5 - Low back pain (2) COPD (chronic obstructive pulmonary disease) COPD type: unspecified COPD Chronic bronchitis type: Emphysema type: Qualified Code(s): J44.9 - Chronic obstructive pulmonary disease, unspecified (3) HTN (hypertension) Hypertension type: essential hypertension Qualified Code(s): I10 - Essential (primary) hypertension (4) Glaucoma Glaucoma type: unspecified Open angle glaucoma type: Primary angle closure glaucoma type: Laterality: unspecified laterality Glaucoma stage: Qualified Code(s): H40.9 - Unspecified glaucoma (5) GERD (gastroesophageal reflux disease) Esophagitis presence: without esophagitis Qualified Code(s): K21.9 - Gastro- esophageal reflux disease without esophagitis
--- NOTE | 2018-11-30 13:16 | Discharge Summary ---
Date of Service November 30, 2018 Admission HPI Per Admitting Provider This is a 73 year old M with significant PMH of chronic hypoxic resp failure due to severe COPD on 2L NC, PAF on warfarin, s/p PPM, HTN, Glaucoma, Gerd who presents to [facility] secondary to LLE pain x 1 day. No injury or trauma. Pain started yesterday, originating in Left buttock and radiating down lateral/ posterior L to knee. Describes pain and severe, 10/10, worse with sitting and movement, nothing makes better. Had never had in the past. No known back injury or surgery. Tried APAP, oxycodone and heat at home with out relief. Difficulty with ambulation in regards to pain. Denies recent illness, f/c/s, chest pain, n/v/d, abdominal pain, change in bowel or urinary habits. +chronic SOB on O2 and nebs bid. Occasional productive cough with white sputum. Admission Exam Per Admitting Provider Gen: Thin, elderly male, sitting up in bed, occasional wincing in pain, NAD, pleasant, conversing easily Head: Normocephalic, Atraumatic Eyes: Sclera normal, no conjunctival injection, PERRLA, EOMI ENT: Gross hearing intact, normal pharynx, mucous membranes moist Neck: supple, no adenopathy, No JVD, no bruit, Resp: Clear to auscultation b/l with distant breath sounds throughout, inspiratory wheeze and rhonchi noted, no rales. Normal insp/exp effort on 2L O2 via NC, no accessory muscle use CV: Regular rate, regular rhythm, no murmur, rub, gallop, or ectopy, pacer LACW Abd: +BS x 4, soft, nontender, nondistended Musculoskeletal: moves extremities active rom x 4, strength decreased LLE secondary to pain, +straight leg raise LLE, + kyphosis, pain to palpation SI joint, L sided paraspinal musculature extending in to piriformis region and greater trochanter, +2 patellar reflex b/l Extremities: No edema bilaterally Skin: warm, moist, no rash, negative turgor, cap refill < 2sec Neuro: Alert and oriented x 3, speech normal, good mood/affect, cran nerve 2-12 intact grossly : deferred Principal Diagnosis Discharge Information Discharge Diagnosis Sacroilitis Lumbar facet joint and Myofascial pain Discharge Goals Decrease discomfort,Improve function,Improve disease control Discharge Activity Limitations Resume your previous activity Discharge Data Allergies Allergy/AdvReac Type Severity Reaction Status Date / Time chlorhexidine Allergy Severe itchy red Verified 11/25/18 10:00 skin Sulfa (Sulfonamide Allergy Intermediate Rash Verified 11/25/18 10:00 Antibiotics) ("SULFA") Consultations 11/25/18 13:38 ED Decision to Admit Stat 11/25/18 16:00 Consult Case Management - Discharge Planning Routine 11/26/18 10:50 Consult Orthopedic Surgery Routine 11/28/18 17:36 Consult Pain Management Routine Procedures Performed Lumbar Spine MRI: 1. No fracture or subluxation. 2. Degenerative changes as described above. This is most pronounced at the L4- L5 level where there is mild central canal and mild bilateral neural foraminal narrowing. Lumbar Spine CT: 1. No acute fracture or subluxation of the lumbar spine identified. 2. Remote appearing Schmorl's node about the superior endplate L5. 3. Remote 30% anterior endplate compression deformity of the T11 vertebral body. 4. Circumferential annular disc bulge with ligamentum flavum thickening and facet arthrosis at L4-L5 results in mild to moderate central canal and mild to moderate bilateral foraminal narrowing. 5. Additional findings as above. Hip CT: 1. No acute fracture or dislocation. 2. 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 Ordered Studies 11/25/18 09:52 CT hip LT wo con Stat CT lumbar spine wo con Stat 11/28/18 10:42 MR lumbar spine wo con Urgent Hospital Course (1) Acute pain of left hip: Sacroilitis Lumbar facet joint and Myofascial pain --MRI L Spine: No fracture or subluxation. Degenerative changes as described above. This is most pronounced at the L4-L5 level where there is mild central canal and mild bilateral neural foraminal narrowing. --S/P Trigger point injections --Pain control -Appreciate Pain management and Orthopedics Input Continue PT/OT Also on Prednisone--Taper down as able Plan to discharge on Medrol dose pack Needs follow up with and upon discharge Diagnostic facet blocks or medial branch blocks as outpatient (2) Low back pain: Management as above Appreciate Orthopedic Input No plan for Surgical Intervention (3) COPD (chronic obstructive pulmonary disease): On chronic O2 No signs of acute exacerbation continue supplemental O2, inhalers (4) Chronic respiratory failure with hypoxia: continue 2L O2 (5) PAF (paroxysmal atrial fibrillation): pacemaker Continue warfarin INR:1.8 today Monitor (6) HTN (hypertension): Slightly elevated likely 2/2 pain Continue losartan (7) Chronic anemia: Hb stable Likely anemia of chronic disease (8) Glaucoma: continue eye gtts (9) GERD (gastroesophageal reflux disease): continue PPI (10) Cardiac pacemaker in situ: (11) DVT prophylaxis: On warfarin Disposition: Follow up: PCP, Pain management and Ortho upon discharge Total Time Total Time Spent Total Time Spent (In Minutes): 43 minutes Total Time Includes: Examination of the Patient, Discharge Planning, Medication Reconciliation, Communication With Other Providers and Other Discharge Plan Discharge Items Patient Disposition: Home - Home Health Services Reason For Visit: UNCONTROLLED BACK PAIN Discharge Diagnosis: Sacroilitis Lumbar facet joint and Myofascial pain Discharge Goals: Decrease discomfort, Improve disease control and Improve function Activity: Resume your previous activity Exercise/Sports: Gradually increase as tolerated Non-emergency contact: Primary Care Provider, Surgeon and Specialist Call non-emergency contact if: you have any medication questions, your symptoms worsen, your pain is not controlled, your pain is worsening, your pain is unusual for you, your pain is concerning for you and you have a fever Diet: Heart Healthy Addtl Provider Instructions: Follow up with for Routine Care on Dec 07, 2018 at 3:00pm Follow up with Pain management Dr.Upendra Do in 1-2 weeks Follow up with your Orthopedic Surgeon in 1-2 weeks. Please Call [phone] for appointment Complete the medrol dose pack as prescribed Seek immediate medical attention if your symptoms reoccur or worsen Prescriptions: New baclofen 10 mg Tablet 10 mg PO BID PRN (Reason: Spasms) 5 Days Qty: 10 RF: 0 methylprednisolone [Medrol (Gray)] 4 mg tablets,dose pack 4 mg PO UD Qty: 21 RF: 0 Continue trazodone 50 mg Tablet 50 mg PO HS RF: 0 pantoprazole 40 mg tablet,delayed release (DR/EC) 40 mg PO DAILY RF: 0 Lactobacillus acidoph-L.bulgar [Floranex] 1 million cell Tablet 1 tab PO DAILY RF: 0 latanoprost 0.005 % drops 1 drp ophthalmic (eye) UD RF: 0 oxycodone-acetaminophen 5-325 mg tablet 1 tab PO Q12H RF: 0 potassium chloride 8 mEq capsule, extended release 16 meq PO BID RF: 0 tamsulosin 0.4 mg capsule 0.8 mg PO HS RF: 0 warfarin 5 mg tablet 5 mg PO MOWEFR RF: 0 losartan 25 mg tablet 25 mg PO BID RF: 0 brimonidine 0.15 % drops 1 drp ophthalmic (eye) TID RF: 0 roflumilast 500 mcg Tablet 500 mcg PO DAILY RF: 0 tliwgi-nghbaikm-rdnymvy [Creon] 3,000-9,500- 15,000 unit Capsule,Delayed Release(Dr/Ec) 1 cap PO TID RF: 0 acetaminophen 325 mg Tablet 325 mg PO Q6H PRN (Reason: Pain) RF: 0 albuterol sulfate 1.25 mg/3 mL Solution For Nebulization 1.25 mg INHALATION TID RF: 0 loperamide 2 mg Tablet 2 mg PO Q4H PRN (Reason: Diarrhea) RF: 0 albuterol sulfate 90 mcg/actuation Hfa Aerosol Inhaler 2 puff INHALATION Q4H PRN (Reason: Shortness Of Breath) RF: 0 docusate sodium 100 mg Tablet 100 mg PO BID PRN (Reason: Constipation) RF: 0 dorzolamide 2 % Drops 1 drp OPHTHALMIC (EYE) TID RF: 0 cholecalciferol (vitamin D3) [Vitamin D3] 2,000 unit Capsule 4,000 unit PO DAILY RF: 0 tiotropium bromide 2.5 mcg/actuation Mist 1 puff INHALATION DAILY RF: 0 warfarin 5 mg Tablet 2.5 mg PO SUTUTHSA RF: 0 Stand-Alone Forms: [facility] Discharge Orders: Discharge Order (Routine); Ordered 11/30/18 Ordered By: Harjinder Rodriguez Admission Data Admit Date/Time: 11/28/18 13:12 Attending Provider: Harjinder Rodriguez Admit Provider: Kacey Llanos Primary Care Provider: Conner Aguilar Other Providers: Kacey Llanos ; Damaso Laguerre ; Tyler Do ; Ben Harper Service: Medical Other Interventions: Discharge Summary Assessment (RN) Last Done: 11/30/18 14:15 Pending Studies at Discharge: No DC Date/Time DO NOT enter until pt leaves facility: 11/30/18 16:35
[2018-11-30 14:17] VITALS: BP 148/81
[2018-11-30 17:22] LABS: Morphine 7 MCG/L (LESS THAN 80)
== END 2018-11-30 16:35 | disposition home health service (06) | DRG 552 ==
LOC: ED 09:18 → 4E 09:18 → SUATTDRO 14:06 → 4E 14:49 → SUATTDRO 11-28 13:12

== ENCOUNTER 2021-09-15 17:20 | Inpatient (IN) ==
[2021-09-15] MEDS ORDERED: methylPREDNISolone 125 MG/2 ML VIAL IV STA (17:37)
[2021-09-15] MEDS ORDERED: ALBUTEROL 0.083% NEBU SOLN 3 ML VIAL NEB STA (17:37)
--- NOTE | 2021-09-15 17:37 | Emergency Department Note ---
Impression & Plan COPD (chronic obstructive pulmonary disease), Breath shortness ED Provider Note NAME: LENARD ALVARADO AGE: 76 SEX: M : 1945 ARRIVES VIA: Ambulance INFORMANT: Patient ED PROVIDER(S): Jordan Hogue DO CHIEF COMPLAINT: Shortness of breath HPI: Patient is a 76-year-old male who presents to the ER with a past medical history of COPD, hypertension, chronically on 2 to 3 L, paroxysmal A. fib on Coumadin who presents the ER following a fall on Tuesday where he fell onto his buttocks. He denies any headache or neck pain. No chest pain but does admit to shortness of breath which has been getting worse for the past several days. This was not related to the fall. He admits to a little cough. Denies any runny nose sore throat. No loss of taste or smell. He does have a cough. No belly pain, nausea, vomiting, or diarrhea. No dysuria, urgency, or frequency. Patient was brought in by EMS. ROS: See above HPI for pertinent positives & negatives. A total of 10 systems reviewed and were otherwise negative. PAST MEDICAL HISTORY:See Below PAST SURGICAL HISTORY:See Below FAMILY HISTORY:See Below SOCIAL HISTORY:See Below HOME MEDICATIONS:See Below ALLERGIES:See Below VITALS:See Below PHYSICAL EXAMINATION: GENERAL: Sitting up in bed, alert, ill-appearing with pursed lip breathing short of breath EYE EXAM: normal conjunctiva. PERRL and EOM's grossly intact. OROPHARYNX: Dry mucous membranes NECK: supple, no nuchal rigidity, no adenopathy, non-tender LUNGS: Mild wheezing bilaterally. Normal chest wall mechanics HEART: no murmurs, S1 normal and S2 normal ABDOMEN: abdomen soft, non-tender, normo-active bowel sounds, no masses, no rebound or guarding. UPPER EXTREMITIES: upper extremities are grossly normal. LOWER EXTREMITIES: No pitting edema. NEURO EXAM: Normal sensorium, cranial nerves II-XII grossly intact, normal speech, no gross weakness of arms, no gross weakness of legs. MEDICAL DECISION MAKING: Patient is 76-year-old male who presents ER for above-stated complaint. IV was established blood was obtained. Labs show leukocytosis 12,000. Mild anemia 9.8. INR was therapeutic at 3.7. BMP was unremarkable. Calcium slightly elevated at 10. LFTs with mild elevation AST. Troponin was elevated 0.063. D enies any chest pain. Covid was negative. Chest x-ray was clean. Patient was placed on BiPAP as he was in respiratory distress. PE was not explored secondary to the therapeutic INR. EKG was unremarkable. Do favor the bump troponins either secondary to respiratory effort versus paroxysmal A. fib which has been going in and out of per [employer]. Patient was updated bedside. Patient was given steroids and albuterol. Updated bedside admitted for further work-up. Triage Nursing notes reviewed. Limited review of prior medical records performed Vital Signs: reviewed and remarkable for tachycardia Differential diagnosis: Differential diagnoses includes but is not limited to pneumonia, bronchitis, COPD/Asthma exacerbation, pneumothorax, pulmonary embolism, congestive heart failure, acute coronary syndrome ER treatment provided: See below Diagnostics interpreted by me: ECG: Atrial sensed ventricular paced rate of 114 Left axis Right bundle branch block T wave inversions in septal leads QTC 501 Cardiac Monitoring: An order was placed for continuous cardiac monitoring. The monitor shows a rate of 120 with sinus rhythm. Laboratory studies: As stated above and show below. Imaging studies: Portable AP upright 1 view of the chest shows no focal infiltrate or pneumothorax Consultation(s): Discussed with Dr. Peñaloza for further evaluation Procedures: none Critical Care: None Past Med/Surg History Medical History (Updated 09/15/21 @ 23:27 by Jordan Hogue DO) Bronchitis Cardiac pacemaker in situ Chronic respiratory failure with hypoxia COPD (chronic obstructive pulmonary disease) GERD (gastroesophageal reflux disease) Glaucoma HTN (hypertension) Hypotension PAF (paroxysmal atrial fibrillation) Respiratory failure, acute Vitamin D deficiency Surgical History History of appendectomy History of cataract extraction History of hernia repair Family History Mother Coronary heart disease Father Cancer of kidney Social History Smoking Status: Former smoker Tobacco Type: Cigarettes Cigarettes Per Day: 45 pack yr history; Hx Alcohol Use: No Hx Substance Use: Yes Substance Use Type Other:: narcotic agreement with PCP or percocet Preferred Language: Moroccan Communication Ability: Effective Beliefs That Will Affect Care: None marital status: Single Current Living Situation: Alone Feels Safe at Home: Yes Assistive Devices: Oxygen - Continuous Allergies Allergies Allergy/AdvReac Type Severity Reaction Status Date / Time chlorhexidine Allergy Severe itchy red Verified 09/15/21 18:04 skin Sulfa (Sulfonamide Allergy Intermediate Rash Verified 09/15/21 18:04 Antibiotics) ("SULFA") Home Meds Home Medications Medication Instructions Recorded Confirmed Lactobacillus acidoph-L.bulgaricus 1 tab PO DAILY 11/25/18 09/15/21 1 million cell tablet (Floranex) acetaminophen 325 mg tablet 325 mg PO Q6H PRN 11/25/18 09/15/21 albuterol sulfate 1.25 mg/3 mL 1.25 mg INHALATION TID 11/25/18 09/15/21 solution for nebulization albuterol sulfate 90 mcg/actuation 2 puff INHALATION Q4H PRN 11/25/18 09/15/21 aerosol inhaler brimonidine 0.15 % eye drops 1 drp OPHTHALMIC (EYE) TID 11/25/18 09/15/21 cholecalciferol (vitamin D3) 50 4,000 unit PO DAILY 11/25/18 09/15/21 mcg (2,000 unit) capsule (Vitamin D3) docusate sodium 100 mg tablet 100 mg PO BID PRN 11/25/18 09/15/21 dorzolamide 2 % eye drops 1 drp OPHTHALMIC (EYE) TID 11/25/18 09/15/21 latanoprost 0.005 % eye drops 1 drp OPHTHALMIC (EYE) HS 11/25/18 09/15/21 lipase 3,000-protease 1 cap PO TID 11/25/18 09/15/21 9,500-amylase 15,000 unit capsule, delayed rel (Creon) losartan 25 mg tablet 25 mg PO QPM 11/25/18 09/15/21 pantoprazole 40 mg tablet,delayed 40 mg PO DAILY 11/25/18 09/15/21 release roflumilast 500 mcg tablet 500 mcg PO DAILY 11/25/18 09/15/21 tamsulosin 0.4 mg capsule 0.4 mg PO HS 11/25/18 09/15/21 hydrocodone 10 mg-acetaminophen 1 tab PO TID PRN 02/13/19 09/15/21 325 mg tablet umeclidinium 62.5 mcg-vilanterol 1 inh INHALATION DAILY 03/23/21 11/16/21 25 mcg/actuation powdr for inhalation (Anoro Ellipta) finasteride 5 mg tablet 5 mg PO DAILY 09/15/21 09/15/21 gabapentin 400 mg capsule 400 mg PO TID 09/15/21 09/15/21 prednisone 5 mg tablet 10 mg PO DAILY 09/15/21 09/15/21 torsemide 10 mg tablet 10 mg PO DAILY 09/15/21 09/15/21 trazodone 100 mg tablet 150 mg PO HS 09/15/21 09/15/21 warfarin 4 mg tablet See Rx Instructions .ROUTE .COMPLEX 09/15/21 09/15/21 Results & Data (ED) Vital Signs Vital Signs - 24 hr 09/15/21 17:31 09/15/21 17:41 09/15/21 17:46 Temperature 37.5 C Temperature Source Oral Pulse Rate 96 H 87 117 H Pulse Rate [Apical] 125 H Pulse Rate from SpO2 Sensor Respiratory Rate 18 22 22 Respiratory Effort / Characteristics Labored Pursed Lip Pursed Lip Short of Breath Respiratory Depth Normal Respiratory Pattern Blood Pressure 145/45 H Blood Pressure Mean 78 Blood Pressure Position Sitting Pulse Oximetry 98 96 100 Oxygen Delivery Method Nasal Cannula Nasal Cannula BiPAP Oxygen Flow Rate 3 3 Fraction of Inspired Oxygen 40 Sepsis Recent Fever Within 48 Hours No Sepsis New/Unexplained Change in Mental Status No Sepsis Action Taken by Nursing No Action Required 09/15/21 17:55 09/15/21 18:00 09/15/21 18:10 Temperature Temperature Source Pulse Rate 71 72 97 H Pulse Rate [Apical] Pulse Rate from SpO2 Sensor 71 73 Respiratory Rate 22 23 22 Respiratory Effort / Characteristics Respiratory Depth Respiratory Pattern Blood Pressure 133/73 Blood Pressure Mean 93 Blood Pressure Position Pulse Oximetry 100 93 93 Oxygen Delivery Method BiPAP BiPAP BiPAP Oxygen Flow Rate Fraction of Inspired Oxygen Sepsis Recent Fever Within 48 Hours Sepsis New/Unexplained Change in Mental Status Sepsis Action Taken by Nursing 09/15/21 18:20 09/15/21 18:30 09/15/21 18:34 Temperature Temperature Source Pulse Rate 94 H 72 Pulse Rate [Apical] Pulse Rate from SpO2 Sensor Respiratory Rate 22 23 Respiratory Effort / Characteristics Respiratory Depth Respiratory Pattern Blood Pressure Blood Pressure Mean Blood Pressure Position Pulse Oximetry 92 96 96 Oxygen Delivery Method BiPAP BiPAP BiPAP Oxygen Flow Rate Fraction of Inspired Oxygen Sepsis Recent Fever Within 48 Hours Sepsis New/Unexplained Change in Mental Status Sepsis Action Taken by Nursing 09/15/21 18:40 09/15/21 18:50 09/15/21 19:00 Temperature Temperature Source Pulse Rate 72 71 71 Pulse Rate [Apical] Pulse Rate from SpO2 Sensor 72 71 Respiratory Rate 22 23 17 Respiratory Effort / Characteristics Respiratory Depth Respiratory Pattern Blood Pressure Blood Pressure Mean Blood Pressure Position Pulse Oximetry 99 99 96 Oxygen Delivery Method BiPAP BiPAP BiPAP Oxygen Flow Rate Fraction of Inspired Oxygen Sepsis Recent Fever Within 48 Hours Sepsis New/Unexplained Change in Mental Status Sepsis Action Taken by Nursing 09/15/21 19:10 09/15/21 19:20 09/15/21 19:30 Temperature Temperature Source Pulse Rate 74 71 70 Pulse Rate [Apical] Pulse Rate from SpO2 Sensor 70 Respiratory Rate 22 22 24 Respiratory Effort / Characteristics Respiratory Depth Respiratory Pattern Blood Pressure 119/57 L Blood Pressure Mean 77 Blood Pressure Position Pulse Oximetry 96 100 100 Oxygen Delivery Method BiPAP Oxygen Flow Rate Fraction of Inspired Oxygen Sepsis Recent Fever Within 48 Hours Sepsis New/Unexplained Change in Mental Status Sepsis Action Taken by Nursing 09/15/21 19:40 09/15/21 19:50 09/15/21 20:00 Temperature Temperature Source Pulse Rate 70 79 101 H Pulse Rate [Apical] Pulse Rate from SpO2 Sensor 70 78 99 H Respiratory Rate 24 24 22 Respiratory Effort / Characteristics Respiratory Depth Respiratory Pattern Blood Pressure Blood Pressure Mean Blood Pressure Position Pulse Oximetry 100 99 100 Oxygen Delivery Method Oxygen Flow Rate Fraction of Inspired Oxygen Sepsis Recent Fever Within 48 Hours Sepsis New/Unexplained Change in Mental Status Sepsis Action Taken by Nursing 09/15/21 20:10 09/15/21 20:20 09/15/21 20:30 Temperature Temperature Source Pulse Rate 100 H 87 98 H Pulse Rate [Apical] Pulse Rate from SpO2 Sensor 99 H 89 97 H Respiratory Rate 22 24 24 Respiratory Effort / Characteristics Respiratory Depth Respiratory Pattern Blood Pressure Blood Pressure Mean Blood Pressure Position Pulse Oximetry 99 97 99 Oxygen Delivery Method BiPAP BiPAP BiPAP Oxygen Flow Rate Fraction of Inspired Oxygen Sepsis Recent Fever Within 48 Hours Sepsis New/Unexplained Change in Mental Status Sepsis Action Taken by Nursing 09/15/21 20:40 09/15/21 20:50 09/15/21 20:55 Temperature Temperature Source Pulse Rate 103 H 97 H 97 H Pulse Rate [Apical] Pulse Rate from SpO2 Sensor 104 H 97 H Respiratory Rate 24 23 24 Respiratory Effort / Characteristics Non-Labored Spontaneous Respiratory Depth Normal Respiratory Pattern Regular Blood Pressure Blood Pressure Mean Blood Pressure Position Pulse Oximetry 98 98 97 Oxygen Delivery Method BiPAP Oxygen Flow Rate Fraction of Inspired Oxygen 30 Sepsis Recent Fever Within 48 Hours Sepsis New/Unexplained Change in Mental Status Sepsis Action Taken by Nursing 09/15/21 21:00 09/15/21 21:10 09/15/21 21:20 Temperature Temperature Source Pulse Rate 96 H 94 H 94 H Pulse Rate [Apical] Pulse Rate from SpO2 Sensor 95 H 93 H 94 H Respiratory Rate 23 23 22 Respiratory Effort / Characteristics Respiratory Depth Respiratory Pattern Blood Pressure Blood Pressure Mean Blood Pressure Position Pulse Oximetry 97 96 96 Oxygen Delivery Method BiPAP Oxygen Flow Rate Fraction of Inspired Oxygen Sepsis Recent Fever Within 48 Hours Sepsis New/Unexplained Change in Mental Status Sepsis Action Taken by Nursing 09/15/21 21:30 09/15/21 21:40 09/15/21 21:50 Temperature Temperature Source Pulse Rate 83 92 H 92 H Pulse Rate [Apical] Pulse Rate from SpO2 Sensor 80 92 H 91 H Respiratory Rate 24 24 24 Respiratory Effort / Characteristics Respiratory Depth Respiratory Pattern Blood Pressure 113/67 123/75 Blood Pressure Mean 82 91 Blood Pressure Position Pulse Oximetry 96 97 96 Oxygen Delivery Method BiPAP Oxygen Flow Rate Fraction of Inspired Oxygen Sepsis Recent Fever Within 48 Hours Sepsis New/Unexplained Change in Mental Status Sepsis Action Taken by Nursing 09/15/21 22:00 09/15/21 22:10 09/15/21 22:20 Temperature Temperature Source Pulse Rate 91 H 81 86 Pulse Rate [Apical] Pulse Rate from SpO2 Sensor 88 84 88 Respiratory Rate 22 22 24 Respiratory Effort / Characteristics Respiratory Depth Respiratory Pattern Blood Pressure Blood Pressure Mean Blood Pressure Position Pulse Oximetry 96 97 96 Oxygen Delivery Method BiPAP BiPAP BiPAP Oxygen Flow Rate Fraction of Inspired Oxygen Sepsis Recent Fever Within 48 Hours Sepsis New/Unexplained Change in Mental Status Sepsis Action Taken by Nursing 09/15/21 22:30 09/15/21 22:40 09/15/21 22:50 Temperature Temperature Source Pulse Rate 92 H 90 85 Pulse Rate [Apical] Pulse Rate from SpO2 Sensor 91 H 90 87 Respiratory Rate 24 26 H 26 H Respiratory Effort / Characteristics Respiratory Depth Respiratory Pattern Blood Pressure 127/70 Blood Pressure Mean 89 Blood Pressure Position Pulse Oximetry 96 97 97 Oxygen Delivery Method BiPAP BiPAP Oxygen Flow Rate Fraction of Inspired Oxygen Sepsis Recent Fever Within 48 Hours Sepsis New/Unexplained Change in Mental Status Sepsis Action Taken by Nursing 09/15/21 23:00 Temperature Temperature Source Pulse Rate 89 Pulse Rate [Apical] Pulse Rate from SpO2 Sensor 88 Respiratory Rate 24 Respiratory Effort / Characteristics Respiratory Depth Respiratory Pattern Blood Pressure Blood Pressure Mean Blood Pressure Position Pulse Oximetry 97 Oxygen Delivery Method BiPAP Oxygen Flow Rate Fraction of Inspired Oxygen Sepsis Recent Fever Within 48 Hours Sepsis New/Unexplained Change in Mental Status Sepsis Action Taken by Nursing Laboratory Data Result diagrams: 09/15/21 17:59 09/15/21 17:59 Lab Results 09/15/21 09/15/21 09/15/21 Range/Units 17:59 17:59 17:59 WBC 12.34 H (4.8-10.8) K/uL RBC 3.18 L (4.7-6.1) M/uL Hgb 9.9 L (14.0-18.0) g/dL Hct 31.1 L (42-52) % MCV 97.8 (80-100) fL MCH 31.1 (25-34) pg MCHC 31.8 L (32-36) g/dL RDW Std Deviation 48.6 H (36.4-46.3) fL RDW Coeff of Richar 13.5 (11.5-14.5) % Plt Count 370 (130-400) K/uL MPV 9.0 (7.4-10.4) fL Immature Gran % (Auto) 0.4 % Neut % (Auto) 87.3 % Lymph % (Auto) 2.8 % Griggs % (Auto) 9.3 % Eos % (Auto) 0.1 % Baso % (Auto) 0.1 % Neut # (Auto) 10.77 H (1.4-6.5) K/uL Lymph # (Auto) 0.35 L (1.2-3.4) K/uL Griggs # (Auto) 1.15 H (0.11-0.59) K/uL Eos # (Auto) 0.01 (0-0.5) K/uL Baso # (Auto) 0.01 (0-0.2) K/uL Immature Gran # (Auto) 0.05 H (0.00-0.02) K/uL PT 34.0 H (9.0-12.0) Seconds INR 3.7 H (0.9-1.1) VBG pH (7.36-7.41) VBG pCO2 (38-50) mmHg VBG pO2 mmHg VBG HCO3 mmol/L VBG O2 Saturation % VBG Base Excess mEq/L Barometric Pressure mm/Hg Sodium 139 (136-145) mmol/L Potassium 4.2 (3.5-5.1) mmol/L Chloride 102 (98-107) mmol/L Carbon Dioxide 31 (21-32) mmol/L Anion Gap 6.0 (3-11) BUN 26 H (7-18) mg/dl Creatinine 1.11 (0.6-1.4) mg/dl Est Cr Clr Drug Dosing 44.5 ml/min Est GFR ( Amer) 73.3 ml/min Est GFR (Non-Af Amer) 63.3 ml/min BUN/Creatinine Ratio 23.6 H (10-20) Glucose 141 H (70-99) mg/dl Calcium 10.2 H (8.5-10.1) mg/dl Total Bilirubin 0.6 (0.2-1) mg/dl AST 135 H (15-37) U/L ALT 41 (12-78) U/L Alkaline Phosphatase 78 (45-117) U/L Troponin I 0.063 H* (0-0.045) ng/ml Total Protein 7.3 (6.4-8.2) gm/dl Albumin 3.1 L (3.4-5.0) gm/dl Globulin 4.2 H (2.5-4.0) gm/dl Albumin/Globulin Ratio 0.7 L (0.9-2) Lipase 52 L (73-393) U/L COVID-19 Eval Order SARS-CoV-2 (PCR) (Negative) 09/15/21 09/15/21 09/15/21 Range/Units 17:59 18:35 18:35 WBC (4.8-10.8) K/uL RBC (4.7-6.1) M/uL Hgb (14.0-18.0) g/dL Hct (42-52) % MCV (80-100) fL MCH (25-34) pg MCHC (32-36) g/dL RDW Std Deviation (36.4-46.3) fL RDW Coeff of Richar (11.5-14.5) % Plt Count (130-400) K/uL MPV (7.4-10.4) fL Immature Gran % (Auto) % Neut % (Auto) % Lymph % (Auto) % Griggs % (Auto) % Eos % (Auto) % Baso % (Auto) % Neut # (Auto) (1.4-6.5) K/uL Lymph # (Auto) (1.2-3.4) K/uL Griggs # (Auto) (0.11-0.59) K/uL Eos # (Auto) (0-0.5) K/uL Baso # (Auto) (0-0.2) K/uL Immature Gran # (Auto) (0.00-0.02) K/uL PT (9.0-12.0) Seconds INR (0.9-1.1) VBG pH 7.34 L (7.36-7.41) VBG pCO2 51 H (38-50) mmHg VBG pO2 34 mmHg VBG HCO3 27 mmol/L VBG O2 Saturation < 60.0 % VBG Base Excess 0.7 mEq/L Barometric Pressure 736.1 mm/Hg Sodium (136-145) mmol/L Potassium (3.5-5.1) mmol/L Chloride (98-107) mmol/L Carbon Dioxide (21-32) mmol/L Anion Gap (3-11) BUN (7-18) mg/dl Creatinine (0.6-1.4) mg/dl Est Cr Clr Drug Dosing ml/min Est GFR ( Amer) ml/min Est GFR (Non-Af Amer) ml/min BUN/Creatinine Ratio (10-20) Glucose (70-99) mg/dl Calcium (8.5-10.1) mg/dl Total Bilirubin (0.2-1) mg/dl AST (15-37) U/L ALT (12-78) U/L Alkaline Phosphatase (45-117) U/L Troponin I (0-0.045) ng/ml Total Protein (6.4-8.2) gm/dl Albumin (3.4-5.0) gm/dl Globulin (2.5-4.0) gm/dl Albumin/Globulin Ratio (0.9-2) Lipase (73-393) U/L COVID-19 Eval Order Covid19 at [facility] SARS-CoV-2 (PCR) NEGATIVE (Negative) Administered Medications Methylprednisolone (Methylprednisolone 40 Mg/Ml Vial) 40 mg IV TID SHAHIDA Stop: 10/15/21 20:59 Last Admin: 09/15/21 21:51 Dose: 40 mg Documented by: [id number] Discontinued Medications Albuterol (Albuterol 0.083% Nebu Soln 3 Ml Vial) 5 mg NEB NOW STA Stop: 09/15/21 17:38 Last Admin: 09/15/21 17:46 Dose: 5 mg Documented by: [id number] Methylprednisolone (Methylprednisolone 125 Mg/2 Ml Vial) 60 mg IV NOW STA Stop: 09/15/21 17:38 Last Admin: 09/15/21 18:31 Dose: 60 mg Documented by: [id number] Imaging Data Radiologist's Impression: Chest X-Ray 09/15/21 17:35 XR chest 1V portable HISTORY: Atypical Chest Pain COMPARISON: Chest 01/30/2021. FINDINGS: No pneumothorax. No pleural effusions. The heart remains normal in size. The left-sided pacemaker again noted. Mild chronic interstitial thickening and emphysema again noted. No new focal lung consolidations to suggest pneumonia. No evidence for pulmonary edema. IMPRESSION: No significant change compared to the prior study. No acute process. ACT 112: Negative or not required by law. Electronically signed by: Abraham Bose M.D. 09/15/2021 6:23 PM Discharge Plan Visit Data Chief Complaint: Shortness of Breath/Dyspnea Stated Complaint: Tachycardia, Illness ED Provider: Jordan Hogue Discharge Problem: COPD (chronic obstructive pulmonary disease), Breath shortness Forms Stand Alone Forms: My [facility] [employer] Prescriptions Prescriptions: No Action hydrocodone-acetaminophen 10-325 mg tablet 1 tab PO TID PRN (Reason: Pain) RF: 0 pantoprazole 40 mg tablet,delayed release (DR/EC) 40 mg PO DAILY RF: 0 Lactobacillus acidoph-L.bulgar [Floranex] 1 million cell Tablet 1 tab PO DAILY RF: 0 latanoprost 0.005 % drops 1 drp ophthalmic (eye) HS RF: 0 tamsulosin 0.4 mg capsule 0.4 mg PO HS RF: 0 losartan 25 mg tablet 25 mg PO QPM RF: 0 brimonidine 0.15 % drops 1 drp ophthalmic (eye) TID RF: 0 roflumilast 500 mcg Tablet 500 mcg PO DAILY RF: 0 Creon 3,000-9,500- 15,000 unit Capsule,Delayed Release(Dr/Ec) 1 cap PO TID RF: 0 acetaminophen 325 mg Tablet 325 mg PO Q6H PRN (Reason: Pain) RF: 0 albuterol sulfate 1.25 mg/3 mL Solution For Nebulization 1.25 mg INHALATION TID RF: 0 albuterol sulfate 90 mcg/actuation Hfa Aerosol Inhaler 2 puff INHALATION Q4H PRN (Reason: Shortness Of Breath) RF: 0 docusate sodium 100 mg Tablet 100 mg PO BID PRN (Reason: Constipation) RF: 0 dorzolamide 2 % Drops 1 drp OPHTHALMIC (EYE) TID RF: 0 cholecalciferol (vitamin D3) [Vitamin D3] 2,000 unit Capsule 4,000 unit PO DAILY RF: 0 Anoro Ellipta 62.5-25 mcg/actuation blister with device 1 inh INHALATION DAILY RF: 0 gabapentin 400 mg capsule 400 mg PO TID RF: 0 prednisone 5 mg tablet 10 mg PO DAILY RF: 0 torsemide 10 mg tablet 10 mg PO DAILY RF: 0 warfarin 4 mg tablet See Rx Instructions .ROUTE .COMPLEX RF: 0 trazodone 100 mg tablet 150 mg PO HS RF: 0 finasteride 5 mg tablet 5 mg PO DAILY RF: 0 Referrals Referrals: [facility] Katya Dahl [Non-Staff] -
[2021-09-15 18:13] LABS: Basophils # (auto) 0.01 K/uL (0-0.2); Basophils % (auto) 0.1 %; Eosinophils # (auto) 0.01 K/uL (0-0.5); Eosinophils % (auto) 0.1 %; Hematocrit (blood only) 31.1 % (42-52); Hemoglobin 9.9 g/dL (14.0-18.0); Immature Granulocytes # (auto) 0.05 K/uL (0.00-0.02); Immature Granulocytes % (auto) 0.4 %; Lymphocytes # (auto) 0.35 K/uL (1.2-3.4); Lymphocytes % (auto) 2.8 %; Mean Corpuscular Hemoglobin 31.1 pg (25-34); Mean Corpuscular Hgb Conc 31.8 g/dL (32-36); Mean Corpuscular Volume 97.8 fL (80-100); Monocytes # (auto) 1.15 K/uL (0.11-0.59); Monocytes % (auto) 9.3 %; Neutrophils # (auto) 10.77 K/uL (1.4-6.5); Neutrophils % (auto) 87.3 %; Platelet Count 370 K/uL (130-400); RDW Coefficient of Variation 13.5 % (11.5-14.5); RDW Standard Deviation 48.6 fL (36.4-46.3); Red Blood Count 3.18 M/uL (4.7-6.1); White Blood Count 12.34 K/uL (4.8-10.8)
[2021-09-15 18:16] LABS: Base Excess VBG 0.7 mEq/L; HCO3 VBG 27 mmol/L; PCO2 VBG 51 mmHg (38-50); PO2 VBG 34 mmHg; pH VBG 7.34 (7.36-7.41)
[2021-09-15 18:23] LABS: Oxygen Saturation VBG < 60.0 %
--- NOTE | 2021-09-15 18:24 | XRay Report ---
XR chest 1V portable HISTORY: Atypical Chest Pain COMPARISON: Chest 01/30/2021. FINDINGS: No pneumothorax. No pleural effusions. The heart remains normal in size. The left-sided pac emaker again noted. Mild chronic interstitial thickening and emphysema again noted. No new focal lung consolidations to suggest pneumonia. No evidence for pulmonary edema. IMPRESSION: No significant change compared to the prior study. No acute process. ACT 112: Negative or not required by law. Electronically signed by: Abraham Bose M.D. 09/15/2021 6:23 PM
[2021-09-15 18:30] LABS: Albumin Level 3.1 gm/dl (3.4-5.0); BUN Creatinine Ratio 23.6 (10-20); Calcium 10.2 mg/dl (8.5-10.1); Creatinine Clr Calc Pharmacy 44.5 ml/min; Est GFR (African American) 73.3 ml/min; Est GFR (Non-African American) 63.3 ml/min; Potassium 4.2 mmol/L (3.5-5.1)
[2021-09-15 18:31] LABS: INR 3.7 (0.9-1.1)
[2021-09-15 18:45] LABS: Albumin Globulin Ratio 0.7 (0.9-2); Bilirubin,Total 0.6 mg/dl (0.2-1); Globulin 4.2 gm/dl (2.5-4.0); Total Protein 7.3 gm/dl (6.4-8.2); Troponin I 0.063 ng/ml (0-0.045)
--- NOTE | 2021-09-15 21:12 | History and Physical Report ---
DATE OF ADMISSION: 09/15/2021. CHIEF COMPLAINT: Shortness of breath. 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 As per son, patient fell on Tuesday in the bathroom. Since then he is getting progressively more short of breath, coughing some sputum, no chest pain, no fevers, no nausea, no vomiting, no headache, no blurred visions. Has some runny nose. No sore throat. Appetite is good. Swallows okay. No nausea, no abdominal pain, normal bowel and bladder movements. No swelling in the legs. In the ER, he was requiring BiPAP, mildly tachypneic. ALLERGIES: CHLORHEXIDINE, SULFA ANTIBIOTICS. PAST MEDICAL HISTORY: As mentioned above. PAST SURGICAL HISTORY: Appendectomy, cataracts, repair of acute left shoulder dislocation. MEDICATIONS: The patient is on acetaminophen 325 mg p.o. 6 hours p.r.n., albuterol 2 puffs inhalation q. 4 hours p.r.n., albuterol 1.5 mg inhalation t.i.d., ____ one drop ophthalmic b.i.d., vitamin D 4000 units p.o. daily, Creon 1 capsule p.o. t.i.d., Colace 100 mg p.o. b.i.d. p.r.n., dorzolamide one drop ophthalmic t.i.d., finasteride 5 mg p.o. daily, gabapentin 400 mg p.o. t.i.d., hydrocodone/acetaminophen 10/325 mg 1 tablet p.o. t.i.d. p.r.n., Lactobacillus 1 tablet p.o. daily, latanoprost one drop ophthalmic eye at bedtime, losartan 25 mg p.o. p.m., Protonix 40 mg p.o. daily, prednisone 10 mg p.o. daily, roflumilast 500 mcg p.o. daily, Tamsufine 0.4 mg p.o. at bedtime, torsemide 10 mg p.o. daily, trazodone 150 mg p.o. at bedtime, Anora Ellipta 1 inhalation daily, warfarin as directed. FAMILY HISTORY: Significant for paternal grandfather had cirrhosis, maternal grandmother had leukemia; father had kidney cancer; mother had heart disease and lung cancer. SOCIAL HISTORY: Former smoker, smoked 1 pack a day for 45 years. Alcohol when going out to dinner. No drug use. REVIEW OF SYSTEMS: As per HPI. Rest of review of systems is negative. PHYSICAL EXAMINATION: GENERAL: The patient is frail, in mild respiratory distress. VITAL SIGNS: Temperature 37.5, pulse 100, respiratory rate 22, blood pressure 119/57, oxygen 99% on BiPAP. HEENT: Pupils equal, round and reactive to light. Oral mucosa moist. NECK: No neck masses seen. CARDIOVASCULAR: S1 and S2 heard. Regular rhythm. No murmur, no gallop. RESPIRATORY SYSTEM: Normal AP diameter. Mild rhonchi. No wheezing. Diminished breath sounds. ABDOMEN: Soft, bowel sounds present, nontender, no distention. CENTRAL NERVOUS SYSTEM: Cranial nerves II-XII grossly intact, nonfocal. EXTREMITIES: No edema, no erythema. LABORATORY DATA: WBC 12.3, hemoglobin 9.9, hematocrit 31.1, platelets 370. PT 34. INR 3.7. Venous blood gas, pH of 7.34, pCO2 of 51. Sodium 139, potassium 4.2, chloride 102, bicarbonate 31, BUN 26, creatinine 1.1, serum glucose 141, calcium 10.2, total bilirubin 0.6, AST 135, ALT 41, alkaline phosphatase 70. Troponin-I 0.06, lipase 52. SARS-CoV-2 PCR negative. IMAGING DATA: Chest x-ray, no acute process. EKG: Atrial sensed ventricular paced rhythm at a rate of 114. ASSESSMENT AND PLAN: This is a 76-year-old male who presents with acute on chronic respiratory failure. 1. Acute on chronic respiratory failure, chronic obstructive pulmonary disease exacerbation on home continuous oxygen 3lts, currently on BiPAP. We will continue BiPAP. methylprednisone 40 mg t.i.d. and nebs around the clock and p.r.n. and doxycycline. Consult Pulmonary in the a.m. We will follow closely in the tele floor. 2. Mild elevation of troponin, asymptomatic. Follow serial enzymes and echo. Mostly demand ischemia. 3. Anemia. His hemoglobin was 12.3 in 01/2021, currently 9.9. The patient is on Coumadin. Follow stool for Hemoccult and iron studies. 4. History of atrial fibrillation, history of atrial tachycardia, status post ablation, pacemaker, rate is currently controlled. The patient is on Coumadin. We will monitior for now. 5. Benign prostatic hypertrophy . continue finasteride. 6. History of chronic diastolic congestive heart failure. Continue torsemide, losartan. We will monitor for any volume overload. 7. History of hypertension, on losartan and diuretics. We will monitor the blood pressure. 8. Moderate malnutrition. Nutrition consult. 9. Deep venous thrombosis prophylaxis. INR therapeutic. DISPOSITION: Closely monitor in the tele floor. PT/OT prior to discharge. Social service to help with discharge planning. Job ID: [id number] EVA
[2021-09-16] MEDS ORDERED: ALBUTEROL HFA 8 GM INHALER INH PRN (00:04)
[2021-09-16] MEDS ORDERED: LEVALBUTEROL HCL 1.25 MG/3 ML NEB NEB PRN (00:04)
[2021-09-16] MEDS ORDERED: NITROGLYCERIN SL 0.4 MG/TAB TAB SL PRN (00:04)
[2021-09-16] MEDS: LEVALBUTEROL 1.25MG/0.5ML NEB INH SCH ×4 (00:32→19:46)
[2021-09-16] MEDS: IPRATROPIUM BROMIDE NEB SOLN 0.02% 2.5 ML VIAL INH SCH ×4 (00:32→19:46)
[2021-09-16] MEDS: DOXYCYCLINE HYCLATE 100 MG in DEXTROSE 5% 100 ML IV SCH ×3 (00:38→23:31)
[2021-09-16] MEDS: LATANOPROST 0.005% OP SOLN 2.5 ML BTL OP SCH ×2 (00:39→22:04)
[2021-09-16] MEDS ORDERED: DOCUSATE SODIUM 100 MG CAP PO PRN (00:39)
[2021-09-16] MEDS: GABAPENTIN 400 MG CAP PO SCH ×4 (00:40→20:07)
[2021-09-16] MEDS: DORZOLAMIDE HCL 2% OPH SOLN 10 ML BTL OP SCH ×4 (00:41→20:05)
[2021-09-16] MEDS: BRIMONIDINE TARTRATE-P 0.15% 5 ML BTL OP SCH ×4 (00:50→20:55)
[2021-09-16] MEDS: LOSARTAN POTASSIUM 25 MG TAB PO SCH ×2 (00:52→20:08)
[2021-09-16] MEDS: TAMSULOSIN HCL 0.4 MG CAP PO SCH ×2 (00:53→20:07)
[2021-09-16] MEDS: traZODone HCL 50 MG TAB PO SCH ×2 (00:56→23:37)
[2021-09-16] MEDS ORDERED: XOPENEX/ATROVENT 1.25mg/0.5MG NEB COMBO NEB SCH (01:00)
[2021-09-16 05:15] LABS: Hematocrit (blood only) 35.3 % (42-52); Hemoglobin 11.5 g/dL (14.0-18.0); Immature Granulocytes # (auto) 0.01 K/uL (0.00-0.02); Immature Granulocytes % (auto) 0.1 %; Lymphocytes % (auto) 4.1 %; Mean Corpuscular Hemoglobin 31.5 pg (25-34); Mean Corpuscular Hgb Conc 32.6 g/dL (32-36); Mean Corpuscular Volume 96.7 fL (80-100); Monocytes # (auto) 0.25 K/uL (0.11-0.59); Monocytes % (auto) 3.4 %; Neutrophils # (auto) 6.79 K/uL (1.4-6.5); Neutrophils % (auto) 92.4 %; Platelet Count 265 K/uL (130-400); RDW Coefficient of Variation 13.6 % (11.5-14.5); RDW Standard Deviation 48.3 fL (36.4-46.3); Red Blood Count 3.65 M/uL (4.7-6.1); White Blood Count 7.35 K/uL (4.8-10.8)
[2021-09-16 05:37] LABS: INR 2.6 (0.9-1.1); Prothrombin Time 24.4 Seconds (9.0-12.0)
[2021-09-16 05:41] LABS: BUN Creatinine Ratio 25.7 (10-20); Calcium 9.4 mg/dl (8.5-10.1); Creatinine Clr Calc Pharmacy 48.6 ml/min; Est GFR (African American) 90.8 ml/min; Est GFR (Non-African American) 78.4 ml/min; Magnesium 2.1 mg/dl (1.8-2.4); Potassium 3.8 mmol/L (3.5-5.1)
[2021-09-16 05:54] LABS: Ferritin 227.7 ng/ml (8-388); Troponin I 0.071 ng/ml (0-0.045)
[2021-09-16 07:49] LABS: Folate (Folic Acid) 3.8 ng/ml (>5.38)
[2021-09-16] MEDS: UMECLIDINIUM/VILANTEROL 62.5/25MCG 7 PUFFS/INHALER INH SCH (08:35)
[2021-09-16] MEDS: TORSEMIDE 10 MG TAB PO SCH (08:35)
[2021-09-16] MEDS: ROFLUMILAST 500 MCG TAB PO SCH (08:35)
[2021-09-16] MEDS: ADVANCED PROBIOTIC 1250 MG CAPSULE PO SCH (08:36)
[2021-09-16] MEDS: PANCREAZE (LIPASE 4,200U) CAP PO SCH ×3 (08:37→16:54)
[2021-09-16] MEDS: CHOLECALCIFEROL 1,000 UNITS 25 MCG TAB PO SCH (08:37)
[2021-09-16] MEDS: FINASTERIDE 5 MG TAB PO SCH (08:37)
--- NOTE | 2021-09-16 08:47 | Electrocardiogram Report ---
Test Reason : Blood Pressure : / mmHG Vent. Rate : 114 BPM Atrial Rate : 114 BPM P-R Int : 126 ms QRS Dur : 162 ms QT Int : 364 ms P-R-T Axes : 073 -84 087 degrees QTc Int : 501 ms Atrial-sensed ventricular-paced rhythm Abnormal ECG When compared with ECG of 22-FEB-2018 15:28, Premature atrial complexes are no longer Present Vent. rate has increased BY 33 BPM Confirmed by Chavez Duran ([id number]) on 09/16/2021 8:47:10 AM Referred By: REFERRED SELF Confirmed By:Chavez Duran
--- NOTE | 2021-09-16 08:53 | Pulmonary Consultation ---
Date of Consultation September 16, 2021 Assessment & Plan (1) COPD (chronic obstructive pulmonary disease): COPD type: unspecified COPD Qualified Code(s): J44.9 - Chronic obstructive pulmonary disease, unspecified (2) Chronic respiratory failure with hypoxia: (3) Breath shortness: (4) Acute on chronic respiratory failure with hypoxemia: Chest x-ray 09/15/2021 personally reviewed: Portable film, hyperinflated, flattened diaphragm, bilateral costophrenic and cardiophrenic angles are clean, no clear lung infiltrate appreciated VBG 09/15/2021: 7.34/51/34 --Acute on chronic hypoxic respiratory failure Likely secondary to COPD exacerbation Continue with Solu-Medrol and bronchodilators O2 supplementation to keep oxygen saturation between 88-92% BiPAP nightly and as needed shortness of breath --Severe COPD with emphysema Patient supposed to be on Anoro and Roflumilast but he has been using only duo nebs He is a poor historian I would recommend the patient to be on triple therapy --> on discharge would like the patient to be on Trelegy or Breztree Azithromycin thrice weekly cannot be considered given the patient's QTC is 501 --A. fib On warfarin Plan: Decrease Solu-Medrol to 40 mg twice daily, continue doxycycline for 5 days Continue with Anoro and DuoNeb's along with Roflumilast Keep O2 saturation between 88-92% Please note the above document was generated using voice recognition software. It may contain grammatical, syntax or spelling errors.Any formal questions or concerns about the content, text or information contained within the body of this dictation should be directly addressed to the provider for clarification. History of Present Illness Attending Physician: Scott Silva MD History of Present Illness 76-year-old male with past medical history ofCOPD, on chronic hypoxic respiratory failure 3 L, A. fib, hypertension, GERD presented to the hospital with complaint of generalized weakness and shortness of breath At the emanation patient was saturating 94% on 2 L nasal cannula went down to 1% He stated that he is feeling better compared to when he came to the hospital Denies any fever or chills Does cough and brings up clear phlegm. No increase in intensity or change in the color of the phlegm. Denies any hemoptysis Dysuria, no diarrhea Patient states that he is compliant with his inhalers on asking what inhalers he is on he says only nebulizers. On the chart he supposed to be on Anoro. Social history: Greater than 40-[id number]-slwl smoking history quit at the age of 67 Allergies Allergy/AdvReac Type Severity Reaction Status Date / Time chlorhexidine Allergy Severe itchy red Verified 09/15/21 18:04 skin Sulfa (Sulfonamide Allergy Intermediate Rash Verified 09/15/21 18:04 Antibiotics) ("SULFA") Home Medications Medication Instructions Recorded Confirmed Type Lactobacillus acidoph-L.bulgaricus 1 tab PO DAILY 11/25/18 09/15/21 History 1 million cell tablet (Floranex) acetaminophen 325 mg tablet 325 mg PO Q6H PRN 11/25/18 09/15/21 History albuterol sulfate 1.25 mg/3 mL 1.25 mg INHALATION TID 11/25/18 09/15/21 History solution for nebulization albuterol sulfate 90 mcg/actuation 2 puff INHALATION Q4H PRN 11/25/18 09/15/21 History aerosol inhaler brimonidine 0.15 % eye drops 1 drp OPHTHALMIC (EYE) TID 11/25/18 09/15/21 History cholecalciferol (vitamin D3) 50 4,000 unit PO DAILY 11/25/18 09/15/21 History mcg (2,000 unit) capsule (Vitamin D3) docusate sodium 100 mg tablet 100 mg PO BID PRN 11/25/18 09/15/21 History dorzolamide 2 % eye drops 1 drp OPHTHALMIC (EYE) TID 11/25/18 09/15/21 History latanoprost 0.005 % eye drops 1 drp OPHTHALMIC (EYE) HS 11/25/18 09/15/21 History lipase 3,000-protease 1 cap PO TID 11/25/18 09/15/21 History 9,500-amylase 15,000 unit capsule, delayed rel (Creon) losartan 25 mg tablet 25 mg PO QPM 11/25/18 09/15/21 History pantoprazole 40 mg tablet,delayed 40 mg PO DAILY 11/25/18 09/15/21 History release roflumilast 500 mcg tablet 500 mcg PO DAILY 11/25/18 09/15/21 History tamsulosin 0.4 mg capsule 0.4 mg PO HS 11/25/18 09/15/21 History hydrocodone 10 mg-acetaminophen 1 tab PO TID PRN 02/13/19 09/15/21 History 325 mg tablet umeclidinium 62.5 mcg-vilanterol 1 inh INHALATION DAILY 01/20/21 09/15/21 History 25 mcg/actuation powdr for inhalation (Anoro Ellipta) finasteride 5 mg tablet 5 mg PO DAILY 09/15/21 09/15/21 History gabapentin 400 mg capsule 400 mg PO TID 09/15/21 09/15/21 History prednisone 5 mg tablet 10 mg PO DAILY 09/15/21 09/15/21 History torsemide 10 mg tablet 10 mg PO DAILY 09/15/21 09/15/21 History trazodone 100 mg tablet 150 mg PO HS 09/15/21 09/15/21 History warfarin 4 mg tablet See Rx Instructions .ROUTE .COMPLEX 09/15/21 09/15/21 History Patient History Medical History (Updated 09/16/21 @ 14:17 by Marky Stone MD) Bronchitis Cardiac pacemaker in situ Chronic respiratory failure with hypoxia COPD (chronic obstructive pulmonary disease) GERD (gastroesophageal reflux disease) Glaucoma HTN (hypertension) Hypotension PAF (paroxysmal atrial fibrillation) Respiratory failure, acute Vitamin D deficiency Surgical History History of appendectomy History of cataract extraction History of hernia repair Family History Mother Coronary heart disease Father Cancer of kidney Social History Smoking Status: Former smoker Tobacco Type: Cigarettes Cigarettes Per Day: 45 pack yr history; Second Hand Exposure: No; Hx Alcohol Use: Yes Alcohol type: beer, wine and hard liquor Hx Substance Use: No Preferred Language: Macedonian Communication Ability: Effective 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 Beliefs That Will Affect Care: None marital status: Single Current Living Situation: Other Current Living Situation Comment: [employer] Feels Safe at Home: Yes Assistive Devices: Oxygen - Continuous Review of Systems Review of Systems: Negative except as above Physical Exam Physical Exam: Constitutional: No acute distress HEENT: EOMI, PERRLA Respiratory system: Decreased air entry bilaterally, no wheeze, rhonchi, positive crackles bilateral lower lobes CVS: S1-S2 positive, no murmurs or gallops Abdomen: Soft, nontender, nondistended, positive bowel sounds x4 Extremities: +2 pulses bilaterally radialis/ dorsalis pedis, no cyanosis, +1 edema bilateral lower extremity Neuro: Awake alert oriented x3 Psych: Normal mood and affect G/U: No Lucia Skin: no rashes, warm and dry Lymphatic: no cervical or axillary lymphadenopathy Results & Data Results & Data ([facility]) Vital Signs (Past 12 Hours) Vital Signs Temp Pulse Pulse Resp BP BP Pulse Ox 09/16/21 07:40 36.3 C L 76 21 134/67 99 09/16/21 04:15 73 19 101/57 L 98 09/16/21 00:34 94 H 23 96 09/16/21 00:00 102 H 09/15/21 23:55 36.8 C 97 H 27 H 159/87 H 96 09/15/21 23:00 89 24 97 09/15/21 22:50 85 26 H 97 09/15/21 22:40 90 26 H 97 09/15/21 22:30 92 H 24 127/70 96 09/15/21 22:20 86 24 96 09/15/21 22:10 81 22 97 09/15/21 22:00 91 H 22 96 09/15/21 21:50 92 H 24 123/75 96 09/15/21 21:40 92 H 24 97 09/15/21 21:30 83 24 113/67 96 09/15/21 21:20 94 H 22 96 09/15/21 21:10 94 H 23 96 09/15/21 21:00 96 H 23 97 09/15/21 20:55 97 H 24 97 09/16/21 04:58 09/16/21 04:58 PG Care Time/CCT Total # of Minutes Spent Total Time Spent with Patient: Total time spent is greater than 50% in coordination of care (as documented) at patient's floor/unit and/or counseling patient: Coding Level of Care Code 49596 Initial Inpt Care Lvl 3 Diagnoses COPD (chronic obstructive pulmonary disease) J44.9 COPD type: unspecified COPD Chronic respiratory failure with hypoxia J96.11 Breath shortness R06.02 Acute on chronic respiratory failure with hypoxemia J96.21
[2021-09-16] MEDS: methylPREDNISolone 40 MG in SYRINGE 0 ML IV SCH ×2 (09:23→20:08)
[2021-09-16] MEDS: PANTOprazole 40 MG TAB PO SCH (09:23)
--- NOTE | 2021-09-16 15:07 | Hospitalist Progress Note ---
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 He is being managed for the following: #. Acute on chronic respiratory failure likely secondary to below. #. chronic obstructive pulmonary disease exacerbation Baseline home oxygen 3 L, came in with 2 days of worsening shortness of breath at presentation associated with productive cough. Admitting chest x-ray not suggestive of any new focal lung consolidation but positive for chronic interstitial thickening and emphysema. Patient improved on BiPAP overnight of admission--> patient back to baseline home oxygen. Continue with nebulization, IV Solu-Medrol, doxycycline 09/16, Roflumilast. Pulmonology consulted: BiPAP nightly and as needed, target O2 saturation between 88 to 92%. #. Mild elevation of troponin, asymptomatic. Serial enzymes flat trend between 0.06 -.09 Likely demand ischemia from acute respiratory distress Admitting EKG: Atrial sensed ventricular rhythm, no acute ST or T changes. 09/16 echo: Ejection fraction 50 to 55%, grade 1 diastolic dysfunction, reduced right ventricular systolic function, mild TR, normal LV chamber size with mild concentric LVH. Patient does not complain of any chest pain at bedside exam. #. Anemia Baseline hemoglobin around 12, patient on Coumadin, admitting hemoglobin 9.9 FOBT negative, therapeutic INR, iron profile reflective of adequate ferritin storage with low iron suggestive of anemia of chronic disease, vitamin B12 normal, folate below normal Patient is started on folic acid supplementation, continue Patient's hemoglobin improved today to 11.5 Continue to monitor. #. History of atrial fibrillation, history of atrial tachycardia, status post ablation, pacemaker, rate is currently controlled. The patient is on Coumadin, continue, INR therapeutic. Continue to monitor. #. Benign prostatic hypertrophy . continue finasteride. #. History of chronic diastolic congestive heart failure. Continue torsemide, losartan. Monitor for any volume overload. #. History of hypertension, on losartan and diuretics. We will monitor the blood pressure. #.. Moderate malnutrition. Nutrition consult. #. Deep venous thrombosis prophylaxis. INR therapeutic. Full code DVT prophylaxis: Patient on Coumadin Disposition: PT/OT eval, expect discharge in 2 to 3 days. Admission and Anticipated Discharge Date Admission Date: September 15, 2021 Subjective Patient was sitting up in chair, AO x3, on 2 L nasal cannula oxygen, no new acute events overnight per patient. Patient reports feeling better today. Patient was kept n.p.o., will start him on food from lunch. Patient reports cough productive of mucus but has not noticed the color of the mucus. Patient denies any fever/headache/chills/chest pain/shortness of breath/other review of symptoms. Physical Exam Physical Exam: GENERAL: Alert and oriented x3. NAD, on 3 L nasal cannula. HEENT: No pallor, no icterus. Pupils equal, round and reactive to light. Oral mucosa moist. NECK: No JVD, no neck masses. HEART: S1 and S2 heard. Regular rate and rhythm. No murmur, no gallop. RESPIRATORY SYSTEM: Normal AP diameter. No accessory muscle use. No wheezing, no crackles. Decreased breath sounds bilaterally. ABDOMEN: Soft, bowel sounds present, nontender, no distention. CENTRAL NERVOUS SYSTEM: No facial droop. Speech is clear. Obeys simple commands. Moves extremities. EXTREMITIES: No edema, no erythema seen. Results & Data Results & Data ([facility]) Vital Signs (Past 12 Hours) Vital Signs Temp Pulse Pulse Resp BP Pulse Ox 09/16/21 11:44 36.6 C 78 23 119/58 L 92 09/16/21 08:00 72 09/16/21 07:40 36.3 C L 76 21 134/67 99 09/16/21 04:15 73 19 101/57 L 98
[2021-09-16] MEDS: FOLIC ACID 1 MG TAB PO SCH (16:54)
[2021-09-16] MEDS: WARFARIN SOD 2 MG TAB PO SCH (16:54)
[2021-09-17] MEDS: IPRATROPIUM BROMIDE NEB SOLN 0.02% 2.5 ML VIAL INH SCH ×4 (00:01→18:03)
[2021-09-17] MEDS: LEVALBUTEROL 1.25MG/0.5ML NEB INH SCH ×4 (00:01→19:14)
[2021-09-17 07:04] LABS: Hematocrit (blood only) 37.6 % (42-52); Hemoglobin 12.1 g/dL (14.0-18.0); Mean Corpuscular Hemoglobin 31.1 pg (25-34); Mean Corpuscular Hgb Conc 32.2 g/dL (32-36); Mean Corpuscular Volume 96.7 fL (80-100); Mean Platelet Volume 8.9 fL (7.4-10.4); Platelet Count 336 K/uL (130-400); RDW Coefficient of Variation 13.7 % (11.5-14.5); RDW Standard Deviation 48.4 fL (36.4-46.3); Red Blood Count 3.89 M/uL (4.7-6.1)
[2021-09-17 07:16] LABS: INR 2.9 (0.9-1.1); Prothrombin Time 27.2 Seconds (9.0-12.0)
[2021-09-17] MEDS: methylPREDNISolone 40 MG in SYRINGE 0 ML IV SCH ×2 (07:24→08:29)
[2021-09-17 07:32] LABS: BUN Creatinine Ratio 38.2 (10-20); Calcium 9.7 mg/dl (8.5-10.1); Creatinine Clr Calc Pharmacy 48.6 ml/min; Est GFR (African American) 89.6 ml/min; Est GFR (Non-African American) 77.3 ml/min; Magnesium 2.2 mg/dl (1.8-2.4); Potassium 3.9 mmol/L (3.5-5.1)
--- NOTE | 2021-09-17 07:59 | Pulmonology Progress Note ---
Date of Service September 17, 2021 Assessment & Plan (1) COPD (chronic obstructive pulmonary disease): COPD type: unspecified COPD Qualified Code(s): J44.9 - Chronic obstructive pulmonary disease, unspecified (2) Chronic respiratory failure with hypoxia: (3) Breath shortness: (4) Acute on chronic respiratory failure with hypoxemia: Plan: Chest x-ray 09/15/2021 personally reviewed: Portable film, hyperinflated, flattened diaphragm, bilateral costophrenic and cardiophrenic angles are clean, no clear lung infiltrate appreciated VBG 09/15/2021: 7.34/51/34 --Acute on chronic hypoxic respiratory failure Likely secondary to COPD exacerbation Continue with Solu-Medrol and bronchodilators O2 supplementation to keep oxygen saturation between 88-92% BiPAP nightly and as needed shortness of breath --Severe COPD with emphysema Patient supposed to be on Anoro and Roflumilast but he has been using only duo nebs He is a poor historian I would recommend the patient to be on triple therapy --> on discharge would like the patient to be on Trelegy or Breztree Azithromycin thrice weekly cannot be considered given the patient's QTC is 501 --A. fib On warfarin Plan: Can transition Solu-Medrol to prednisone 40 mg for 3 days followed by 20 mg for 2 days and then stop Continue doxycycline for 5 days Continue with Anoro and DuoNeb's along with Roflumilast Keep O2 saturation between 88-92% No further recommendation from pulmonary perspective. We'll sign off, please call directly with any questions. Please note the above document was generated using voice recognition software. It may contain grammatical, syntax or spelling errors.Any formal questions or concerns about the content, text or information contained within the body of this dictation should be directly addressed to the provider for clarification. Admission and Anticipated Discharge Date Admission Date: September 15, 2021 Subjective Patient seen and examined at bedside. No acute distress, no adverse events overnight Denies any chest pain Shortness of breath improved No headache, no nausea, no vomiting. No fever Fair appetite Review of Systems Review of Systems: All systems reviewed & are unremarkable except as noted in Subjective Physical Exam Physical Exam: Constitutional: No acute distress HEENT: EOMI, PERRLA Respiratory system: Decreased air entry bilaterally, no wheeze, rhonchi, posi tive crackles bilateral lower lobes CVS: S1-S2 positive, no murmurs or gallops Abdomen: Soft, nontender, nondistended, positive bowel sounds x4 Extremities: +2 pulses bilaterally radialis/ dorsalis pedis, no cyanosis, +1 edema bilateral lower extremity Neuro: Awake alert oriented x3 Psych: Normal mood and affect G/U: No Lucia Skin: no rashes, warm and dry Lymphatic: no cervical or axillary lymphadenopathy Results & Data Results & Data ([facility]) Vital Signs (Past 12 Hours) Vital Signs Temp Pulse Pulse Resp BP Pulse Ox 09/17/21 07:37 72 18 99 09/17/21 07:00 76 09/17/21 03:57 36.4 C L 68 24 160/88 H 96 09/16/21 23:26 36.8 C 76 16 113/64 98 09/17/21 06:44 09/17/21 06:44 PG Care Time/CCT Total # of Minutes Spent Total Time Spent with Patient: Total time spent is greater than 50% in coordination of care (as documented) at patient's floor/unit and/or counseling patient: Coding Level of Care Code 97575 Subseq Hosp Care Lvl 2 Diagnoses COPD (chronic obstructive pulmonary disease) J44.9 COPD type: unspecified COPD Chronic respiratory failure with hypoxia J96.11 Breath shortness R06.02 Acute on chronic respiratory failure with hypoxemia J96.21
[2021-09-17] MEDS: ADVANCED PROBIOTIC 1250 MG CAPSULE PO SCH (08:29)
[2021-09-17] MEDS: GABAPENTIN 400 MG CAP PO SCH ×3 (08:29→21:31)
[2021-09-17] MEDS: ROFLUMILAST 500 MCG TAB PO SCH (08:30)
[2021-09-17] MEDS: TORSEMIDE 10 MG TAB PO SCH (08:30)
[2021-09-17] MEDS: CHOLECALCIFEROL 1,000 UNITS 25 MCG TAB PO SCH (08:30)
[2021-09-17] MEDS: FINASTERIDE 5 MG TAB PO SCH (08:30)
[2021-09-17] MEDS: PANTOprazole 40 MG TAB PO SCH (08:30)
[2021-09-17] MEDS: FOLIC ACID 1 MG TAB PO SCH (08:30)
[2021-09-17] MEDS: PANCREAZE (LIPASE 4,200U) CAP PO SCH ×3 (08:30→16:57)
[2021-09-17] MEDS: BRIMONIDINE TARTRATE-P 0.15% 5 ML BTL OP SCH ×3 (08:35→16:57)
[2021-09-17] MEDS: UMECLIDINIUM/VILANTEROL 62.5/25MCG 7 PUFFS/INHALER INH SCH (08:35)
[2021-09-17] MEDS: DORZOLAMIDE HCL 2% OPH SOLN 10 ML BTL OP SCH ×2 (08:35→13:08)
[2021-09-17] MEDS: predniSONE 20 MG TAB PO SCH (09:19)
[2021-09-17] MEDS: DOXYCYCLINE HYCLATE 100 MG in DEXTROSE 5% 100 ML IV SCH (13:08)
[2021-09-17] MEDS ORDERED: DORZOLAMIDE HCL 2% OPH SOLN 10 ML BTL OP PRN (15:46)
--- NOTE | 2021-09-17 16:14 | Hospitalist Progress Note ---
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 He is being managed for the following: #. Acute on chronic respiratory failure likely secondary to below. #. chronic obstructive pulmonary disease exacerbation Baseline home oxygen 3 L, came in with 2 days of worsening shortness of breath at presentation associated with productive cough. Admitting chest x-ray not suggestive of any new focal lung consolidation but positive for chronic interstitial thickening and emphysema. Patient improved on BiPAP overnight of admission--> patient back to baseline home oxygen. Continue with nebulization, prednisone, doxycycline 09/16, Roflumilast. Pulmonology consulted: BiPAP nightly and as needed, target O2 saturation between 88 to 92%. Transition Solu-Medrol to prednisone 40 mg for 3 days followed by 20 mg for 2 days and stop. Continue doxy for 5 days. Continue Anoro and DuoNeb along with Roflumilast. Discharge with Trelegy or Breztree. . #. Mild elevation of troponin, asymptomatic. Serial enzymes flat trend between 0.06 -.09 Likely demand ischemia from acute respiratory distress Admitting EKG: Atrial sensed ventricular rhythm, no acute ST or T changes. 09/16 echo: Ejection fraction 50 to 55%, grade 1 diastolic dysfunction, reduced right ventricular systolic function, mild TR, normal LV chamber size with mild concentric LVH. Patient does not complain of any chest pain at bedside exam. #. Anemia Baseline hemoglobin around 12, patient on Coumadin, admitting hemoglobin 9.9 FOBT negative, therapeutic INR, iron profile reflective of adequate ferritin storage with low iron suggestive of anemia of chronic disease, vitamin B12 normal, folate below normal Patient is started on folic acid supplementation, continue Patient's hemoglobin improved stable 11-12 Continue to monitor. #. History of atrial fibrillation, history of atrial tachycardia, status post ablation, pacemaker, rate is currently controlled. The patient is on Coumadin, continue, INR therapeutic. Continue to monitor. #. Benign prostatic hypertrophy . continue finasteride. #. History of chronic diastolic congestive heart failure. Continue torsemide, losartan. Monitor for any volume overload. #. History of hypertension, on losartan and diuretics. We will monitor the blood pressure. #.. Moderate malnutrition. Nutrition consult. #. Deep venous thrombosis prophylaxis. INR therapeutic. Full code DVT prophylaxis: Patient on Coumadin Disposition: PT/OT recommending home with family support, possible DC tomorrow. Admission and Anticipated Discharge Date Admission Date: September 15, 2021 Subjective Patient was lying in bed, on 3.5 L nasal cannula oxygen, NAD, no acute events overnight. Patient reports feeling better. Patient reports feeling little bit weak and hence wants to go tomorrow. PT/OT has cleared him for discharge to home with family support when medically stable. Patient's reports eating and moving bowels okay. Patient denies headache/chills/chest pain/palpitations/increased shortness of breath/other review of symptoms. Physical Exam Physical Exam: GENERAL: Alert and oriented x3. NAD, on 3.5 L nasal cannula. HEENT: No pallor, no icterus. Pupils equal, round and reactive to light. Oral mucosa moist. NECK: No JVD, no neck masses. HEART: S1 and S2 heard. Regular rate and rhythm. No murmur, no gallop. RESPIRATORY SYSTEM: Normal AP diameter. No accessory muscle use. No wheezing, no crackles. Decreased breath sounds bilaterally. ABDOMEN: Soft, bowel sounds present, nontender, no distention. CENTRAL NERVOUS SYSTEM: No facial droop. Speech is clear. Obeys simple commands. Moves extremities. EXTREMITIES: No edema, no erythema seen. Results & Data Results & Data ([facility]) Vital Signs (Past 12 Hours) Vital Signs Temp Pulse Pulse Resp BP Pulse Ox 09/17/21 16:05 36.8 C 99 H 18 159/81 H 97 09/17/21 12:27 107 H 18 98 09/17/21 12:02 36.5 C 79 16 143/61 H 95 09/17/21 08:00 36.7 C 74 18 157/69 H 98 09/17/21 07:37 72 18 99 09/17/21 07:00 76
[2021-09-17] MEDS: WARFARIN SOD 4 MG TAB PO SCH (16:57)
[2021-09-17] MEDS: HYDROcodone/ACETAMINOPHEN 10/325 TAB PO PRN (19:42)
[2021-09-17] MEDS: LOSARTAN POTASSIUM 25 MG TAB PO SCH (21:31)
[2021-09-17] MEDS: TAMSULOSIN HCL 0.4 MG CAP PO SCH (21:31)
[2021-09-17] MEDS: LATANOPROST 0.005% OP SOLN 2.5 ML BTL OP SCH (21:31)
[2021-09-17] MEDS: traZODone HCL 50 MG TAB PO SCH (21:34)
[2021-09-18] MEDS: DOXYCYCLINE HYCLATE 100 MG in DEXTROSE 5% 100 ML IV SCH ×3 (01:29→23:50)
[2021-09-18] MEDS: LEVALBUTEROL 1.25MG/0.5ML NEB INH SCH ×6 (01:56→23:17)
[2021-09-18] MEDS: IPRATROPIUM BROMIDE NEB SOLN 0.02% 2.5 ML VIAL INH SCH ×6 (01:56→23:17)
[2021-09-18 06:59] LABS: INR 4.3 (0.9-1.1); Prothrombin Time 38.7 Seconds (9.0-12.0)
[2021-09-18] MEDS: GABAPENTIN 400 MG CAP PO SCH ×3 (09:13→20:04)
[2021-09-18] MEDS: predniSONE 20 MG TAB PO SCH (09:14)
[2021-09-18] MEDS: FOLIC ACID 1 MG TAB PO SCH (09:14)
[2021-09-18] MEDS: ADVANCED PROBIOTIC 1250 MG CAPSULE PO SCH (09:14)
[2021-09-18] MEDS: PANTOprazole 40 MG TAB PO SCH (09:14)
[2021-09-18] MEDS: CHOLECALCIFEROL 1,000 UNITS 25 MCG TAB PO SCH (09:14)
[2021-09-18] MEDS: PANCREAZE (LIPASE 4,200U) CAP PO SCH ×3 (09:14→16:41)
[2021-09-18] MEDS: ROFLUMILAST 500 MCG TAB PO SCH (09:14)
[2021-09-18] MEDS: TORSEMIDE 10 MG TAB PO SCH (09:15)
[2021-09-18] MEDS: UMECLIDINIUM/VILANTEROL 62.5/25MCG 7 PUFFS/INHALER INH SCH (09:15)
[2021-09-18] MEDS: FINASTERIDE 5 MG TAB PO SCH (09:15)
[2021-09-18] MEDS: BRIMONIDINE TARTRATE-P 0.15% 5 ML BTL OP SCH (16:42)
--- NOTE | 2021-09-18 16:59 | Hospitalist Progress Note ---
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 He is being managed for the following: #. Acute on chronic respiratory failure likely secondary to below. #. chronic obstructive pulmonary disease exacerbation Baseline home oxygen 3 L, came in with 2 days of worsening shortness of breath at presentation associated with productive cough. Admitting chest x-ray not suggestive of any new focal lung consolidation but positive for chronic interstitial thickening and emphysema. Patient improved on BiPAP overnight of admission--> patient back to baseline home oxygen. Continue with nebulization, prednisone, doxycycline 09/16, Roflumilast. Change prednisone to 20 mg daily on 09/21. Pulmonology consulted: BiPAP nightly and as needed, target O2 saturation between 88 to 92%. Transition Solu-Medrol to prednisone 40 mg for 3 days followed by 20 mg for 2 days and stop. Continue doxy for 5 days. Continue Anoro and DuoNeb along with Roflumilast. Discharge with Trelegy or Breztree. . #. Mild elevation of troponin, asymptomatic. Serial enzymes flat trend between 0.06 -.09 Likely demand ischemia from acute respiratory distress Admitting EKG: Atrial sensed ventricular rhythm, no acute ST or T changes. 09/16 echo: Ejection fraction 50 to 55%, grade 1 diastolic dysfunction, reduced right ventricular systolic function, mild TR, normal LV chamber size with mild concentric LVH. Patient does not complain of any chest pain at bedside exam. #. Anemia Baseline hemoglobin around 12, patient on Coumadin, admitting hemoglobin 9.9 FOBT negative, therapeutic INR, iron profile reflective of adequate ferritin storage with low iron suggestive of anemia of chronic disease, vitamin B12 normal, folate below normal Patient is started on folic acid supplementation, continue Patient's hemoglobin improved stable 11-12 Continue to monitor. #. History of atrial fibrillation, history of atrial tachycardia, status post ablation, pacemaker, rate is currently controlled. The patient is on Coumadin, continue, INR therapeutic. Continue to monitor. #. Benign prostatic hypertrophy . continue finasteride. #. History of chronic diastolic congestive heart failure. Continue torsemide, losartan. Monitor for any volume overload. #. History of hypertension, on losartan and diuretics. We will monitor the blood pressure. #.. Moderate malnutrition. Nutrition consult. #. Deep venous thrombosis prophylaxis. INR therapeutic. Full code DVT prophylaxis: Patient on Coumadin Disposition: PT/OT recommending home with family support, patient reporting no support at home, will need placement. CM working on placement. Admission and Anticipated Discharge Date Admission Date: September 15, 2021 Subjective Patient was lying in bed, on 3.5 L nasal cannula oxygen, NAD, no acute events overnight. Patient reports feeling better. Patient reports no support at home and will need placement. PT/OT has cleared him for discharge to home with family support when medically stable. Patient's reports eating and moving bowels okay. Patient denies headache/chills/chest pain/palpitations/increased shortness of breath/other review of symptoms. Physical Exam Physical Exam: GENERAL: Alert and oriented x3. NAD, on 3.5 L nasal cannula. HEENT: No pallor, no icterus. Pupils equal, round and reactive to light. Oral mucosa moist. NECK: No JVD, no neck masses. HEART: S1 and S2 heard. Regular rate and rhythm. No murmur, no gallop. RESPIRATORY SYSTEM: Normal AP diameter. No accessory muscle use. No wheezing, no crackles. Decreased breath sounds bilaterally. ABDOMEN: Soft, bowel sounds present, nontender, no distention. CENTRAL NERVOUS SYSTEM: No facial droop. Speech is clear. Obeys simple commands. Moves extremities. EXTREMITIES: No edema, no erythema seen. Results & Data Results & Data ([facility]) Vital Signs (Past 12 Hours) Vital Signs Temp Pulse Pulse Resp BP Pulse Ox 09/18/21 15:59 37.2 C 69 18 133/70 99 09/18/21 14:49 70 09/18/21 13:22 76 18 94 09/18/21 11:39 36.4 C L 77 18 112/62 98 09/18/21 08:05 36.5 C 81 21 160/86 H 97 09/18/21 08:00 84 09/18/21 07:18 77 18 96
[2021-09-18] MEDS: TAMSULOSIN HCL 0.4 MG CAP PO SCH (20:03)
[2021-09-18] MEDS: LOSARTAN POTASSIUM 25 MG TAB PO SCH (20:03)
[2021-09-18] MEDS: LATANOPROST 0.005% OP SOLN 2.5 ML BTL OP SCH (21:28)
[2021-09-18] MEDS: traZODone HCL 50 MG TAB PO SCH (21:28)
[2021-09-19 06:40] LABS: Prothrombin Time 52.5 Seconds (9.0-12.0)
[2021-09-19] MEDS ORDERED: PHYTONADIONE 5 MG TAB PO STA ×2 (06:51→09:43)
[2021-09-19 06:54] LABS: BUN Creatinine Ratio 28.6 (10-20); Calcium 9.6 mg/dl (8.5-10.1); Est GFR (African American) 100.2 ml/min; Est GFR (Non-African American) 86.5 ml/min; Magnesium 2.2 mg/dl (1.8-2.4); Phosphorus 1.7 mg/dl (2.5-4.9); Potassium 3.4 mmol/L (3.5-5.1)
[2021-09-19] MEDS: IPRATROPIUM BROMIDE NEB SOLN 0.02% 2.5 ML VIAL INH SCH ×3 (07:17→18:21)
[2021-09-19] MEDS: LEVALBUTEROL 1.25MG/0.5ML NEB INH SCH ×3 (07:17→18:22)
[2021-09-19] MEDS: FINASTERIDE 5 MG TAB PO SCH (07:37)
[2021-09-19] MEDS: CHOLECALCIFEROL 1,000 UNITS 25 MCG TAB PO SCH (07:37)
[2021-09-19] MEDS: PANCREAZE (LIPASE 4,200U) CAP PO SCH ×3 (07:37→15:58)
[2021-09-19] MEDS: ADVANCED PROBIOTIC 1250 MG CAPSULE PO SCH (07:37)
[2021-09-19] MEDS: ROFLUMILAST 500 MCG TAB PO SCH (07:38)
[2021-09-19] MEDS: TORSEMIDE 10 MG TAB PO SCH (07:38)
[2021-09-19] MEDS: predniSONE 20 MG TAB PO SCH (07:38)
[2021-09-19] MEDS: FOLIC ACID 1 MG TAB PO SCH (07:38)
[2021-09-19] MEDS: PANTOprazole 40 MG TAB PO SCH (07:38)
[2021-09-19] MEDS: GABAPENTIN 400 MG CAP PO SCH ×3 (07:39→21:39)
[2021-09-19] MEDS: UMECLIDINIUM/VILANTEROL 62.5/25MCG 7 PUFFS/INHALER INH SCH (07:39)
[2021-09-19 08:23] LABS: Basophils # (auto) 0.01 K/uL (0-0.2); Basophils % (auto) 0.1 %; Eosinophils # (auto) 0.13 K/uL (0-0.5); Eosinophils % (auto) 1.5 %; Hematocrit (blood only) 42.4 % (42-52); Hemoglobin 13.5 g/dL (14.0-18.0); Immature Granulocytes # (auto) 0.07 K/uL (0.00-0.02); Immature Granulocytes % (auto) 0.8 %; Lymphocytes # (auto) 0.93 K/uL (1.2-3.4); Mean Corpuscular Hemoglobin 31.3 pg (25-34); Mean Corpuscular Hgb Conc 31.8 g/dL (32-36); Mean Corpuscular Volume 98.1 fL (80-100); Mean Platelet Volume 9.1 fL (7.4-10.4); Monocytes # (auto) 1.07 K/uL (0.11-0.59); Monocytes % (auto) 12.6 %; Neutrophils # (auto) 6.28 K/uL (1.4-6.5); Platelet Count 390 K/uL (130-400); RDW Coefficient of Variation 13.5 % (11.5-14.5); RDW Standard Deviation 48.5 fL (36.4-46.3); Red Blood Count 4.32 M/uL (4.7-6.1); White Blood Count 8.49 K/uL (4.8-10.8)
[2021-09-19] MEDS ORDERED: POTASSIUM CHLORIDE CRTAB 20 MEQ TABCR PO STA (09:42)
[2021-09-19] MEDS: DOXYCYCLINE HYCLATE 100 MG in DEXTROSE 5% 100 ML IV SCH ×2 (11:09→23:23)
[2021-09-19] MEDS: POT PHOSPHATE MONOBASIC W/ SOD TAB PO SCH ×3 (12:22→21:40)
[2021-09-19] MEDS: BRIMONIDINE TARTRATE-P 0.15% 5 ML BTL OP SCH (15:57)
[2021-09-19] MEDS ORDERED: LOPERAMIDE HCL 2 MG CAP PO PRN (18:55)
[2021-09-19] MEDS: HYDROcodone/ACETAMINOPHEN 10/325 TAB PO PRN (19:48)
--- NOTE | 2021-09-19 20:37 | Hospitalist Progress Note ---
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 He is being managed for the following: #. Acute on chronic respiratory failure likely secondary to below. #. chronic obstructive pulmonary disease exacerbation Baseline home oxygen 3 L, came in with 2 days of worsening shortness of breath at presentation associated with productive cough. Admitting chest x-ray not suggestive of any new focal lung consolidation but positive for chronic interstitial thickening and emphysema. Patient improved on BiPAP overnight of admission--> patient back to baseline home oxygen. Continue with nebulization, prednisone, doxycycline 09/16, Roflumilast. Change prednisone to 20 mg daily on 09/21. Pulmonology consulted: BiPAP nightly and as needed, target O2 saturation between 88 to 92%. Transition Solu-Medrol to prednisone 40 mg for 3 days followed by 20 mg for 2 days and stop. Continue doxy for 5 days. Continue Anoro and DuoNeb along with Roflumilast. Discharge with Trelegy or Breztree. . #. Supratherapeutic INR Patient's warfarin held since 09/18 INR today 6.0 Patient received a small dose of vitamin K We will continue to monitor PT/INR daily Likely secondary to interaction with doxycycline Will probably be stable after doxycycline course is completed. #. Mild elevation of troponin, asymptomatic. Serial enzymes flat trend between 0.06 -.09 Likely demand ischemia from acute respiratory distress Admitting EKG: Atrial sensed ventricular rhythm, no acute ST or T changes. 09/16 echo: Ejection fraction 50 to 55%, grade 1 diastolic dysfunction, reduced right ventricular systolic function, mild TR, normal LV chamber size with mild concentric LVH. Patient does not complain of any chest pain at bedside exam. #. Anemia Baseline hemoglobin around 12, patient on Coumadin, admitting hemoglobin 9.9 FOBT negative, therapeutic INR, iron profile reflective of adequate ferritin storage with low iron suggestive of anemia of chronic disease, vitamin B12 normal, folate below normal Patient is started on folic acid supplementation, continue Patient's hemoglobin improved stable 11-12 Continue to monitor. #. History of atrial fibrillation, history of atrial tachycardia, status post ablation, pacemaker, rate is currently controlled. The patient is on Coumadin, continue, INR therapeutic. Continue to monitor. #. Benign prostatic hypertrophy . continue finasteride. #. History of chronic diastolic congestive heart failure. Continue torsemide, losartan. Monitor for any volume overload. #. History of hypertension, on losartan and diuretics. We will monitor the blood pressure. #.. Moderate malnutrition. Nutrition consult. #. Deep venous thrombosis prophylaxis. INR therapeutic. Full code DVT prophylaxis: Patient on Coumadin Disposition: PT/OT recommending home with family support, patient reporting no support at home, will need placement. CM working on placement. Can be discharged, awaiting placement. Admission and Anticipated Discharge Date Admission Date: September 15, 2021 Subjective Patient was lying in bed, on 3.5 L nasal cannula oxygen, NAD, no acute events overnight. Patient reports feeling better. Patient awaiting for placement. Patient's reports eating and moving bowels okay. Patient denies headache/chills/chest pain/palpitations/increased shortness of breath/other review of symptoms. Physical Exam Physical Exam: GENERAL: Alert and oriented x3. NAD, on 3.5 L nasal cannula. HEENT: No pallor, no icterus. Pupils equal, round and reactive to light. Oral mucosa moist. NECK: No JVD, no neck masses. HEART: S1 and S2 heard. Regular rate and rhythm. No murmur, no gallop. RESPIRATORY SYSTEM: Normal AP diameter. No accessory muscle use. No wheezing, no crackles. Decreased breath sounds bilaterally. ABDOMEN: Soft, bowel sounds present, nontender, no distention. CENTRAL NERVOUS SYSTEM: No facial droop. Speech is clear. Obeys simple commands. Moves extremities. EXTREMITIES: No edema, no erythema seen. Results & Data Results & Data ([facility]) Vital Signs (Past 12 Hours) Vital Signs Temp Pulse Resp BP Pulse Ox 09/19/21 18:22 96 H 20 96 11/20/21 12:50 93 H 16 98 09/19/21 11:34 36.8 C 88 18 143/67 H 97
[2021-09-19] MEDS: LATANOPROST 0.005% OP SOLN 2.5 ML BTL OP SCH (21:36)
[2021-09-19] MEDS: LOSARTAN POTASSIUM 25 MG TAB PO SCH (21:39)
[2021-09-19] MEDS: TAMSULOSIN HCL 0.4 MG CAP PO SCH (21:40)
[2021-09-19] MEDS: traZODone HCL 50 MG TAB PO SCH (22:39)
[2021-09-20] MEDS: IPRATROPIUM BROMIDE NEB SOLN 0.02% 2.5 ML VIAL INH SCH ×4 (01:17→20:46)
[2021-09-20] MEDS: LEVALBUTEROL 1.25MG/0.5ML NEB INH SCH ×4 (01:17→20:46)
[2021-09-20 08:08] LABS: INR 1.3 (0.9-1.1); Prothrombin Time 12.7 Seconds (9.0-12.0)
[2021-09-20] MEDS: PANCREAZE (LIPASE 4,200U) CAP PO SCH ×3 (08:10→17:29)
[2021-09-20] MEDS: GABAPENTIN 400 MG CAP PO SCH ×3 (08:11→21:03)
[2021-09-20] MEDS: POT PHOSPHATE MONOBASIC W/ SOD TAB PO SCH ×4 (08:11→21:03)
[2021-09-20] MEDS: TORSEMIDE 10 MG TAB PO SCH (08:12)
[2021-09-20] MEDS: FINASTERIDE 5 MG TAB PO SCH (08:12)
[2021-09-20] MEDS: ADVANCED PROBIOTIC 1250 MG CAPSULE PO SCH (08:12)
[2021-09-20] MEDS: PANTOprazole 40 MG TAB PO SCH (08:12)
[2021-09-20] MEDS: FOLIC ACID 1 MG TAB PO SCH (08:12)
[2021-09-20] MEDS: ROFLUMILAST 500 MCG TAB PO SCH (08:12)
[2021-09-20] MEDS: CHOLECALCIFEROL 1,000 UNITS 25 MCG TAB PO SCH (08:13)
[2021-09-20 08:14] LABS: BUN Creatinine Ratio 29.7 (10-20); Calcium 8.8 mg/dl (8.5-10.1); Creatinine Clr Calc Pharmacy 66.4 ml/min; Est GFR (African American) 102.4 ml/min; Est GFR (Non-African American) 88.3 ml/min; Potassium 3.5 mmol/L (3.5-5.1)
[2021-09-20] MEDS: HYDROcodone/ACETAMINOPHEN 10/325 TAB PO PRN ×3 (08:19→23:08)
[2021-09-20] MEDS: UMECLIDINIUM/VILANTEROL 62.5/25MCG 7 PUFFS/INHALER INH SCH (08:19)
[2021-09-20 08:26] LABS: Phosphorus 3.1 mg/dl (2.5-4.9)
[2021-09-20] MEDS: BRIMONIDINE TARTRATE-P 0.15% 5 ML BTL OP SCH (08:55)
[2021-09-20] MEDS ORDERED: WARFARIN SOD 1 MG TAB PO STA (10:25)
[2021-09-20] MEDS ORDERED: predniSONE 20 MG TAB PO STA (10:30)
[2021-09-20] MEDS: DOXYCYCLINE HYCLATE 100 MG in DEXTROSE 5% 100 ML IV SCH ×2 (11:27→11:29)
--- NOTE | 2021-09-20 16:14 | Hospitalist Progress Note ---
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 He is being managed for the following: #. Acute on chronic respiratory failure likely secondary to below. #. chronic obstructive pulmonary disease exacerbation Baseline home oxygen 3 L, came in with 2 days of worsening shortness of breath at presentation associated with productive cough. Admitting chest x-ray not suggestive of any new focal lung consolidation but positive for chronic interstitial thickening and emphysema. Patient improved on BiPAP overnight of admission--> patient back to baseline home oxygen. Continue with nebulization, prednisone, doxycycline 09/16, Roflumilast. Change prednisone to 20 mg daily on 09/21. Pulmonology consulted: BiPAP nightly and as needed, target O2 saturation between 88 to 92%. Transition Solu-Medrol to prednisone 40 mg for 3 days followed by 20 mg for 2 days and stop. Continue doxy for 5 days. Continue Anoro and DuoNeb along with Roflumilast. Discharge with Trelegy or Breztree. . Stop doxycycline after today's dose. #. Supratherapeutic INR Patient's warfarin held since 09/18 09/19 INR 6.0, INR subtherapeutic today Labile INR We will give him 1 mg extra dose of Coumadin today WBC home medication dose We will continue to monitor PT/INR daily Likely secondary to interaction with doxycycline Will probably be stable after doxycycline course is completed. #. Mild elevation of troponin, asymptomatic. Serial enzymes flat trend between 0.06 -.09 Likely demand ischemia from acute respiratory distress Admitting EKG: Atrial sensed ventricular rhythm, no acute ST or T changes. 09/16 echo: Ejection fraction 50 to 55%, grade 1 diastolic dysfunction, reduced right ventricular systolic function, mild TR, normal LV chamber size with mild concentric LVH. Patient does not complain of any chest pain at bedside exam. #. Anemia Baseline hemoglobin around 12, patient on Coumadin, admitting hemoglobin 9.9 FOBT negative, therapeutic INR, iron profile reflective of adequate ferritin storage with low iron suggestive of anemia of chronic disease, vitamin B12 normal, folate below normal Patient is started on folic acid supplementation, continue Patient's hemoglobin improved stable 11-12 Continue to monitor. #. History of atrial fibrillation, history of atrial tachycardia, status post ablation, pacemaker, rate is currently controlled. The patient is on Coumadin, continue, INR therapeutic. Continue to monitor. #. Benign prostatic hypertrophy . continue finasteride. #. History of chronic diastolic congestive heart failure. Continue torsemide, losartan. Monitor for any volume overload. #. History of hypertension, on losartan and diuretics. We will monitor the blood pressure. #.. Moderate malnutrition. Nutrition consult. #. Deep venous thrombosis prophylaxis. INR therapeutic. Full code DVT prophylaxis: Patient on Coumadin Disposition: PT/OT recommending home with family support, patient reporting no support at home, will need placement. CM working on placement. Can be discharged, awaiting placement. We will downgrade to medical floor. Admission and Anticipated Discharge Date Admission Date: September 15, 2021 Subjective Patient was l sitting up in his bed eating breakfast, on 3.5 L nasal cannula oxygen, NAD, no acute events overnight. Patient reports feeling better. Patient awaiting for placement. Patient's reports eating and moving bowels okay. Patient denies headache/chills/chest pain/palpitations/increased shortness of breath/other review of symptoms. Physical Exam Physical Exam: GENERAL: Alert and oriented x3. NAD, on 3.5 L nasal cannula. HEENT: No pallor, no icterus. Pupils equal, round and reactive to light. Oral mucosa moist. NECK: No JVD, no neck masses. HEART: S1 and S2 heard. Regular rate and rhythm. No murmur, no gallop. RESPIRATORY SYSTEM: Normal AP diameter. No accessory muscle use. no crackles. Decreased breath sounds bilaterally with occasional wheezing. ABDOMEN: Soft, bowel sounds present, nontender, no distention. CENTRAL NERVOUS SYSTEM: No facial droop. Speech is clear. Obeys simple commands. Moves extremities. EXTREMITIES: No edema, no erythema seen. Results & Data Results & Data ([facility]) Vital Signs (Past 12 Hours) Vital Signs Temp Pulse Resp BP Pulse Ox 09/20/21 12:38 72 22 94 09/20/21 11:58 36.6 C 55 L 20 113/63 94 09/20/21 07:23 36.5 C 83 18 155/77 H 95 09/20/21 07:00 84 16 92
[2021-09-20] MEDS: WARFARIN SOD 2 MG TAB PO SCH (17:29)
[2021-09-20] MEDS: traZODone HCL 50 MG TAB PO SCH (21:02)
[2021-09-20] MEDS: TAMSULOSIN HCL 0.4 MG CAP PO SCH (21:03)
[2021-09-20] MEDS: LOSARTAN POTASSIUM 25 MG TAB PO SCH (21:03)
[2021-09-20] MEDS: LATANOPROST 0.005% OP SOLN 2.5 ML BTL OP SCH (21:11)
[2021-09-21] MEDS: IPRATROPIUM BROMIDE NEB SOLN 0.02% 2.5 ML VIAL INH SCH ×4 (00:02→20:09)
[2021-09-21] MEDS: LEVALBUTEROL 1.25MG/0.5ML NEB INH SCH ×4 (00:02→20:09)
[2021-09-21] MEDS: HYDROcodone/ACETAMINOPHEN 10/325 TAB PO PRN ×2 (08:53→19:46)
[2021-09-21 09:24] LABS: INR 1.1 (0.9-1.1); Prothrombin Time 11.2 Seconds (9.0-12.0)
[2021-09-21] MEDS: CHOLECALCIFEROL 1,000 UNITS 25 MCG TAB PO SCH (09:24)
[2021-09-21] MEDS: PANCREAZE (LIPASE 4,200U) CAP PO SCH ×3 (09:24→18:07)
[2021-09-21] MEDS: FOLIC ACID 1 MG TAB PO SCH (09:25)
[2021-09-21] MEDS: FINASTERIDE 5 MG TAB PO SCH (09:25)
[2021-09-21] MEDS: GABAPENTIN 400 MG CAP PO SCH ×3 (09:25→21:19)
[2021-09-21] MEDS: PANTOprazole 40 MG TAB PO SCH (09:26)
[2021-09-21] MEDS: ADVANCED PROBIOTIC 1250 MG CAPSULE PO SCH (09:26)
[2021-09-21] MEDS: POT PHOSPHATE MONOBASIC W/ SOD TAB PO SCH (09:27)
[2021-09-21] MEDS: predniSONE 20 MG TAB PO SCH (09:28)
[2021-09-21] MEDS: UMECLIDINIUM/VILANTEROL 62.5/25MCG 7 PUFFS/INHALER INH SCH (09:28)
[2021-09-21] MEDS: TORSEMIDE 10 MG TAB PO SCH (09:29)
[2021-09-21] MEDS: ROFLUMILAST 500 MCG TAB PO SCH (09:29)
[2021-09-21 09:39] LABS: BUN Creatinine Ratio 26.8 (10-20); Calcium 8.8 mg/dl (8.5-10.1); Creatinine Clr Calc Pharmacy 53.2 ml/min; Est GFR (African American) 96.3 ml/min; Est GFR (Non-African American) 83.1 ml/min; Magnesium 1.8 mg/dl (1.8-2.4); Potassium 3.2 mmol/L (3.5-5.1)
[2021-09-21] MEDS ORDERED: POTASSIUM CHLORIDE CRTAB 20 MEQ TABCR PO STA (09:51)
[2021-09-21] MEDS ORDERED: WARFARIN SOD 2 MG TAB PO ONE (10:11)
[2021-09-21] MEDS: MAGNESIUM OXIDE 400 MG TAB PO SCH ×2 (11:26→21:19)
[2021-09-21] MEDS: BRIMONIDINE TARTRATE-P 0.15% 5 ML BTL OP SCH ×2 (16:13→16:17)
[2021-09-21] MEDS: WARFARIN SOD 2 MG TAB PO SCH (16:14)
--- NOTE | 2021-09-21 18:43 | Hospitalist Progress Note ---
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 He is being managed for the following: #. Acute on chronic respiratory failure likely secondary to below. #. chronic obstructive pulmonary disease exacerbation Baseline home oxygen 3 L, came in with 2 days of worsening shortness of breath at presentation associated with productive cough. Admitting chest x-ray not suggestive of any new focal lung consolidation but positive for chronic interstitial thickening and emphysema. Patient improved on BiPAP overnight of admission--> patient back to baseline home oxygen. Continue with nebulization, prednisone, s/p [id number],, Roflumilast. Change prednisone to 20 mg daily on 09/21. Pulmonology consulted: BiPAP nightly and as needed, target O2 saturation between 88 to 92%. Continue doxy for 5 days. Continue Anoro and DuoNeb along with Roflumilast. Discharge with Trelegy or Breztree. DC with Trelegy. #. Supratherapeutic INR Patient's warfarin held since 09/18 09/19 INR 6.0, INR subtherapeutic today Labile INR, still subtherapeutic We will give him 2 mg extra dose of Coumadin today in addition to home medication dose We will continue to monitor PT/INR daily Likely secondary to interaction with doxycycline Will probably be stable after doxycycline course is completed. #. Mild elevation of troponin, asymptomatic. Serial enzymes flat trend between 0.06 -.09 Likely demand ischemia from acute respiratory distress Admitting EKG: Atrial sensed ventricular rhythm, no acute ST or T changes. 09/16 echo: Ejection fraction 50 to 55%, grade 1 diastolic dysfunction, reduced right ventricular systolic function, mild TR, normal LV chamber size with mild concentric LVH. Patient does not complain of any chest pain at bedside exam. #. Anemia Baseline hemoglobin around 12, patient on Coumadin, admitting hemoglobin 9.9 FOBT negative, therapeutic INR, iron profile reflective of adequate ferritin storage with low iron suggestive of anemia of chronic disease, vitamin B12 normal, folate below normal Patient is started on folic acid supplementation, continue Patient's hemoglobin improved stable 11-12 Continue to monitor. #. History of atrial fibrillation, history of atrial tachycardia, status post ablation, pacemaker, rate is currently controlled. The patient is on Coumadin, continue, INR therapeutic. Continue to monitor. #. Benign prostatic hypertrophy . continue finasteride. #. History of chronic diastolic congestive heart failure. Continue torsemide, losartan. Monitor for any volume overload. #. History of hypertension, on losartan and diuretics. We will monitor the blood pressure. #.. Moderate malnutrition. Nutrition consult. #. Deep venous thrombosis prophylaxis. INR therapeutic. Full code DVT prophylaxis: Patient on Coumadin Disposition: PT/OT recommending home with family support, patient reporting no support at home, will need placement. CM working on placement. Can be discharged, awaiting placement. Admission and Anticipated Discharge Date Admission Date: September 15, 2021 Subjective Patient was sitting up in his bed, on 3 L nasal cannula oxygen, NAD, no acute events overnight per pt. Patient reports feeling better. Patient awaiting for placement. Patient's reports eating and moving bowels okay. Patient denies headache/chills/chest pain/palpitations/increased shortness of breath/other review of symptoms. Physical Exam Physical Exam: GENERAL: Alert and oriented x3. NAD, on 3 L nasal cannula. HEENT: No pallor, no icterus. Pupils equal, round and reactive to light. Oral mucosa moist. NECK: No JVD, no neck masses. HEART: S1 and S2 heard. Regular rate and rhythm. No murmur, no gallop. RESPIRATORY SYSTEM: Normal AP diameter. No accessory muscle use. no crackles. Decreased breath sounds bilaterally with no wheezing. Pursed lip breathing noted. ABDOMEN: Soft, bowel sounds present, nontender, no distention. CENTRAL NERVOUS SYSTEM: No facial droop. Speech is clear. Obeys simple commands. Moves extremities. EXTREMITIES: No edema, no erythema seen. Results & Data Results & Data ([facility]) Vital Signs (Past 12 Hours) Vital Signs Temp Pulse Resp BP BP Pulse Ox 09/21/21 16:26 36.9 C 77 22 159/76 H 95 09/21/21 13:06 80 20 96 09/21/21 07:40 36.8 C 75 16 144/77 H 97 09/21/21 07:28 88 20 93
[2021-09-21] MEDS: LOSARTAN POTASSIUM 25 MG TAB PO SCH (21:18)
[2021-09-21] MEDS: TAMSULOSIN HCL 0.4 MG CAP PO SCH (21:19)
[2021-09-21] MEDS: LATANOPROST 0.005% OP SOLN 2.5 ML BTL OP SCH (21:20)
[2021-09-21] MEDS: traZODone HCL 50 MG TAB PO SCH (23:20)
[2021-09-22] MEDS: HYDROcodone/ACETAMINOPHEN 10/325 TAB PO PRN ×3 (00:24→16:43)
[2021-09-22] MEDS: LEVALBUTEROL 1.25MG/0.5ML NEB INH SCH ×5 (02:29→21:12)
[2021-09-22] MEDS: IPRATROPIUM BROMIDE NEB SOLN 0.02% 2.5 ML VIAL INH SCH ×5 (02:29→21:12)
[2021-09-22 06:38] LABS: INR 1.2 (0.9-1.1); Prothrombin Time 11.8 Seconds (9.0-12.0)
[2021-09-22 07:12] LABS: BUN Creatinine Ratio 27.5 (10-20); Calcium 8.5 mg/dl (8.5-10.1); Creatinine Clr Calc Pharmacy 53.8 ml/min; Est GFR (African American) 96.7 ml/min; Est GFR (Non-African American) 83.5 ml/min; Potassium 3.9 mmol/L (3.5-5.1)
[2021-09-22] MEDS: ADVANCED PROBIOTIC 1250 MG CAPSULE PO SCH (09:42)
[2021-09-22] MEDS: CHOLECALCIFEROL 1,000 UNITS 25 MCG TAB PO SCH (09:43)
[2021-09-22] MEDS: GABAPENTIN 400 MG CAP PO SCH ×3 (09:43→20:55)
[2021-09-22] MEDS: FINASTERIDE 5 MG TAB PO SCH (09:43)
[2021-09-22] MEDS: FOLIC ACID 1 MG TAB PO SCH (09:43)
[2021-09-22] MEDS: TORSEMIDE 10 MG TAB PO SCH (09:44)
[2021-09-22] MEDS: PANTOprazole 40 MG TAB PO SCH (09:44)
[2021-09-22] MEDS: ROFLUMILAST 500 MCG TAB PO SCH (09:44)
[2021-09-22] MEDS: MAGNESIUM OXIDE 400 MG TAB PO SCH ×2 (09:44→20:55)
[2021-09-22] MEDS: UMECLIDINIUM/VILANTEROL 62.5/25MCG 7 PUFFS/INHALER INH SCH (09:45)
[2021-09-22] MEDS: predniSONE 20 MG TAB PO SCH (09:45)
[2021-09-22] MEDS: PANCREAZE (LIPASE 4,200U) CAP PO SCH ×3 (09:45→18:02)
[2021-09-22] MEDS: HEPARIN SOD 5,000 UNIT/0.5 ML VIAL SQ SCH ×2 (11:47→20:55)
[2021-09-22] MEDS: CEROVITE ADV FORMULA TAB PO SCH (13:13)
[2021-09-22] MEDS: ACETAMINOPHEN 325 MG TAB PO PRN ×2 (15:00→20:56)
[2021-09-22] MEDS: BRIMONIDINE TARTRATE-P 0.15% 5 ML BTL OP SCH (15:01)
[2021-09-22] MEDS: WARFARIN SOD 4 MG TAB PO SCH (16:43)
--- NOTE | 2021-09-22 20:08 | Hospitalist Progress Note ---
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 He is being managed for the following: #. Acute on chronic respiratory failure likely secondary to below. #. chronic obstructive pulmonary disease exacerbation Baseline home oxygen 3 L, came in with 2 days of worsening shortness of breath at presentation associated with productive cough. Admitting chest x-ray not suggestive of any new focal lung consolidation but positive for chronic interstitial thickening and emphysema. Patient improved on BiPAP overnight of admission--> patient back to baseline home oxygen. Continue with nebulization, prednisone, s/p [id number],, Roflumilast. Status post prednisone for 5 days. Pulmonology consulted: BiPAP nightly and as needed, target O2 saturation between 88 to 92%. Continue doxy for 5 days. Continue Anoro and DuoNeb along with Roflumilast. Discharge with Trelegy or Breztree. DC with Trelegy. #. Supratherapeutic INR interchanging with subtherapeutic INR Patient's warfarin held since 09/18 09/19 INR 6.0, INR subtherapeutic today Labile INR, still subtherapeutic We will cover with subcutaneous heparin for today, if still subtherapeutic continue to cover with heparin prophylactic dose. We will continue to monitor PT/INR daily Likely secondary to interaction with doxycycline Expect to improve and be therapeutic tomorrow. Continue to monitor. #. Mild elevation of troponin, asymptomatic. Serial enzymes flat trend between 0.06 -.09 Likely demand ischemia from acute respiratory distress Admitting EKG: Atrial sensed ventricular rhythm, no acute ST or T changes. 09/16 echo: Ejection fraction 50 to 55%, grade 1 diastolic dysfunction, reduced right ventricular systolic function, mild TR, normal LV chamber size with mild concentric LVH. Patient does not complain of any chest pain at bedside exam. #. Anemia Baseline hemoglobin around 12, patient on Coumadin, admitting hemoglobin 9.9 FOBT negative, therapeutic INR, iron profile reflective of adequate ferritin storage with low iron suggestive of anemia of chronic disease, vitamin B12 normal, folate below normal Patient is started on folic acid supplementation, continue Patient's hemoglobin improved stable 11-12 Continue to monitor. #. History of atrial fibrillation, history of atrial tachycardia, status post ablation, pacemaker, rate is currently controlled. The patient is on Coumadin, continue, INR therapeutic. Continue to monitor. #. Benign prostatic hypertrophy . continue finasteride. #. History of chronic diastolic congestive heart failure. Continue torsemide, losartan. Monitor for any volume overload. #. History of hypertension, on losartan and diuretics. We will monitor the blood pressure. #.. Moderate malnutrition. Nutrition consult. #. Deep venous thrombosis prophylaxis. INR therapeutic. Full code DVT prophylaxis: Patient on Coumadin Disposition: PT/OT recommending home with family support, patient reporting no support at home, will need placement. CM working on placement. Can be discharged, awaiting placement. Admission and Anticipated Discharge Date Admission Date: September 15, 2021 Subjective Patient was lying in his bed, on 3 L nasal cannula oxygen, NAD, no acute events overnight per pt. per RN, in the morning he complained of shortness of breath when working with physical therapy. But did not require increased oxygen and was maintaining saturation. Patient reports feeling worked up at bedside exam. To me patient looks better than yesterday subjectively. Patient awaiting placement. Patient's reports eating and moving bowels okay. Patient denies headache/chills/chest pain/palpitations/other review of symptoms. Physical Exam Physical Exam: GENERAL: Alert and oriented x3. NAD, on 3 L nasal cannula. HEENT: No pallor, no icterus. Pupils equal, round and reactive to light. Oral mucosa moist. NECK: No JVD, no neck masses. HEART: S1 and S2 heard. Regular rate and rhythm. No murmur, no gallop. RESPIRATORY SYSTEM: Normal AP diameter. No accessory muscle use. no crackles. Decreased breath sounds bilaterally with no wheezing. Pursed lip breathing noted. ABDOMEN: Soft, bowel sounds present, nontender, no distention. CENTRAL NERVOUS SYSTEM: No facial droop. Speech is clear. Obeys simple commands. Moves extremities. EXTREMITIES: No edema, no erythema seen. Results & Data Results & Data ([facility]) Vital Signs (Past 12 Hours) Vital Signs Resp Pulse Ox 09/22/21 12:18 18 95
[2021-09-22] MEDS: LATANOPROST 0.005% OP SOLN 2.5 ML BTL OP SCH (20:37)
[2021-09-22] MEDS: LOSARTAN POTASSIUM 25 MG TAB PO SCH (20:55)
[2021-09-22] MEDS: traZODone HCL 50 MG TAB PO SCH (20:55)
[2021-09-22] MEDS: TAMSULOSIN HCL 0.4 MG CAP PO SCH (20:55)
[2021-09-23] MEDS: HYDROcodone/ACETAMINOPHEN 10/325 TAB PO PRN ×4 (00:33→23:39)
[2021-09-23] MEDS: IPRATROPIUM BROMIDE NEB SOLN 0.02% 2.5 ML VIAL INH SCH ×3 (08:00→19:18)
[2021-09-23] MEDS: LEVALBUTEROL 1.25MG/0.5ML NEB INH SCH ×3 (08:00→19:18)
[2021-09-23] MEDS: UMECLIDINIUM/VILANTEROL 62.5/25MCG 7 PUFFS/INHALER INH SCH (08:23)
[2021-09-23] MEDS: PANCREAZE (LIPASE 4,200U) CAP PO SCH ×3 (08:24→16:41)
[2021-09-23] MEDS: GABAPENTIN 400 MG CAP PO SCH ×3 (08:24→20:28)
[2021-09-23] MEDS: ADVANCED PROBIOTIC 1250 MG CAPSULE PO SCH (08:24)
[2021-09-23] MEDS: FOLIC ACID 1 MG TAB PO SCH (08:25)
[2021-09-23] MEDS: FINASTERIDE 5 MG TAB PO SCH (08:25)
[2021-09-23] MEDS: PANTOprazole 40 MG TAB PO SCH (08:25)
[2021-09-23] MEDS: TORSEMIDE 10 MG TAB PO SCH (08:25)
[2021-09-23] MEDS: ROFLUMILAST 500 MCG TAB PO SCH (08:25)
[2021-09-23] MEDS: CHOLECALCIFEROL 1,000 UNITS 25 MCG TAB PO SCH (08:25)
[2021-09-23] MEDS: CEROVITE ADV FORMULA TAB PO SCH (08:26)
[2021-09-23 08:41] LABS: INR 1.5 (0.9-1.1); Prothrombin Time 14.7 Seconds (9.0-12.0)
[2021-09-23 09:03] LABS: BUN Creatinine Ratio 26.2 (10-20); Calcium 8.6 mg/dl (8.5-10.1); Creatinine Clr Calc Pharmacy 63.5 ml/min; Est GFR (African American) 103.6 ml/min; Est GFR (Non-African American) 89.3 ml/min; Potassium 4.2 mmol/L (3.5-5.1)
--- NOTE | 2021-09-23 09:04 | Hospitalist Progress Note ---
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 Chronic obstructive pulmonary disease exacerbation Baseline home oxygen 3 L, came in with 2 days of worsening shortness of breath at presentation associated with productive cough. Admitting chest x-ray not suggestive of any new focal lung consolidation but positive for chronic interstitial thickening and emphysema. Patient improved on BiPAP overnight of admission--> patient back to baseline home oxygen. Continue with nebulization, prednisone, s/p doxycycline 5d,, Roflumilast. Status post prednisone for 5 days. Pulmonology consulted: BiPAP nightly and as needed, target O2 saturation between 88 to 92%. Continue doxy for 5 days. Continue Anoro and DuoNeb along with Roflumilast. Discharge with Trelegy or Breztree. DC with Trelegy. Supratherapeutic INR interchanging with subtherapeutic INR Patient's warfarin held since 09/18 09/19 INR 6.0, INR subtherapeutic today (11/04 on 09/23) Labile INR, still subtherapeutic We will cover with subcutaneous heparin for today, if still subtherapeutic continue to cover with heparin prophylactic dose. We will continue to monitor PT/INR daily Likely secondary to interaction with doxycycline Expect to improve and be therapeutic tomorrow. Continue to monitor. Mild elevation of troponin, asymptomatic. Serial enzymes flat trend between 0.06 -0.09 Likely demand ischemia from acute respiratory distress Admitting EKG: Atrial sensed ventricular rhythm, no acute ST or T changes. 09/16 echo: Ejection fraction 50 to 55%, grade 1 diastolic dysfunction, reduced right ventricular systolic function, mild TR, normal LV chamber size with mild concentric LVH. Patient does not complain of any chest pain at bedside exam. Anemia Baseline hemoglobin around 12, patient on Coumadin, admitting hemoglobin 9.9 FOBT negative, therapeutic INR, iron profile reflective of adequate ferritin storage with low iron suggestive of anemia of chronic disease, vitamin B12 normal, folate below normal Patient is started on folic acid supplementation, continue Patient's hemoglobin improved stable 11-12 Continue to monitor. #. History of atrial fibrillation, history of atrial tachycardia, status post ablation, pacemaker, rate is currently controlled. The patient is on Coumadin, continue, Continue to monitor. #. Benign prostatic hypertrophy . continue finasteride. #. History of chronic diastolic congestive heart failure. Continue torsemide, losartan. Monitor for any volume overload. #. History of hypertension, on losartan and diuretics. We will monitor the blood pressure. #.. Moderate malnutrition. Nutrition consult. Full code DVT prophylaxis: Patient on Coumadin Disposition: PT/OT recommending home with family support, patient reporting no support at home, will need placement. CM working on placement. Can be discharged, awaiting placement. Admission and Anticipated Discharge Date Admission Date: September 15, 2021 Subjective Pt seen in follow up of COPD exacerbation He is lying in bed, on 2 L NC oxygen saturating in higher 90s% overall not in NAD, but does report feeling short of breath martin. with ambulation Patient reports feeling worked up at bedside exam. Patient awaiting placement. Patient denies headache/chills/chest pain/palpitations/other review of symptoms. Review of Systems Review of Systems: All systems reviewed & are unremarkable except as noted in Subjective Physical Exam Physical Exam: GENERAL: Alert and oriented x3. NAD, on 2 L nasal cannula. HEENT: NC/AT. EOMI, PERRL. Oral mucosa moist. NECK: No JVD, no neck masses. HEART: S1 and S2 heard. Regular rate and rhythm. No murmur, no gallop. RESPIRATORY SYSTEM: Normal AP diameter. No accessory muscle use. no crackles. Decreased breath sounds bilaterally with no wheezing. Pursed lip breathing noted. ABDOMEN: Soft, bowel sounds present, nontender, no distention. NEURO: No facial droop. Speech is clear.Moves extremities. EXTREMITIES: No edema, no erythema seen. Results & Data Results & Data ([facility] [place]) Vital Signs (Past 12 Hours) Vital Signs Temp Pulse Pulse Resp BP BP Pulse Ox 09/23/21 08:00 81 18 98 09/23/21 07:24 36.7 C 80 18 130/70 97 09/23/21 01:03 36.5 C 85 24 129/68 97 Laboratory Results 09/23/21 09/23/21 Range/Units 08:02 08:02 PT 14.7 H (9.0-12.0) Seconds INR 1.5 H (0.9-1.1) Sodium 141 (136-145) mmol/L Potassium 4.2 (3.5-5.1) mmol/L Chloride 101 (98-107) mmol/L Carbon Dioxide 35 H (21-32) mmol/L Anion Gap 5.0 (3-11) BUN 19 H (7-18) mg/dl Creatinine 0.72 (0.6-1.4) mg/dl Est Cr Clr Drug Dosing 63.5 ml/min Est GFR ( Amer) 103.6 ml/min Est GFR (Non-Af Amer) 89.3 ml/min BUN/Creatinine Ratio 26.2 H (10-20) Glucose 82 (70-99) mg/dl Calcium 8.6 (8.5-10.1) mg/dl Medications Administered Current Inpatient Medications Acetaminophen (Acetaminophen 325 Mg Tab) 650 mg PO Q4H PRN PRN Reason: Pain or Fever Stop: 10/16/21 00:03 Last Admin: 09/22/21 20:56 Dose: 650 mg Documented by: Hydrocodone Bitart/Acetaminophen (Hydrocodone/Acetaminophen 10/325 Tab) 1 tab PO TID PRN PRN Reason: Pain Stop: 09/30/21 00:03 Last Admin: 09/23/21 08:22 Dose: 1 tab Documented by: Albuterol (Albuterol Hfa 8 Gm Inhaler) 2 puffs INH Q4H PRN PRN Reason: Shortness Of Breath Stop: 10/16/21 00:03 Lipase/Protease/Amylase (Pancreaze (Lipase 4,200u) Cap) 1 cap PO TIDM SHAHIDA Stop: 10/16/21 07:59 Last Admin: 09/23/21 08:24 Dose: 1 cap Documented by: Brimonidine Tartrate (Brimonidine Tartrate-P 0.15% 5 Ml Btl) 1 drops OP PRN SHAHIDA Stop: 10/17/21 15:59 Last Admin: 09/22/21 15:01 Dose: Not Given Documented by: Docusate Sodium (Docusate Sodium 100 Mg Cap) 100 mg PO BID PRN PRN Reason: Constipation Stop: 10/16/21 00:38 Last Admin: 09/17/21 15:38 Dose: 100 mg Documented by: Dorzolamide HCl (Dorzolamide Hcl 2% Oph Soln 10 Ml Btl) 1 drops OP PRN PRN PRN Reason: as needed Stop: 10/17/21 15:45 Last Admin: 09/20/21 08:08 Dose: 1 drops Documented by: Finasteride (Finasteride 5 Mg Tab) 5 mg PO DAILY SHAHIDA Stop: 10/16/21 08:59 Last Admin: 09/23/21 08:25 Dose: 5 mg Documented by: Folic Acid (Folic Acid 1 Mg Tab) 1 mg PO QAM SHAHIDA Stop: 10/16/21 14:59 Last Admin: 09/23/21 08:25 Dose: 1 mg Documented by: Gabapentin (Gabapentin 400 Mg Cap) 400 mg PO TID SHAHIDA Stop: 10/16/21 00:03 Last Admin: 09/23/21 08:24 Dose: 400 mg Documented by: Ipratropium [place] (Ipratropium [place] Neb Soln 0.02% 2.5 Ml Vial) 0.5 mg INH Q6R SHAHIDA Stop: 10/16/21 00:59 Last Admin: 09/23/21 08:00 Dose: 0.5 mg Documented by: Lactobacillus Acidoph/Casei/Rhamnos (Advanced Probiotic 1250 Mg Capsule) 2 cap PO DAILY SHAHIDA Stop: 10/16/21 08:59 Last Admin: 09/23/21 08:24 Dose: 2 cap Documented by: Latanoprost (Latanoprost 0.005% Op Soln 2.5 Ml Btl) 1 drops OP HS SHAHIDA Stop: 10/16/21 00:03 Last Admin: 09/22/21 20:37 Dose: Not Given Documented by: Levalbuterol HCl (Levalbuterol 1.25mg/0.5ml Neb) 1.25 mg INH Q6R SHAHIDA Stop: 10/16/21 00:59 Last Admin: 09/23/21 08:00 Dose: 1.25 mg Documented by: Levalbuterol HCl (Levalbuterol Hcl 1.25 Mg/3 Ml Neb) 1.25 mg NEB Q2H PRN PRN Reason: Shortness Of Breath Or Wheezing Stop: 10/16/21 00:03 Losartan Potassium (Losartan Potassium 25 Mg Tab) 25 mg PO QPM SHAHIDA Stop: 10/16/21 00:03 Last Admin: 09/22/21 20:55 Dose: 25 mg Documented by: Multivitamins/Minerals (Cerovite Adv Formula Tab) 1 tab PO QAM SHAHIDA Stop: 10/22/21 11:59 Last Admin: 09/23/21 08:26 Dose: 1 tab Documented by: Nitroglycerin (Nitroglycerin Sl 0.4 Mg/Tab Tab) 0.4 mg SL UD PRN PRN Reason: Chest Pain Stop: 10/16/21 00:03 Pantoprazole Sodium (Pantoprazole 40 Mg Tab) 40 mg PO DAILY SHAHIDA Stop: 10/16/21 08:59 Last Admin: 09/23/21 08:25 Dose: 40 mg Documented by: Roflumilast (Roflumilast 500 Mcg Tab) 500 mcg PO DAILY SHAHIDA Stop: 10/16/21 08:59 Last Admin: 09/23/21 08:25 Dose: 500 mcg Documented by: Tamsulosin HCl (Tamsulosin Hcl 0.4 Mg Cap) 0.4 mg PO HS SHAHIDA Stop: 10/16/21 00:03 Last Admin: 09/22/21 20:55 Dose: 0.4 mg Documented by: Torsemide (Torsemide 10 Mg Tab) 10 mg PO DAILY SHAHIDA Stop: 10/16/21 08:59 Last Admin: 09/23/21 08:25 Dose: 10 mg Documented by: Trazodone HCl (Trazodone Hcl 50 Mg Tab) 150 mg PO HS SHAHIDA Stop: 10/16/21 00:03 Last Admin: 09/22/21 20:55 Dose: 150 mg Documented by: Umeclidinium/Vilanterol (Umeclidinium/Vilanterol 62.5/25mcg 7 Puffs/Inhaler) 1 puffs INH DAILY SHAHIDA Stop: 10/16/21 08:59 Last Admin: 09/23/21 08:23 Dose: 1 puffs Documented by: Vitamin D (Cholecalciferol 1,000 Units 25 Mcg Tab) 4,000 units PO DAILY [facility] Stop: 10/16/21 08:59 Last Admin: 09/23/21 08:25 Dose: 4,000 units Documented by: Warfarin Sodium (Warfarin Sod 4 Mg Tab) 4 mg PO [id number]@1600 [facility] Stop: 10/17/21 15:59 Last Admin: 09/22/21 16:43 Dose: 4 mg Documented by: Warfarin Sodium (Warfarin Sod 2 Mg Tab) 2 mg PO [id number]@1600 [facility] Stop: 10/16/21 15:59 Last Admin: 09/21/21 16:14 Dose: 2 mg Documented by:
[2021-09-23 10:40] LABS: Magnesium 2.3 mg/dl (1.8-2.4)
[2021-09-23 10:53] LABS: HCO3 ABG 35 mmol/L (19-24); Oxygen Saturation ABG 93.5 % (90-95); PCO2 ABG 56 mmHg (35-46); PO2 ABG 67 mmHg (80-95); pH ABG 7.42 (7.35-7.45)
--- NOTE | 2021-09-23 10:53 | XRay Report ---
XR chest 1V portable CLINICAL HISTORY: History of atypical chest pain and interstitial lung disease. COMPARISON STUDY: 09/15/2021 TECHNIQUE: 1 view of the chest FINDINGS: Single frontal view of the chest demonstrates the cardiomediastinal silhouette to be within normal li mits. Permanent cardiac pacer is in place. The lungs are clear of alveolar opacities. Prominence of t he interstitial markings and evidence for underlying COPD are again seen and unchanged. No acute alve olar opacities are identified. There is no evidence for pleural effusion. There is no evidence for va scular congestion. There is no acute osseous pathology. IMPRESSION: No acute cardiopulmonary disease. Evidence for interstitial lung disease and underlying C OPD is again seen. ACT 112: Negative or not required by law. Electronically signed by: Antonio Garcia M.D. 09/23/2021 10:51 AM
[2021-09-23] MEDS: ACETAMINOPHEN 325 MG TAB PO PRN ×3 (10:58→20:28)
[2021-09-23] MEDS: HEPARIN SOD 5,000 UNIT/0.5 ML VIAL SQ SCH ×2 (10:59→20:29)
[2021-09-23 11:00] LABS: Allen Test Pos (Pos)
--- NOTE | 2021-09-23 13:25 | Pulmonology Progress Note ---
Date of Service September 23, 2021 Assessment & Plan (1) COPD (chronic obstructive pulmonary disease): COPD type: unspecified COPD Qualified Code(s): J44.9 - Chronic obstructive pulmonary disease, unspecified (2) Chronic respiratory failure with hypoxia: (3) Breath shortness: (4) Acute on chronic respiratory failure with hypoxemia: Plan: Attending: Dr. Hansen Impression: 76-year-old male with past history of tobacco abuse for approximately [id number] history. He quit smoking several years ago. He does have chronic COPD and follows with Dr. Klein in the outpatient clinic and was last seen 07/02/2021. At that time arterial blood gases were also checked and showed hypercapnia with PCO2 of 62.8 with a corrected pH. Patient has been referred to the sleep clinic and has an appointment with [place] sleep disorder clinic for 10/06/2021. Recommendations: 1. Hypercapnic/hypoxic chronic respiratory failure: * This appears to be a chronic finding. Arterial blood gas was reviewed from 07/02/2021 is base identical to the blood gas reviewed today. * Patient follows with the pulmonary clinic at [place] with Dr. Klein. Most recent appoint was 07/02/2021. He is scheduled for follow-up 01/18/2022 in [place] * Will continue supplemental oxygen to maintain SaO2 between 88 and 92%. * Continue to titrate steroids off as listed in Dr. Stone's previous note. * If patient tolerates, can use BiPAP starting at 12/6 and bleeding in 2 L/min of supplemental oxygen and titrate per respiratory protocol * Most likely, patient will need trilogy/AVAPS at home but will defer this to the [facility] pulmonary team as they have been following him regularly. 2. COPD: * Gold class D * Patient has not been compliant with Anoro Ellipta and Roflumilast at home but has been using DuoNeb * With discharge on Trelegy (ICS/AC/LABA) on discharge if covered by insurance. If not covered by insurance can discharge on BrezTri * Maintain SaO2 between 88 and 92% * Azithromycin is often used Tuesday for its anti-inflammatory effect. Would avoid this at this time as the patient has a prolonged QTC * Would defer to [facility] pulmonology regarding repeat pulmonary function testing * Patient does not appear to be in exacerbation at this time 3. History of tobacco use: * 01-[id number]-[id number] history * Patient reports that he quit smoking since several years ago 4. 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 He reports most of his duties were administrative and not in the yard * Continue with treatment for chronic COPD 5. Steroids: * No appreciation of significant bronchospasm * Would try to avoid systemic steroids and focus on inhaled corticosteroids with inhalation therapy Thank you very much for including us in the care of this patient. The pulmonary service will sign off at this time. Patient appears stable to be discharged to rehab. Recommend the patient keep all appointments with [facility] sleep disorder lab and pulmonary department. This patient was discussed in detail with Dr. Hansen. Please feel free to call with any additional questions. Admission and Anticipated Discharge Date Admission Date: September 15, 2021 Subjective Attending: Dr. Hansen Patient seen and examined in bed 3811. Previously seen in consultation by Dr. Stone 09/16/2021 with follow-up note 09/17/2021. Patient admitted for COPD exacerbation. He is chronically on supplemental oxygen at 2-1/2 to 3 L/min. Patient reports that he has been staged for discharge for rehab and expects to be discharged on Tuesday. Patient reports no acute exacerbations since treatment began on admission. He continues to have chronic shortness of breath. He is a pursed lip breather chronically. He reports that he is previously followed with Dr. Klein with the [facility] clinic for pulmonology. His last appointment was 07/02/2021. At that time, he also had arterial blood gas drawn which showed a pH of 7.37, PCO2 of 62.8, PaO2 of 108, and HCO3 of 35.7. Patient was referred to the sleep disorder clinic and has an appointment scheduled for 10/06/2021. The patient is previously followed with Dr. Chew but is being transitioned to Dr. Conrad at the [facility] outpatient clinic. His next appoint with Dr. Conrad is 10/21/2021. Patient also follows with the [facility] cardiology group for his congestive heart failure. He is scheduled for an echocardiogram 11/10/2021 with follow-up with Dr. Méndez to review results. Patient denies any fever, chills, sweats, rigors. He has no new sputum production. He denies any hemoptysis. He currently has no acute distress with his baseline supplemental oxygen. He does get short of breath with ambulation. He is alert and oriented and able to give me history. He has been diagnosed as a COPD group D patient. He has previous admissions for COPD and appears to have chronic hypercapnia with corrected pH. He has no acute complaints at this time and is anticipating discharge to rehab to work on deconditioning. Review of Systems Review of Systems: All systems reviewed & are unremarkable except as noted in Subjective Physical Exam Physical Exam: GENERAL : No acute distress. Pursed lip breather. No cyanosis. EYES: No icterus, gaze conjugate NOSE: No evidence of epistaxis. Nasal cannula currently in place at 1 L/min continuously MOUTH: No lesions or candidiasis. Mucosa moist NECK: Supple. No evidence of JVD LUNGS: Lungs are extremely diminished. Patient does have some minimal crackles at the bases and some fine bronchospasm. HEART: Regular, rate controlled in the 80s ABDOMEN: Soft, NT, ND, BS Present EXTREMITIES: No LE edema, pedal pulses intact NEURO: A&OX3 Results & Data Results & Data ([facility]) Vital Signs (Past 12 Hours) Vital Signs Temp Pulse Pulse Resp BP Pulse Ox 09/23/21 10:02 92 09/23/21 08:00 81 18 98 09/23/21 07:24 36.7 C 80 18 130/70 97 Laboratory Results 09/19/21 08:12 09/23/21 08:02 09/15/21 09/23/21 17:59 10:42 ABG pH 7.42 ABG pCO2 56 H ABG pO2 67 L ABG HCO3 35 H ABG O2 Saturation 93.5 ABG Base Excess 9.0 H VBG pH 7.34 L VBG pCO2 51 H VBG pO2 34 VBG HCO3 27 VBG O2 Saturation < 60.0 VBG Base Excess 0.7 Diagnostic Findings Chest X-Ray 09/23/21 10:27 XR chest 1V portable CLINICAL HISTORY: History of atypical chest pain and interstitial lung disease. COMPARISON STUDY: 09/15/2021 TECHNIQUE: 1 view of the chest FINDINGS: Single frontal view of the chest demonstrates the cardiomediastinal silhouette to be within normal limits. Permanent cardiac pacer is in place. The lungs are clear of alveolar opacities. Prominence of the interstitial markings and evidence for underlying COPD are again seen and unchanged. No acute alveolar opacities are identified. There is no evidence for pleural effusion. There is no evidence for vascular congestion. There is no acute osseous pathology. IMPRESSION: No acute cardiopulmonary disease. Evidence for interstitial lung dis ease and underlying COPD is again seen. ACT 112: Negative or not required by law. Electronically signed by: Antonio Garcia M.D. 09/23/2021 10:51 AM PG Care Time/CCT Total # of Minutes Spent Total Time Spent with Patient: Total time spent is greater than 50% in coordination of care (as documented) at patient's floor/unit and/or counseling patient: Coding Level of Care Code 38840 Subseq Hosp Care Lvl 2 Diagnoses COPD (chronic obstructive pulmonary disease) J44.9 COPD type: unspecified COPD Chronic respiratory failure with hypoxia J96.11 Breath shortness R06.02 Acute on chronic respiratory failure with hypoxemia J96.21 Time Spent (min) 35
[2021-09-23] MEDS: BRIMONIDINE TARTRATE-P 0.15% 5 ML BTL OP SCH (15:42)
[2021-09-23] MEDS: WARFARIN SOD 2 MG TAB PO SCH (16:41)
[2021-09-23] MEDS: TAMSULOSIN HCL 0.4 MG CAP PO SCH (20:28)
[2021-09-23] MEDS: LOSARTAN POTASSIUM 25 MG TAB PO SCH (20:28)
[2021-09-23] MEDS: LATANOPROST 0.005% OP SOLN 2.5 ML BTL OP SCH (20:28)
[2021-09-23] MEDS: traZODone HCL 50 MG TAB PO SCH (23:38)
[2021-09-24] MEDS: LEVALBUTEROL 1.25MG/0.5ML NEB INH SCH ×4 (01:24→20:50)
[2021-09-24] MEDS: IPRATROPIUM BROMIDE NEB SOLN 0.02% 2.5 ML VIAL INH SCH ×4 (01:24→20:50)
[2021-09-24] MEDS: HYDROcodone/ACETAMINOPHEN 10/325 TAB PO PRN ×3 (07:24→22:41)
[2021-09-24] MEDS: GABAPENTIN 400 MG CAP PO SCH ×3 (08:20→20:40)
[2021-09-24] MEDS: ROFLUMILAST 500 MCG TAB PO SCH (08:20)
[2021-09-24] MEDS: CHOLECALCIFEROL 1,000 UNITS 25 MCG TAB PO SCH (08:20)
[2021-09-24] MEDS: PANTOprazole 40 MG TAB PO SCH (08:21)
[2021-09-24] MEDS: FINASTERIDE 5 MG TAB PO SCH (08:21)
[2021-09-24] MEDS: CEROVITE ADV FORMULA TAB PO SCH (08:21)
[2021-09-24] MEDS: ADVANCED PROBIOTIC 1250 MG CAPSULE PO SCH (08:21)
[2021-09-24] MEDS: FOLIC ACID 1 MG TAB PO SCH (08:21)
[2021-09-24] MEDS: UMECLIDINIUM/VILANTEROL 62.5/25MCG 7 PUFFS/INHALER INH SCH (08:21)
[2021-09-24] MEDS: TORSEMIDE 10 MG TAB PO SCH (08:21)
[2021-09-24] MEDS: PANCREAZE (LIPASE 4,200U) CAP PO SCH ×3 (08:22→16:56)
[2021-09-24] MEDS: HEPARIN SOD 5,000 UNIT/0.5 ML VIAL SQ SCH ×2 (08:22→20:39)
[2021-09-24 08:36] LABS: INR 1.6 (0.9-1.1); Prothrombin Time 16.1 Seconds (9.0-12.0)
[2021-09-24 09:02] LABS: BUN Creatinine Ratio 27.1 (10-20); Calcium 8.5 mg/dl (8.5-10.1); Creatinine Clr Calc Pharmacy 55.8 ml/min; Est GFR (African American) 98.2 ml/min; Est GFR (Non-African American) 84.7 ml/min; Magnesium 1.9 mg/dl (1.8-2.4); Phosphorus 1.8 mg/dl (2.5-4.9)
[2021-09-24] MEDS: ACETAMINOPHEN 325 MG TAB PO PRN ×2 (09:07→17:44)
[2021-09-24] MEDS: BRIMONIDINE TARTRATE-P 0.15% 5 ML BTL OP SCH (13:20)
--- NOTE | 2021-09-24 14:23 | Hospitalist Progress Note ---
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 Chronic obstructive pulmonary disease exacerbation Baseline home oxygen 3 L, came in with 2 days of worsening shortness of breath at presentation associated with productive cough. Admitting chest x-ray not suggestive of any new focal lung consolidation but positive for chronic interstitial thickening and emphysema. Patient improved on BiPAP overnight of admission--> patient back to baseline home oxygen. Continue with nebulization, prednisone, s/p doxycycline 5d,, Roflumilast. Status post prednisone for 5 days. Pulmonology consulted: BiPAP nightly and as needed, target O2 saturation between 88 to 92%. doxy for 5 days. Continue Anoro and DuoNeb along with Roflumilast. Discharge with Trelegy or Breztree. DC with Trelegy. Supratherapeutic INR interchanging with subtherapeutic INR Patient's warfarin held since 09/18 09/19 INR 6.0, INR subtherapeutic today (11/04 on 09/23) Labile INR, still subtherapeutic We will cover with subcutaneous heparin for today, if still subtherapeutic continue to cover with heparin prophylactic dose. We will continue to monitor PT/INR daily Likely secondary to interaction with doxycycline Expect to improve and be therapeutic tomorrow. Continue to monitor. Mild elevation of troponin, asymptomatic. Serial enzymes flat trend between 0.06 -0.09 Likely demand ischemia from acute respiratory distress Admitting EKG: Atrial sensed ventricular rhythm, no acute ST or T changes. 09/16 echo: Ejection fraction 50 to 55%, grade 1 diastolic dysfunction, reduced right ventricular systolic function, mild TR, normal LV chamber size with mild concentric LVH. Patient does not complain of any chest pain at bedside exam. Anemia Baseline hemoglobin around 12, patient on Coumadin, admitting hemoglobin 9.9 FOBT negative, therapeutic INR, iron profile reflective of adequate ferritin storage with low iron suggestive of anemia of chronic disease, vitamin B12 normal, folate below normal Patient is started on folic acid supplementation, continue Patient's hemoglobin improved stable 11-12 Continue to monitor. #. History of atrial fibrillation, history of atrial tachycardia, status post ablation, pacemaker, rate is currently controlled. The patient is on Coumadin, continue, Continue to monitor. #. Benign prostatic hypertrophy . continue finasteride. #. History of chronic diastolic congestive heart failure. Continue torsemide, losartan. Monitor for any volume overload. #. History of hypertension, on losartan and diuretics. We will monitor the blood pressure. #.. Moderate malnutrition. Nutrition consult. Full code DVT prophylaxis: Patient on Coumadin Disposition: PT/OT recommending home with family support, patient reporting no support at home, will need placement. CM working on placement. Can be discharged, awaiting placement. Admission and Anticipated Discharge Date Admission Date: September 15, 2021 Subjective Pt seen in follow up of COPD exacerbation He is lying in bed, on 2 L NC oxygen saturating in higher 90s% overall not in NAD, but does report feeling short of breath martin. with ambulation (this seems to be unchanged from previous) Patient awaiting placement. Patient denies headache/chills/chest pain/palpitations/other review of symptoms. Review of Systems Review of Systems: All systems reviewed & are unremarkable except as noted in Subjective Physical Exam Physical Exam: GENERAL: Alert and oriented x3. NAD, on 2 L nasal cannula. HEENT: NC/AT. EOMI, PERRL. Oral mucosa moist. NECK: No JVD, no neck masses. HEART: S1 and S2 heard. Regular rate and rhythm. No murmur, no gallop. RESPIRATORY SYSTEM: Normal AP diameter. No accessory muscle use. no crackles. Decreased breath sounds bilaterally with no wheezing. Pursed lip breathing noted (this seems to be chronic). ABDOMEN: Soft, bowel sounds present, nontender, no distention. NEURO: No facial droop. Speech is clear.Moves extremities. EXTREMITIES: No edema, no erythema seen. Results & Data Results & Data ([facility]) Vital Signs (Past 12 Hours) Vital Signs Temp Pulse Resp BP Pulse Ox 09/24/21 12:20 87 22 90 09/24/21 07:53 102 H 24 89 L 09/24/21 07:19 36.5 C 72 18 132/77 89 L 09/24/21 05:57 88 L Laboratory Results 09/24/21 09/24/21 Range/Units 07:45 07:45 PT 16.1 H (9.0-12.0) Seconds INR 1.6 H (0.9-1.1) Sodium 139 (136-145) mmol/L Potassium 4.0 (3.5-5.1) mmol/L Chloride 100 (98-107) mmol/L Carbon Dioxide 32 (21-32) mmol/L Anion Gap 7.0 (3-11) BUN 22 H (7-18) mg/dl Creatinine 0.82 (0.6-1.4) mg/dl Est Cr Clr Drug Dosing 55.8 ml/min Est GFR ( Amer) 98.2 ml/min Est GFR (Non-Af Amer) 84.7 ml/min BUN/Creatinine Ratio 27.1 H (10-20) Glucose 90 (70-99) mg/dl Calcium 8.5 (8.5-10.1) mg/dl Phosphorus 1.8 L (2.5-4.9) mg/dl Magnesium 1.9 (1.8-2.4) mg/dl Medications Administered Current Inpatient Medications Acetaminophen (Acetaminophen 325 Mg Tab) 650 mg PO Q4H PRN PRN Reason: Pain or Fever Stop: 10/16/21 00:03 Last Admin: 09/24/21 09:07 Dose: 650 mg Documented by: Hydrocodone Bitart/Acetaminophen (Hydrocodone/Acetaminophen 10/325 Tab) 1 tab PO TID PRN PRN Reason: Pain Stop: 09/30/21 00:03 Last Admin: 09/24/21 07:24 Dose: 1 tab Documented by: Albuterol (Albuterol Hfa 8 Gm Inhaler) 2 puffs INH Q4H PRN PRN Reason: Shortness Of Breath Stop: 10/16/21 00:03 Lipase/Protease/Amylase (Pancreaze (Lipase 4,200u) Cap) 1 cap PO TIDM SHAHIDA Stop: 10/16/21 07:59 Last Admin: 09/24/21 12:16 Dose: 1 cap Documented by: Brimonidine Tartrate (Brimonidine Tartrate-P 0.15% 5 Ml Btl) 1 drops OP PRN SHAHIDA Stop: 10/17/21 15:59 Last Admin: 09/24/21 13:20 Dose: Not Given Documented by: Docusate Sodium (Docusate Sodium 100 Mg Cap) 100 mg PO BID PRN PRN Reason: Constipation Stop: 10/16/21 00:38 Last Admin: 09/17/21 15:38 Dose: 100 mg Documented by: Dorzolamide HCl (Dorzolamide Hcl 2% Oph Soln 10 Ml Btl) 1 drops OP PRN PRN PRN Reason: as needed Stop: 10/17/21 15:45 Last Admin: 09/20/21 08:08 Dose: 1 drops Documented by: Finasteride (Finasteride 5 Mg Tab) 5 mg PO DAILY SHAHIDA Stop: 10/16/21 08:59 Last Admin: 09/24/21 08:21 Dose: 5 mg Documented by: Folic Acid (Folic Acid 1 Mg Tab) 1 mg PO QAM SHAHIDA Stop: 10/16/21 14:59 Last Admin: 09/24/21 08:21 Dose: 1 mg Documented by: Gabapentin (Gabapentin 400 Mg Cap) 400 mg PO TID SHAHIDA Stop: 10/16/21 00:03 Last Admin: 09/24/21 08:20 Dose: 400 mg Documented by: Heparin Sodium (Porcine) (Heparin Sod 5,000 Unit/0.5 Ml Vial) 5,000 units SQ Q12 SHAHIDA Stop: 10/23/21 10:29 Last Admin: 09/24/21 08:22 Dose: 5,000 units Documented by: Ipratropium [place] (Ipratropium [place] Neb Soln 0.02% 2.5 Ml Vial) 0.5 mg INH Q6R SHAHIDA Stop: 10/16/21 00:59 Last Admin: 09/24/21 12:17 Dose: 0.5 mg Documented by: Lactobacillus Acidoph/Casei/Rhamnos (Advanced Probiotic 1250 Mg Capsule) 2 cap PO DAILY SHAHIDA Stop: 10/16/21 08:59 Last Admin: 09/24/21 08:21 Dose: 2 cap Documented by: Latanoprost (Latanoprost 0.005% Op Soln 2.5 Ml Btl) 1 drops OP HS SHAHIDA Stop: 10/16/21 00:03 Last Admin: 09/23/21 20:28 Dose: Not Given Documented by: Levalbuterol HCl (Levalbuterol 1.25mg/0.5ml Neb) 1.25 mg INH Q6R SHAHIDA Stop: 10/16/21 00:59 Last Admin: 09/24/21 12:17 Dose: 1.25 mg Documented by: Levalbuterol HCl (Levalbuterol Hcl 1.25 Mg/3 Ml Neb) 1.25 mg NEB Q2H PRN PRN Reason: Shortness Of Breath Or Wheezing Stop: 10/16/21 00:03 Losartan Potassium (Losartan Potassium 25 Mg Tab) 25 mg PO QPM SHAHIDA Stop: 10/16/21 00:03 Last Admin: 09/23/21 20:28 Dose: 25 mg Documented by: Multivitamins/Minerals (Cerovite Adv Formula Tab) 1 tab PO QAM SHAHIDA Stop: 10/22/21 11:59 Last Admin: 09/24/21 08:21 Dose: 1 tab Documented by: Nitroglycerin (Nitroglycerin Sl 0.4 Mg/Tab Tab) 0.4 mg SL UD PRN PRN Reason: Chest Pain Stop: 10/16/21 00:03 Pantoprazole Sodium (Pantoprazole 40 Mg Tab) 40 mg PO DAILY SHAHIDA Stop: 10/16/21 08:59 Last Admin: 09/24/21 08:21 Dose: 40 mg Documented by: Potassium Phosphate (Pot Phosphate Monobasic W/ Sod Tab) 1 tab PO TID SHAHIDA Stop: 10/24/21 14:19 Roflumilast (Roflumilast 500 Mcg Tab) 500 mcg PO DAILY SHAHIDA Stop: 10/16/21 08:59 Last Admin: 09/24/21 08:20 Dose: 500 mcg Documented by: Tamsulosin HCl (Tamsulosin Hcl 0.4 Mg Cap) 0.4 mg PO HS SHAHIDA Stop: 10/16/21 00:03 Last Admin: 09/23/21 20:28 Dose: 0.4 mg Documented by: Torsemide (Torsemide 10 Mg Tab) 10 mg PO DAILY SHAHIDA Stop: 10/16/21 08:59 Last Admin: 09/24/21 08:21 Dose: 10 mg Documented by: Trazodone HCl (Trazodone Hcl 50 Mg Tab) 150 mg PO HS [facility] Stop: 10/16/21 00:03 Last Admin: 09/23/21 23:38 Dose: 150 mg Documented by: Umeclidinium/Vilanterol (Umeclidinium/Vilanterol 62.5/25mcg 7 Puffs/Inhaler) 1 puffs INH DAILY [facility] Stop: 10/16/21 08:59 Last Admin: 09/24/21 08:21 Dose: 1 puffs Documented by: Vitamin D (Cholecalciferol 1,000 Units 25 Mcg Tab) 4,000 units PO DAILY [facility] Stop: 10/16/21 08:59 Last Admin: 09/24/21 08:20 Dose: 4,000 units Documented by: Warfarin Sodium (Warfarin Sod 4 Mg Tab) 4 mg PO [id number]@1600 [facility] Stop: 10/17/21 15:59 Last Admin: 09/22/21 16:43 Dose: 4 mg Documented by: Warfarin Sodium (Warfarin Sod 2 Mg Tab) 2 mg PO [id number]@1600 [facility] Stop: 10/16/21 15:59 Last Admin: 09/23/21 16:41 Dose: 2 mg Documented by:
[2021-09-24] MEDS: POT PHOSPHATE MONOBASIC W/ SOD TAB PO SCH ×2 (14:52→20:41)
[2021-09-24] MEDS: WARFARIN SOD 4 MG TAB PO SCH (16:56)
[2021-09-24] MEDS: LATANOPROST 0.005% OP SOLN 2.5 ML BTL OP SCH (20:35)
[2021-09-24] MEDS: TAMSULOSIN HCL 0.4 MG CAP PO SCH (20:39)
[2021-09-24] MEDS: LOSARTAN POTASSIUM 25 MG TAB PO SCH (20:40)
[2021-09-24] MEDS: traZODone HCL 50 MG TAB PO SCH (22:42)
[2021-09-25] MEDS: IPRATROPIUM BROMIDE NEB SOLN 0.02% 2.5 ML VIAL INH SCH ×2 (01:09→07:41)
[2021-09-25] MEDS: LEVALBUTEROL 1.25MG/0.5ML NEB INH SCH ×2 (01:10→07:41)
[2021-09-25] MEDS: HYDROcodone/ACETAMINOPHEN 10/325 TAB PO PRN (06:37)
--- NOTE | 2021-09-25 07:14 | Hospitalist Progress Note ---
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 Chronic obstructive pulmonary disease exacerbation Baseline home oxygen 3 L, came in with 2 days of worsening shortness of breath at presentation associated with productive cough. Admitting chest x-ray not suggestive of any new focal lung consolidation but positive for chronic interstitial thickening and emphysema. Patient improved on BiPAP overnight of admission--> patient back to baseline home oxygen. Continue with nebulization, prednisone, s/p doxycycline 5d,, Roflumilast. Status post prednisone for 5 days. Pulmonology consulted: BiPAP nightly and as needed, target O2 saturation between 88 to 92%. doxy for 5 days. Continue Anoro and DuoNeb along with Roflumilast while inpt. Discharge with Trelegy or Breztree. DC with Trelegy. Most likely, patient will need trilogy/AVAPS at home but will defer this to the [facility] pulmonary team as they have been following him regularly. Patient has been referred to the sleep clinic and has an appointment with [place] [facility] for 10/06/2021. Supratherapeutic INR interchanging with subtherapeutic INR - now therapeutic Patient's warfarin held since 09/18 09/19 INR 6.0, INR subtherapeutic today (11/04 on 09/23) Labile INR, still subtherapeutic We will cover with subcutaneous heparin for today, if still subtherapeutic continue to cover with heparin prophylactic dose. We will continue to monitor PT/INR daily Likely secondary to interaction with doxycycline E 11/26 INR 2.3 - therapeutic - cont. to monitor Mild elevation of troponin, asymptomatic. Serial enzymes flat trend between 0.06 -0.09 Likely demand ischemia from acute respiratory distress Admitting EKG: Atrial sensed ventricular rhythm, no acute ST or T changes. 09/16 echo: Ejection fraction 50 to 55%, grade 1 diastolic dysfunction, reduced right ventricular systolic function, mild TR, normal LV chamber size with mild concentric LVH. Patient does not complain of any chest pain at bedside exam. Anemia Baseline hemoglobin around 12, patient on Coumadin, admitting hemoglobin 9.9 FOBT negative, therapeutic INR, iron profile reflective of adequate ferritin storage with low iron suggestive of anemia of chronic disease, vitamin B12 normal, folate below normal Patient is started on folic acid supplementation, continue Patient's hemoglobin improved stable 11-12 Continue to monitor. #. History of atrial fibrillation, history of atrial tachycardia, status post ablation, pacemaker, rate is currently controlled. The patient is on Coumadin, continue, Continue to monitor. #. Benign prostatic hypertrophy . continue finasteride. #. History of chronic diastolic congestive heart failure. Continue torsemide, losartan. Monitor for any volume overload. #. History of hypertension, on losartan and diuretics. We will monitor the blood pressure. #.. Moderate malnutrition. Nutrition consult. Full code DVT prophylaxis: Patient on Coumadin Disposition: PT/OT recommending home with family support, patient reporting no support at home, will need placement. CM working on placement. Can be discharged, awaiting placement. Admission and Anticipated Discharge Date Admission Date: September 15, 2021 Subjective Pt seen in follow up of COPD exacerbation He is lying in bed, on 2 L NC oxygen saturating in higher 90s% overall not in NAD, but does report feeling short of breath martin. with ambulation (this seems to be unchanged from previous) Patient denies headache/chills/chest pain/palpitations/other review of symptoms. Plan to DC to SNF today Review of Systems Review of Systems: All systems reviewed & are unremarkable except as noted in Subjective Physical Exam Physical Exam: GENERAL: Alert and oriented x3. NAD, on 2-3 L nasal cannula. HEENT: NC/AT. EOMI, PERRL. Oral mucosa moist. NECK: No JVD, no neck masses. HEART: S1 and S2 heard. Regular rate and rhythm. No murmur, no gallop. RESPIRATORY: Normal AP diameter. No accessory muscle use. no crackles. Decreased breath sounds bilaterally with no wheezing. Pursed lip breathing noted (this seems to be chronic). ABDOMEN: Soft, bowel sounds present, nontender, no distention. NEURO: No facial droop. Speech is clear.Moves extremities. EXTREMITIES: No edema, no erythema seen. Results & Data Results & Data ([facility]) Vital Signs (Past 12 Hours) Vital Signs Temp Pulse Pulse Resp BP BP Pulse Ox 09/24/21 22:29 37 C 83 22 125/63 97 09/24/21 20:50 82 24 89 L 09/24/21 20:38 86 130/74 91 Laboratory Results 09/25/21 09/25/21 09/25/21 Range/Units 09:44 09:44 09:44 PT 21.9 H (9.0-12.0) Seconds INR 2.3 H (0.9-1.1) Sodium 133 L (136-145) mmol/L Potassium 3.7 (3.5-5.1) mmol/L Chloride 96 L (98-107) mmol/L Carbon Dioxide 35 H (21-32) mmol/L Anion Gap 2.0 L (3-11) BUN 18 (7-18) mg/dl Creatinine 0.97 (0.6-1.4) mg/dl Est Cr Clr Drug Dosing 47.1 ml/min Est GFR ( Amer) 86.3 ml/min Est GFR (Non-Af Amer) 74.5 ml/min BUN/Creatinine Ratio 18.7 (10-20) Glucose 172 H (70-99) mg/dl Calcium 8.8 (8.5-10.1) mg/dl Phosphorus 2.5 (2.5-4.9) mg/dl Magnesium 2.1 (1.8-2.4) mg/dl SARS-CoV-2, RNA, NAAT (NEGATIVE) 09/25/21 Range/Units 09:30 PT (9.0-12.0) Seconds INR (0.9-1.1) Sodium (136-145) mmol/L Potassium (3.5-5.1) mmol/L Chloride (98-107) mmol/L Carbon Dioxide (21-32) mmol/L Anion Gap (3-11) BUN (7-18) mg/dl Creatinine (0.6-1.4) mg/dl Est Cr Clr Drug Dosing ml/min Est GFR ( Amer) ml/min Est GFR (Non-Af Amer) ml/min BUN/Creatinine Ratio (10-20) Glucose (70-99) mg/dl Calcium (8.5-10.1) mg/dl Phosphorus (2.5-4.9) mg/dl Magnesium (1.8-2.4) mg/dl SARS-CoV-2, RNA, NAAT NEGATIVE (NEGATIVE) Medications Administered Current Inpatient Medications Acetaminophen (Acetaminophen 325 Mg Tab) 650 mg PO Q4H PRN PRN Reason: Pain or Fever Stop: 10/16/21 00:03 Last Admin: 09/24/21 17:44 Dose: 650 mg Documented by: Hydrocodone Bitart/Acetaminophen (Hydrocodone/Acetaminophen 10/325 Tab) 1 tab PO TID PRN PRN Reason: Pain Stop: 09/30/21 00:03 Last Admin: 09/25/21 06:37 Dose: 1 tab Documented by: Albuterol (Albuterol Hfa 8 Gm Inhaler) 2 puffs INH Q4H PRN PRN Reason: Shortness Of Breath Stop: 10/16/21 00:03 Lipase/Protease/Amylase (Pancreaze (Lipase 4,200u) Cap) 1 cap PO TIDM SHAHIDA Stop: 10/16/21 07:59 Last Admin: 09/24/21 16:56 Dose: 1 cap Documented by: Brimonidine Tartrate (Brimonidine Tartrate-P 0.15% 5 Ml Btl) 1 drops OP PRN SHAHIDA Stop: 10/17/21 15:59 Last Admin: 09/24/21 13:20 Dose: Not Given Documented by: Docusate Sodium (Docusate Sodium 100 Mg Cap) 100 mg PO BID PRN PRN Reason: Constipation Stop: 10/16/21 00:38 Last Admin: 09/17/21 15:38 Dose: 100 mg Documented by: Dorzolamide HCl (Dorzolamide Hcl 2% Oph Soln 10 Ml Btl) 1 drops OP PRN PRN PRN Reason: as needed Stop: 10/17/21 15:45 Last Admin: 09/20/21 08:08 Dose: 1 drops Documented by: Finasteride (Finasteride 5 Mg Tab) 5 mg PO DAILY SHAHIDA Stop: 10/16/21 08:59 Last Admin: 09/24/21 08:21 Dose: 5 mg Documented by: Folic Acid (Folic Acid 1 Mg Tab) 1 mg PO QAM SHAHIDA Stop: 10/16/21 14:59 Last Admin: 09/24/21 08:21 Dose: 1 mg Documented by: Gabapentin (Gabapentin 400 Mg Cap) 400 mg PO TID SHAHIDA Stop: 10/16/21 00:03 Last Admin: 09/24/21 20:40 Dose: 400 mg Documented by: Heparin Sodium (Porcine) (Heparin Sod 5,000 Unit/0.5 Ml Vial) 5,000 units SQ Q12 SHAHIDA Stop: 10/23/21 10:29 Last Admin: 09/24/21 20:39 Dose: 5,000 units Documented by: Ipratropium [place] (Ipratropium [place] Neb Soln 0.02% 2.5 Ml Vial) 0.5 mg INH Q6R [facility] Stop: 10/16/21 00:59 Last Admin: 09/25/21 01:09 Dose: Not Given Documented by: Lactobacillus Acidoph/Casei/Rhamnos (Advanced Probiotic 1250 Mg Capsule) 2 cap PO DAILY SHAIHDA Stop: 10/16/21 08:59 Last Admin: 09/24/21 08:21 Dose: 2 cap Documented by: Latanoprost (Latanoprost 0.005% Op Soln 2.5 Ml Btl) 1 drops OP HS [facility] Stop: 10/16/21 00:03 Last Admin: 09/24/21 20:35 Dose: Not Given Documented by: Levalbuterol HCl (Levalbuterol 1.25mg/0.5ml Neb) 1.25 mg INH Q6R SHAHIDA Stop: 10/16/21 00:59 Last Admin: 09/25/21 01:10 Dose: Not Given Documented by: Levalbuterol HCl (Levalbuterol Hcl 1.25 Mg/3 Ml Neb) 1.25 mg NEB Q2H PRN PRN Reason: Shortness Of Breath Or Wheezing Stop: 10/16/21 00:03 Losartan Potassium (Losartan Potassium 25 Mg Tab) 25 mg PO QPM [facility] Stop: 10/16/21 00:03 Last Admin: 09/24/21 20:40 Dose: 25 mg Documented by: Multivitamins/Minerals (Cerovite Adv Formula Tab) 1 tab PO QAM [facility] Stop: 10/22/21 11:59 Last Admin: 09/24/21 08:21 Dose: 1 tab Documented by: Nitroglycerin (Nitroglycerin Sl 0.4 Mg/Tab Tab) 0.4 mg SL UD PRN PRN Reason: Chest Pain Stop: 10/16/21 00:03 Pantoprazole Sodium (Pantoprazole 40 Mg Tab) 40 mg PO DAILY SHAHIDA Stop: 10/16/21 08:59 Last Admin: 09/24/21 08:21 Dose: 40 mg Documented by: Potassium Phosphate (Pot Phosphate Monobasic W/ Sod Tab) 1 tab PO TID SHAHIDA Stop: 10/24/21 14:19 Last Admin: 09/24/21 20:41 Dose: 1 tab Documented by: Roflumilast (Roflumilast 500 Mcg Tab) 500 mcg PO DAILY SHAHIDA Stop: 10/16/21 08:59 Last Admin: 09/24/21 08:20 Dose: 500 mcg Documented by: Tamsulosin HCl (Tamsulosin Hcl 0.4 Mg Cap) 0.4 mg PO [facility] Stop: 10/16/21 00:03 Last Admin: 09/24/21 20:39 Dose: 0.4 mg Documented by: Torsemide (Torsemide 10 Mg Tab) 10 mg PO DAILY SHAHIDA Stop: 10/16/21 08:59 Last Admin: 09/24/21 08:21 Dose: 10 mg Documented by: Trazodone HCl (Trazodone Hcl 50 Mg Tab) 150 mg PO [facility] Stop: 10/16/21 00:03 Last Admin: 09/24/21 22:42 Dose: 150 mg Documented by: Umeclidinium/Vilanterol (Umeclidinium/Vilanterol 62.5/25mcg 7 Puffs/Inhaler) 1 puffs INH DAILY SHAHIDA Stop: 10/16/21 08:59 Last Admin: 09/24/21 08:21 Dose: 1 puffs Documented by: Vitamin D (Cholecalciferol 1,000 Units 25 Mcg Tab) 4,000 units PO DAILY SHAHIDA Stop: 10/16/21 08:59 Last Admin: 09/24/21 08:20 Dose: 4,000 units Documented by: Warfarin Sodium (Warfarin Sod 4 Mg Tab) 4 mg PO TuTh@1600 SHAHIDA Stop: 10/17/21 15:59 Last Admin: 09/24/21 16:56 Dose: 4 mg Documented by: Warfarin Sodium (Warfarin Sod 2 Mg Tab) 2 mg PO SuMoWeFrSa@1600 [facility] Stop: 10/16/21 15:59 Last Admin: 09/23/21 16:41 Dose: 2 mg Documented by:
[2021-09-25 07:42] VITALS: O2SAT 96
[2021-09-25] MEDS: UMECLIDINIUM/VILANTEROL 62.5/25MCG 7 PUFFS/INHALER INH SCH (07:59)
[2021-09-25] MEDS: CEROVITE ADV FORMULA TAB PO SCH (07:59)
[2021-09-25] MEDS: ADVANCED PROBIOTIC 1250 MG CAPSULE PO SCH (07:59)
[2021-09-25] MEDS: GABAPENTIN 400 MG CAP PO SCH (07:59)
[2021-09-25] MEDS: TORSEMIDE 10 MG TAB PO SCH (08:00)
[2021-09-25] MEDS: PANTOprazole 40 MG TAB PO SCH (08:00)
[2021-09-25] MEDS: FINASTERIDE 5 MG TAB PO SCH (08:00)
[2021-09-25] MEDS: FOLIC ACID 1 MG TAB PO SCH (08:00)
[2021-09-25] MEDS: CHOLECALCIFEROL 1,000 UNITS 25 MCG TAB PO SCH (08:00)
[2021-09-25] MEDS: ROFLUMILAST 500 MCG TAB PO SCH (08:01)
[2021-09-25] MEDS: POT PHOSPHATE MONOBASIC W/ SOD TAB PO SCH (08:01)
[2021-09-25] MEDS: PANCREAZE (LIPASE 4,200U) CAP PO SCH (08:02)
[2021-09-25] MEDS: HEPARIN SOD 5,000 UNIT/0.5 ML VIAL SQ SCH (08:03)
[2021-09-25 08:30] VITALS: BP 114/67; PULSE 84; TEMP 98.1
[2021-09-25] MEDS: ACETAMINOPHEN 325 MG TAB PO PRN (09:32)
[2021-09-25 10:10] LABS: INR 2.3 (0.9-1.1); Prothrombin Time 21.9 Seconds (9.0-12.0)
[2021-09-25 10:22] LABS: BUN Creatinine Ratio 18.7 (10-20); Calcium 8.8 mg/dl (8.5-10.1); Creatinine Clr Calc Pharmacy 47.1 ml/min; Est GFR (African American) 86.3 ml/min; Est GFR (Non-African American) 74.5 ml/min; Magnesium 2.1 mg/dl (1.8-2.4); Potassium 3.7 mmol/L (3.5-5.1)
[2021-09-25] MEDS ORDERED: predniSONE 10 MG TABLET PO SCH (10:45)
--- NOTE | 2021-09-25 11:53 | Discharge Summary ---
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 As per son, patient fell on Tuesday in the bathroom. Since then he is getting progressively more short of breath, coughing some sputum, no chest pain, no fevers, no nausea, no vomiting, no headache, no blurred visions. Has some runny nose. No sore throat. Appetite is good. Swallows okay. No nausea, no abdominal pain, normal bowel and bladder movements. No swelling in the legs. In the ER, he was requiring BiPAP, mildly tachypneic. Admission Exam Per Admitting Provider GENERAL: The patient is frail, in mild respiratory distress. VITAL SIGNS: Temperature 37.5, pulse 100, respiratory rate 22, blood pressure 119/57, oxygen 99% on BiPAP. HEENT: Pupils equal, round and reactive to light. Oral mucosa moist. NECK: No neck masses seen. CARDIOVASCULAR: S1 and S2 heard. Regular rhythm. No murmur, no gallop. RESPIRATORY SYSTEM: Normal AP diameter. Mild rhonchi. No wheezing. Diminished breath sounds. ABDOMEN: Soft, bowel sounds present, nontender, no distention. CENTRAL NERVOUS SYSTEM: Cranial nerves II-XII grossly intact, nonfocal. EXTREMITIES: No edema, no erythema. Principal Diagnosis Acute on chronic respiratory failure with hypoxemia Chronic obstructive pulmonary disease exacerbation Moderate malnutrition Discharge Exam GENERAL: Alert and oriented x3. NAD, on 2-3 L nasal cannula. HEENT: NC/AT. EOMI, PERRL. Oral mucosa moist. NECK: No JVD, no neck masses. HEART: S1 and S2 heard. Regular rate and rhythm. No murmur, no gallop. RESPIRATORY: Normal AP diameter. No accessory muscle use. no crackles. Decreased breath sounds bilaterally with no wheezing. Pursed lip breathing noted (this seems to be chronic). ABDOMEN: Soft, bowel sounds present, nontender, no distention. NEURO: No facial droop. Speech is clear.Moves extremities. EXTREMITIES: No edema, no erythema seen. Discharge Data Allergies Allergy/AdvReac Type Severity Reaction Status Date / Time chlorhexidine Allergy Severe itchy red Verified 09/15/21 18:04 skin Sulfa (Sulfonamide Allergy Intermediate Rash Verified 09/15/21 18:04 Antibiotics) ("SULFA") Consultations 09/15/21 19:12 ED Decision to Admit Stat 09/16/21 08:00 Consult Pulmonology Routine Hospital Course (1) Acute on chronic respiratory failure with hypoxemia: (2) Moderate malnutrition: 76 yo M w/ hx of COPD, chronic respiratory failure with hypoxia and hypercapnia, on 3 liters oxygen , chronic atrial fibrillation, history of atrial tachycardia, history of ablation status post pacemaker, hypertension, history of external hemorrhoid bleeding, history of hypokalemia, history of moderate malnutrition, GERD, vitamin D3 deficiency, urinary retention, BPH, 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 Chronic obstructive pulmonary disease exacerbation Baseline home oxygen 3 L, came in with 2 days of worsening shortness of breath at presentation associated with productive cough. Admitting chest x-ray not suggestive of any new focal lung consolidation but positive for chronic interstitial thickening and emphysema. Patient improved on BiPAP overnight of admission--> patient back to baseline home oxygen. Continue with nebulization, prednisone, s/p doxycycline 5d,, Roflumilast. Status post prednisone for 5 days. Pulmonology consulted: BiPAP nightly and as needed, target O2 saturation between 88 to 92%. doxy for 5 days. Continue Anoro and DuoNeb along with Roflumilast while inpt. Discharge with Trelegy or Breztree. DC with Trelegy. Most likely, patient will need trilogy/AVAPS at home but will defer this to the [facility] pulmonary team as they have been following him regularly. Patient has been referred to the sleep clinic and has an appointment with [facility] for 10/06/2021. Supratherapeutic INR interchanging with subtherapeutic INR - now therapeutic Patient's warfarin held since 09/18 09/19 INR 6.0, INR subtherapeutic today (1/5 on 09/23) Labile INR, still subtherapeutic We will cover with subcutaneous heparin for today, if still subtherapeutic continue to cover with heparin prophylactic dose. We will continue to monitor PT/INR daily Likely secondary to interaction with doxycycline E 09/25 INR 2.3 - therapeutic - cont. to monitor Mild elevation of troponin, asymptomatic. Serial enzymes flat trend between 0.06 -0.09 Likely demand ischemia from acute respiratory distress Admitting EKG: Atrial sensed ventricular rhythm, no acute ST or T changes. 09/16 echo: Ejection fraction 50 to 55%, grade 1 diastolic dysfunction, reduced right ventricular systolic function, mild TR, normal LV chamber size with mild concentric LVH. Patient does not complain of any chest pain at bedside exam. Anemia Baseline hemoglobin around 12, patient on Coumadin, admitting hemoglobin 9.9 FOBT negative, therapeutic INR, iron profile reflective of adequate ferritin storage with low iron suggestive of anemia of chronic disease, vitamin B12 normal, folate below normal Patient is started on folic acid supplementation, continue Patient's hemoglobin improved stable 11- Continue to monitor. #. History of atrial fibrillation, history of atrial tachycardia, status post ablation, pacemaker, rate is currently controlled. The patient is on Coumadin, continue, Continue to monitor. #. Benign prostatic hypertrophy . continue finasteride. #. History of chronic diastolic congestive heart failure. Continue torsemide, losartan. Monitor for any volume overload. #. History of hypertension, on losartan and diuretics. We will monitor the blood pressure. #.. Moderate malnutrition. Nutrition consult. Full code DVT prophylaxis: Patient on Coumadin Disposition: PT/OT recommending home with family support, patient reporting no support at home, will need placement. CM working on placement. Can be discharged, awaiting placement. Total Time Total Time Spent Total Time Spent (In Minutes): 40 Discharge Plan Discharge Items Patient Disposition: Transfer [facility] Fac Reason For Visit: SOB Discharge Diagnosis: Acute on chronic respiratory failure with hypoxemia Chronic obstructive pulmonary disease exacerbation Moderate malnutrition Activity: Per Instructions section Non-emergency contact: Primary Care Provider and Help Desk Administrator Call non-emergency contact if: you have any medication questions and your symptoms worsen Follow-up/Referrals: Alfred Conrad MD [Primary Care Provider] - ( ) Diet: Regular Diet Texture: Easy to Chew Addtl Attending Provider Instructions: Follow up with your primary care doctor within 1 to 2 weeks. You should also follow-up with your pulmonary (lung) physician. There is a new inhaler prescribed for you, Trelegy, use it daily. Use this instead of Anoro. You were referred to the sleep clinic and have an appointment with [facility] for 10/06/2021. If you can tolerate, can use BiPAP starting at 12/6 and bleeding in 2 L/min of supplemental oxygen and titrate per respiratory protocol. Most likely, you will need trilogy/AVAPS at home but will defer this to the [facility] pulmonary team as they have been following you regularly. Pending Studies at Discharge: No Stand-Alone Forms: My [facility] Skilled Items Patient informed of condition?: Yes DNR: No Discharge Level of Care: Skilled Communicable Disease: No Discharge Prognosis: Stable Lines: None Urinary Catheter: No Medications and DC Order Prescriptions: New Trelegy Ellipta 100-62.5-25 mcg blister with device 1 inh inhalation DAILY Qty: 28 RF: 0 folic acid 1 mg Tablet 1 mg PO QAM Qty: 30 RF: 0 Certavite-Antioxidant 18-400 mg-mcg Tablet 1 tab PO QAM Qty: 30 RF: 0 Continued hydrocodone-acetaminophen 10-325 mg tablet 1 tab PO TID PRN (Reason: Pain) RF: 0 pantoprazole 40 mg tablet,delayed release (DR/EC) 40 mg PO DAILY RF: 0 Lactobacillus acidoph-L.bulgar [Floranex] 1 million cell Tablet 1 tab PO DAILY RF: 0 latanoprost 0.005 % drops 1 drp ophthalmic (eye) HS RF: 0 tamsulosin 0.4 mg capsule 0.4 mg PO HS RF: 0 losartan 25 mg tablet 25 mg PO QPM RF: 0 brimonidine 0.15 % drops 1 drp ophthalmic (eye) TID RF: 0 Creon 3,000-9,500- 15,000 unit Capsule,Delayed Release(Dr/Ec) 1 cap PO TID RF: 0 acetaminophen 325 mg Tablet 325 mg PO Q6H PRN (Reason: Pain) RF: 0 albuterol sulfate 1.25 mg/3 mL Solution For Nebulization 1.25 mg INHALATION TID RF: 0 albuterol sulfate 90 mcg/actuation Hfa Aerosol Inhaler 2 puff INHALATION Q4H PRN (Reason: Shortness Of Breath) RF: 0 docusate sodium 100 mg Tablet 100 mg PO BID PRN (Reason: Constipation) RF: 0 dorzolamide 2 % Drops 1 drp OPHTHALMIC (EYE) TID RF: 0 cholecalciferol (vitamin D3) [Vitamin D3] 2,000 unit Capsule 4,000 unit PO DAILY RF: 0 gabapentin 400 mg capsule 400 mg PO TID RF: 0 torsemide 10 mg tablet 10 mg PO DAILY RF: 0 warfarin 4 mg tablet See Rx Instructions .ROUTE .COMPLEX RF: 0 trazodone 100 mg tablet 150 mg PO HS RF: 0 finasteride 5 mg tablet 5 mg PO DAILY RF: 0 Discontinued roflumilast 500 mcg Tablet 500 mcg PO DAILY RF: 0 Anoro Ellipta 62.5-25 mcg/actuation blister with device 1 inh INHALATION DAILY RF: 0 prednisone 5 mg tablet 10 mg PO DAILY RF: 0 Discharge Orders: Discharge Order (Routine); Ordered 09/25/21 Ordered By: Aditya Patel/Other Patient Handouts: Discharge Instructions: COPD Admission Data Admit Date/Time: 09/15/21 20:04 Attending Provider: Aditya Carrion Admit Provider: Arie Leslie Primary Care Provider: Alfred Conrad Other Providers: [place] ; Nabila Kenny [facility] ; [facility] ; Arie Leslie ; Marky Stone ; Scott Silva Other Interventions: Discharge Summary Assessment (RN) Last Done: 09/25/21 11:32
== END 2021-09-25 12:45 | DRG 189 ==
LOC: ED 17:20 → SUATTDRO 20:04 → 1E 20:04 → 2S 09-16 20:56 → 3N 09-20 16:14